=== PATIENT | male | born 1955 | race African-American/Black ===

== ENCOUNTER 2016-11-15 15:06 | Emergency (ER) | payer OTHER ==
[~2016-11-15] VITALS: Ht 162.6 cm; Wt 112.5 kg
[~2016-11-15 15:06] MED LIST: AMBIEN10 MG PO; AMIODARONE HCL100 MG ORAL; AMLODIPINE BESY10 MG ORAL; ASPIR-LOW81 MG PO; ASPIRIN EC81 MG PO; AZITHROMYCIN250 MG ORAL; CALAN80 MG ORAL; CARDIZEM CD180 MG PO; CARVEDILOL6.25 MG ORAL; CATAPRES0.1 MG ORAL; COLACE100 MG ORAL; COUMADIN5 MG ORAL; COUMADIN7.5 MG ORAL; COZAAR25 MG PO; DILTIAZEM 24HR180 MG PO; DOXAZOSIN MESYLA4 MG ORAL; DYAZIDE 37.5-21 EACH PO; FUROSEMIDE40 MG ORAL; LASIX40 MG ORAL; METOPROLOL TAR100 MG ORAL; METOPROLOL TART25 MG ORAL; METOPROLOL TART50 MG ORAL; MILK OF MA400 MG/51 ORAL; NICODERM 21MG/241 EA TDERMAL; NORCO 5-325 TA1 EACH PO; OMEPRAZOLE40 MG PO; PEPCID20 MG PO; POTASSIUM CHLO20 ME1 ORAL; POTASSIUM CHLO20 ME1 PO; PRILOSEC20 MG PO; PRILOSEC40 MG PO; PROPAFENONE HC150 MG PO; PROTONIX40 MG ORAL; TAMIFLU75 MG ORAL; VICODIN 5-5001 EACH PO; VICODIN ES1 EA ORAL; WARFARIN SODIUM4 MG ORAL; ZESTRIL20 MG PO; ZOLOFT100 MG ORAL
[2016-11-15] MEDS ORDERED: Morphine Sulfate 2mg/ml Inj IVP ONE (15:30)
--- NOTE | 2016-11-15 15:35 | Emergency Room Report ---
History of Present Illness General Chief Complaint: Gastrointestinal Illness Source: Patient Present Illness HPI The patient presents with having black tarry bowel movements that began yesterday. He was seen by his physicians who referred him to us here. He also had a slight amount of bleeding from his left nose last night. There has not been significant nose bleeding. The patient has a history of GI bleed with gastric ulcer and ulcerative colitis. He was on Coumadin for a long period of time but has been off since May. He was on Coumadin for DVTs (although records record a fib with RVR). He is not on any anticoagulation at the moment. He does complain about pain in his stomach. The pain is epigastric nonradiating 6/10 pressure and burning constant. Nothing taking any medication for this recently. He also has a psychiatric history. Not depressed at this time. No fevers, cough, chest pain, palpitations, vomiting. No swelling in his legs, dyspnea, hemoptysis. Allergies: Coded Allergies: BENZOIN (Unverified Allergy, Severe, 12/28/14) AMOXICILLIN (Verified Allergy, Intermediate, 11/18/12) ABD PAIN N/V Patient History Past Medical History: see triage record Social History: Denies: alcohol use, drug use Social History Narrative at home Reviewed Nursing Documentation: PMH: Agreed, PSxH: Agreed Nursing Documentation-PMH Past Medical History: No History, Except For Hx Cardiac Problems: Yes - HEART FAILURE; Hep C Hx Hypertension: Yes Hx Asthma: Yes - bronchitis Hx COPD: Yes Hx Cancer: No Hx Gastrointestinal Problems: Yes - CROHN'S DISEASE Hx Dialysis: No - KIDNEY FAILURE, NO HD Hx Neurological Problems: No Hx Cerebrovascular Accident: No - ARTHRITIS Review of Systems All Other Systems: negative except mentioned in HPI Physical Exam Vital Signs Date Time Temp Pulse Resp B/P Pulse Ox O2 Delivery O2 Flow Rate FiO2 11/15/16 15:16 98.1 77 20 150/80 98 Room Air Sp02 EP Interpretation: reviewed, normal General Appearance: well appearing, no apparent distress, GCS 15 Head: normocephalic Eyes: bilateral eye PERRL, bilateral eye normal inspection ENT: moist mucus membranes, other - no blood in nare or posterior pharynx Neck: supple Respiratory: lungs clear, normal breath sounds Cardiovascular #1: regular rate, rhythm Cardiovascular #2: 2+ radial (R) Gastrointestinal: normal inspection, normal bowel sounds, non tender, no mass, non-distended Rectal: heme negative stool Musculoskeletal: back normal, gait/station normal, normal range of motion Neurologic: alert, oriented x3, grossly normal Psychiatric: mood/affect normal Skin: other - multiple scars all over body Medical Decision Making Diagnostic Impression: Primary Impression: Abdominal pain Qualified Codes: R10.9 - Unspecified abdominal pain Additional Impression: Chronic kidney disease Qualified Codes: N18.9 - Chronic kidney disease, unspecified ER Course Patient presents with black stools and bleeding from his nose. Was on anticoagulation, not not currently. DDx: PUD, gastritis, diverticulosis, coagulopathy amongst others. Need emergent evaluation with labs including coags. Guaiac negative stool suggests problem not active at this time. Labs are consistent with most recent values. H/H has been stable and renal function has be at this level. No evidence of active bleeding at this time. Patient improved with treatment. Stable for outpatient observation and treatment. Laboratory Tests Test 11/15/16 15:30 White Blood Count 4.6 K/UL (4.8-10.8) L Red Blood Count 4.06 M/UL (4.70-6.10) L Hemoglobin 11.4 G/DL (14.2-18.0) L Hematocrit 35.3 % (42.0-52.0) L Mean Corpuscular Volume 87 FL (80-99) Mean Corpuscular Hemoglobin 28.1 PG (27.0-31.0) Mean Corpuscular Hemoglobin Concent 32.4 G/DL (32.0-36.0) Red Cell Distribution Width 15.6 % (11.6-14.8) H Platelet Count 175 K/UL (150-450) Mean Platelet Volume 9.5 FL (6.5-10.1) Neutrophils (%) (Auto) 56.1 % (45.0-75.0) Lymphocytes (%) (Auto) 27.5 % (20.0-45.0) Monocytes (%) (Auto) 12.8 % (1.0-10.0) H Eosinophils (%) (Auto) 1.2 % (0.0-3.0) Basophils (%) (Auto) 2.5 % (0.0-2.0) H Prothrombin Time 11.0 SEC (9.30-11.50) Prothrombin Time INR 1.1 (0.9-1.1) PTT 26 SEC (23-33) Urine Color Pale yellow Urine Appearance Clear Urine pH 5 (4.5-8.0) Urine Specific [place] 1.015 (1.005-1.035) Urine Protein Negative (NEGATIVE) Urine Glucose (UA) Negative (NEGATIVE) Urine Ketones Negative (NEGATIVE) Urine Occult Blood Negative (NEGATIVE) Urine Nitrite Negative (NEGATIVE) Urine Bilirubin Negative (NEGATIVE) Urine Urobilinogen Normal MG/DL (0.0-1.0) Urine Leukocyte Esterase 1+ (NEGATIVE) H Urine RBC 0-2 /HPF (0 - 0) H Urine WBC 0-2 /HPF (0 - 0) Urine Squamous Epithelial Cells None /LPF (NONE/OCC) Urine Bacteria Occasional /HPF (NONE) Sodium Level 140 mEQ/L (135-145) Potassium Level 3.4 mEQ/L (3.4-4.9) Chloride Level 97 mEQ/L (98-107) L Carbon Dioxide Level 29 mEQ/L (20-30) Anion Gap 14 (5-15) Blood Urea Nitrogen 27 mg/dL (7-23) H Creatinine 2.1 mg/dL (0.7-1.2) H Estimate Glomerular Filtration Rate 39.3 mL/min (>60) Glucose Level 94 mg/dL (74-106) Calcium Level 8.8 mg/dL (8.6-10.2) Total Bilirubin 0.3 mg/dL (0.0-1.2) Aspartate Amino Transferase (AST) 22 U/L (5-40) Alanine Aminotransferase (ALT) 18 U/L (3-41) Alkaline Phosphatase 134 U/L (40-129) H Troponin I < 0.30 ng/mL (<=0.30) Total Protein 7.3 g/dL (6.6-8.7) Albumin 4.0 g/dL (3.5-5.2) Globulin 3.3 g/dL Albumin/Globulin Ratio 1.2 (1.0-2.7) Lipase 33 U/L (< 60) EKG Diagnostic Results Rate: bradycardiac ST Segments: no acute changes - RBBB Rhythm Strip Diag. Results EP Interpretation: yes Rhythm: no PVC's, no ectopy, other - mimi Chest X-Ray Diagnostic Results EP Interpretation: Yes Findings: no consolidation, no effusion, no pneumothorax, no acute cardiopulmonary disease Number of Views: 1 Other X-Ray Diagnostic Results Other X-Ray Diagnostic Results : X-Ray Ordered: abdomen EP Interpretation: Yes Findings: other - increased stool, no obstruction, NSBGP Number of Views: 2 Last Vital Signs Date Time Temp Pulse Resp B/P Pulse Ox O2 Delivery O2 Flow Rate FiO2 11/15/16 17:45 98.0 56 20 134/76 98 Room Air Status: improved Disposition: HOME, SELF-CARE Condition: Improved Scripts Tramadol Hcl* (ULTRAM*) 50 Mg Tablet 50 MG ORAL Q6H Y for For Pain, #14 TAB 0 Refills Prov: Asad De La O M.D. 11/15/16 Famotidine (PEPCID) 40 Mg Tablet 40 MG PO QHS, #30 TAB 0 Refills Prov: Asad De La O M.D. 11/15/16 Referrals: [facility]ERR[facility] (PCP) Asad De La O M.D. Nov 15, 2016 15:35
[2016-11-15 16:09] LABS: BASOPHILS % (AUTO) 2.5 % (0.0-2.0); EOSINOPHILS % (AUTO) 1.2 % (0.0-3.0); LYMPHOCYTES % (AUTO) 27.5 % (20.0-45.0); MEAN CORPUSCULAR HEMOGLOBIN 28.1 PG (27.0-31.0); MEAN CORPUSCULAR HGB CONC 32.4 G/DL (32.0-36.0); MEAN CORPUSCULAR VOLUME 87 FL (80-99); MEAN PLATELET VOLUME 9.5 FL (6.5-10.1); MONOCYTES % (AUTO) 12.8 % (1.0-10.0); NEUTROPHILS % (AUTO) 56.1 % (45.0-75.0); PLATELET COUNT 175 K/UL (150-450); RED BLOOD COUNT 4.06 M/UL (4.70-6.10); RED CELL DISTRIBUTION WIDTH 15.6 % (11.6-14.8); WHITE BLOOD COUNT 4.6 K/UL (4.8-10.8)
[2016-11-15 16:12] LABS: APPEARANCE,URINE CLEAR; KETONES,URINE NEGATIVE (NEGATIVE); LEUKOCYTE ESTERASE ,URINE 1+ (NEGATIVE); NITRITE,URINE NEGATIVE (NEGATIVE); PH,URINE 5 (4.5-8.0); PROTEIN,URINE NEGATIVE (NEGATIVE); UROBILINOGEN,URINE NORMAL MG/DL (0.0-1.0)
[2016-11-15 16:20] LABS: INR 1.1 (0.9-1.1)
[2016-11-15 16:24] LABS: ALBUMIN/GLOBULIN RATIO 1.2 (1.0-2.7); CALCIUM 8.8 mg/dL (8.6-10.2); CREATININE 2.1 mg/dL (0.7-1.2); GLOMERULAR FILTRATION RATE 39.3 mL/min (>60); POTASSIUM 3.4 mEQ/L (3.4-4.9); TOTAL PROTEIN 7.3 g/dL (6.6-8.7); TROPONIN I < 0.30 ng/mL (<=0.30)
[2016-11-15 16:29] LABS: RBC,URINE 0-2 /HPF (0 - 0)
[2016-11-15 16:30] LABS: BACTERIA,URINE OCCASIONAL /HPF; WBC,URINE 0-2 /HPF (0 - 0)
--- NOTE | 2016-11-15 16:48 | Diagnostic Imaging Report ---
Indication: Chest Pain Comparison: 09/28/15 A single view chest radiograph was obtained. Findings: No definite infiltrate or pulmonary vascular congestion identified. The heart is enlarged. The aorta is mildly enlarged consistent with atherosclerotic vascular disease. The bones are osteopenic. Impression: No acute disease
--- NOTE | 2016-11-15 16:49 | Diagnostic Imaging Report ---
Indication: Abdominal pain Comparison: None Single view of the abdomen obtained Findings: Bowel gas pattern is nonspecific. There is moderate stool present. No mass, ectopic calcifications, or abnormal gas collections are identified. The bones are unremarkable. Impression: Moderate stool retention. Negative exam otherwise
[2016-11-15 17:29] VITALS: BP 134/76
[2016-11-15] MEDS ORDERED: PEPCID40 MG PO (17:41)
[2016-11-15] MEDS ORDERED: TRAMADOL HCL50 MG ORAL (17:41)
[2016-11-15 17:45] VITALS: BP 134/76
--- NOTE | 2016-11-18 11:46 | Cardiology Report ---
APPROVED REPORT EKG Measurement Heart [id number] NM [id number] Sinus bradycardia Left axis deviation Right bundle branch block Left ventricular hypertrophy with repolarization abnormality Abnormal ECG
== END 2016-11-15 18:03 | disposition home or self-care (01) ==
LOC: EMR 15:25
DX: R10.13 Epigastric pain (principal); Z87.11 Personal history of peptic ulcer disease; Z87.19 Personal history of other diseases of the digestive system; Z88.0 Allergy status to penicillin; Z88.8 Allergy status to other drugs, medicaments and biological substances; I10 Essential (primary) hypertension; J45.909 Unspecified asthma, uncomplicated; J44.9 Chronic obstructive pulmonary disease, unspecified
CPT/HCPCS: 36415; 71010; 74000; 80053; 81003; 83690; 84484; 85025; 85610; 85730; 86850; 86900; 86901; 93005; 96361; 96374; 96375; 99284; J2270; J2405

== ENCOUNTER 2017-05-15 20:27 | Emergency (ER) | payer OTHER ==
[~2017-05-15] VITALS: Ht 165.1 cm; Wt 115.7 kg
[~2017-05-15 20:27] MED LIST changes: +PEPCID40 MG PO; +TRAMADOL HCL50 MG ORAL
[2017-05-15 21:01] VITALS: BP 115/62
--- NOTE | 2017-05-15 21:22 | Emergency Room Report ---
History of Present Illness General Chief Complaint: Edema Source: Patient (JOSE BRADYCaitie Guzman.Melvin) Source: Patient (JOSE ALBARRAN M.D.) Present Illness HPI This patient states that he notes swelling on his left lower extremity. He states that he is noted this for the past 3 days. He denies injury. He denies fever, chills or sweating. He denies cough or congestion. He has no other complaints. (PIRNCEAndreCHHAYA Guzman.Melvin) Allergies: Coded Allergies: BENZOIN (Unverified Allergy, Severe, 12/28/14) AMOXICILLIN (Verified Allergy, Intermediate, 11/18/12) ABD PAIN N/V Patient History Past Medical History: see triage record, HTN, [place], CAD, CHF, asthma, renal disease, other - HCV Social History: Denies: alcohol use, drug use, smoking Reviewed Nursing Documentation: PMH: Agreed, PSxH: Agreed (JOSE BRADYCaitie Guzman.Melvin ) Nursing Documentation-PMH Past Medical History: No History, Except For Hx Cardiac Problems: Yes - HEART FAILURE; Hep C Hx Hypertension: Yes Hx Asthma: Yes - Bronchitis Hx COPD: Yes Hx Cancer: No Hx Gastrointestinal Problems: Yes - CROHN'S DISEASE Hx Dialysis: No - KIDNEY FAILURE, NO HD Hx Neurological Problems: No Hx Cerebrovascular Accident: No - ARTHRITIS (CHHAYA BRADY.Melvin) Review of Systems All Other Systems: negative except mentioned in HPI (JOSE ANTONIOCHHAYA Guzman.Melvin) Physical Exam Vital Signs Date Time Temp Pulse Resp B/P Pulse Ox O2 Delivery O2 Flow Rate FiO2 05/15/17 20:30 98.2 68 16 147/76 100 Room Air Sp02 EP Interpretation: reviewed, normal General Appearance: no apparent distress, alert, GCS 15, non-toxic Head: normocephalic, atraumatic Eyes: bilateral eye PERRL, bilateral eye normal inspection ENT: hearing grossly normal, normal pharynx, no angioedema, normal voice Neck: full range of motion, supple/symm/no masses Respiratory: chest non-tender, lungs clear, normal breath sounds, speaking full sentences Cardiovascular #1: regular rate, rhythm, other - BLE Edema L>R Gastrointestinal: normal bowel sounds, non tender, soft, non-distended, no guarding, no rebound Rectal: deferred Musculoskeletal: back normal, gait/station normal, normal range of motion, swelling - BLE Edema L>R. L. calf TTP Neurologic: alert, oriented x3, responsive, motor strength/tone normal, sensory intact, speech normal Psychiatric: judgement/insight normal, memory normal, mood/affect normal, no suicidal/homicidal ideation Skin: normal color, no rash, warm/dry, well hydrated (CHHAYA BRADY D.O.) Medical Decision Making Diagnostic Impression: Primary Impression: Edema Qualified Codes: R60.9 - Edema, unspecified ER Course This patient has bilateral lower extremity edema. The left is greater in the right and has pain on the left lower extremity. Therefore, should obtain an ultrasound of the left lower extremity to assess for DVT. This could also be right-sided heart failure. The patient is pending basic labs, chest x-ray and a venous Doppler ultrasound of the left lower extremity. The patient is turned over to Dr. Albarran. (CHHAYA BRADY D.O.) ER Course Patient signed out to me. He presents with chief complaint of peripheral edema left greater than right. Labs are at baseline with renal insufficiency. Oxygenation is normal. He has no respiratory complaint. Clinically no evidence of CHF. DVT study is negative. We'll discharge home. Ultrasound of left lower extremity: Read by radiologist. Negative for DVT. Impression: Peripheral edema Plan: Discharge home. (JOSE ALBARRAN M.D.) CT/MRI/US Diagnostic Results CT/MRI/US Diagnostic Results : Imaging Test Ordered: Ultrasound left leg Impression negative per radiologist (JOSE ALBARRAN M.D.) Last Vital Signs Date Time Temp Pulse Resp B/P Pulse Ox O2 Delivery O2 Flow Rate FiO2 05/15/17 21:16 63 23 Room Air 05/15/17 21:01 98.2 115/62 98 (CHHAYA BRADY D.O.) Status: improved (JOSE ALBARRAN M.D.) Disposition: HOME, SELF-CARE Condition: Stable Scripts Furosemide* (LASIX*) 20 Mg Tablet 20 MG ORAL DAILY, #7 TAB Prov: JOSE ALBARRAN M.D. 05/15/17 Patient Instructions: Peripheral Edema Additional Instructions: Followup with your DrGhislaine in 7 days. Return if worse. CHHAYA BRADY D.O. May 15, 2017 21:22 JOSE ALBARRAN M.D. May 15, 2017 22:36
[2017-05-15 21:33] LABS: BASOPHILS % (AUTO) 1.9 % (0.0-2.0); EOSINOPHILS % (AUTO) 1.7 % (0.0-3.0); LYMPHOCYTES % (AUTO) 27.2 % (20.0-45.0); MEAN CORPUSCULAR HEMOGLOBIN 31.6 PG (27.0-31.0); MEAN CORPUSCULAR HGB CONC 33.3 G/DL (32.0-36.0); MEAN CORPUSCULAR VOLUME 95 FL (80-99); MEAN PLATELET VOLUME 8.6 FL (6.5-10.1); MONOCYTES % (AUTO) 15.6 % (1.0-10.0); NEUTROPHILS % (AUTO) 53.6 % (45.0-75.0); PLATELET COUNT 159 K/UL (150-450); RED BLOOD COUNT 3.89 M/UL (4.70-6.10); RED CELL DISTRIBUTION WIDTH 14.2 % (11.6-14.8); WHITE BLOOD COUNT 4.7 K/UL (4.8-10.8)
[2017-05-15 21:47] LABS: TROPONIN I < 0.30 ng/mL (<=0.30)
[2017-05-15 21:50] LABS: ALBUMIN/GLOBULIN RATIO 1.1 (1.0-2.7); CALCIUM 9.1 mg/dL (8.6-10.2); GLOMERULAR FILTRATION RATE 41.6 mL/min (>60); POTASSIUM 3.1 mEQ/L (3.4-4.9); TOTAL PROTEIN 6.8 g/dL (6.6-8.7)
[2017-05-15] MEDS ORDERED: FUROSEMIDE20 M1 ORAL (22:36)
[2017-05-15 22:51] VITALS: BP 134/79
== END 2017-05-15 22:52 | disposition home or self-care (01) ==
LOC: EMR 21:20
DX: R60.0 Localized edema (principal); I10 Essential (primary) hypertension; J44.9 Chronic obstructive pulmonary disease, unspecified
CPT/HCPCS: 36415; 80053; 83880; 84484; 85025; 93970; 96374; 99284; J1940

== ENCOUNTER 2020-03-28 10:56 | Inpatient (IN) | payer OTHER ==
[~2020-03-28] VITALS: Ht 162.6 cm; Wt 87.5 kg
[~2020-03-28 10:56] MED LIST changes: +FUROSEMIDE20 M1 ORAL; +ONDANSETRON ODT4 MG BC; +RANITIDINE HCL150 MG ORAL
[2020-03-28] MEDS ORDERED: CALCIUM ACETAT667 M1 PO (11:28)
[2020-03-28] MEDS ORDERED: ELIQUIS5 MG PO (11:28)
[2020-03-28] MEDS ORDERED: PROAIR HFA8.5 GM INH (11:28)
[2020-03-28] MEDS ORDERED: FLUTICASONE PRO16 G1 NASAL (11:28)
[2020-03-28] MEDS ORDERED: ACETAMINOPHEN500 M3 ORAL (11:28)
[2020-03-28] MEDS ORDERED: ANORO ELLIPTA1 EACH (11:28)
[2020-03-28] MEDS ORDERED: AMIODARONE HCL400 M1 ORAL (11:28)
[2020-03-28 11:34] VITALS: BP 153/78
[2020-03-28 11:34] LABS: HEMATOCRIT 28.6 % (42.0-52.0); HEMOGLOBIN 9.6 G/DL (14.2-18.0); MEAN CORPUSCULAR VOLUME 90 FL (80-99); PLATELET COUNT 174 K/UL (150-450); RED BLOOD COUNT 3.16 M/UL (4.70-6.10); RED CELL DISTRIBUTION WIDTH 12.3 % (11.6-14.8); WHITE BLOOD COUNT 6.1 K/UL (4.8-10.8)
[2020-03-28 11:39] LABS: ANION GAP 19 mmol/L (5-15); BLOOD UREA NITROGEN 86 mg/dL (7-18); CALCIUM 8.3 MG/DL (8.5-10.1); CARBON DIOXIDE 19 MMOL/L (21-32); CHLORIDE 104 MMOL/L (98-107); CREATININE 17.4 MG/DL (0.55-1.30); POTASSIUM 5.1 MMOL/L (3.5-5.1); SODIUM 141 MMOL/L (136-145)
--- NOTE | 2020-03-28 11:41 | Emergency Room Report ---
History of Present Illness General Chief Complaint: Chest Pain Source: Patient Present Illness HPI Disclaimer: Please note that this report is being documented using [employer] technology. This can lead to erroneous entry secondary to incorrect interpretation by the dictating instrument. HPI: 69-year-old male with history of ESRD on hemodialysis MWF, CHF, atrial fibrillation currently on Eliquis presents for evaluation of chest pain shortness of breath. Patient states he has missed dialysis for the past week due to transportation issues. Over the past 3 days he notes bilateral chest pressure, intermittent shortness of breath, difficulty laying flat and profound weakness. States he is no longer able to get around. He denies fever, chills. He has a baseline cough but denies any change in quality of this cough. He is also complaining of some pain over the dialysis catheter in the right side of his chest though this is a chronic issue and there is no new injury, denies bleeding, swelling or purulent drainage. PMH: ESRD, CHF, atrial fibrillation, bronchitis, Crohn's disease PSH: Dialysis catheter formation Allergies: Amoxicillin Social Hx: Reviewed Allergies: Coded Allergies: BENZOIN (Unverified Allergy, Severe, 12/28/14) AMOXICILLIN (Verified Allergy, Intermediate, 11/18/12) ABD PAIN N/V COVID-19 Screening Contact w/high risk pt: No Recent Travel to affected area: No Experienced COVID-19 symptoms?: No COVID-19 Testing performed SPECIAL OFFICER: No Nursing Documentation-PMH Past Medical History: No History, Except For Hx Cardiac Problems: Yes - HEART FAILURE; Hep C Hx Hypertension: Yes Hx Asthma: Yes - Bronchitis Hx COPD: Yes Hx Cancer: No Hx Gastrointestinal Problems: Yes - CROHN'S DISEASE Hx Dialysis: No - KIDNEY FAILURE, dialysis mwf Hx Neurological Problems: No Hx Cerebrovascular Accident: No - ARTHRITIS Review of Systems All Other Systems: negative except mentioned in HPI Physical Exam Vital Signs Date Time Temp Pulse Resp B/P (MAP) Pulse Ox O2 Delivery O2 Flow Rate FiO2 03/28/20 11:09 98.8 62 14 153/78 (103) 98 Room Air General: Awake and alert, no acute distress, hypertensive HEENT: NC/AT. EOMI. Neck: Supple, trachea midline Chest Wall: No tenderness, no deformity. Dialysis catheter in the right upper chest without surrounding edema, erythema, no drainage, no bleeding. Cardiovascular: RRR. S1 and S2 normal. No murmur appreciated Resp: Normal work of breathing. Mild cough. Few crackles at the bases Abdomen: Abdomen is soft, nondistended. Nontender Skin: Intact. No abrasions, laceration or rash over the exposed skin MSK: Normal tone and bulk. Moving all extremities. No obvious deformity. Neuro: Awake and alert. Mentating appropriately. Medical Decision Making Diagnostic Impression: Primary Impression: ESRD on dialysis Additional Impressions: Congestive heart failure Missed dialysis ER Course 64-year-old male history of ESRD on hemodialysis MWF presents for evaluation of chest pain shortness of breath and fatigue after missing dialysis for 1 week. Differential includes but is not limited to fluid overload, ACS, arrhythmia, bronchitis, asthma, COPD, electrolyte abnormality to name a few. Labs show an elevated BN peptide and signs of mild vascular congestion on chest x-ray. The patient states he continues to experience the chest pressure and shortness of breath while lying flat. Likely fluid overload from missed dialysis. He makes a small amount of urine and gave IV Lasix but the patient has had no urine output yet. Labs otherwise within normal limits. EKG shows a left bundle pattern and slightly widened QRS though not grossly changed from previous EKG. patient be admitted for fluid overload and ESRD to Dr. Russ who is the panel physician today. Laboratory Tests Test 03/28/20 11:20 03/28/20 11:25 03/28/20 12:25 White Blood Count 6.1 K/UL (4.8-10.8) Red Blood Count 3.16 M/UL (4.70-6.10) L Hemoglobin 9.6 G/DL (14.2-18.0) L Hematocrit 28.6 % (42.0-52.0) L Mean Corpuscular Volume 90 FL (80-99) Mean Corpuscular Hemoglobin 30.3 PG (27.0-31.0) Mean Corpuscular Hemoglobin Concent 33.5 G/DL (32.0-36.0) Red Cell Distribution Width 12.3 % (11.6-14.8) Platelet Count 174 K/UL (150-450) Mean Platelet Volume 5.5 FL (6.5-10.1) L Neutrophils (%) (Auto) % (45.0-75.0) Lymphocytes (%) (Auto) % (20.0-45.0) Monocytes (%) (Auto) % (1.0-10.0) Eosinophils (%) (Auto) % (0.0-3.0) Basophils (%) (Auto) % (0.0-2.0) Differential Total Cells Counted 100 Neutrophils % (Manual) 60 % (45-75) Lymphocytes % (Manual) 33 % (20-45) Monocytes % (Manual) 7 % (1-10) Eosinophils % (Manual) 0 % (0-3) Basophils % (Manual) 0 % (0-2) Band Neutrophils 0 % (0-8) Platelet Estimate Adequate Platelet Morphology Normal Hypochromasia 1+ Sodium Level 141 MMOL/L (136-145) Potassium Level 5.1 MMOL/L (3.5-5.1) Chloride Level 104 MMOL/L (98-107) Carbon Dioxide Level 19 MMOL/L (21-32) L Anion Gap 19 mmol/L (5-15) H Blood Urea Nitrogen 86 mg/dL (7-18) H Creatinine 17.4 MG/DL (0.55-1.30) H Estimated Glomerular Filtration Rate 3.4 mL/min (>60) Glucose Level 90 MG/DL (74-106) Calcium Level 8.3 MG/DL (8.5-10.1) L Total Bilirubin 0.4 MG/DL (0.2-1.0) Aspartate Amino Transferase (AST) 15 U/L (15-37) Alanine Aminotransferase (ALT) 20 U/L (12-78) Alkaline Phosphatase 61 U/L (46-116) Troponin I 0.033 ng/mL (0.000-0.056) Pro-B-Type Natriuretic Peptide 9344 pg/mL (0-125) H Total Protein 7.0 G/DL (6.4-8.2) Albumin 3.6 G/DL (3.4-5.0) Globulin 3.4 g/dL Albumin/Globulin Ratio 1.1 (1.0-2.7) Prothrombin Time 12.0 SEC (9.30-11.50) H Prothrombin Time INR 1.1 (0.9-1.1) Activated Partial Thromboplast Time 30 SEC (23-33) Urine Color Pending Urine Appearance Pending Urine pH Pending Urine Specific [place] Pending Urine Protein Pending Urine Glucose (UA) Pending Urine Ketones Pending Urine Blood Pending Urine Nitrite Pending Urine Bilirubin Pending Urine Urobilinogen Pending Urine Leukocyte Esterase Pending Urine RBC Pending Urine WBC Pending Urine Squamous Epithelial Cells Pending Urine Bacteria Pending EKG Diagnostic Results EKG Time: 11:00 Rate: normal Rhythm: NSR Other Impression Sinus rhythm, wide QRS and right bundle branch block pattern. Possible left bundle as well. No ST segment changes. Nonspecific T wave changes, no hyperacute T waves. Rhythm Strip Diag. Results Rhythm Strip Time: 11:00 EP Interpretation: yes Rate: 60 Rhythm: NSR, no PVC's, no ectopy Chest X-Ray Diagnostic Results Chest X-Ray Diagnostic Results : Chest X-Ray Ordered: Yes Indication: Chest Pain EP Interpretation: Yes Interpretation: other - Dialysis catheter right upper chest. Bilateral pulmonary congestion. No obvious effusion. No pneumothorax Impression: Other - Bilateral pulmonary congestion. Electronically Signed by: Electronically signed by Dr. Williams Fernandes Last Vital Signs Date Time Temp Pulse Resp B/P (MAP) Pulse Ox O2 Delivery O2 Flow Rate FiO2 03/28/20 11:34 98.8 69 14 153/78 98 Room Air Disposition: ADMITTED INPATIENT Condition: Serious Referrals: NON PHYSICIAN (PCP) Williams Fernandes MD Mar 28, 2020 11:41
[2020-03-28 11:50] LABS: ALANINE AMINOTRANSFERASE 20 U/L (12-78); ALBUMIN 3.6 G/DL (3.4-5.0); ALBUMIN/GLOBULIN RATIO 1.1 (1.0-2.7); ALKALINE PHOSPHATASE 61 U/L (46-116); ASPARTATE AMINO TRANSFERASE 15 U/L (15-37); BILIRUBIN,TOTAL 0.4 MG/DL (0.2-1.0)
[2020-03-28 12:20] LABS: INR 1.1 (0.9-1.1)
[2020-03-28 12:59] LABS: APPEARANCE,URINE CLEAR; BILIRUBIN, URINE NEGATIVE (NEGATIVE); COLOR,URINE PALE YELLOW; GLUCOSE, URINE (UA) NEGATIVE (NEGATIVE); KETONES,URINE NEGATIVE (NEGATIVE); LEUKOCYTE ESTERASE ,URINE 1+ (NEGATIVE); NITRITE,URINE NEGATIVE (NEGATIVE); PH,URINE 5 (4.5-8.0); PROTEIN,URINE 3+ (NEGATIVE); UROBILINOGEN,URINE NORMAL MG/DL (0.0-1.0)
[2020-03-28 13:42] VITALS: BP 143/85
--- NOTE | 2020-03-28 14:55 | Diagnostic Imaging Report ---
Indication: Chest pain Technique: One view of the chest Comparison: 11/15/2016 Findings: Right jugular tunneled dialysis catheter is now present. There is generalized mild interstitial congestion which appears slightly more extensive than on the prior study. The heart is enlarged. Impression: Cardiomegaly. Mild interstitial congestion
[2020-03-28] MEDS ORDERED: Albuterol ud Inhalation HHN PRN (15:00)
[2020-03-28] MEDS ORDERED: Acetaminophen 500mg (ES) tab ORAL SCH (15:00)
[2020-03-28] MEDS ORDERED: Albuterol 90mcg Inhaler 8gm INH SCH (15:00)
[2020-03-28] MEDS ORDERED: traMADol 50mg tab ORAL PRN (15:00)
[2020-03-28] MEDS ORDERED: Acetaminophen 500mg (ES) tab ORAL PRN (15:14)
[2020-03-28] MEDS ORDERED: Albuterol/Ipratropium 3ml neb HHN PRN (15:16)
--- NOTE | 2020-03-28 16:00 | Consultation ---
Consult Note Consult Note I am asked to evaluate the patient at the request of Dr. Russ for dialysis management. Patient in room 203, very poor historian, not focused. It appears that the patient has been on dialysis for a year and 1/2 to 2 years. He is being dialyzed Saturday. She gets dialysis through the right chest permacath. But has not been received dialysis for the past 10 days. Patient smoker. States that he was in coma when he was started on dialysis. Again he is very poor historian and scattered in giving past history. Emergency room note:: Chief Complaint: Chest Pain HPI: 69-year-old male with history of ESRD on hemodialysis MWF, CHF, atrial fibrillation currently on Eliquis presents for evaluation of chest pain shortness of breath. Patient states he has missed dialysis for the past week due to transportation issues. Over the past 3 days he notes bilateral chest pressure, intermittent shortness of breath, difficulty laying flat and profound weakness. States he is no longer able to get around. He denies fever, chills. He has a baseline cough but denies any change in quality of this cough. He is also complaining of some pain over the dialysis catheter in the right side of his chest though this is a chronic issue and there is no new injury, denies bleeding, swelling or purulent drainage. PMH: ESRD, CHF, atrial fibrillation, bronchitis, Crohn's disease PSH: Dialysis catheter formation Allergies: Amoxicillin BENZOIN (Unverified Allergy, Severe, 12/28/14) AMOXICILLIN (Verified Allergy, Intermediate, 11/18/12) COVID-19 Screening Contact w/high risk pt: No Recent Travel to affected area: No Experienced COVID-19 symptoms?: No COVID-19 Testing performed ISOTOPE TECHNICIAN: No Past Medical History: No History, Except For Hx Cardiac Problems: Yes - HEART FAILURE; Hep C Hx Hypertension: Yes Hx Asthma: Yes - Bronchitis Hx COPD: Yes Hx Gastrointestinal Problems: Yes - CROHN'S DISEASE Hx Dialysis: No - KIDNEY FAILURE, dialysis mwf Hx Cerebrovascular Accident: No - ARTHRITIS Patient examined Data reviewed Chest x-ray: Impression: Cardiomegaly. Mild interstitial congestion . Assessment/Plan End-stage renal disease. On hemodialysis. Has not received dialysis for a few sessions. Volume overload. Anemia of chronic kidney disease. History of atrial fibrillation and congestive heart failure. Plan: Hemodialysis and ultrafiltration today Adjust the blood pressure medication 2D echocardiogram Monitor renal parameters Per orders I spent an additional 36 minutes on review of medical records including prior hospital records,consult notes, progress notes, procedures ,imaging labs, hemodynamics, and other clinical documentation. Over 35 min Darwin Jung MD Mar 28, 2020 16:00
[2020-03-28 16:12] VITALS: BP 118/61
[2020-03-28] MEDS ORDERED: HydrALAZINE 25mg tab ORAL PRN (16:30)
[2020-03-28] MEDS ORDERED: Warfarin Sodium 7.5mg ORAL SCH (17:00)
[2020-03-28] MEDS: Docusate 100mg cap ORAL SCH (17:45)
[2020-03-28] MEDS: Eliquis 5mg tablet ORAL SCH (17:46)
[2020-03-28] MEDS ORDERED: Furosemide 40mg tab ORAL SCH (18:00)
[2020-03-28 20:00] VITALS: BP 147/85
[2020-03-29] VITALS: BP 132/78
[2020-03-29 04:00] VITALS: BP 145/83
[2020-03-29 04:48] LABS: BASOPHILS % (AUTO) 1.7 % (0.0-2.0); EOSINOPHILS % (AUTO) 2.3 % (0.0-3.0); HEMOGLOBIN 9.5 G/DL (14.2-18.0); LYMPHOCYTES % (AUTO) 41.7 % (20.0-45.0); MEAN CORPUSCULAR VOLUME 91 FL (80-99); NEUTROPHILS % (AUTO) 42.4 % (45.0-75.0); PLATELET COUNT 153 K/UL (150-450); RED BLOOD COUNT 3.08 M/UL (4.70-6.10); RED CELL DISTRIBUTION WIDTH 11.8 % (11.6-14.8); WHITE BLOOD COUNT 5.2 K/UL (4.8-10.8)
[2020-03-29 05:45] LABS: CHOLESTEROL 123 MG/DL (< 200); FERRITIN 792 NG/ML (8-388); GAMMA GLUTAMYL TRANSPEPTIDASE 14 U/L (5-85); HDL CHOLESTEROL 37 MG/DL (40-60); PHOSPHORUS 8.1 MG/DL (2.5-4.9); TRIGLYCERIDES 112 MG/DL (30-150)
[2020-03-29 06:05] LABS: % IRON SATURATION 43 % (15-50); IRON 136 ug/dL (50-175); TOTAL IRON BINDING CAPACITY 315 ug/dL (250-450)
[2020-03-29 08:00] VITALS: BP 148/71
[2020-03-29 08:09] LABS: ANION GAP 19 mmol/L (5-15); BLOOD UREA NITROGEN 86 mg/dL (7-18); CARBON DIOXIDE 16 MMOL/L (21-32); CHLORIDE 103 MMOL/L (98-107); CREATININE 17.5 MG/DL (0.55-1.30); POTASSIUM 5.5 MMOL/L (3.5-5.1); SODIUM 138 MMOL/L (136-145)
[2020-03-29 08:16] LABS: ALANINE AMINOTRANSFERASE 18 U/L (12-78); ALBUMIN 3.2 G/DL (3.4-5.0); ALKALINE PHOSPHATASE 56 U/L (46-116); ASPARTATE AMINO TRANSFERASE 18 U/L (15-37); BILIRUBIN,TOTAL 0.3 MG/DL (0.2-1.0)
--- NOTE | 2020-03-29 08:53 | Cardiology Progress Note ---
Assessment/Plan Assessment/Plan The patient is seen and examined, full consult note is dictated. Objective Last 24 Hour Vital Signs Date Time Temp Pulse Resp B/P (MAP) Pulse Ox O2 Delivery O2 Flow Rate FiO2 03/29/20 08:00 97.5 53 20 148/71 (96) 98 03/29/20 04:00 47 03/29/20 04:00 96.8 103 18 145/83 (103) 96 03/29/20 00:00 54 03/29/20 00:00 98.9 100 19 132/78 (96) 99 03/28/20 22:18 102 147/85 03/28/20 21:00 Nasal Cannula 2.0 03/28/20 20:00 97.9 102 19 147/85 (105) 100 03/28/20 20:00 60 03/28/20 16:12 97.7 52 20 118/61 (80) 100 03/28/20 15:23 Nasal Cannula 2.0 03/28/20 15:11 58 03/28/20 14:52 Nasal Cannula 2.0 03/28/20 14:20 98.8 61 18 143/85 98 Room Air 03/28/20 13:42 98.8 61 18 143/85 98 Room Air 03/28/20 11:34 98.8 69 14 153/78 98 Room Air 03/28/20 11:31 62 14 Room Air 03/28/20 11:09 98.8 62 14 153/78 (103) 98 Room Air Intake and Output 03/28/20 03/29/20 19:00 07:00 Intake Total 120 ml 320 ml Output Total 300 ml Balance 120 ml 20 ml Intake Oral 120 ml 320 ml Output Urine Total 300 ml Laboratory Tests Test 03/28/20 11:20 03/28/20 11:25 03/28/20 12:25 03/29/20 04:00 White Blood Count 6.1 K/UL (4.8-10.8) 5.2 K/UL (4.8-10.8) Red Blood Count 3.16 M/UL (4.70-6.10) L 3.08 M/UL (4.70-6.10) L Hemoglobin 9.6 G/DL (14.2-18.0) L 9.5 G/DL (14.2-18.0) L Hematocrit 28.6 % (42.0-52.0) L 28.0 % (42.0-52.0) L Mean Corpuscular Volume 90 FL (80-99) 91 FL (80-99) Mean Corpuscular Hemoglobin 30.3 PG (27.0-31.0) 30.9 PG (27.0-31.0) Mean Corpuscular Hemoglobin Concent 33.5 G/DL (32.0-36.0) 34.0 G/DL (32.0-36.0) Red Cell Distribution Width 12.3 % (11.6-14.8) 11.8 % (11.6-14.8) Platelet Count 174 K/UL (150-450) 153 K/UL (150-450) Mean Platelet Volume 5.5 FL (6.5-10.1) L 6.2 FL (6.5-10.1) L Neutrophils (%) (Auto) % (45.0-75.0) 42.4 % (45.0-75.0) L Lymphocytes (%) (Auto) % (20.0-45.0) 41.7 % (20.0-45.0) Monocytes (%) (Auto) % (1.0-10.0) 12.0 % (1.0-10.0) H Eosinophils (%) (Auto) % (0.0-3.0) 2.3 % (0.0-3.0) Basophils (%) (Auto) % (0.0-2.0) 1.7 % (0.0-2.0) Differential Total Cells Counted 100 Neutrophils % (Manual) 60 % (45-75) Lymphocytes % (Manual) 33 % (20-45) Monocytes % (Manual) 7 % (1-10) Eosinophils % (Manual) 0 % (0-3) Basophils % (Manual) 0 % (0-2) Band Neutrophils 0 % (0-8) Platelet Estimate Adequate Platelet Morphology Normal Hypochromasia 1+ Sodium Level 141 MMOL/L (136-145) Potassium Level 5.1 MMOL/L (3.5-5.1) Chloride Level 104 MMOL/L (98-107) Carbon Dioxide Level 19 MMOL/L (21-32) L Anion Gap 19 mmol/L (5-15) H Blood Urea Nitrogen 86 mg/dL (7-18) H Creatinine 17.4 MG/DL (0.55-1.30) H Estimat Glomerular Filtration Rate 3.4 mL/min (>60) Glucose Level 90 MG/DL (74-106) Calcium Level 8.3 MG/DL (8.5-10.1) L Total Bilirubin 0.4 MG/DL (0.2-1.0) Aspartate Amino Transf (AST/SGOT) 15 U/L (15-37) Alanine Aminotransferase (ALT/SGPT) 20 U/L (12-78) Alkaline Phosphatase 61 U/L (46-116) Troponin I 0.033 ng/mL (0.000-0.056) 0.027 ng/mL (0.000-0.056) Pro-B-Type Natriuretic Peptide 9344 pg/mL (0-125) H 9254 pg/mL (0-125) H Total Protein 7.0 G/DL (6.4-8.2) Albumin 3.6 G/DL (3.4-5.0) Globulin 3.4 g/dL Albumin/Globulin Ratio 1.1 (1.0-2.7) Hepatitis B Surface Antigen Neg (NEGATIVE) Prothrombin Time 12.0 SEC (9.30-11.50) H Prothromb Time International Ratio 1.1 (0.9-1.1) Activated Partial Thromboplast Time 30 SEC (23-33) Urine Color Pale yellow Urine Appearance Clear Urine pH 5 (4.5-8.0) Urine Specific [place] 1.015 (1.005-1.035) Urine Protein 3+ (NEGATIVE) H Urine Glucose (UA) Negative (NEGATIVE) Urine Ketones Negative (NEGATIVE) Urine Blood 2+ (NEGATIVE) H Urine Nitrite Negative (NEGATIVE) Urine Bilirubin Negative (NEGATIVE) Urine Urobilinogen Normal MG/DL (0.0-1.0) Urine Leukocyte Esterase 1+ (NEGATIVE) H Urine RBC 0-2 /HPF (0 - 0) H Urine WBC 2-4 /HPF (0 - 0) Urine Squamous Epithelial Cells Occasional /LPF Urine Bacteria Occasional /HPF (NONE) Uric Acid 7.4 MG/DL (2.6-7.2) H Calcium (Send out) Pending Phosphorus Level 8.1 MG/DL (2.5-4.9) H Magnesium Level 2.2 MG/DL (1.8-2.4) Iron Level 136 ug/dL (50-175) Total Iron Binding Capacity 315 ug/dL (250-450) Percent Iron Saturation 43 % (15-50) Unsaturated Iron Binding 179 ug/dL (112-346) Ferritin 792 NG/ML (8-388) H Gamma Glutamyl Transpeptidase 14 U/L (5-85) C-Reactive Protein, Quantitative < 0.4 mg/dL (0.00-0.90) Triglycerides Level 112 MG/DL (30-150) Cholesterol Level 123 MG/DL (< 200) LDL Cholesterol 58 mg/dL (<100) HDL Cholesterol 37 MG/DL (40-60) L Cholesterol/HDL Ratio 3.3 (3.3-4.4) Vitamin B12 Level 415 PG/ML (193-986) Folate 13.5 NG/ML (8.6-58.9) Thyroid Stimulating Hormone (TSH) 1.343 uiU/mL (0.358-3.740) Parathyroid Hormone (Intact) Pending Test 03/29/20 07:00 Sodium Level 138 MMOL/L (136-145) Potassium Level 5.5 MMOL/L (3.5-5.1) H Chloride Level 103 MMOL/L (98-107) Carbon Dioxide Level 16 MMOL/L (21-32) L Anion Gap 19 mmol/L (5-15) H Blood Urea Nitrogen 86 mg/dL (7-18) H Creatinine 17.5 MG/DL (0.55-1.30) H Estimat Glomerular Filtration Rate 3.4 mL/min (>60) Glucose Level 76 MG/DL (74-106) Calcium Level 8.0 MG/DL (8.5-10.1) L Total Bilirubin 0.3 MG/DL (0.2-1.0) Aspartate Amino Transf (AST/SGOT) 18 U/L (15-37) Alanine Aminotransferase (ALT/SGPT) 18 U/L (12-78) Alkaline Phosphatase 56 U/L (46-116) Total Protein 6.5 G/DL (6.4-8.2) Albumin 3.2 G/DL (3.4-5.0) L Globulin 3.3 g/dL Albumin/Globulin Ratio 1.0 (1.0-2.7) Yuval Pugh MD Mar 29, 2020 08:53
[2020-03-29] MEDS: Flonase Nasal Inhaler 16gm NASAL SCH (09:00)
[2020-03-29] MEDS: Eliquis 5mg tablet ORAL SCH ×2 (09:00→17:02)
[2020-03-29] MEDS: Amiodarone 200mg tab ORAL SCH (09:00)
[2020-03-29] MEDS: HydrALAZINE 25mg tab ORAL SCH ×2 (09:00→17:03)
[2020-03-29] MEDS ORDERED: Warfarin Sodium 4mg ORAL SCH (09:00)
[2020-03-29] MEDS ORDERED: Doxazosin 4mg tab ORAL SCH (09:00)
[2020-03-29] MEDS ORDERED: Eliquis 5mg tablet ORAL SCH (09:00)
[2020-03-29] MEDS: Sertraline 100mg tab ORAL SCH (09:12)
[2020-03-29] MEDS: Docusate 100mg cap ORAL SCH ×3 (09:12→17:03)
[2020-03-29 11:50] VITALS: BP 137/70
--- NOTE | 2020-03-29 14:12 | Nephrology Progress Note ---
Assessment/Plan Problem List: (1) ESRD on dialysis (2) Missed dialysis Assessment: Volume overload (3) Atrial fibrillation with RVR Assessment End-stage renal disease. On hemodialysis. Has not received dialysis for a few sessions. Volume overload. Anemia of chronic kidney disease. History of atrial fibrillation and congestive heart failure. Plan Plan: Hemodialysis and ultrafiltration to be done today as it was not done yesterday due to vendors logistical reasons Adjust the blood pressure medication 2D echocardiogram, results noted, ejection fraction 60% Monitor renal parameters Per orders Subjective ROS Limited/Unobtainable: No Constitutional: Reports: malaise Objective Objective Last 24 Hour Vital Signs Date Time Temp Pulse Resp B/P (MAP) Pulse Ox O2 Delivery O2 Flow Rate FiO2 03/29/20 11:50 97.7 61 18 137/70 (92) 98 03/29/20 11:47 43 03/29/20 09:00 Nasal Cannula 2.0 03/29/20 09:00 148/71 03/29/20 09:00 53 148/71 03/29/20 08:00 97.5 53 20 148/71 (96) 98 03/29/20 07:50 53 03/29/20 04:00 47 03/29/20 04:00 96.8 103 18 145/83 (103) 96 03/29/20 00:00 54 03/29/20 00:00 98.9 100 19 132/78 (96) 99 03/28/20 22:18 102 147/85 03/28/20 21:00 Nasal Cannula 2.0 03/28/20 20:00 97.9 102 19 147/85 (105) 100 03/28/20 20:00 60 03/28/20 16:12 97.7 52 20 118/61 (80) 100 03/28/20 15:23 Nasal Cannula 2.0 03/28/20 15:11 58 03/28/20 14:52 Nasal Cannula 2.0 03/28/20 14:20 98.8 61 18 143/85 98 Room Air Intake and Output 03/28/20 03/29/20 19:00 07:00 Intake Total 120 ml 320 ml Output Total 300 ml Balance 120 ml 20 ml Intake Oral 120 ml 320 ml Output Urine Total 300 ml Laboratory Tests 03/29/20 04:00: White Blood Count 5.2, Red Blood Count 3.08L, Hemoglobin 9.5L, Hematocrit 28.0L , Mean Corpuscular Volume 91, Mean Corpuscular Hemoglobin 30.9, Mean Corpuscular Hemoglobin Concent 34.0, Red Cell Distribution Width 11.8, Platelet Count 153, Mean Platelet Volume 6.2L, Neutrophils (%) (Auto) 42.4L, Lymphocytes (%) (Auto) 41.7, Monocytes (%) (Auto) 12.0H, Eosinophils (%) (Auto) 2.3, Basophils (%) (Auto) 1.7, Uric Acid 7.4H, Calcium (Send out) [Pending], Phosphorus Level 8.1H, Magnesium Level 2.2, Iron Level 136, Total Iron Binding Capacity 315, Percent Iron Saturation 43, Unsaturated Iron Binding 179, Ferritin 792H, Gamma Glutamyl Transpeptidase 14, Troponin I 0.027, C-Reactive Protein, Quantitative < 0.4, Pro-B-Type Natriuretic Peptide 9254H, Triglycerides Level 112, Cholesterol Level 123, LDL Cholesterol 58, HDL Cholesterol 37L, Cholesterol/HDL Ratio 3.3, Vitamin B12 Level 415, Folate 13.5, Thyroid Stimulating Hormone (TSH) 1.343, Parathyroid Hormone (Intact) [Pending] 03/29/20 07:00: Sodium Level 138, Potassium Level 5.5H, Chloride Level 103, Carbon Dioxide Level 16L, Anion Gap 19H, Blood Urea Nitrogen 86H, Creatinine 17.5H, Estimat Glomerular Filtration Rate 3.4, Glucose Level 76, Calcium Level 8.0L, Total Bilirubin 0.3, Aspartate Amino Transf (AST/SGOT) 18, Alanine Aminotransferase ( ALT/SGPT) 18, Alkaline Phosphatase 56, Total Protein 6.5, Albumin 3.2L, Globulin 3.3, Albumin/Globulin Ratio 1.0 Height (Feet): 5 Height (Inches): 4.00 Weight (Pounds): 194 General Appearance: no apparent distress Cardiovascular: arrhythmia, other - Variable rate Respiratory/Chest: decreased breath sounds Abdomen: soft Darwin Jung MD Mar 29, 2020 14:12
[2020-03-29 15:57] VITALS: BP 139/72
--- NOTE | 2020-03-29 18:15 | Consultation ---
DATE OF CONSULTATION: 03/29/2020 PULMONARY CONSULTATION HISTORY OF PRESENT ILLNESS: This is a 64-year-old male with a history of ESRD on dialysis, CHF, and atrial fibrillation. He is on chronic anticoagulation chest pain, shortness of breath. The patient apparently has missed dialysis for the last week. He reports shortness of breath, chest pressure. He also reports orthopnea. Denies fever, chills, or cough. PAST MEDICAL HISTORY: ESRD, CHF, atrial fibrillation, Crohn disease. PAST SURGICAL HISTORY: Dialysis catheter placement. ALLERGIES: Amoxil and benzoin. HOME MEDICATIONS: Reviewed and reconciled in chart. REVIEW OF SYSTEMS: Denies any headaches, hematemesis, melena, hematochezia, night sweats, or weight loss. PHYSICAL EXAMINATION: GENERAL: Reveals a 64-year-old male. VITAL SIGNS: Blood pressure 140/70, heart rate 58, respirations are 20, afebrile. HEENT: Unremarkable. CHEST: Basilar crackles with normal heart sounds. ABDOMEN: Soft. LABORATORY DATA: Lab testing shows 9.5 hemoglobin, otherwise normal CBC. BMP of course potassium is 5.5 and creatinine Calcium is 8, phosphorus 8.1, ferritin 792. ProBNP is elevated. Coags are normal. Urinalysis shows few wbc's. Hep B surface antigen is negative. Imaging study was reviewed. X-ray chest is reviewed, which shows evidence of cardiomegaly, pulmonary edema. IMPRESSION: 1. Missed dialysis. 2. ESRD on dialysis. 3. Crohn disease. 4. Hypertension. 5. Pulmonary edema. DISCUSSION: Admit to the hospital. The patient needs dialysis. He needs correction of potassium. Cardiology consult noted. We will follow as mortgage closing clerk. Kayden Deutsch M.D. DR: Rudy JOB#: [id number] CC:
--- NOTE | 2020-03-29 19:15 | History and Physical Report ---
DATE OF ADMISSION: 03/28/2020 SUBJECTIVE: This is a 64-year-old male who came to the emergency room from home where he was short of breath, hypoxia, missed hemodialysis. The patient was found to have respiratory distress, A-fib, and hyperkalemia, was admitted on medical floor. He was dialyzed last night. Physically, he is doing better. PAST MEDICAL HISTORY: ESRD, CHF, atrial fibrillation, Crohn disease. REVIEW OF SYSTEMS: Denies any headaches, hematemesis, melena, hematochezia, night sweats, or weight loss. ALLERGIES: Amoxicillin. PHYSICAL EXAMINATION: VITAL SIGNS: Blood pressure 148/71, pulse 53, respirations 20, and his temperature is 97.5. HEENT: NAD. CHEST: Bilateral decreased breath sounds. CARDIOVASCULAR: Regular rhythm. No gallop. No murmur. ABDOMEN: Soft. Positive bowel sounds. EXTREMITIES: Trace edema. GENITOURINARY: Deferred. LABORATORY DATA: White count is 5.2 and hemoglobin 10. Chemistry panel, BUN 86, creatinine 17.5 is still high. His troponin 0.027. BNP is . ASSESSMENT: 1. Hypoxia. 2. Fluid overload. 3. CHF. 4. Hypertension. PLAN: The patient had a Nephrology and Cardiology consult and continue current treatment. Yassine Russ M.D. DR: Dorothy JOB#: [id number] CC: RADHA
[2020-03-29 20:00] VITALS: BP 165/82
--- NOTE | 2020-03-29 20:00 | Consultation ---
DATE OF CONSULTATION: 03/29/2020 CARDIOLOGY CONSULTATION CONSULTING PHYSICIAN: Yuval Pugh MD. REFERRING PHYSICIAN: Boogie Russ MD. REASON FOR CONSULTATION: Management of shortness of breath. HISTORY OF PRESENT ILLNESS: The patient is a very unfortunate 64-year-old gentleman with past medical history significant for end-stage renal disease, congestive heart failure, paroxysmal atrial fibrillation, history of hepatitis C virus infection, history of Crohn disease, bronchitis, who presented to the hospital with complaints of shortness of breath and chest pain that occurred after he missed dialysis due to transportation issues. The above symptoms have been going on for about 3 days. He had difficulty with orthopnea and also profound weakness. He has also complaints of cough and pain over the dialysis catheter in the right side of the chest, which has been going on for some time. At the time of arrival to this facility, blood pressure was 153/78 mmHg and heart rate was 62. A 12-lead electrocardiogram in the emergency department revealed sinus rhythm with bifascicular block including right bundle-branch block and left anterior fascicular block, but no acute ischemic features. Troponin I x2 were negative. The patient was admitted to the telemetry for further evaluation and management of shortness of breath and hypervolemia. Cardiology consultation was made at the request of Dr. Russ to evaluate shortness of breath from cardiac standpoint. PAST MEDICAL HISTORY: As mentioned above including end-stage renal disease, paroxysmal atrial fibrillation, Crohn disease, hepatitis C virus infection, COPD, congestive heart failure, and arthritis. ALLERGIES: Amoxicillin. PAST SURGICAL HISTORY: Dialysis catheter in the right top of the chest. SOCIAL HISTORY: Denies any tobacco, alcohol, or illicit drug use. FAMILY HISTORY: No premature coronary artery disease in the first-degree relatives. REVIEW OF SYSTEMS: A 12-system review done essentially negative except what was mentioned in the history of present illness. MEDICATIONS: List of medication includes fluticasone inhaler, apixaban 5 mg twice a day, calcium acetate, amiodarone 200 mg daily, Anoro Ellipta inhaler, albuterol inhaler, acetaminophen, Zofran, ranitidine, and furosemide 20 mg daily. PHYSICAL EXAMINATION: VITAL SIGNS: Blood pressure was 153/78 mmHg, pulse 62, respirations 14, temperature 98.8 degrees Fahrenheit, O2 saturation 98% on room air. GENERAL: The patient is a very pleasant 64-year-old male, who is in supine position, in no apparent respiratory distress. HEENT: Atraumatic and normocephalic. Anicteric. Pupils are equal, round, and reactive to light and accommodation. Extraocular muscles intact. NECK: JVP 15 cm. No carotid bruit. Carotid upstroke 2+ bilaterally. CARDIOVASCULAR SYSTEM: Normal S1, S2. Regular rhythm. No murmurs, gallops, or rubs. Bradycardic. CHEST: Right dialysis catheter in the right chest. LUNGS: Bibasilar crackles. ABDOMEN: Soft, nontender, nondistended. No hepatosplenomegaly. Positive bowel sounds. EXTREMITIES: No evidence of edema, clubbing, or cyanosis. LABORATORY FINDINGS: WBC was 6.1, hemoglobin 9.6, hematocrit of 28.6%, platelet count 174,000. Sodium 141, potassium 5.1, chloride 104, bicarbonate 19, BUN of 86, creatinine 17.4, glucose 90, calcium is 8.3. Troponin I x2, negative. ProBNP was 9344. INR 1.1. Chest x-ray shows cardiomegaly with mild pulmonary edema. ASSESSMENT AND PLAN: The patient is a very unfortunate 64-year-old gentleman, who is seen in Cardiology consultation. 1. Dyspnea. This is likely due to hypervolemia due to missed hemodialysis. The patient does not appear to be in systolic heart failure due to lack of S3. He may have diastolic congestive heart failure, which will be determined and evaluated by 2D echocardiography ordered by Dr. Jung. In the past, the patient has had 2D echocardiography from 2013, and at that time, the patient had normal LV systolic function with LVEF of approximately 55%. Further therapeutic and diagnostic procedure will be based on the results of the 2D echocardiography. At this time, the patient will be continued on hemodialysis. 2. Sinus bradycardia due to combination of amiodarone and metoprolol. We will place hold on metoprolol and follow his heart rate during this admission. I agree that the patient's heart rate remains to be in 50s to keep him in sinus rhythm. 3. Paroxysmal atrial fibrillation, on amiodarone and Eliquis. 4. History of Crohn disease. 5. History of hepatitis C virus infection. 6. History of arthritis. I would like to thank, Dr. Russ, for the courtesy of this consultation. Yuval Pugh M.D. DR: Joaquín JOB#: [id number] CC:
[2020-03-30] VITALS: BP 132/93
[2020-03-30 04:00] VITALS: BP 136/87
[2020-03-30 04:48] LABS: BASOPHILS % (AUTO) 0.7 % (0.0-2.0); EOSINOPHILS % (AUTO) 0.8 % (0.0-3.0); HEMATOCRIT 29.1 % (42.0-52.0); HEMOGLOBIN 9.9 G/DL (14.2-18.0); LYMPHOCYTES % (AUTO) 33.8 % (20.0-45.0); MEAN CORPUSCULAR VOLUME 90 FL (80-99); MONOCYTES % (AUTO) 13.5 % (1.0-10.0); NEUTROPHILS % (AUTO) 51.3 % (45.0-75.0); PLATELET COUNT 133 K/UL (150-450); RED BLOOD COUNT 3.25 M/UL (4.70-6.10); RED CELL DISTRIBUTION WIDTH 11.6 % (11.6-14.8); WHITE BLOOD COUNT 5.9 K/UL (4.8-10.8)
[2020-03-30 05:36] LABS: ALANINE AMINOTRANSFERASE 18 U/L (12-78); ALBUMIN 3.4 G/DL (3.4-5.0); ALKALINE PHOSPHATASE 55 U/L (46-116); ANION GAP 14 mmol/L (5-15); ASPARTATE AMINO TRANSFERASE 21 U/L (15-37); BILIRUBIN,TOTAL 0.4 MG/DL (0.2-1.0); BLOOD UREA NITROGEN 50 mg/dL (7-18); CALCIUM 8.5 MG/DL (8.5-10.1); CARBON DIOXIDE 23 MMOL/L (21-32); CHLORIDE 101 MMOL/L (98-107); CREATININE 12.4 MG/DL (0.55-1.30); PHOSPHORUS 5.7 MG/DL (2.5-4.9); POTASSIUM 4.2 MMOL/L (3.5-5.1); SODIUM 138 MMOL/L (136-145)
[2020-03-30 08:00] VITALS: BP 140/74
[2020-03-30] MEDS: Amiodarone 200mg tab ORAL SCH (08:40)
[2020-03-30] MEDS: HydrALAZINE 25mg tab ORAL SCH ×2 (08:41→21:00)
[2020-03-30] MEDS: Docusate 100mg cap ORAL SCH ×4 (08:42→17:07)
[2020-03-30] MEDS: Sertraline 100mg tab ORAL SCH (08:42)
[2020-03-30] MEDS: Eliquis 5mg tablet ORAL SCH ×2 (08:43→17:09)
[2020-03-30] MEDS: Flonase Nasal Inhaler 16gm NASAL SCH (08:44)
--- NOTE | 2020-03-30 11:08 | Pulmonology Progress Note ---
Subjective ROS Limited/Unobtainable: No Interval Events: None new Constitutional: Reports: no symptoms HEENT: Repors: no symptoms Respiratory: Reports: no symptoms Cardiovascular: Reports: no symptoms Gastrointestinal/Abdominal: Reports: no symptoms Allergies: Coded Allergies: BENZOIN (Unverified Allergy, Severe, 12/28/14) AMOXICILLIN (Verified Allergy, Intermediate, 11/18/12) ABD PAIN N/V POVIDONE-IODINE (Verified Allergy, Unknown, 03/28/20) Skin peeling Objective Last 24 Hour Vital Signs Date Time Temp Pulse Resp B/P (MAP) Pulse Ox O2 Delivery O2 Flow Rate FiO2 03/30/20 08:42 64 140/74 03/30/20 08:41 140/74 03/30/20 08:00 96.8 64 19 140/74 (96) 100 03/30/20 08:00 Nasal Cannula 2.0 03/30/20 08:00 67 03/30/20 04:00 98.2 95 18 136/87 (103) 96 03/30/20 04:00 63 03/30/20 00:00 124 03/30/20 00:00 98.4 105 20 132/93 (106) 96 03/29/20 22:27 165/82 03/29/20 21:00 Nasal Cannula 2.0 03/29/20 20:00 98.2 56 16 165/82 (109) 96 03/29/20 20:00 63 03/29/20 17:03 139/72 03/29/20 15:57 97.9 55 20 139/72 (94) 96 03/29/20 15:36 56 03/29/20 11:50 97.7 61 18 137/70 (92) 98 03/29/20 11:47 43 Intake and Output 03/29/20 03/30/20 19:00 07:00 Intake Total 360 ml Output Total 2200 ml 1100 ml Balance -1840 ml -1100 ml Intake Oral 360 ml Output Urine Total 200 ml 1100 ml Hemodialysis UF 2000 ml # Voids 3 General Appearance: no acute distress HEENT: normocephalic Respiratory: chest wall non-tender, lungs clear Cardiovascular: normal peripheral pulses Abdomen: normal bowel sounds Extremities: no cyanosis Microbiology Date/Time Source Procedure Growth Status 03/28/20 16:20 Nasopharynx Coronavirus COVID-19 PCR ([facility]) - Final Complete Laboratory Tests 03/30/20 04:15: White Blood Count 5.9, Red Blood Count 3.25L, Hemoglobin 9.9L, Hematocrit 29.1L , Mean Corpuscular Volume 90, Mean Corpuscular Hemoglobin 30.3, Mean Corpuscular Hemoglobin Concent 33.8, Red Cell Distribution Width 11.6, Platelet Count 133L, Mean Platelet Volume 6.4L, Neutrophils (%) (Auto) 51.3, Lymphocytes (%) (Auto) 33.8, Monocytes (%) (Auto) 13.5H, Eosinophils (%) (Auto) 0.8, Basophils (%) (Auto) 0.7, Sodium Level 138, Potassium Level 4.2, Chloride Level 101, Carbon Dioxide Level 23, Anion Gap 14, Blood Urea Nitrogen 50H, Creatinine 12.4H, Estimat Glomerular Filtration Rate 5.0, Glucose Level 87, Calcium Level 8.5, Phosphorus Level 5.7H, Magnesium Level 2.1, Total Bilirubin 0.4, Aspartate Amino Transf (AST/SGOT) 21, Alanine Aminotransferase (ALT/SGPT) 18, Alkaline Phosphatase 55, C-Reactive Protein, Quantitative < 0.4, Pro-B-Type Natriuretic Peptide 90519X, Total Protein 6.7, Albumin 3.4, Globulin 3.3, Albumin/Globulin Ratio 1.0 Current Medications Medications (Trade) Dose Ordered Sig/Daniel Route PRN Reason Start Time Stop Time Status Last Admin Dose Admin Acetaminophen (Tylenol) 500 mg Q6H PRN ORAL mild pain 03/28/20 15:14 04/27/20 15:13 03/30/20 04:08 Albuterol/ Ipratropium (Combivent Respimat) 2 puff Q4H PRN INH Shortness of Breath 03/28/20 17:45 04/27/20 17:44 Amiodarone HCl (Cordarone) 200 mg DAILY ORAL 03/29/20 09:00 06/27/20 08:59 03/30/20 08:40 Amlodipine Besylate (Norvasc) 2.5 mg DAILY ORAL 03/29/20 09:00 04/28/20 08:59 03/30/20 08:42 Apixaban (Eliquis) 5 mg BID ORAL 03/28/20 18:00 06/27/20 08:59 03/30/20 08:43 Calcium Acetate (Phoslo) 667 mg TID ORAL 03/28/20 18:00 06/26/20 17:59 03/30/20 08:41 Docusate Sodium (Colace) 100 mg THREE TIMES A DAY ORAL 03/28/20 18:00 04/27/20 17:59 03/29/20 17:03 Fluticasone Propionate (Flonase) 1 spray DAILY NASAL 03/29/20 09:00 04/28/20 08:59 03/30/20 08:44 Hydralazine HCl (Apresoline) 10 mg Q4H PRN IV SBP>160 03/29/20 08:45 06/27/20 08:44 03/29/20 22:27 Hydralazine HCl (Apresoline) 25 mg BID ORAL 03/29/20 09:00 06/26/20 16:29 03/30/20 08:41 Ondansetron HCl (Zofran ODT) 4 mg Q6H PRN SL Nausea & Vomiting 03/28/20 15:00 04/27/20 14:59 03/30/20 06:51 Pantoprazole (Protonix) 40 mg BID ORAL 03/28/20 18:00 04/28/20 08:59 03/30/20 08:40 Sertraline HCl (Zoloft) 100 mg DAILY ORAL 03/29/20 09:00 04/28/20 08:59 03/30/20 08:42 Sevelamer Carbonate (Renvela) 1,600 mg THREE TIMES A DAY ORAL 03/29/20 09:00 06/27/20 08:59 03/30/20 08:42 Tramadol HCl (Ultram) 50 mg Q6H PRN ORAL For Pain 03/28/20 15:00 04/04/20 14:59 Assessment/Plan Assessment/Plan IMPRESSION: 1. Missed dialysis. 2. ESRD on dialysis. 3. Crohn disease. 4. Hypertension. 5. Pulmonary edema. DISCUSSION: Continue dialysis. Electrolyte management Cardiology consult noted. I will follow as flight radio officer. Order O2 as needed Moon Arroyo Omar Syed MD Mar 30, 2020 11:08
[2020-03-30 12:00] VITALS: BP 139/77
--- NOTE | 2020-03-30 13:29 | Nephrology Progress Note ---
Assessment/Plan Problem List: (1) ESRD on dialysis (2) Missed dialysis Assessment: Volume overload (3) Atrial fibrillation with RVR Assessment End-stage renal disease. On hemodialysis. Has not received dialysis for a few sessions. Volume overload. Anemia of chronic kidney disease. History of atrial fibrillation and congestive heart failure. Plan Plan: Hemodialysis and ultrafiltration was done March 29 Next dialysis tomorrow March 31 Adjust the blood pressure medication 2D echocardiogram, results noted, ejection fraction 60% Monitor renal parameters Per orders Subjective ROS Limited/Unobtainable: No Constitutional: Reports: other Objective Objective Last 24 Hour Vital Signs Date Time Temp Pulse Resp B/P (MAP) Pulse Ox O2 Delivery O2 Flow Rate FiO2 03/30/20 12:00 97.7 56 19 139/77 (97) 97 03/30/20 08:42 64 140/74 03/30/20 08:41 140/74 03/30/20 08:00 96.8 64 19 140/74 (96) 100 03/30/20 08:00 Nasal Cannula 2.0 03/30/20 08:00 67 03/30/20 04:00 98.2 95 18 136/87 (103) 96 03/30/20 04:00 63 03/30/20 00:00 124 03/30/20 00:00 98.4 105 20 132/93 (106) 96 03/29/20 22:27 165/82 03/29/20 21:00 Nasal Cannula 2.0 03/29/20 20:00 98.2 56 16 165/82 (109) 96 03/29/20 20:00 63 03/29/20 17:03 139/72 03/29/20 15:57 97.9 55 20 139/72 (94) 96 03/29/20 15:36 56 Intake and Output 03/29/20 03/30/20 18:59 06:59 Intake Total 360 ml Output Total 2200 ml 1100 ml Balance -1840 ml -1100 ml Intake Oral 360 ml Output Urine Total 200 ml 1100 ml Hemodialysis UF 2000 ml # Voids 3 Laboratory Tests 03/30/20 04:15: White Blood Count 5.9, Red Blood Count 3.25L, Hemoglobin 9.9L, Hematocrit 29.1L , Mean Corpuscular Volume 90, Mean Corpuscular Hemoglobin 30.3, Mean Corpuscular Hemoglobin Concent 33.8, Red Cell Distribution Width 11.6, Platelet Count 133L, Mean Platelet Volume 6.4L, Neutrophils (%) (Auto) 51.3, Lymphocytes (%) (Auto) 33.8, Monocytes (%) (Auto) 13.5H, Eosinophils (%) (Auto) 0.8, Basophils (%) (Auto) 0.7, Sodium Level 138, Potassium Level 4.2, Chloride Level 101, Carbon Dioxide Level 23, Anion Gap 14, Blood Urea Nitrogen 50H, Creatinine 12.4H, Estimat Glomerular Filtration Rate 5.0, Glucose Level 87, Calcium Level 8.5, Phosphorus Level 5.7H, Magnesium Level 2.1, Total Bilirubin 0.4, Aspartate Amino Transf (AST/SGOT) 21, Alanine Aminotransferase (ALT/SGPT) 18, Alkaline Phosphatase 55, C-Reactive Protein, Quantitative < 0.4, Pro-B-Type Natriuretic Peptide 64374O, Total Protein 6.7, Albumin 3.4, Globulin 3.3, Albumin/Globulin Ratio 1.0 Height (Feet): 5 Height (Inches): 4.00 Weight (Pounds): 196 General Appearance: no apparent distress Cardiovascular: other - Variable rate Respiratory/Chest: decreased breath sounds Abdomen: distended Darwin Jung MD Mar 30, 2020 13:29
[2020-03-30 16:00] VITALS: BP 137/81
[2020-03-30 20:00] VITALS: BP 141/82
--- NOTE | 2020-03-30 22:15 | Progress Note ---
DATE: 03/30/2020 SUBJECTIVE: This is a 64-year-old male came to the emergency room with short of breath, hypoxia, fluid overload, and CHF decompensated diastolic failure. The patient has been missed dialysis due to transportation. He is physically doing better, but his BNP number was high about 10,000 today. He is lying in bed comfortable. PHYSICAL EXAMINATION: VITAL SIGNS: Blood pressure is 139/77, pulse 56, respiration 19, and temperature 97.7. HEENT: Eyes are open. NECK: Supple. CHEST: Bilaterally scattered crackles and wheezing. CARDIOVASCULAR: Regular rhythm. No gallop. No murmur. ABDOMEN: Soft, positive bowel sounds. EXTREMITIES: CCE. NEUROLOGICAL: Generalized weakness. LABORATORY DATA: White counts are 5.9, hemoglobin 10. He is ruled out COVID. His BUN 50, creatinine 12.4. Potassium 4.2. BNP was 10,466. Troponins are negative. ASSESSMENT: 1. Fluid overload. 2. CHF decompensated right heart failure. 3. End-stage renal disease, on hemodialysis. 4. Hypertension. 5. AFib with controlled rate. PLAN: We will continue hydralazine. Continue amiodarone. Continue apixaban, Norvasc, Colace, bronchodilator treatment, dialysis tomorrow. Discharge plan, home tomorrow. Yassine Russ M.D. DR: PAUL JOB#: [id number] CC:
--- NOTE | 2020-03-30 23:53 | Cardiology Progress Note ---
Assessment/Plan Assessment/Plan 1. Dyspnea, due to hypervolemia due to missed hemodialysis. 2D echocardiography reveals normal LV systolic function with LVEF at 55%. 2. PAF, a short run, converted to sinus bradycardia, continue amiodarone and Eliquis. Subjective Subjective Sinus rhythm at rate of 63. Objective Last 24 Hour Vital Signs Date Time Temp Pulse Resp B/P (MAP) Pulse Ox O2 Delivery O2 Flow Rate FiO2 03/30/20 21:00 Nasal Cannula 2.0 03/30/20 21:00 141/82 03/30/20 16:00 63 03/30/20 16:00 96.8 65 19 137/81 (99) 98 03/30/20 12:00 58 03/30/20 12:00 97.7 56 19 139/77 (97) 97 03/30/20 08:42 64 140/74 03/30/20 08:41 140/74 03/30/20 08:00 96.8 64 19 140/74 (96) 100 03/30/20 08:00 Nasal Cannula 2.0 03/30/20 08:00 67 03/30/20 04:00 98.2 95 18 136/87 (103) 96 03/30/20 04:00 63 03/30/20 00:00 124 03/30/20 00:00 98.4 105 20 132/93 (106) 96 Intake and Output 03/29/20 03/30/20 19:00 07:00 Intake Total 360 ml Output Total 2200 ml 1100 ml Balance -1840 ml -1100 ml Intake Oral 360 ml Output Urine Total 200 ml 1100 ml Hemodialysis UF 2000 ml # Voids 3 2D Echo: LVEF 55%, ANNAMARIA, Moderate Pul HTN (RVSP 46 mmHg), Grade I LVDD, Mod AR Laboratory Tests Test 03/30/20 04:15 White Blood Count 5.9 K/UL (4.8-10.8) Red Blood Count 3.25 M/UL (4.70-6.10) L Hemoglobin 9.9 G/DL (14.2-18.0) L Hematocrit 29.1 % (42.0-52.0) L Mean Corpuscular Volume 90 FL (80-99) Mean Corpuscular Hemoglobin 30.3 PG (27.0-31.0) Mean Corpuscular Hemoglobin Concent 33.8 G/DL (32.0-36.0) Red Cell Distribution Width 11.6 % (11.6-14.8) Platelet Count 133 K/UL (150-450) L Mean Platelet Volume 6.4 FL (6.5-10.1) L Neutrophils (%) (Auto) 51.3 % (45.0-75.0) Lymphocytes (%) (Auto) 33.8 % (20.0-45.0) Monocytes (%) (Auto) 13.5 % (1.0-10.0) H Eosinophils (%) (Auto) 0.8 % (0.0-3.0) Basophils (%) (Auto) 0.7 % (0.0-2.0) Sodium Level 138 MMOL/L (136-145) Potassium Level 4.2 MMOL/L (3.5-5.1) Chloride Level 101 MMOL/L (98-107) Carbon Dioxide Level 23 MMOL/L (21-32) Anion Gap 14 mmol/L (5-15) Blood Urea Nitrogen 50 mg/dL (7-18) H Creatinine 12.4 MG/DL (0.55-1.30) H Estimat Glomerular Filtration Rate 5.0 mL/min (>60) Glucose Level 87 MG/DL (74-106) Calcium Level 8.5 MG/DL (8.5-10.1) Phosphorus Level 5.7 MG/DL (2.5-4.9) H Magnesium Level 2.1 MG/DL (1.8-2.4) Total Bilirubin 0.4 MG/DL (0.2-1.0) Aspartate Amino Transf (AST/SGOT) 21 U/L (15-37) Alanine Aminotransferase (ALT/SGPT) 18 U/L (12-78) Alkaline Phosphatase 55 U/L (46-116) C-Reactive Protein, Quantitative < 0.4 mg/dL (0.00-0.90) Pro-B-Type Natriuretic Peptide 58925 pg/mL (0-125) H Total Protein 6.7 G/DL (6.4-8.2) Albumin 3.4 G/DL (3.4-5.0) Globulin 3.3 g/dL Albumin/Globulin Ratio 1.0 (1.0-2.7) Microbiology Date/Time Source Procedure Growth Status 03/28/20 16:20 Nasopharynx Coronavirus COVID-19 PCR ([facility]) - Final Complete Objective HEENT: Atraumatic and normocephalic. Anicteric. Pupils are equal, round, and reactive to light and accommodation. Extraocular muscles intact. NECK: JVP 15 cm. No carotid bruit. Carotid upstroke 2+ bilaterally. CARDIOVASCULAR SYSTEM: Normal S1, S2. Regular rhythm. No murmurs, gallops, or rubs. Bradycardic. CHEST: Right dialysis catheter in the right chest. LUNGS: Bibasilar crackles. ABDOMEN: Soft, nontender, nondistended. No hepatosplenomegaly. Positive bowel sounds. EXTREMITIES: No evidence of edema, clubbing, or cyanosis. Yuval Pugh MD Mar 30, 2020 23:52
[2020-03-31] VITALS: BP 122/62
[2020-03-31 04:00] VITALS: BP 146/70
[2020-03-31 08:11] VITALS: BP 144/79
[2020-03-31] MEDS: HydrALAZINE 25mg tab ORAL SCH (09:00)
[2020-03-31] MEDS: Docusate 100mg cap ORAL SCH ×2 (09:06→13:00)
[2020-03-31] MEDS: Eliquis 5mg tablet ORAL SCH (09:07)
[2020-03-31] MEDS: Amiodarone 200mg tab ORAL SCH ×2 (09:09→09:13)
[2020-03-31] MEDS: Sertraline 100mg tab ORAL SCH (09:10)
[2020-03-31] MEDS: Flonase Nasal Inhaler 16gm NASAL SCH (09:12)
--- NOTE | 2020-03-31 10:13 | Pulmonology Progress Note ---
Subjective ROS Limited/Unobtainable: No Interval Events: None new Constitutional: Reports: no symptoms HEENT: Repors: no symptoms Respiratory: Reports: no symptoms Cardiovascular: Reports: no symptoms Gastrointestinal/Abdominal: Reports: no symptoms Allergies: Coded Allergies: BENZOIN (Unverified Allergy, Severe, 12/28/14) AMOXICILLIN (Verified Allergy, Intermediate, 11/18/12) ABD PAIN N/V POVIDONE-IODINE (Verified Allergy, Unknown, 03/28/20) Skin peeling Objective Last 24 Hour Vital Signs Date Time Temp Pulse Resp B/P (MAP) Pulse Ox O2 Delivery O2 Flow Rate FiO2 03/31/20 09:00 144/79 03/31/20 08:11 96.7 56 19 144/79 (100) 98 03/31/20 04:00 57 03/31/20 04:00 97.7 52 19 146/70 (95) 100 03/31/20 00:00 54 03/31/20 00:00 98.8 67 19 122/62 (82) 96 03/30/20 21:00 Nasal Cannula 2.0 03/30/20 21:00 141/82 03/30/20 20:00 98.2 55 19 141/82 (101) 97 03/30/20 20:00 67 03/30/20 16:00 63 03/30/20 16:00 96.8 65 19 137/81 (99) 98 03/30/20 12:00 58 03/30/20 12:00 97.7 56 19 139/77 (97) 97 Intake and Output 03/30/20 03/31/20 19:00 07:00 Output Total 300 ml Balance -300 ml Output Urine Total 300 ml General Appearance: no acute distress HEENT: normocephalic Respiratory: chest wall non-tender, lungs clear Cardiovascular: normal peripheral pulses Abdomen: normal bowel sounds Extremities: no cyanosis Microbiology Date/Time Source Procedure Growth Status 03/28/20 16:20 Nasopharynx Coronavirus COVID-19 PCR ([facility]) - Final Complete 03/28/20 13:20 Rectum VRE Culture - Final NO VANCOMYCIN RESISTANT ENTEROCOCCUS ... Complete 03/28/20 13:20 Rectum - Final NO CARBAPENEM-RESISTANT ENTEROBACTERI... Complete Current Medications Medications (Trade) Dose Ordered Sig/Daniel Route PRN Reason Start Time Stop Time Status Last Admin Dose Admin Acetaminophen (Tylenol) 500 mg Q6H PRN ORAL mild pain 03/28/20 15:14 04/27/20 15:13 03/30/20 04:08 Albuterol/ Ipratropium (Combivent Respimat) 2 puff Q4H PRN INH Shortness of Breath 03/28/20 17:45 04/27/20 17:44 Amiodarone HCl (Cordarone) 200 mg DAILY ORAL 03/29/20 09:00 06/27/20 08:59 03/30/20 08:40 Amlodipine Besylate (Norvasc) 2.5 mg DAILY ORAL 03/29/20 09:00 04/28/20 08:59 03/30/20 08:42 Apixaban (Eliquis) 5 mg BID ORAL 03/28/20 18:00 06/27/20 08:59 03/31/20 09:07 Calcium Acetate (Phoslo) 667 mg TID ORAL 03/28/20 18:00 06/26/20 17:59 03/31/20 09:05 Docusate Sodium (Colace) 100 mg THREE TIMES A DAY ORAL 03/28/20 18:00 04/27/20 17:59 03/31/20 09:06 Fluticasone Propionate (Flonase) 1 spray DAILY NASAL 03/29/20 09:00 04/28/20 08:59 03/31/20 09:12 Hydralazine HCl (Apresoline) 10 mg Q4H PRN IV SBP>160 03/29/20 08:45 06/27/20 08:44 03/29/20 22:27 Hydralazine HCl (Apresoline) 25 mg Q12HR ORAL 03/30/20 21:00 06/27/20 08:59 Ondansetron HCl (Zofran ODT) 4 mg Q6H PRN SL Nausea & Vomiting 03/28/20 15:00 04/27/20 14:59 03/30/20 06:51 Pantoprazole (Protonix) 40 mg BID ORAL 03/28/20 18:00 04/28/20 08:59 03/31/20 09:05 Sertraline HCl (Zoloft) 100 mg DAILY ORAL 03/29/20 09:00 04/28/20 08:59 03/31/20 09:10 Sevelamer Carbonate (Renvela) 1,600 mg THREE TIMES A DAY ORAL 03/29/20 09:00 06/27/20 08:59 03/31/20 09:06 Tramadol HCl (Ultram) 50 mg Q6H PRN ORAL For Pain 03/28/20 15:00 04/04/20 14:59 03/30/20 17:20 Assessment/Plan Assessment/Plan IMPRESSION: 1. Missed dialysis. 2. ESRD on dialysis. 3. Crohn disease. 4. Hypertension. 5. Pulmonary edema. DISCUSSION: Continue dialysis. Electrolyte management Cardiology consult noted. I will follow as coin counter and wrapper. Order O2 as needed Currently saturating well on 2L/min O2 Moon Arroyo Omar Syed MD Mar 31, 2020 10:13
[2020-03-31 12:06] VITALS: BP 135/75
--- NOTE | 2020-03-31 12:17 | Nephrology Progress Note ---
Assessment/Plan Problem List: (1) ESRD on dialysis (2) Missed dialysis Assessment: Volume overload (3) Atrial fibrillation with RVR Assessment End-stage renal disease. On hemodialysis. Has not received dialysis for a few sessions. Volume overload. Anemia of chronic kidney disease. History of atrial fibrillation and congestive heart failure. Plan Plan: Hemodialysis and ultrafiltration was done March 29 Next dialysis tomorrow March 31, today Adjust the blood pressure medication 2D echocardiogram, results noted, ejection fraction 60% Monitor renal parameters Per orders Subjective ROS Limited/Unobtainable: No Constitutional: Reports: malaise Objective Objective Last 24 Hour Vital Signs Date Time Temp Pulse Resp B/P (MAP) Pulse Ox O2 Delivery O2 Flow Rate FiO2 03/31/20 12:06 97.9 61 20 135/75 (95) 96 03/31/20 09:00 Room Air 03/31/20 09:00 144/79 03/31/20 08:11 96.7 56 19 144/79 (100) 98 03/31/20 08:00 60 03/31/20 04:00 57 03/31/20 04:00 97.7 52 19 146/70 (95) 100 03/31/20 00:00 54 03/31/20 00:00 98.8 67 19 122/62 (82) 96 03/30/20 21:00 Nasal Cannula 2.0 03/30/20 21:00 141/82 03/30/20 20:00 98.2 55 19 141/82 (101) 97 03/30/20 20:00 67 03/30/20 16:00 63 03/30/20 16:00 96.8 65 19 137/81 (99) 98 Intake and Output 03/30/20 03/31/20 19:00 07:00 Output Total 300 ml Balance -300 ml Output Urine Total 300 ml No labs drawn today Height (Feet): 5 Height (Inches): 4.00 Weight (Pounds): 193 General Appearance: no apparent distress Respiratory/Chest: decreased breath sounds Abdomen: soft Darwin Jung MD Mar 31, 2020 12:17
--- NOTE | 2020-03-31 23:45 | Discharge Summary ---
DATE OF ADMISSION: 03/28/2020 SUBJECTIVE: This is a 64-year-old male who came to the emergency room for short of breath, hypoxia, CHF, decompensated right arterial heart failure, and fluid overload secondary to end-stage renal disease because the patient missed dialysis for almost a week due to the transportation problem, the patient is currently alert, awake. The patient was hemodialyzed here every alternate day and his shortness of breath is improving. His BNP is high, but he is symptomatically improving. The patient during this hospital course has Cardiology and Nephrology consult. The patient is currently in bed, comfortable, wants to go home. OBJECTIVE: VITAL SIGNS: Blood pressure is 144/79, pulse 56, respirations 19, and temperature 96.7. HEENT: Mild JVD. CHEST: Bilateral diffuse crackles. CARDIOVASCULAR: Regular rhythm. No gallop. No murmur. ABDOMEN: Soft. Positive bowel sounds. EXTREMITIES: Trace edema. GENITOURINARY: Deferred. LABORATORY DATA: The patient has no labs today. His hemoglobin was 10 yesterday. White counts are normal. Chemistry panel, his BNP yesterday was 10,000 and BUN 50, creatinine 12.4 is better than when he was admitted. His chest x-ray was showing mild interstitial congestion and cardiomegaly. ASSESSMENT: 1. The patient came fluid overload. 2. CHF decompensated right heart failure. 3. Chronic atrial fibrillation. 4. Hypertension. 5. GERD. 6. Comorbid obesity. 7. End-stage renal disease. PLAN: The patient currently on telemetry bed, going home. The patient claims he has medication at home. He is going to continue hydralazine, amiodarone. Continue sertraline, Norvasc, Apixaban, calcium, PPI, follow up at outpatient with his primary care doctor. Discussed with Nephrology. Waiting for clearance and the patient is going to go for hemodialysis this afternoon and then probably go home. The patient might need transportation. He claims he has all the home medications. His discharge diagnoses as stated earlier. Yassine Russ M.D. DR: Dorothy JOB#: [id number] CC:
== END 2020-03-31 17:20 | disposition home or self-care (01) | DRG 425 ==
LOC: EMR 11:13 → 2E 12:45 → EDBEDREQ 13:43 → 2E 17:43
PROC: 5A1D70Z Performance of Urinary Filtration, Intermittent, Less than 6 Hours Per Day (ICD-10-PCS; principal; 2020-03-31)
DX: E87.79 Other fluid overload (principal); I13.2 Hypertensive heart and chronic kidney disease with heart failure and with stage 5 chronic kidney disease, or end stage renal disease; N18.6 End stage renal disease; I50.33 Acute on chronic diastolic (congestive) heart failure; D63.1 Anemia in chronic kidney disease; K50.90 Crohn's disease, unspecified, without complications; Z88.1 Allergy status to other antibiotic agents; Z88.8 Allergy status to other drugs, medicaments and biological substances; Z99.2 Dependence on renal dialysis; Z91.15 Patient's noncompliance with renal dialysis; B19.20 Unspecified viral hepatitis C without hepatic coma; R00.1 Bradycardia, unspecified; R09.02 Hypoxemia; I48.0 Paroxysmal atrial fibrillation; K21.9 Gastro-esophageal reflux disease without esophagitis
CPT/HCPCS: 36415; 71045; 80053; 80061; 81001; 82607; 82728; 82746; 82977; 83540; 83550; 83735; 83880; 83970; 84100; 84443; 84484; 84550; 85007; 85025; 85610; 85730; 86140; 86706; 87081; 93005; 93306; 96374; 99285; J7030

== ENCOUNTER 2020-04-08 16:29 | Emergency (ER) | payer OTHER ==
[~2020-04-08] VITALS: Ht 162.6 cm; Wt 86.2 kg
[~2020-04-08 16:29] MED LIST changes: +ACETAMINOPHEN500 M3 ORAL; +AMIODARONE HCL400 M1 ORAL; +ANORO ELLIPTA1 EACH; +CALCIUM ACETAT667 M1 PO; +ELIQUIS5 MG PO; +FLUTICASONE PRO16 G1 NASAL; +PROAIR HFA8.5 GM INH
[2020-04-08 17:01] VITALS: BP 141/75
--- NOTE | 2020-04-08 17:32 | Emergency Room Report ---
History of Present Illness General Chief Complaint: Pain Source: Patient (Radha Salazar) Present Illness HPI 64 YO male presents to the ED w. 08/06 in severity LE pain x 1 day. Pt. with AV Shunt placement surgery in LE yesterday at [facility]. Hosp. Surgeon was Dr. Jesu Molina. Pt. reports dialysis x 2 years Three times a week MWF. Pt. did not have dialysis today. Pt. reports he was only dx with Tylenol. He states normally on Elliquis however he was told to hold until next week due to surgical procedure. He denies fevers or chills. He reports feeling weak and SOB with intermittent cough. Pt. w. hx of COPD and CHF. He reports he was told he currently has some fluid on the lungs. He states he takes Lasix. pt. He denies trauma or fall. He reports pain started proximally on the Left UE. he also reports bleeding at the surgical site. He denies rash or itching. He States pain with attempts to move the arm or with palpation. Pt. denies paresthesias or extremity color or temperature changes. He denies CP. (Radha Salazar) Allergies: Coded Allergies: BENZOIN (Unverified Allergy, Severe, 12/28/14) AMOXICILLIN (Verified Allergy, Intermediate, 11/18/12) ABD PAIN N/V POVIDONE-IODINE (Verified Allergy, Unknown, 03/28/20) Skin peeling COVID-19 Screening Contact w/high risk pt: No Recent Travel to affected area: No Experienced COVID-19 symptoms?: No COVID-19 symptoms experienced: Shortness of Breath, Cough COVID-19 Testing performed CREDIT ADJUSTER: No (Radha Salazar) Patient History Past Medical History: HTN, COPD, renal disease, dialysis - MWF--- last done Past Surgical History: other - SHUNT left UE Pertinent Family History: none Reviewed Nursing Documentation: PMH: Agreed; PSxH: Agreed (Radha Salazar) Nursing Documentation-PM Past Medical History: No History, Except For Hx Cardiac Problems: Yes Hx Hypertension: Yes Hx Asthma: Yes - Bronchitis Hx COPD: Yes Hx Cancer: No Hx Gastrointestinal Problems: Yes Hx Dialysis: Yes Hx Neurological Problems: No Hx Cerebrovascular Accident: No - ARTHRITIS (Radha Salazar) Review of Systems All Other Systems: negative except mentioned in HPI (Radha Salazar) Physical Exam Vital Signs Date Time Temp Pulse Resp B/P (MAP) Pulse Ox O2 Delivery O2 Flow Rate FiO2 04/08/20 16:46 98.2 63 16 141/75 (97) 100 Room Air Sp02 EP Interpretation: reviewed, normal General Appearance: no apparent distress, alert, GCS 15, non-toxic, thin, Chronically Ill Head: normocephalic, atraumatic Eyes: bilateral eye normal inspection, bilateral eye PERRL ENT: hearing grossly normal, normal voice Neck: full range of motion Respiratory: chest non-tender, lungs clear, normal breath sounds, no respiratory distress, no accessory muscle use, no wheezing, speaking full sentences Cardiovascular #1: regular rate, rhythm, no edema, normal capillary refill Gastrointestinal: non tender, soft Musculoskeletal: normal range of motion, gait/station normal, tender - left UE tenderness, swelling and erythema. , other - limited ROM of the LUE due to pain Neurologic: alert, motor strength/tone normal, oriented x3, sensory intact, responsive, speech normal, grossly normal Psychiatric: judgement/insight normal, mood/affect normal Skin: other - Erythema and warmth of the medial aspect of the LE. No obvious bleeding at this time although bandages which were removed had evidence of blood. two Surgical incisions( 2 inches and 3 inches in length ) appear to have been closed using bailey. (Radha Salazar) Medical Decision Making PA Attestation Dr. Dodd is my supervising Physician whom patient management has been discussed with. (Radha Salazar) Diagnostic Impression: Primary Impression: Post-operative pain Additional Impression: Anemia Qualified Codes: N18.6 - End stage renal disease; D63.1 - Anemia in chronic kidney disease; Z99.2 - Dependence on renal dialysis ER Course 64 YO male presents to the ED w. 08/06 in severity LE pain x 1 day. Pt. with AV Shunt placement surgery in LE yesterday at [facility]. Hosp. Surgeon was Dr. Jesu Molina. Pt. reports dialysis x 2 years Three times a week MWF. Pt. did not have dialysis today. Pt. reports he was only dx with Tylenol. He states normally on Elliquis however he was told to hold until next week due to surgical procedure. He denies fevers or chills. He reports feeling weak and SOB with intermittent cough. Pt. w. hx of COPD and CHF. He reports he was told he currently has some fluid on the lungs. He states he takes Lasix. pt. He denies trauma or fall. He reports pain started proximally on the Left UE. he also reports bleeding at the surgical site. He denies rash or itching. He States pain with attempts to move the arm or with palpation. Pt. denies paresthesias or extremity color or temperature changes. He denies CP. Ddx considered but are not limited to cellulitis, Necrotizing fasciitis, allergic reaction, burn, dermatitis, fracture, Shunt complication, hemorrhage just to name a few. Vital signs: are WNL, pt. is afebrile H&PE are most consistent with possible surgical site infection vs. hematoma in a medically complicated pt. who also missed dialysis today. Pt. is non-toxic in appearance. Erythema and warmth of the medial aspect of the LE. No obvious bleeding at this time although bandages which were removed had evidence of blood. two Surgical incisions( 2 inches and 3 inches in length ) appear to have been closed using bailey. ORDERS: -CBC: Anemia hgb 8.8 -- no leukocytosis -CMP: Cr. 13.3 - PT/PTT: WNL -Troponin: WNL -UA: -CXR: appearance of apical pneumothorax-- per radiology -CT Chest No Contrast: pending at time of sign out. ED INTERVENTIONS: None required at this time. Dr. Molina was contacted and spoke with attending physician. Surgeon reports pt. was given rx for T3. If CT Is normal, surgeon Dr. Molina requests outpatient oral abx with follow up on Saturday. DISPOSITION: signed out to attending physician pending CT results Labs Test 04/08/20 17:40 White Blood Count 8.2 K/UL (4.8-10.8) Red Blood Count 2.86 M/UL (4.70-6.10) Hemoglobin 8.8 G/DL (14.2-18.0) Hematocrit 29.2 % (42.0-52.0) Mean Corpuscular Volume 102 FL (80-99) Mean Corpuscular Hemoglobin 30.7 PG (27.0-31.0) Mean Corpuscular Hemoglobin Concent 30.0 G/DL (32.0-36.0) Red Cell Distribution Width 13.6 % (11.6-14.8) Platelet Count 184 K/UL (150-450) Mean Platelet Volume 7.9 FL (6.5-10.1) Neutrophils (%) (Auto) 55.7 % (45.0-75.0) Lymphocytes (%) (Auto) 25.8 % (20.0-45.0) Monocytes (%) (Auto) 15.7 % (1.0-10.0) Eosinophils (%) (Auto) 1.0 % (0.0-3.0) Basophils (%) (Auto) 1.8 % (0.0-2.0) Prothrombin Time 11.6 SEC (9.30-11.50) Prothromb Time International Ratio 1.1 (0.9-1.1) Activated Partial Thromboplast Time 28 SEC (23-33) Sodium Level 135 MMOL/L (136-145) Potassium Level 4.6 MMOL/L (3.5-5.1) Chloride Level 99 MMOL/L (98-107) Carbon Dioxide Level 22 MMOL/L (21-32) Anion Gap 14 mmol/L (5-15) Blood Urea Nitrogen 49 mg/dL (7-18) Creatinine 13.3 MG/DL (0.55-1.30) Estimat Glomerular Filtration Rate 4.6 mL/min (>60) Glucose Level 88 MG/DL (74-106) Lactic Acid Level 0.60 mmol/L (0.4-2.0) Calcium Level 8.5 MG/DL (8.5-10.1) Total Bilirubin 0.3 MG/DL (0.2-1.0) Aspartate Amino Transf (AST/SGOT) 17 U/L (15-37) Alanine Aminotransferase (ALT/SGPT) 13 U/L (12-78) Alkaline Phosphatase 69 U/L (46-116) Troponin I 0.027 ng/mL (0.000-0.056) Total Protein 7.1 G/DL (6.4-8.2) Albumin 3.6 G/DL (3.4-5.0) Globulin 3.5 g/dL Albumin/Globulin Ratio 1.0 (1.0-2.7) (Radha Salazar) ER Course Patient seen and examined by me. Patient's left upper extremity fistula did have some erythema noted. I spoke with patient's vascular surgeon who completed the operation yesterday, he stated patient was given IV antibiotics yesterday and was discharged on Keflex. Patient states he has been taking his Keflex. But his pain was not controlled at home. As he had no fever no leukocytosis surgeon felt patient could follow-up with him in 2 days and complete his oral antibiotic course. We did give an additional dose of Ancef here prior to discharge. Chest x-ray demonstrated small apical pneumothorax of the left lung however CT scan did not demonstrate any pneumothorax so I do believe this was an artifact. Patient did miss dialysis today but his laboratory studies were normal and his vital signs were normal he did not require urgent or emergent dialysis at this time. Patient instructed to follow- up with his surgeon on Saturday in the clinic in addition to complete his dialysis as scheduled on Saturday. (Juan Diego Dodd M.D.) EKG Diagnostic Results EP Interpretation: Dr. Dodd Rate: bradycardiac - 56 Rhythm: NSR ST Segments: no acute changes Other Impression some PAC's & RBBB ASA given to the pt in ED: No PA Scribe Text This Interpretation was scribed by NAWAF Salazar. (Radha Salazar) Chest X-Ray Diagnostic Results Chest X-Ray Diagnostic Results : Chest X-Ray Ordered: Yes # of Views/Limited/Complete: 1 View Indication: Shortness of Breath EP Interpretation: Yes PA Xray: Interpretation reviewed, by supervising MD, and agrees with findings. Interpretation: no consolidation, no effusion, no pneumothorax, no acute cardiopulmonary disease Impression: No acute disease Electronically Signed by: Radha Salazar PA-C (Radha Salazar) CT/MRI/US Diagnostic Results CT/MRI/US Diagnostic Results : Imaging Test Ordered: CT Chest No Contrast Impression "Pending at time of sign out" (Radha Salazar) Last Vital Signs Date Time Temp Pulse Resp B/P (MAP) Pulse Ox O2 Delivery O2 Flow Rate FiO2 04/08/20 17:01 98.2 78 16 141/75 100 Room Air Status: improved (Radha Salazar) Disposition: HOME, SELF-CARE Condition: Stable Scripts Hydrocodone Bit/Acetaminophen 5-325* (NORCO 5-325 TABLET*) 1 Each Tablet 1 TAB ORAL Q6H PRN for FOR PAIN, #10 TAB 0 Refills Prov: Juan Diego Dodd M.D. 04/08/20 Radha Salazar Apr 08, 2020 17:32 Juan Diego Dodd M.D. Apr 08, 2020 22:12
[2020-04-08 18:06] LABS: BASOPHILS % (AUTO) 1.8 % (0.0-2.0); HEMATOCRIT 29.2 % (42.0-52.0); HEMOGLOBIN 8.8 G/DL (14.2-18.0); LYMPHOCYTES % (AUTO) 25.8 % (20.0-45.0); MEAN CORPUSCULAR VOLUME 102 FL (80-99); MONOCYTES % (AUTO) 15.7 % (1.0-10.0); NEUTROPHILS % (AUTO) 55.7 % (45.0-75.0); PLATELET COUNT 184 K/UL (150-450); RED BLOOD COUNT 2.86 M/UL (4.70-6.10); RED CELL DISTRIBUTION WIDTH 13.6 % (11.6-14.8); WHITE BLOOD COUNT 8.2 K/UL (4.8-10.8)
[2020-04-08 18:08] LABS: INR 1.1 (0.9-1.1)
[2020-04-08 18:15] LABS: ALANINE AMINOTRANSFERASE 13 U/L (12-78); ALBUMIN 3.6 G/DL (3.4-5.0); ALKALINE PHOSPHATASE 69 U/L (46-116); ANION GAP 14 mmol/L (5-15); ASPARTATE AMINO TRANSFERASE 17 U/L (15-37); BILIRUBIN,TOTAL 0.3 MG/DL (0.2-1.0); BLOOD UREA NITROGEN 49 mg/dL (7-18); CALCIUM 8.5 MG/DL (8.5-10.1); CARBON DIOXIDE 22 MMOL/L (21-32); CHLORIDE 99 MMOL/L (98-107); CREATININE 13.3 MG/DL (0.55-1.30); POTASSIUM 4.6 MMOL/L (3.5-5.1); SODIUM 135 MMOL/L (136-145)
--- NOTE | 2020-04-08 18:37 | Diagnostic Imaging Report ---
History: PAIN Exam: XR CXR 1 VIEW Comparison: 03/28/2020 FINDINGS: Appearance of a small left apical pneumothorax measuring around 7 mm. The lungs otherwise appear clear. Tunneled right-sided dialysis catheter again noted. Enlarged appearing cardiac silhouette and ectatic thoracic aorta again noted. IMPRESSION: Appearance of a small left apical pneumothorax measuring around 7 mm. <MYCVCSECTION> Communications: 04/08/20 18:41 Verify Receipt Verified receipt with DOROTHY Govea in ER for Dr. Dodd on 04/08 18:41 (-07:00)
[2020-04-08 18:47] VITALS: BP 122/74
[2020-04-08] MEDS ORDERED: RENA-VITE TABL0.8 M1 PO (18:58)
--- NOTE | 2020-04-08 19:32 | Diagnostic Imaging Report ---
History: PAIN Exam: CT CHEST Without Contrast Technique more: CTDI is 17.00 mGy and DLP is 691.70 mGy-cm. Technique more: One or more of the following dose reduction techniques were used: automated exposure control, adjustment of the mA and/or kV according to patient size, use of iterative reconstruction technique. Comparison: FINDINGS: The central airways are patent. Dependent and basilar atelectasis. Small apical blebs and mild centrilobular pulmonary emphysema. No focal consolidation. No pneumothorax. No pericardial or pleural effusion. Proximal LAD coronary calcification. Thoracic aorta appears within limits on noncontrast imaging. Small nonobstructing stone lower pole right kidney. Right-sided tunneled dialysis catheter. Postsurgical changes visualized left upper arm with surgical clips, appearance of graft and soft tissue gas, stranding and edema. IMPRESSION: The central airways are patent. Dependent and basilar atelectasis. Small apical blebs and mild centrilobular pulmonary emphysema. No pneumothorax. Proximal LAD coronary calcification. Small nonobstructing stone lower pole right kidney.
[2020-04-08 19:45] VITALS: BP 129/72
[2020-04-08] MEDS ORDERED: NORCO 5-325 TA1 EAC1 ORAL (19:54)
[2020-04-08] MEDS ORDERED: ceFAZolin sod 1 GM in NS 55 ML IVPB ONE (20:00)
[2020-04-08 20:45] VITALS: BP 133/83
[2020-04-08 20:50] VITALS: BP 133/83
== END 2020-04-08 20:50 | disposition home or self-care (01) ==
LOC: EMR 17:26 → CANBEDREQ 20:18 → EMR 20:50
DX: G89.18 Other acute postprocedural pain (principal); I12.0 Hypertensive chronic kidney disease with stage 5 chronic kidney disease or end stage renal disease; N18.6 End stage renal disease; Z99.2 Dependence on renal dialysis; J44.9 Chronic obstructive pulmonary disease, unspecified; M19.90 Unspecified osteoarthritis, unspecified site; D63.1 Anemia in chronic kidney disease; R00.1 Bradycardia, unspecified; I45.10 Unspecified right bundle-branch block; Z88.0 Allergy status to penicillin; Z88.8 Allergy status to other drugs, medicaments and biological substances
CPT/HCPCS: 36415; 71045; 71250; 80053; 83605; 84484; 85025; 85610; 85730; 87040; 93005; 96365; J0690; Z7502; 99284

== ENCOUNTER 2020-05-09 09:25 | Inpatient (IN) | payer OTHER ==
[~2020-05-09 09:25] MED LIST changes: +NORCO 5-325 TA1 EAC1 ORAL; +RENA-VITE TABL0.8 M1 PO
[2020-05-09] MEDS ORDERED: ANORO ELLIPTA1 EACH ORAL (10:20)
[2020-05-09] MEDS ORDERED: Acetaminophen 500mg (ES) tab ORAL PRN ×2 (13:30→21:00)
[2020-05-09] MEDS ORDERED: Acetaminophen 500mg (ES) tab ORAL SCH (13:30)
[2020-05-09] MEDS ORDERED: Albuterol 90mcg Inhaler 8gm INH PRN ×2 (13:30→21:00)
[2020-05-09] MEDS ORDERED: Eliquis 5mg tablet ORAL SCH ×2 (18:00)
[2020-05-09] MEDS ORDERED: Docusate 100mg cap ORAL SCH (18:00)
[2020-05-09] MEDS ORDERED: dilTIAZem Premix 125mg/125ml 125 ML IVPB SCH ×2 (19:30→21:00)
[2020-05-10] MEDS ORDERED: Nephrovite tab (Rena-Vite) ORAL SCH (09:00)
[2020-05-10] MEDS ORDERED: Amiodarone 200mg tab ORAL SCH (09:00)
[2020-05-10] MEDS: Flonase Nasal Inhaler 16gm NASAL SCH (09:00)
[2020-05-10] MEDS ORDERED: Flonase Nasal Inhaler 16gm NASAL SCH (09:00)
[2020-05-10] MEDS ORDERED: Furosemide 40mg tab ORAL SCH ×2 (09:00)
[2020-05-10] MEDS: Docusate 100mg cap ORAL SCH ×3 (09:06→17:56)
[2020-05-10] MEDS: Nephrovite tab (Rena-Vite) ORAL SCH (09:06)
[2020-05-10] MEDS: Amiodarone 200mg tab ORAL SCH (09:07)
[2020-05-10] MEDS: Eliquis 5mg tablet ORAL SCH ×2 (09:39→17:56)
[2020-05-10] MEDS: Dyna-Hex 2% Top Sol 2oz TOPIC SCH (20:21)
[2020-05-10] MEDS: dilTIAZem HCl 60mg tab ORAL SCH (21:41)
[2020-05-11] MEDS: dilTIAZem HCl 60mg tab ORAL SCH ×3 (06:03→21:52)
[2020-05-11] MEDS: Flonase Nasal Inhaler 16gm NASAL SCH (08:38)
[2020-05-11] MEDS: Nephrovite tab (Rena-Vite) ORAL SCH (09:00)
[2020-05-11] MEDS: Eliquis 5mg tablet ORAL SCH ×2 (09:00→18:00)
[2020-05-11] MEDS: Docusate 100mg cap ORAL SCH ×3 (09:00→18:00)
[2020-05-11] MEDS: Amiodarone 200mg tab ORAL SCH (09:00)
[2020-05-11] MEDS: Dyna-Hex 2% Top Sol 2oz TOPIC SCH (20:31)
[2020-05-11] MEDS: LORazepam 1mg tab ORAL SCH (20:31)
[2020-05-12] MEDS: dilTIAZem HCl 60mg tab ORAL SCH ×3 (06:25→22:00)
[2020-05-12] MEDS: Flonase Nasal Inhaler 16gm NASAL SCH (08:38)
[2020-05-12] MEDS: Amiodarone 200mg tab ORAL SCH (08:38)
[2020-05-12] MEDS: Nephrovite tab (Rena-Vite) ORAL SCH (08:39)
[2020-05-12] MEDS: Eliquis 5mg tablet ORAL SCH ×2 (08:39→17:22)
[2020-05-12] MEDS: Docusate 100mg cap ORAL SCH ×3 (08:39→17:22)
[2020-05-12] MEDS: LORazepam 1mg tab ORAL SCH ×2 (08:39→20:09)
[2020-05-12] MEDS: Dyna-Hex 2% Top Sol 2oz TOPIC SCH (20:02)
[2020-05-13] MEDS: dilTIAZem HCl 60mg tab ORAL SCH ×3 (05:36→13:35)
[2020-05-13] MEDS ORDERED: Acetaminophen 500mg (ES) tab ORAL PRN (06:00)
[2020-05-13] MEDS ORDERED: Albuterol 90mcg Inhaler 8gm INH PRN (06:00)
[2020-05-13] MEDS: Docusate 100mg cap ORAL SCH ×2 (08:48→13:00)
[2020-05-13] MEDS ORDERED: Nephrovite tab (Rena-Vite) ORAL SCH (09:00)
[2020-05-13] MEDS ORDERED: Flonase Nasal Inhaler 16gm NASAL SCH (09:00)
[2020-05-13] MEDS ORDERED: Eliquis 5mg tablet ORAL SCH (09:00)
[2020-05-13] MEDS ORDERED: Amiodarone 200mg tab ORAL SCH (09:00)
[2020-05-13] MEDS ORDERED: LORazepam 1mg tab ORAL SCH (09:00)
[2020-05-13] MEDS ORDERED: Tubing IV Secondary IV ONE (14:30)
[2020-05-13] MEDS ORDERED: Dyna-Hex 2% Top Sol 2oz TOPIC SCH (20:00)
== END 2020-05-13 14:31 | disposition home or self-care (01) | DRG 425 ==
DX: E87.79 Other fluid overload (principal); I13.2 Hypertensive heart and chronic kidney disease with heart failure and with stage 5 chronic kidney disease, or end stage renal disease; N18.6 End stage renal disease; I48.91 Unspecified atrial fibrillation; I45.2 Bifascicular block; Z88.1 Allergy status to other antibiotic agents; Z88.8 Allergy status to other drugs, medicaments and biological substances; Z99.2 Dependence on renal dialysis; I50.33 Acute on chronic diastolic (congestive) heart failure; Z91.15 Patient's noncompliance with renal dialysis; D63.1 Anemia in chronic kidney disease; J44.9 Chronic obstructive pulmonary disease, unspecified

== ENCOUNTER 2020-07-31 08:20 | Inpatient (IN) | payer OTHER ==
[~2020-07-31] VITALS: Ht 162.6 cm; Wt 83.0 kg
[~2020-07-31 08:20] MED LIST changes: +ANORO ELLIPTA1 EACH ORAL
--- NOTE | 2020-07-31 08:40 | NUR ---
ED Nurse Note: Pt came in to ED assisted by kristin d/sumti shortness of breath, generalized pain and body weakness started 3-4 days ago. Pt is A&Ox4, calm and cooperative. Per pt he goes to dialysis every sat, sat and saturday. last dialysis was saturday; skipped 2 sessions this week; shunt on upper LT arm. Pt was placed on bed and gown; hooked to cardiac technologist satting aroung 94-98% on RA. Per pt, he can also try to urinate on his own once in a while. Placed bed on lowest position; side rails up. Will continue to monitor pt.
[2020-07-31 08:50] VITALS: BP 147/85
--- NOTE | 2020-07-31 08:53 | Emergency Room Report ---
History of Present Illness General Chief Complaint: Generalized Weakness Source: Patient Present Illness HPI Patient presents saying that he missed dialysis Saturday and Saturday. The last time he had dialysis was Saturday. He states he felt weak and unable to go to dialysis. He also has shortness of breath and dyspnea. He has a nonproductive cough during this time. He was tested last week for COVID-19 and alleges that this was negative. He lives by himself and has been social isolating. He complains about constipation and having some bright red blood in his stool. The patient does urinate on his own and states that he has had frequent urination without dysuria. Recently dialysis fistula was established in his left arm. Previous to that he had permacath. No fevers, chills, sore throat, chest pain, palpitations, nausea, vomiting, diarrhea, abdominal pain, joint pain, rashes, depression, anxiety, visual c hanges, dizziness, headache. The patient was last admitted in April with these discharge diagnoses: Atrial fibrillation with RVR Acute on chronic diastolic CHF Hypertensive kidney disease Volume overload and pulmonary edema End-stage renal disease on hemodialysis, with missed dialysis Right bundle branch block and left anterior fascicular block Anemia in CKD Allergies: Coded Allergies: BENZOIN (Unverified Allergy, Severe, 12/28/14) AMOXICILLIN (Verified Allergy, Intermediate, 11/18/12) ABD PAIN N/V POVIDONE-IODINE (Verified Allergy, Unknown, 03/28/20) Skin peeling COVID-19 Screening Contact w/high risk pt: No Recent Travel to affected area: No Experienced COVID-19 symptoms?: No COVID-19 symptoms experienced: Shortness of Breath, Cough COVID-19 Testing performed 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 TRIMMER: 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 - 1 week COVID-19 Screening: Negative COVID-19 COVID-19 Testing Source: nasal Patient History Past Medical History: see triage record Past Surgical History: other - fistula L upper arm Social History: Denies: smoking Social History Narrative lives by himself Reviewed Nursing Documentation: PMH: Agreed; PSxH: Agreed Nursing Documentation-PMH Hx Cardiac Problems: Yes - heart failure Hx Hypertension: Yes Hx Pacemaker: No Hx Asthma: Yes Hx COPD: Yes Hx Cancer: No Hx Gastrointestinal Problems: Yes Hx Dialysis: Yes - MWF Hx Neurological Problems: No Hx Cerebrovascular Accident: Yes Hx Syncope: Yes Review of Systems All Other Systems: negative except mentioned in HPI Physical Exam Vital Signs Date Time Temp Pulse Resp B/P (MAP) Pulse Ox O2 Delivery O2 Flow Rate FiO2 07/31/20 08:24 97.9 57 20 147/85 (105) 92 Room Air Sp02 EP Interpretation: reviewed, abnormal - Interpreted as low by me General Appearance: no apparent distress, GCS 15, non-toxic, Chronically Ill Head: normocephalic Eyes: bilateral eye normal inspection, bilateral eye PERRL, bilateral eye EOMI ENT: moist mucus membranes - Poor dentition Respiratory: no respiratory distress, crackles - Bilaterally Cardiovascular #1: regular rate, rhythm Cardiovascular #2: 2+ radial (R), 2+ radial (L) - fistula Gastrointestinal: non tender, soft, decreased bowel sounds Genitourinary: no CVA tenderness Musculoskeletal: back normal, no calf tenderness, moves extm spontaneously Neurologic: alert, motor strength/tone normal, oriented, normal inspection Psychiatric: mood/affect normal Skin: warm/dry, other - hyperpigmented macules (linear) chest and possible extranumrary nipples Medical Decision Making Diagnostic Impression: Primary Impression: Bradycardia Additional Impressions: Pulmonary edema Qualified Codes: J81.0 - Acute pulmonary edema ESRD on dialysis ER Course Patient presents after missing 2 episodes of dialysis. He is complaining of dyspnea. Differential includes COVID-19, CHF, acute myocardial infarction, electrolyte abnormality including hyperkalemia amongst others. Patient evaluated with EKG, chest x-ray and labs. Patient placed on a vehicle monitor technician. EKG bradycardia with occasional PVCs. Chest x-ray with pulmonary edema. Called with positive troponin at 10 AM. Aspirin and nitro bid ordered. Patient with increased dyspnea and anxious. Duoneb, morphine and zofran ordered. 1137 Patient more comfortable after tx. Admitted telemetry, Dr. Russ. Laboratory Tests Test 07/31/20 09:00 07/31/20 09:50 07/31/20 18:45 White Blood Count 6.2 K/UL (4.8-10.8) Red Blood Count 3.48 M/UL (4.70-6.10) L Hemoglobin 10.4 G/DL (14.2-18.0) L Hematocrit 32.7 % (42.0-52.0) L Mean Corpuscular Volume 94 FL (80-99) Mean Corpuscular Hemoglobin 30.0 PG (27.0-31.0) Mean Corpuscular Hemoglobin Concent 31.8 G/DL (32.0-36.0) L Red Cell Distribution Width 13.4 % (11.6-14.8) Platelet Count 173 K/UL (150-450) Mean Platelet Volume 7.5 FL (6.5-10.1) Neutrophils (%) (Auto) 59.4 % (45.0-75.0) Lymphocytes (%) (Auto) 22.5 % (20.0-45.0) Monocytes (%) (Auto) 15.6 % (1.0-10.0) H Eosinophils (%) (Auto) 0.9 % (0.0-3.0) Basophils (%) (Auto) 1.6 % (0.0-2.0) Prothrombin Time 13.1 SEC (9.30-11.50) H Prothrombin Time INR 1.2 (0.9-1.1) H Activated Partial Thromboplast Time 31 SEC (23-33) Sodium Level 141 MMOL/L (136-145) Potassium Level 5.1 MMOL/L (3.5-5.1) Chloride Level 106 MMOL/L (98-107) Carbon Dioxide Level 19 MMOL/L (21-32) L Anion Gap 16 mmol/L (5-15) H Blood Urea Nitrogen 93 mg/dL (7-18) H Creatinine 15.0 MG/DL (0.55-1.30) H Estimated Glomerular Filtration Rate 4.0 mL/min (>60) Glucose Level 101 MG/DL (74-106) Lactic Acid Level 1.20 mmol/L (0.4-2.0) Calcium Level 8.0 MG/DL (8.5-10.1) L Magnesium Level 2.3 MG/DL (1.8-2.4) Ferritin 367 NG/ML (8-388) Total Bilirubin 0.4 MG/DL (0.2-1.0) Aspartate Amino Transferase (AST) 26 U/L (15-37) Alanine Aminotransferase (ALT) 14 U/L (12-78) Alkaline Phosphatase 57 U/L (46-116) Lactate Dehydrogenase 247 U/L (81-234) H Total Creatine Kinase 140 U/L (26-308) Troponin I 0.069 ng/mL (0.000-0.056) 0.059 ng/mL (0.000-0.056) C-Reactive Protein, Quantitative 0.9 mg/dL (0.00-0.90) Pro-B-Type Natriuretic Peptide > 05977 pg/mL (0-125) H Total Protein 6.6 G/DL (6.4-8.2) Albumin 3.4 G/DL (3.4-5.0) Globulin 3.2 g/dL Albumin/Globulin Ratio 1.1 (1.0-2.7) Lipase 207 U/L (73-393) Urine Color Pale yellow Urine Appearance Clear Urine pH 6.5 (4.5-8.0) Urine Specific [place] 1.010 (1.005-1.035) Urine Protein 3+ (NEGATIVE) H Urine Glucose (UA) Negative (NEGATIVE) Urine Ketones Negative (NEGATIVE) Urine Blood 3+ (NEGATIVE) H Urine Nitrite Negative (NEGATIVE) Urine Bilirubin Negative (NEGATIVE) Urine Urobilinogen Normal MG/DL (0.0-1.0) Urine Leukocyte Esterase 1+ (NEGATIVE) H Urine RBC 2-4 /HPF (0 - 0) H Urine WBC 0-2 /HPF (0 - 0) Urine Squamous Epithelial Cells None /LPF (NONE/OCC) Urine Bacteria None /HPF (NONE) Urine Opiates Screen Negative (NEGATIVE) Urine Barbiturates Screen Negative (NEGATIVE) Phencyclidine (PCP) Screen Negative (NEGATIVE) Urine Amphetamines Screen Negative (NEGATIVE) Urine Benzodiazepines Screen Negative (NEGATIVE) Urine Cocaine Screen Negative (NEGATIVE) Urine Marijuana (THC) Screen Negative (NEGATIVE) Microbiology Date/Time Source Procedure Growth Status 07/31/20 09:00 Nasopharynx SARS-CoV-2 RdRp Gene Assay - Final Complete EKG Diagnostic Results Rate: bradycardiac Rhythm: NSR ST Segments: no acute changes - Heart rate 54 with occasional PVC and right bundle branch block Rhythm Strip Diag. Results EP Interpretation: yes Rhythm: other - Bradycardia rate 54, PVCs Chest X-Ray Diagnostic Results Chest X-Ray Diagnostic Results : Chest X-Ray Ordered: Yes # of Views/Limited/Complete: 1 View Indication: Shortness of Breath EP Interpretation: Yes Interpretation: no pneumothorax, other - pulmonary edema Impression: Other Electronically Signed by: Electronically signed by Asad De La O MD Last Vital Signs Date Time Temp Pulse Resp B/P (MAP) Pulse Ox O2 Delivery O2 Flow Rate FiO2 07/31/20 16:00 50 07/31/20 16:00 96.6 18 150/81 (104) 96 07/31/20 12:54 Nasal Cannula 2.0 07/31/20 12:38 28 Status: improved Disposition: ADMITTED INPATIENT Condition: Serious Asad De La O MD Jul 31, 2020 08:53
--- NOTE | 2020-07-31 09:09 | Diagnostic Imaging Report ---
EXAM: XR Chest, 1 View CLINICAL HISTORY: DYSPNEA TECHNIQUE: Frontal view of the chest. COMPARISON: FINDINGS: Lungs: There are mild to moderate bilateral perihilar lower lobe pulmonary infiltrates indeterminate between pulmonary edema and bilateral pneumonia. Pleural space: Unremarkable. No pneumothorax. Heart: There is mild cardiomegaly. Mediastinum: Unremarkable. Bones/joints: Unremarkable. IMPRESSION: There are mild to moderate bilateral perihilar lower lobe pulmonary infiltrates indeterminate between pulmonary edema and bilateral pneumonia.
--- NOTE | 2020-07-31 09:23 | NUR ---
ED Nurse Note: pt unable to provide urine as of now.
[2020-07-31 09:43] LABS: ANION GAP 16 mmol/L (5-15); BLOOD UREA NITROGEN 93 mg/dL (7-18); CARBON DIOXIDE 19 MMOL/L (21-32); CHLORIDE 106 MMOL/L (98-107); POTASSIUM 5.1 MMOL/L (3.5-5.1); SODIUM 141 MMOL/L (136-145)
[2020-07-31 09:55] LABS: BASOPHILS % (AUTO) 1.6 % (0.0-2.0); EOSINOPHILS % (AUTO) 0.9 % (0.0-3.0); HEMATOCRIT 32.7 % (42.0-52.0); HEMOGLOBIN 10.4 G/DL (14.2-18.0); LYMPHOCYTES % (AUTO) 22.5 % (20.0-45.0); MEAN CORPUSCULAR VOLUME 94 FL (80-99); MONOCYTES % (AUTO) 15.6 % (1.0-10.0); NEUTROPHILS % (AUTO) 59.4 % (45.0-75.0); PLATELET COUNT 173 K/UL (150-450); RED BLOOD COUNT 3.48 M/UL (4.70-6.10); RED CELL DISTRIBUTION WIDTH 13.4 % (11.6-14.8); WHITE BLOOD COUNT 6.2 K/UL (4.8-10.8)
[2020-07-31 09:57] LABS: ALANINE AMINOTRANSFERASE 14 U/L (12-78); ALBUMIN 3.4 G/DL (3.4-5.0); ALBUMIN/GLOBULIN RATIO 1.1 (1.0-2.7); ALKALINE PHOSPHATASE 57 U/L (46-116); ASPARTATE AMINO TRANSFERASE 26 U/L (15-37); BILIRUBIN,TOTAL 0.4 MG/DL (0.2-1.0); CREATINE KINASE 140 U/L (26-308); FERRITIN 367 NG/ML (8-388); LACTATE DEHYDROGENASE 247 U/L (81-234)
[2020-07-31] MEDS ORDERED: Nitroglycerin 2% oint pkt TOPIC ONE (10:00)
--- NOTE | 2020-07-31 10:15 | NUR ---
ED Nurse Note: urine collected and sent to lab
[2020-07-31 10:20] LABS: APPEARANCE,URINE CLEAR; BILIRUBIN, URINE NEGATIVE (NEGATIVE); COLOR,URINE PALE YELLOW; GLUCOSE, URINE (UA) NEGATIVE (NEGATIVE); KETONES,URINE NEGATIVE (NEGATIVE); LEUKOCYTE ESTERASE ,URINE 1+ (NEGATIVE); NITRITE,URINE NEGATIVE (NEGATIVE); PH,URINE 6.5 (4.5-8.0); PROTEIN,URINE 3+ (NEGATIVE); UROBILINOGEN,URINE NORMAL MG/DL (0.0-1.0)
[2020-07-31 10:20] LABS: INR 1.2 (0.9-1.1)
--- NOTE | 2020-07-31 10:50 | NUR ---
ED Nurse Note: pt complains of shortness of breath; appears to be aggitated; oxygen satting around 88-97%, per Dr. De La O, may give 2LPM O2 via NC. Placed bed on high fowlers, pt verbalized feeling relieved.
[2020-07-31 11:00] VITALS: BP 140/77
--- NOTE | 2020-07-31 11:40 | NUR ---
ED Nurse Note: RT at bedside.
[2020-07-31] MEDS ORDERED: Albuterol/Ipratropium 3ml neb HHN ONE (11:45)
[2020-07-31] MEDS ORDERED: LORazepam Inj 2mg/ml 1ml IV ONE (11:45)
[2020-07-31] MEDS ORDERED: Morphine Sulfate 4mg/ml Inj (IV USE ONLY) IVP ONE (11:45)
--- NOTE | 2020-07-31 11:45 | NUR ---
ED Nurse Note: Pt complains of 6-7 pain scale on the anterior chest, notified ERMD. Morphine 4mg given IV; nitro 1 in and ASA 325mg given earlier. Will continue to monitor pt.
--- NOTE | 2020-07-31 12:38 | NUR ---
ED Nurse Note: Pt was transferred to Telemetry Unit under the care of Dr. Russ. Report was given to Aamir FRITZ in Telemetry Unit. Pt was transferred on stable condition; all belongings was sent with pt. Family aware of pt transfer.
[2020-07-31 13:00] VITALS: BP 145/83
[2020-07-31] MEDS ORDERED: Nitroglycerin Subl 0.4mg tab SL PRN (13:00)
[2020-07-31] MEDS ORDERED: Albuterol/Ipratropium 3ml neb HHN PRN (13:00)
[2020-07-31] MEDS ORDERED: Morphine Sulfate 2mg/ml Inj(IV/IM USE ONLY) IVP PRN (13:00)
[2020-07-31] MEDS ORDERED: LORazepam Inj 2mg/ml 1ml IV PRN (13:00)
--- NOTE | 2020-07-31 13:00 | NUR ---
NURSE NOTES: Received patient from ED via gurney. On 2 L via NC. Patietn denies pain. Awake, A/O x4. IV in the Right AC, site intact. Av shunt in the Left upper arm noted. Bed low and locked, side rails up x2, call light within reach with return demonstration. belongings list verified, heart monitor in place.
--- NOTE | 2020-07-31 13:16 | Consultation ---
Consult Note Consult Note 07/31/2020: asked by Dr Russ to manage dialysis. Missed dialysis Urgent dialysis ordered full note to follow I am asked to evaluate the patient at the request of Dr. Russ for dialysis management Patient presents saying that he missed dialysis Saturday and Saturday. The last time he had dialysis was Saturday. He states he felt weak and unable to go to dialysis. He also has shortness of breath and dyspnea. He has a nonproductive cough during this time. He was tested last week for COVID-19 and alleges that this was negative. He lives by himself and has been social isolating. He complains about constipation and having some bright red blood in his stool. The patient does urinate on his own and states that he has had frequent urination without dysuria. Recently dialysis fistula was established in his left arm. Previous to that he had permacath. No fevers, chills, sore throat, chest pain, palpitations, nausea, vomiting, d iarrhea, abdominal pain, joint pain, rashes, depression, anxiety, visual changes, dizziness, headache. The patient was last admitted in April with these discharge diagnoses: Atrial fibrillation with RVR Acute on chronic diastolic CHF Hypertensive kidney disease Volume overload and pulmonary edema End-stage renal disease on hemodialysis, with missed dialysis Right bundle branch block and left anterior fascicular block Anemia in CKD Allergies: Coded Allergies: BENZOIN (Unverified Allergy, Severe, 12/28/14) AMOXICILLIN (Verified Allergy, Intermediate, 11/18/12) ABD PAIN N/V POVIDONE-IODINE (Verified Allergy, Unknown, 03/28/20) Skin peeling COVID-19 Screening Contact w/high risk pt: No Recent Travel to affected area: No Experienced COVID-19 symptoms?: No COVID-19 symptoms experienced: Shortness of Breath, Cough COVID-19 Testing performed TIGHTENER: Yes - 1 week COVID-19 Screening: Negative COVID-19 COVID-19 Testing Source: nasal Past Medical History: see triage record Past Surgical History: other - fistula L upper arm Hx Cardiac Problems: Yes - heart failure Hx Hypertension: Yes Hx Asthma: Yes Hx COPD: Yes Hx Gastrointestinal Problems: Yes Hx Dialysis: Yes - MWF Hx Cerebrovascular Accident: Yes Hx Syncope: Yes PHYSICAL EXAMINATION: VITAL SIGNS: Show blood pressure 144/83, pulse is 90, respirations 18, and he is afebrile. HEAD AND NECK: No JVD. LUNGS: basal creps / rales CARDIOVASCULAR: Regular S1 and S2 with no gallop. tachy ABDOMEN: Soft. distended EXTREMITIES: Dialysis in the left arm. LABORATORY AND DIAGNOSTIC DATA: His EKG shows sinus bradycardia at rate of 54 with right bundle-branch block and left anterior fascicular block. Labs show white count 6.2, hematocrit 10.4, hematocrit 32.7, platelet count 173. Sodium 141, potassium 5.1, BUN of 93, creatinine of 15, glucose of 101. Troponin 0.069. . . Assessment/Plan End-stage renal disease, missed dialysis Volume overload and pulmonary edema Anemia of chronic kidney disease Hypertension History of atrial fibrillation History of congestive heart failure Plan: Hemodialysis and ultrafiltration as soon as possible. Day urgent dialysis order for July for was not carried out as of the morning of August 01 Optimize cardiac and pulmonary status with medication adjustment Per orders Darwin Jung MD Jul 31, 2020 13:16
[2020-07-31] MEDS ORDERED: Albuterol 90mcg Inhaler 8gm INH SCH (13:30)
--- NOTE | 2020-07-31 13:32 | History and Physical ---
History of Present Illness General Date patient seen: Jul 31, 2020 Time patient seen: 01:00 Reason for Hospitalization: Generalized Weakness Present Illness HPI 65 years old aam came from home for sob for 3 days . pt missed the hd on saturday for transport issue. he was agitated in er given ativan and morphine now pt is awake more appropriate, sounds tachynepic, no chesp pain, no palpitation, no fever no chills cough with dry cough. Allergies: Coded Allergies: BENZOIN (Unverified Allergy, Severe, 12/28/14) AMOXICILLIN (Verified Allergy, Intermediate, 11/18/12) ABD PAIN N/V POVIDONE-IODINE (Verified Allergy, Unknown, 03/28/20) Skin peeling COVID-19 Screening Contact w/high risk pt: No Recent Travel to affected area: No Experienced COVID-19 symptoms?: No Medication History Scheduled Acetaminophen* (Acetaminophen Extra Strength*), 500 MG ORAL Q6H, (Reported) Albuterol Sulfate* (Proair Hfa*), 1 PUFF INH Q6H, (Reported) Amiodarone Hcl* (Amiodarone Hcl*), 200 MG ORAL DAILY, (Reported) Amlodipine Besylate* (Amlodipine Besylate*), 10 MG ORAL DAILY, (Reported) Apixaban (Eliquis*), 5 MG PO BID, (Reported) Calcium Acetate (Calcium Acetate), 667 MG PO TID, (Reported) Fluticasone Propionate* (Fluticasone Propionate*), 1 SPRAY NASAL DAILY, (Reported) Folic Acid/Vitamin B Comp W-C (Elisa-Didier Tablet), 0.8 MG PO DAILY, (Reported) Furosemide* (Lasix*), 40 MG ORAL DAILY, (Reported) Umeclidinium Brm/Vilanterol Tr (Anoro Ellipta 62.5-25 Mcg INH), 1 INCH ORAL BID, (Reported) Patient History Healthcare decision maker Resuscitation status Advanced Directive on File Review of Systems Constitutional: Reports: see HPI Physical Exam General Appearance: alert Lines, tubes and drains: peripheral HEENT: atraumatic, PERRL, EOMI Neck: non-tender, supple Respiratory/Chest: inspiratory wheezing Cardiovascular/Chest: regular rhythm Abdomen: non tender, soft, no organomegaly Genitourinary/Rectal: normal genital exam Extremities: non-tender Skin Exam: warm/dry Neurologic: oriented x 3 Musculoskeletal: normal muscle bulk Last 24 Hour Vital Signs Date Time Temp Pulse Resp B/P (MAP) Pulse Ox O2 Delivery O2 Flow Rate FiO2 07/31/20 12:54 Nasal Cannula 2.0 07/31/20 11:57 68 18 95 Nasal Cannula 2.0 28 62 18 92 07/31/20 11:00 97.9 64 18 140/77 100 Nasal Cannula 2.0 07/31/20 10:11 143/88 07/31/20 08:50 57 20 Room Air 07/31/20 08:50 97.9 20 147/85 92 Room Air 07/31/20 08:24 97.9 57 20 147/85 (105) 92 Room Air Laboratory Tests Test 07/31/20 09:00 07/31/20 09:50 White Blood Count 6.2 K/UL (4.8-10.8) Red Blood Count 3.48 M/UL (4.70-6.10) L Hemoglobin 10.4 G/DL (14.2-18.0) L Hematocrit 32.7 % (42.0-52.0) L Mean Corpuscular Volume 94 FL (80-99) Mean Corpuscular Hemoglobin 30.0 PG (27.0-31.0) Mean Corpuscular Hemoglobin Concent 31.8 G/DL (32.0-36.0) L Red Cell Distribution Width 13.4 % (11.6-14.8) Platelet Count 173 K/UL (150-450) Mean Platelet Volume 7.5 FL (6.5-10.1) Neutrophils (%) (Auto) 59.4 % (45.0-75.0) Lymphocytes (%) (Auto) 22.5 % (20.0-45.0) Monocytes (%) (Auto) 15.6 % (1.0-10.0) H Eosinophils (%) (Auto) 0.9 % (0.0-3.0) Basophils (%) (Auto) 1.6 % (0.0-2.0) Prothrombin Time 13.1 SEC (9.30-11.50) H Prothromb Time International Ratio 1.2 (0.9-1.1) H Activated Partial Thromboplast Time 31 SEC (23-33) Sodium Level 141 MMOL/L (136-145) Potassium Level 5.1 MMOL/L (3.5-5.1) Chloride Level 106 MMOL/L (98-107) Carbon Dioxide Level 19 MMOL/L (21-32) L Anion Gap 16 mmol/L (5-15) H Blood Urea Nitrogen 93 mg/dL (7-18) H Creatinine 15.0 MG/DL (0.55-1.30) H Estimat Glomerular Filtration Rate 4.0 mL/min (>60) Glucose Level 101 MG/DL (74-106) Lactic Acid Level 1.20 mmol/L (0.4-2.0) Calcium Level 8.0 MG/DL (8.5-10.1) L Magnesium Level 2.3 MG/DL (1.8-2.4) Ferritin 367 NG/ML (8-388) Total Bilirubin 0.4 MG/DL (0.2-1.0) Aspartate Amino Transf (AST/SGOT) 26 U/L (15-37) Alanine Aminotransferase (ALT/SGPT) 14 U/L (12-78) Alkaline Phosphatase 57 U/L (46-116) Lactate Dehydrogenase 247 U/L (81-234) H Total Creatine Kinase 140 U/L (26-308) Troponin I 0.069 ng/mL (0.000-0.056) C-Reactive Protein, Quantitative 0.9 mg/dL (0.00-0.90) Pro-B-Type Natriuretic Peptide > 24296 pg/mL (0-125) H Total Protein 6.6 G/DL (6.4-8.2) Albumin 3.4 G/DL (3.4-5.0) Globulin 3.2 g/dL Albumin/Globulin Ratio 1.1 (1.0-2.7) Lipase 207 U/L (73-393) Urine Color Pale yellow Urine Appearance Clear Urine pH 6.5 (4.5-8.0) Urine Specific [place] 1.010 (1.005-1.035) Urine Protein 3+ (NEGATIVE) H Urine Glucose (UA) Negative (NEGATIVE) Urine Ketones Negative (NEGATIVE) Urine Blood 3+ (NEGATIVE) H Urine Nitrite Negative (NEGATIVE) Urine Bilirubin Negative (NEGATIVE) Urine Urobilinogen Normal MG/DL (0.0-1.0) Urine Leukocyte Esterase 1+ (NEGATIVE) H Urine RBC 2-4 /HPF (0 - 0) H Urine WBC 0-2 /HPF (0 - 0) Urine Squamous Epithelial Cells None /LPF (NONE/OCC) Urine Bacteria None /HPF (NONE) Urine Opiates Screen Negative (NEGATIVE) Urine Barbiturates Screen Negative (NEGATIVE) Phencyclidine (PCP) Screen Negative (NEGATIVE) Urine Amphetamines Screen Negative (NEGATIVE) Urine Benzodiazepines Screen Negative (NEGATIVE) Urine Cocaine Screen Negative (NEGATIVE) Urine Marijuana (THC) Screen Negative (NEGATIVE) Microbiology Date/Time Source Procedure Growth Status 07/31/20 09:00 Nasopharynx SARS-CoV-2 RdRp Gene Assay - Final Complete Height (Feet): 5 Height (Inches): 4.00 Weight (Pounds): 182 Medications Current Medications Medications (Trade) Dose Ordered Sig/Daniel Route PRN Reason Start Time Stop Time Status Last Admin Dose Admin Acetaminophen (Tylenol) 650 mg Q4H PRN ORAL Temp >100.5 07/31/20 13:00 08/30/20 12:59 UNV Albuterol/ Ipratropium (Albuterol/ Ipratropium) 3 ml EVERY 6 HOURS PRN HHN Shortness of Breath 07/31/20 13:00 08/05/20 12:59 UNV Ceftriaxone Sodium 1 gm/ Dextrose 55 ml @ 110 mls/hr Q24H IVPB 07/31/20 13:00 08/07/20 12:59 UNV Furosemide (Lasix) 20 mg EVERY 12 HOURS IV 07/31/20 21:00 08/30/20 20:59 UNV Heparin Sodium (Porcine) (Heparin 5000 units/ml) 5,000 units EVERY 12 HOURS SUBQ 07/31/20 21:00 09/14/20 20:59 UNV Lorazepam (Ativan 2mg/ml 1ml) 1 mg EVERY 6 HOURS PRN IV For Anxiety 07/31/20 13:00 08/07/20 12:59 UNV Morphine Sulfate (Morphine Sulfate) 1 mg Q6HR PRN IVP Severe Pain (Pain Scale 7-10) 07/31/20 13:00 08/07/20 12:59 UNV Nitroglycerin (Ntg) 0.4 mg Q5M PRN SL Prn Chest Pain 07/31/20 13:00 08/30/20 12:59 UNV Vitamin B Complex/ Vit C/Folic Acid (Nephrovite) 1 tab BID ORAL 08/01/20 09:00 08/31/20 08:59 UNV Assessment/Plan Status Narrative more awake in bed , feels hungery wants have lunch mild sob and tachycardia Assessment/Plan: 1 sob 2 ac chf diasolic failure 3 fluid overload 4 esrd on hd depended 5 htn 6 over jolie 7 poor complience 8 anemia admit to tele 2gm na renal diet fluid restriction lasix 20 mg iv bid nephro and cardio consult resume home meds r/o mi rpt labs and troponion Boogie Russ MD Jul 31, 2020 13:32
[2020-07-31] MEDS: cefTRIAXone 1 GM in D5W 55 ML IVPB SCH (13:59)
--- NOTE | 2020-07-31 15:42 | NUR ---
CASE MANAGEMENT: Faxed clinical info (face sheet / H&P/ ER MD report/ lab and imaging reports inc admit order / cx report) to [facility] @[phone].
[2020-07-31 16:00] VITALS: BP 150/81
[2020-07-31] MEDS ORDERED: Tubing IV Secondary IV ONE (16:06)
[2020-07-31] MEDS ORDERED: NS 275ml ONE (16:06)
--- NOTE | 2020-07-31 17:03 | Cardiac Electrophysiology PN ---
Subjective Subjective [id number] Objective Last 24 Hour Vital Signs Date Time Temp Pulse Resp B/P (MAP) Pulse Ox O2 Delivery O2 Flow Rate FiO2 07/31/20 13:00 97.5 99 16 145/83 (103) 96 07/31/20 12:54 Nasal Cannula 2.0 07/31/20 12:38 97.9 68 18 138/78 96 Nasal Cannula 2.0 28 07/31/20 11:57 68 18 95 Nasal Cannula 2.0 28 62 18 92 07/31/20 11:00 97.9 64 18 140/77 100 Nasal Cannula 2.0 07/31/20 10:11 143/88 07/31/20 08:50 57 20 Room Air 07/31/20 08:50 97.9 20 147/85 92 Room Air 07/31/20 08:24 97.9 57 20 147/85 (105) 92 Room Air Laboratory Tests Test 07/31/20 09:00 07/31/20 09:50 White Blood Count 6.2 K/UL (4.8-10.8) Red Blood Count 3.48 M/UL (4.70-6.10) L Hemoglobin 10.4 G/DL (14.2-18.0) L Hematocrit 32.7 % (42.0-52.0) L Mean Corpuscular Volume 94 FL (80-99) Mean Corpuscular Hemoglobin 30.0 PG (27.0-31.0) Mean Corpuscular Hemoglobin Concent 31.8 G/DL (32.0-36.0) L Red Cell Distribution Width 13.4 % (11.6-14.8) Platelet Count 173 K/UL (150-450) Mean Platelet Volume 7.5 FL (6.5-10.1) Neutrophils (%) (Auto) 59.4 % (45.0-75.0) Lymphocytes (%) (Auto) 22.5 % (20.0-45.0) Monocytes (%) (Auto) 15.6 % (1.0-10.0) H Eosinophils (%) (Auto) 0.9 % (0.0-3.0) Basophils (%) (Auto) 1.6 % (0.0-2.0) Prothrombin Time 13.1 SEC (9.30-11.50) H Prothromb Time International Ratio 1.2 (0.9-1.1) H Activated Partial Thromboplast Time 31 SEC (23-33) Sodium Level 141 MMOL/L (136-145) Potassium Level 5.1 MMOL/L (3.5-5.1) Chloride Level 106 MMOL/L (98-107) Carbon Dioxide Level 19 MMOL/L (21-32) L Anion Gap 16 mmol/L (5-15) H Blood Urea Nitrogen 93 mg/dL (7-18) H Creatinine 15.0 MG/DL (0.55-1.30) H Estimat Glomerular Filtration Rate 4.0 mL/min (>60) Glucose Level 101 MG/DL (74-106) Lactic Acid Level 1.20 mmol/L (0.4-2.0) Calcium Level 8.0 MG/DL (8.5-10.1) L Magnesium Level 2.3 MG/DL (1.8-2.4) Ferritin 367 NG/ML (8-388) Total Bilirubin 0.4 MG/DL (0.2-1.0) Aspartate Amino Transf (AST/SGOT) 26 U/L (15-37) Alanine Aminotransferase (ALT/SGPT) 14 U/L (12-78) Alkaline Phosphatase 57 U/L (46-116) Lactate Dehydrogenase 247 U/L (81-234) H Total Creatine Kinase 140 U/L (26-308) Troponin I 0.069 ng/mL (0.000-0.056) C-Reactive Protein, Quantitative 0.9 mg/dL (0.00-0.90) Pro-B-Type Natriuretic Peptide > 23448 pg/mL (0-125) H Total Protein 6.6 G/DL (6.4-8.2) Albumin 3.4 G/DL (3.4-5.0) Globulin 3.2 g/dL Albumin/Globulin Ratio 1.1 (1.0-2.7) Lipase 207 U/L (73-393) Urine Color Pale yellow Urine Appearance Clear Urine pH 6.5 (4.5-8.0) Urine Specific [place] 1.010 (1.005-1.035) Urine Protein 3+ (NEGATIVE) H Urine Glucose (UA) Negative (NEGATIVE) Urine Ketones Negative (NEGATIVE) Urine Blood 3+ (NEGATIVE) H Urine Nitrite Negative (NEGATIVE) Urine Bilirubin Negative (NEGATIVE) Urine Urobilinogen Normal MG/DL (0.0-1.0) Urine Leukocyte Esterase 1+ (NEGATIVE) H Urine RBC 2-4 /HPF (0 - 0) H Urine WBC 0-2 /HPF (0 - 0) Urine Squamous Epithelial Cells None /LPF (NONE/OCC) Urine Bacteria None /HPF (NONE) Urine Opiates Screen Negative (NEGATIVE) Urine Barbiturates Screen Negative (NEGATIVE) Phencyclidine (PCP) Screen Negative (NEGATIVE) Urine Amphetamines Screen Negative (NEGATIVE) Urine Benzodiazepines Screen Negative (NEGATIVE) Urine Cocaine Screen Negative (NEGATIVE) Urine Marijuana (THC) Screen Negative (NEGATIVE) Microbiology Date/Time Source Procedure Growth Status 07/31/20 09:00 Nasopharynx SARS-CoV-2 RdRp Gene Assay - Final Complete Yuval Guerra MD Jul 31, 2020 17:03
[2020-07-31] MEDS: Eliquis 2.5mg tablet ORAL SCH (17:28)
--- NOTE | 2020-07-31 19:00 | NUR ---
NURSE NOTES: RECEIVED REPORT FROM CATRINA FORBES. PATIENT AAOX4, VERBALLY RESPONSIVE, AND ABLE TO MAKE NEEDS KNOWN. NO COMPLAINTS OF PAIN OR DISCOMFORT AT THIS TIME. BREATHING IS EVEN AND UNLABORED ON 2LPM VIA NC, NO S/SX OF DISTRESS NOTED. IV SITE RAC PATENT, INTACT, ASYMPTOMATIC, AND SALINE-LOCKED. LEFT ARM PRECAUTIONS IN PLACE. NOTED TO HAVE LUCINDA AV SHUNT- BRUIT/THRILL PRESENT. FALL PRECAUTIONS IN PLACE. INFORMED PATIENT TO CALL FOR ASSISTANCE PRIOR TO GETTING OOB. BED LOCKED AND IN LOWEST POSITION, SIDERAILS UP X 2. CALL LIGHT WITHIN REACH. WILL CONTINUE TO MONITOR.
--- NOTE | 2020-07-31 19:04 | NUR ---
NURSE HAND-OFF REPORT: Important Events on Shift:[admission, bradycardia reported to Dr. Guerra] Patient Status: [FULL CODE] Diet: [renal] Pending Orders: [] Pending Results/Labs:[] Pending MD notification:[] Latest Vital Signs: Temperature 96.6 , Pulse 50 , B/P 150 /81 , Respiratory Rate 18 , O2 SAT 96 , Nasal Cannula, O2 Flow Rate 2.0 . Vital Sign Comment: [] EKG Rhythm: Sinus Bradycardia Rhythm change?: Y MD Notified?: Y -Dr. Mari GLEASON Response: No New Orders Received Latest [place] Fall Score: 35 Fall Risk: Medium Risk Safety Measures: Call light Within Reach, Bed Alarm Zone 1, Side Rails Side Rails x2, Bed position Low and Locked. Fall Precautions: Patient Fall Education Report given to Mary FRITZ].
--- NOTE | 2020-07-31 19:45 | NUR ---
NURSE NOTES: [facility] CALLED FOR HD ORDERED FOR TODAY, S/W FABIOLA AND STATES WILL INFORM ON-CALL NURSE.
[2020-07-31 20:00] VITALS: BP 149/79
--- NOTE | 2020-07-31 20:15 | NUR ---
NURSE NOTES: S/W MYRANDA, HD NURSE. PER MYRANDA, SHE CANNOT DO THE HD TODAY, BUT WILL COME TOMORROW MORNING AND WILL SEE PATIENT FIRST.
--- NOTE | 2020-07-31 20:19 | NUR ---
NURSE NOTES: CONTACTED DR. COLORADO AND LEFT MESSAGE TO INFORM HIM HD WILL NOT BE DONE TODAY, BUT INSTEAD WILL BE DONE TOMORROW MORNING, 08/01.
--- NOTE | 2020-07-31 20:45 | NUR ---
NURSE NOTES: OBTAINED INFORMED CONSENT FOR HD TOMORROW FROM PATIENT.
[2020-07-31] MEDS ORDERED: Heparin 5000 units/ml inj SUBQ SCH (21:00)
--- NOTE | 2020-07-31 21:45 | NUR ---
NURSE NOTES: PATIENT NOTED TO BE SINUS BETH WITH HR OF 41, AND NOTED TO HAVE BBB ON MONITOR. PATIENT ASLEEP AND ASYMPTOMATIC, DENIES ANY DIZZINESS OR LIGHTHEADEDNESS. NO COMPLAINTS OF CHEST PAIN. 12-LEAD EKG DONE. INFORMED DR. KARIMI AND RESULTS SENT. AWAITING CALL BACK.
--- NOTE | 2020-07-31 21:50 | NUR ---
NURSE NOTES: MADE DR. COLORADO AWARE THAT HD WILL NOT BE DONE TONIGHT, BUT WILL INSTEAD BE DONE TOMORROW MORNING, 08/01.
--- NOTE | 2020-07-31 22:15 | Consultation ---
DATE OF CONSULTATION: 07/31/2020 CARDIOLOGY CONSULTATION CONSULTING PHYSICIAN: Yuval Guerra M.D. REFERRING PHYSICIAN: Boogie Russ M.D. REASON FOR CONSULTATION: Management of hypertension, chest pain, and bradycardia with heart rate as low as 50. HISTORY OF PRESENT ILLNESS: The patient is a 65-year-old gentleman with a history of hypertension, end-stage renal disease on hemodialysis via left AV shunt, presented to the emergency room as he was short of breath. The patient states he missed his dialysis on Saturday and Saturday and last dialysis was Saturday. The patient felt very weak and was not able to go to dialysis and presented with shortness of breath and dyspnea as well as chest pain. The patient was tested for COVID last week and today it was negative. The patient lives by himself and has been social isolating. The patient had recent dialysis fistula placement in the left arm. The patient also was admitted on previous admissions, has history of congestive heart failure and atrial fibrillation. REVIEW OF SYSTEMS: Review of systems was negative other than what was mentioned in the history of present illness. PAST MEDICAL HISTORY: As mentioned above. FAMILY HISTORY: Noncontributory. SOCIAL HISTORY: Does not smoke or drink alcohol. ALLERGIES: Benzoin and amoxicillin. MEDICATIONS: Per reconciliation. PHYSICAL EXAMINATION: VITAL SIGNS: Show blood pressure 144/83, pulse is 90, respirations 18, and he is afebrile. HEAD AND NECK: No JVD. LUNGS: Clear. CARDIOVASCULAR: Regular S1 and S2 with no gallop. ABDOMEN: Soft. EXTREMITIES: Dialysis in the left arm. LABORATORY AND DIAGNOSTIC DATA: His EKG shows sinus bradycardia at rate of 54 with right bundle-branch block and left anterior fascicular block. Labs show white count 6.2, hematocrit 10.4, hematocrit 32.7, platelet count 173. Sodium 141, potassium 5.1, BUN of 93, creatinine of , glucose of 101. Troponin 0.069. ASSESSMENT AND PLAN: 1. Chest pain and troponin elevation. Chest pain is likely due to volume overload. The patient did not receive dialysis for two days in a row for a whole week. The troponin elevation is likely due to renal failure. Currently, he does not have any chest pain. We will repeat EKG and get an echocardiogram and repeat cardiac enzymes. 2. Paroxysmal atrial fibrillation, currently in sinus rhythm on amiodarone 200 mg daily. Currently off anticoagulation. He is on heparin 5000 subcutaneous b.i.d., may need long-term anticoagulation with Eliquis. 3. Hypertension, on amlodipine 10 mg daily and Lasix and hemodialysis per Dr. Jung. 4. Congestive heart failure due to diastolic dysfunction. It is of note on previous admission in April, his ejection fraction was 55%. In the previous admission, also had atrial fibrillation with rapid ventricular response with heart rate up to 200 and was discharged on amiodarone, Cardizem 60 t.i.d. and Eliquis 2.5 mg b.i.d. 5. Right bundle-branch block and left anterior fascicular block. Thank you very much for allowing me to participate in the care of this patient. Please do not hesitate to contact me for any questions regarding my evaluation. Sincerely, Yuval Guerra M.D. DR: Gregory JOB#: [id number] CC:
--- NOTE | 2020-07-31 22:15 | NUR ---
NURSE NOTES: NO NEW ORDERS PER DR. KARIMI.
[2020-08-01] VITALS (10 sets, daily range): BP systolic 104–172; BP diastolic 53–119
--- NOTE | 2020-08-01 02:45 | NUR ---
NURSE NOTES: 12-LEAD EKG DONE. PATIENT TOLERATED WELL.
--- NOTE | 2020-08-01 05:50 | NUR ---
NURSE NOTES: ASSISTED PATIENT WITH SPONGE BATH. ATTEMPTED TO CHANGE PATIENT INTO YELLOW GOWN, HOWEVER PATIENT REFUSED STATING HE PREFERRED THE ONE HE'S CURRENTLY WEARING.
--- NOTE | 2020-08-01 07:06 | NUR ---
NURSE HAND-OFF REPORT: Important Events on Shift: FOR HD TODAY 08/01, EKG DONE X 4 (SB WITH BBB, DR. KARIMI MADE AWARE WITH NNO) Patient Status: STABLE Diet: RENAL, SOFT EASY CHEW Pending Orders: N/A Pending Results/Labs:10 AM LABS Pending MD notification: N/A Latest Vital Signs: Temperature 98.0 , Pulse 62 , B/P 149 /96 , Respiratory Rate 20 , O2 SAT 100 , Nasal Cannula, O2 Flow Rate 2.0 . Vital Sign Comment: STABLE EKG Rhythm: SB W/BBB Rhythm change?: N MD Notified?: Y -Dr. Mari GLEASON Response: No New Orders Received Latest [place] Fall Score: 35 Fall Risk: Medium Risk Safety Measures: Call light Within Reach, Bed Alarm Zone 1, Side Rails Side Rails x2, Bed position Low and Locked. Fall Precautions: Yellow Socks Yellow Gown Door Sign Patient Fall Education Report given to CATRINA ERICKSON.
[2020-08-01 07:16] LABS: BASOPHILS % (AUTO) 1.7 % (0.0-2.0); EOSINOPHILS % (AUTO) 0.8 % (0.0-3.0); HEMATOCRIT 33.7 % (42.0-52.0); HEMOGLOBIN 10.7 G/DL (14.2-18.0); MEAN CORPUSCULAR VOLUME 95 FL (80-99); MONOCYTES % (AUTO) 15.8 % (1.0-10.0); NEUTROPHILS % (AUTO) 56.6 % (45.0-75.0); PLATELET COUNT 171 K/UL (150-450); RED BLOOD COUNT 3.55 M/UL (4.70-6.10); RED CELL DISTRIBUTION WIDTH 13.4 % (11.6-14.8); WHITE BLOOD COUNT 6.5 K/UL (4.8-10.8)
[2020-08-01 07:36] LABS: ANION GAP 16 mmol/L (5-15); BLOOD UREA NITROGEN 103 mg/dL (7-18); CALCIUM 8.2 MG/DL (8.5-10.1); CARBON DIOXIDE 19 MMOL/L (21-32); CHLORIDE 104 MMOL/L (98-107); CREATININE 15.8 MG/DL (0.55-1.30); POTASSIUM 5.6 MMOL/L (3.5-5.1); SODIUM 139 MMOL/L (136-145)
[2020-08-01] MEDS: Nephrovite tab (Rena-Vite) ORAL SCH (08:49)
[2020-08-01] MEDS: Flonase Nasal Inhaler 16gm NASAL SCH (08:50)
[2020-08-01] MEDS: Eliquis 2.5mg tablet ORAL SCH ×2 (08:50→17:46)
[2020-08-01] MEDS ORDERED: Nephrovite tab (Rena-Vite) ORAL SCH (09:00)
[2020-08-01] MEDS ORDERED: Amiodarone 200mg tab ORAL SCH (09:00)
--- NOTE | 2020-08-01 09:46 | General Progress Note ---
Subjective Date patient seen: Aug 01, 2020 Time patient seen: 09:00 Allergies: Coded Allergies: BENZOIN (Unverified Allergy, Severe, 12/28/14) AMOXICILLIN (Verified Allergy, Intermediate, 11/18/12) ABD PAIN N/V POVIDONE-IODINE (Verified Allergy, Unknown, 03/28/20) Skin peeling Objective Last 24 Hour Vital Signs Date Time Temp Pulse Resp B/P (MAP) Pulse Ox O2 Delivery O2 Flow Rate FiO2 08/01/20 04:00 98.0 62 20 149/96 (113) 100 08/01/20 04:00 59 08/01/20 00:00 98.1 53 20 153/80 (104) 98 08/01/20 00:00 58 07/31/20 21:00 Nasal Cannula 2.0 07/31/20 20:00 50 07/31/20 20:00 98.1 47 18 149/79 (102) 100 07/31/20 16:00 50 07/31/20 16:00 96.6 50 18 150/81 (104) 96 07/31/20 13:00 97.5 99 16 145/83 (103) 96 07/31/20 12:54 Nasal Cannula 2.0 07/31/20 12:38 97.9 68 18 138/78 96 Nasal Cannula 2.0 28 07/31/20 11:57 68 18 95 Nasal Cannula 2.0 28 62 18 92 07/31/20 11:00 97.9 64 18 140/77 100 Nasal Cannula 2.0 07/31/20 10:11 143/88 Intake and Output 07/31/20 08/01/20 18:59 06:59 Intake Total 120 ml 120 ml Output Total 100 ml Balance 20 ml 120 ml Intake Oral 120 ml 120 ml Output Urine Total 100 ml # Voids 102 # Bowel Movements 2 Laboratory Tests 07/31/20 09:50: Urine Color Pale yellow, Urine Appearance Clear, Urine pH 6.5, Urine Specific [place] 1.010, Urine Protein 3+H, Urine Glucose (UA) Negative, Urine Ketones Negative, Urine Blood 3+H, Urine Nitrite Negative, Urine Bilirubin Negative, Urine Urobilinogen Normal, Urine Leukocyte Esterase 1+H, Urine RBC 2-4H, Urine WBC 0-2, Urine Squamous Epithelial Cells None, Urine Bacteria None, Urine Opiates Screen Negative, Urine Barbiturates Screen Negative, Phencyclidine (PCP) Screen Negative, Urine Amphetamines Screen Negative, Urine Benzodiazepines Screen Negative, Urine Cocaine Screen Negative, Urine Marijuana (THC) Screen Negative 07/31/20 18:45: Troponin I 0.059H 08/01/20 05:54: Troponin I 0.071H, White Blood Count 6.5, Red Blood Count 3.55L, Hemoglobin 10.7L, Hematocrit 33.7L, Mean Corpuscular Volume 95, Mean Corpuscular Hemoglobin 30.2, Mean Corpuscular Hemoglobin Concent 31.8L, Red Cell Distribution Width 13.4, Platelet Count 171, Mean Platelet Volume 7.6, Neutrophils (%) (Auto) 56.6, Lymphocytes (%) (Auto) 25.0, Monocytes (%) (Auto) 15.8H, Eosinophils (%) (Auto) 0.8, Basophils (%) (Auto) 1.7, Sodium Level 139, Potassium Level 5.6H, Chloride Level 104, Carbon Dioxide Level 19L, Anion Gap 16H, Blood Urea Nitrogen 103H, Creatinine 15.8H, Estimat Glomerular Filtration Rate 3.8, Glucose Level 74, Calcium Level 8.2L, Pro-B-Type Natriuretic Peptide > 76242P Height (Feet): 5 Height (Inches): 4.00 Weight (Pounds): 182 General Appearance: mild distress EENT: PERRL/EOMI Neck: supple Cardiovascular: regular rhythm Respiratory/Chest: inspiratory wheezing Abdomen: non tender, soft Extremities: non-tender Edema: moderate edema Assessment/Plan Assessment/Plan: 1 sob 2 ac chf diasolic failure 3 fluid overload 4 esrd on hd depended 5 htn 6 over jolie 7 poor complience 8 anemia admit to tele 2gm na renal diet fluid restriction lasix 20 mg iv bid nephro and cardio consult resume home meds r/o mi rpt labs and troponion on 3 litre o2 hd this noon dw with charge nurse Boogie Russ MD Aug 01, 2020 09:46
[2020-08-01] MEDS ORDERED: Docusate 100mg cap ORAL PRN (10:15)
[2020-08-01] MEDS ORDERED: Sodium Polystyrene Sulfonate 15gm Powder ORAL SCH (10:15)
--- NOTE | 2020-08-01 10:44 | Consultation ---
Consult Note Consult Note DATE OF CONSULTATION: 08/01/2020 PULMONARY CONSULTATION CONSULTING PHYSICIAN: Kayden Deutsch M.D. REFERRING PHYSICIAN: Boogie Russ M.D. REASON FOR CONSULTATION: Hypoxia. HISTORY OF PRESENT ILLNESS: The patient is a 65-year-old gentleman with a history of hypertension, end-stage renal disease on hemodialysis via left AV shunt, presented to the emergency room as he was short of breath. The patient states he missed his dialysis on Saturday and Saturday and last dialysis was Saturday. The patient felt very weak and was not able to go to dialysis and presented with shortness of breath and dyspnea as well as chest pain. The patient was tested for COVID last week and today it was negative. The patient lives by himself and has been social isolating. The patient had recent dialysis fistula placement in the left arm. The patient also was admitted on previous admissions, has history of congestive heart failure and atrial fibrillation. REVIEW OF SYSTEMS: Review of systems was negative other than what was mentioned in the history of present illness. PAST MEDICAL HISTORY: As mentioned above. FAMILY HISTORY: Noncontributory. SOCIAL HISTORY: Does not smoke or drink alcohol. ALLERGIES: Benzoin and amoxicillin. MEDICATIONS: Per reconciliation. PHYSICAL EXAMINATION: VITAL SIGNS: Show blood pressure 144/83, pulse is 90, respirations 18, and he is afebrile. HEAD AND NECK: No JVD. LUNGS: Clear. CARDIOVASCULAR: Regular S1 and S2 with no gallop. ABDOMEN: Soft. EXTREMITIES: Dialysis in the left arm. LABORATORY AND DIAGNOSTIC DATA: His EKG shows sinus bradycardia at rate of 54 with right bundle-branch block and left anterior fascicular block. Labs show white count 6.2, hematocrit 10.4, hematocrit 32.7, platelet count 173. Sodium 141, potassium 5.1, BUN of 93, glucose of 101. Troponin 0.069. ASSESSMENT AND PLAN: 1. Chest pain and troponin elevation. Cardiology following. 2. Paroxysmal atrial fibrillation, currently in sinus rhythm on amiodarone 200 mg daily. Consider long-term anticoagulation with Eliquis. 3. Hypertension, 4. Congestive heart failure due to diastolic dysfunction. 5. Hypoxemia; improved after HD Kayden Deutsch MD Aug 01, 2020 10:44
[2020-08-01 10:47] LABS: ALANINE AMINOTRANSFERASE 15 U/L (12-78); ALBUMIN 3.3 G/DL (3.4-5.0); ALKALINE PHOSPHATASE 58 U/L (46-116); ASPARTATE AMINO TRANSFERASE 20 U/L (15-37); BILIRUBIN,DIRECT 0.1 MG/DL (0.0-0.3); BILIRUBIN,TOTAL 0.4 MG/DL (0.2-1.0); PHOSPHORUS 8.9 MG/DL (2.5-4.9)
--- NOTE | 2020-08-01 12:48 | Nephrology Progress Note ---
Assessment/Plan Problem List: (1) ESRD on dialysis (2) Hypertensive kidney disease (3) Anemia in chronic kidney disease (CKD) (4) Congestive heart failure (5) Atrial fibrillation with RVR Assessment End-stage renal disease, missed dialysis Volume overload and pulmonary edema Anemia of chronic kidney disease Hypertension History of atrial fibrillation History of congestive heart failure Plan August 01: Still waiting for dialysis treatment. Urgent dialysis ordered July 31 at 1 PM, however the dialysis procedure is still pending. Discussed with RN. Add phosphorus binders, stool softener, Protonix, keep the blood pressure in check. Subjective ROS Limited/Unobtainable: No Constitutional: Reports: malaise, weakness Objective Objective Last 24 Hour Vital Signs Date Time Temp Pulse Resp B/P (MAP) Pulse Ox O2 Delivery O2 Flow Rate FiO2 08/01/20 12:00 97.8 104 24 172/119 (136) 98 08/01/20 09:00 54 143/76 08/01/20 09:00 Nasal Cannula 3.0 08/01/20 08:00 54 08/01/20 08:00 97.8 61 24 143/76 (98) 98 08/01/20 06:45 50 18 97 Nasal Cannula 32 08/01/20 04:00 98.0 62 20 149/96 (113) 100 08/01/20 04:00 59 08/01/20 00:00 98.1 53 20 153/80 (104) 98 08/01/20 00:00 58 07/31/20 21:00 Nasal Cannula 2.0 07/31/20 20:00 50 07/31/20 20:00 98.1 47 18 149/79 (102) 100 07/31/20 16:00 50 07/31/20 16:00 96.6 50 18 150/81 (104) 96 07/31/20 13:00 97.5 99 16 145/83 (103) 96 07/31/20 12:54 Nasal Cannula 2.0 Intake and Output 07/31/20 08/01/20 19:00 07:00 Intake Total 120 ml 120 ml Output Total 100 ml Balance 20 ml 120 ml Intake Oral 120 ml 120 ml Output Urine Total 100 ml # Voids 102 # Bowel Movements 2 Laboratory Tests 07/31/20 18:45: Troponin I 0.059H 08/01/20 05:54: Troponin I 0.071H, White Blood Count 6.5, Red Blood Count 3.55L, Hemoglobin 10.7L, Hematocrit 33.7L, Mean Corpuscular Volume 95, Mean Corpuscular Hemoglobin 30.2, Mean Corpuscular Hemoglobin Concent 31.8L, Red Cell Distribution Width 13.4, Platelet Count 171, Mean Platelet Volume 7.6, Neutrophils (%) (Auto) 56.6, Lymphocytes (%) (Auto) 25.0, Monocytes (%) (Auto) 15.8H, Eosinophils (%) (Auto) 0.8, Basophils (%) (Auto) 1.7, Sodium Level 139, Potassium Level 5.6H, Chloride Level 104, Carbon Dioxide Level 19L, Anion Gap 16H, Blood Urea Nitrogen 103H, Creatinine 15.8H, Estimat Glomerular Filtration Rate 3.8, Glucose Level 74, Hemoglobin A1c 4.6, Uric Acid 7.4H, Calcium Level 8.2L, Phosphorus Level 8.9H, Magnesium Level 2.4, Total Bilirubin 0.4, Direct Bilirubin 0.1, Aspartate Amino Transf (AST/SGOT) 20, Alanine Aminotransferase (ALT/SGPT) 15, Alkaline Phosphatase 58, Pro-B-Type Natriuretic Peptide > 58647T, Total Protein 6.6, Albumin 3.3L Height (Feet): 5 Height (Inches): 4.00 Weight (Pounds): 182 General Appearance: mild distress Respiratory/Chest: decreased breath sounds Abdomen: distended Darwin Jung MD Aug 01, 2020 12:48
[2020-08-01] MEDS: cefTRIAXone 1 GM in D5W 55 ML IVPB SCH (13:10)
[2020-08-01] MEDS: dilTIAZem HCl 60mg tab ORAL SCH ×2 (13:30→17:46)
[2020-08-01] MEDS ORDERED: Digoxin 0.5mg/2ml Inj IVP SCH (14:15)
--- NOTE | 2020-08-01 14:35 | NUR ---
CASE MANAGEMENT: REVIEW SI: ESRD on HD . CHF T 97.8 HR 142 RR 24 BP 172/119 SAT 98% NC/3L H/H 10.7/33.7 BUN 103 CR 15.8 K+ 5.6 TROP I 0.071 BNP >49425 IS: DIGOXIN 0.25MG IV X1 CARDIZEM 60MG PO Q6HR SEVELAMER 1600MG PO TID KAYEXALATE 30MG PO X1 LASIX IV Q12HR CEFTRIAXONE IV Q24HR URGENT DIALYSIS TRANSFER TO ICU TELEMETRY UNIT STATUS DCP: PATIENT IS FROM HOME
--- NOTE | 2020-08-01 14:49 | Cardiac Electrophysiology PN ---
Assessment/Plan Assessment/Plan 1. Chest pain and troponin elevation. Chest pain is likely due to volume overload and atrial fib with RVR. . The troponin elevation is likely due to renal failure. Currently, he does not have any chest pain. Echocardiogram EF 60% 2. Paroxysmal atrial fibrillation with RVR despite amiodarone 200 mg daily. Increase Amiodarone to 400 bid and give 0.25 iv Dig. Start Cardizem 60 po q 6 hr Also on Eliquis. 3. Hypertension, Change amlodipine to Cardizem 60q 6 hr and hemodialysis 4. Congestive heart failure due to diastolic dysfunction. In the previous admission, also had atrial fibrillation with rapid ventricular response with heart rate up to 200 and was discharged on amiodarone, Cardizem 60 t.i.d. and Eliquis 2.5 mg b.i.d. 5. Right bundle-branch block and left anterior fascicular block. SHABBIR RN Subjective Subjective In atrial fib with RVR 150s. No CP Objective Last 24 Hour Vital Signs Date Time Temp Pulse Resp B/P (MAP) Pulse Ox O2 Delivery O2 Flow Rate FiO2 08/01/20 14:13 149 08/01/20 13:30 142 167/44 08/01/20 12:00 97.8 104 24 172/119 (136) 98 08/01/20 09:00 54 143/76 08/01/20 09:00 Nasal Cannula 3.0 08/01/20 08:00 54 08/01/20 08:00 97.8 61 24 143/76 (98) 98 08/01/20 06:45 50 18 97 Nasal Cannula 32 08/01/20 04:00 98.0 62 20 149/96 (113) 100 08/01/20 04:00 59 08/01/20 00:00 98.1 53 20 153/80 (104) 98 08/01/20 00:00 58 07/31/20 21:00 Nasal Cannula 2.0 07/31/20 20:00 50 07/31/20 20:00 98.1 47 18 149/79 (102) 100 07/31/20 16:00 50 07/31/20 16:00 96.6 50 18 150/81 (104) 96 Intake and Output 07/31/20 08/01/20 19:00 07:00 Intake Total 120 ml 120 ml Output Total 100 ml Balance 20 ml 120 ml Intake Oral 120 ml 120 ml Output Urine Total 100 ml # Voids 102 # Bowel Movements 2 Laboratory Tests Test 07/31/20 18:45 08/01/20 05:54 Troponin I 0.059 ng/mL (0.000-0.056) 0.071 ng/mL (0.000-0.056) White Blood Count 6.5 K/UL (4.8-10.8) Red Blood Count 3.55 M/UL (4.70-6.10) L Hemoglobin 10.7 G/DL (14.2-18.0) L Hematocrit 33.7 % (42.0-52.0) L Mean Corpuscular Volume 95 FL (80-99) Mean Corpuscular Hemoglobin 30.2 PG (27.0-31.0) Mean Corpuscular Hemoglobin Concent 31.8 G/DL (32.0-36.0) L Red Cell Distribution Width 13.4 % (11.6-14.8) Platelet Count 171 K/UL (150-450) Mean Platelet Volume 7.6 FL (6.5-10.1) Neutrophils (%) (Auto) 56.6 % (45.0-75.0) Lymphocytes (%) (Auto) 25.0 % (20.0-45.0) Monocytes (%) (Auto) 15.8 % (1.0-10.0) H Eosinophils (%) (Auto) 0.8 % (0.0-3.0) Basophils (%) (Auto) 1.7 % (0.0-2.0) Sodium Level 139 MMOL/L (136-145) Potassium Level 5.6 MMOL/L (3.5-5.1) H Chloride Level 104 MMOL/L (98-107) Carbon Dioxide Level 19 MMOL/L (21-32) L Anion Gap 16 mmol/L (5-15) H Blood Urea Nitrogen 103 mg/dL (7-18) H Creatinine 15.8 MG/DL (0.55-1.30) H Estimat Glomerular Filtration Rate 3.8 mL/min (>60) Glucose Level 74 MG/DL (74-106) Hemoglobin A1c 4.6 % (4.3-6.0) Uric Acid 7.4 MG/DL (2.6-7.2) H Calcium Level 8.2 MG/DL (8.5-10.1) L Phosphorus Level 8.9 MG/DL (2.5-4.9) H Magnesium Level 2.4 MG/DL (1.8-2.4) Total Bilirubin 0.4 MG/DL (0.2-1.0) Direct Bilirubin 0.1 MG/DL (0.0-0.3) Aspartate Amino Transf (AST/SGOT) 20 U/L (15-37) Alanine Aminotransferase (ALT/SGPT) 15 U/L (12-78) Alkaline Phosphatase 58 U/L (46-116) Pro-B-Type Natriuretic Peptide > 85233 pg/mL (0-125) H Total Protein 6.6 G/DL (6.4-8.2) Albumin 3.3 G/DL (3.4-5.0) L Microbiology Date/Time Source Procedure Growth Status 07/31/20 09:00 Nasopharynx SARS-CoV-2 RdRp Gene Assay - Final Complete Objective HEAD AND NECK: No JVD. LUNGS: Clear. CARDIOVASCULAR: Regular S1 and S2 with no gallop. ABDOMEN: Soft. EXTREMITIES: Dialysis in the left arm. Yuval Guerra MD Aug 01, 2020 14:49
--- NOTE | 2020-08-01 17:07 | NUR ---
INSURANCE CLINICALS/REVIEW FAXED TO [facility] PH [phone] FX [phone]
[2020-08-01] MEDS ORDERED: dilTIAZem HCl 60mg tab ORAL SCH (18:00)
--- NOTE | 2020-08-01 18:00 | NUR ---
NURSES NOTES: Dr. Guerra notified that pt had converted back to SR.
--- NOTE | 2020-08-01 18:50 | NUR ---
NURSES NOTES: Kerri Guerra notified that pt would be transferred to ICU.
[2020-08-01] MEDS ORDERED: dilTIAZem Premix 125mg/125ml 125 ML IVPB SCH (19:30)
--- NOTE | 2020-08-01 19:30 | NUR ---
NURSES NOTES: Report given to TRESTLE MECHANIC Darwin.
--- NOTE | 2020-08-01 19:31 | NUR ---
NURSE NOTES: Patients recently transferred from Telemetry for Afib w/RVR with highest HR is the 150s. Right now patients HR is 52 SB. Patient is no symptomatic at this time. Patient is alert and oriented X 4. Peripheral IV access in noted at his R AC (20g). There is a L UA AV shunt-bruit and thrill noted. Last HD noted to be today with a removal of 2000ml of fluid. Patient is oliguric per endorsement, patient states he can make urine. Patient is on 3L NC with SpO2 of 99%. Patient is not having difficulty in breathing. Patient is Covid negative. Allergies noted. Patient educated about how to use the call light and to call if patient attempts to try to get out of bed. Bed alarm is engaged and locked. Bed in lowest position. Currently blood pressure is 125/75. Will continue to monitor.
--- NOTE | 2020-08-01 19:51 | NUR ---
NURSE NOTES: Patient current HR is 53 Sinus Fransico, Asymptomatic. Patient has a scheduled Cardizem gtt to be hung. We will hold the Cardizem gtt at this time, given patient is already Bradycardic. Blood pressure is 125/69. Will continue to monitor.
[2020-08-01] MEDS: Amiodarone 200mg tab ORAL SCH (20:32)
--- NOTE | 2020-08-01 20:32 | NUR ---
NURSE NOTES: Patients HR is 51 Sinus Fransico Asymptomatic. Amiodarone 400mg PO held for now.
--- NOTE | 2020-08-01 22:00 | NUR ---
NURSE NOTES: Remains awake and oriented. HR now is 56 NSR. HR sometimes goes into Afib 50-65 then coverts back to NSR. NO acute distress, blood pressures within normal limits. Patient denies any SOB or chest pain.
[2020-08-02] VITALS (18 sets, daily range): BP systolic 88–150; BP diastolic 46–128
--- NOTE | 2020-08-02 | NUR ---
NURSE NOTES: HR remains fluctuating between rhythms SB-NSR-Afib. Currently HR is 65 NSR. Pulses noted. Remains AAOX4, blood pressures remains stable. NAD, denies chest pain or SOB.
--- NOTE | 2020-08-02 02:00 | NUR ---
NURSE NOTES: HR is 45 SB, patient is asymptomatic. Patient talkative and remains Alert and oriented. Blood pressures are stable. NAD at this time. Will continue to monitor.
--- NOTE | 2020-08-02 04:00 | NUR ---
NURSE NOTES: Sponge bath was given. HR right now is 53 SB, blood pressures within normal parameters. No acute distress, afebrile. Bed remains locked and engaged and reeducated about all risk.
--- NOTE | 2020-08-02 05:30 | NUR ---
NURSE NOTES: Patients HR converted to Afib with RVR in the 120s and 130s. Blood pressures stable. NAD.
[2020-08-02] MEDS: dilTIAZem HCl 60mg tab ORAL SCH ×4 (05:57→17:38)
--- NOTE | 2020-08-02 06:00 | NUR ---
NURSE NOTES: HR has converted back to NSR. Patients HR converts back and forth from NSR to Afib-sometimes Afib RVR for a short duration. Right now HR is 66 NSR. AM Cardizem 60mg PO was given as scheduled.
--- NOTE | 2020-08-02 07:30 | NUR ---
NURSE NOTES: Patient stable AOx4 with no complaints at this time and no s/sx of pain or distress. Cardiac sounds benign. RR even and unlabored diminished with rales. Bowel sounds normoactive. BL radial pulses weak, pedal pulses present with no edema. Side rails upx2, call light within reach, bed low and locked. Will continue to monitor.
[2020-08-02] MEDS: Nephrovite tab (Rena-Vite) ORAL SCH (08:38)
[2020-08-02] MEDS: Amiodarone 200mg tab ORAL SCH ×2 (08:38→21:00)
[2020-08-02] MEDS: Flonase Nasal Inhaler 16gm NASAL SCH (09:00)
[2020-08-02] MEDS: Eliquis 2.5mg tablet ORAL SCH ×2 (09:00→17:43)
--- NOTE | 2020-08-02 10:05 | General Progress Note ---
Subjective Date patient seen: Aug 02, 2020 Constitutional: Reports: no symptoms Allergies: Coded Allergies: BENZOIN (Unverified Allergy, Severe, 12/28/14) AMOXICILLIN (Verified Allergy, Intermediate, 11/18/12) ABD PAIN N/V POVIDONE-IODINE (Verified Allergy, Unknown, 03/28/20) Skin peeling Objective Last 24 Hour Vital Signs Date Time Temp Pulse Resp B/P (MAP) Pulse Ox O2 Delivery O2 Flow Rate FiO2 08/02/20 08:00 136 08/02/20 07:00 113 16 126/80 (95) 99 08/02/20 06:00 125 16 132/105 (114) 99 08/02/20 05:57 126 142/107 08/02/20 05:00 86 20 133/72 (92) 96 08/02/20 04:00 Nasal Cannula 3.0 08/02/20 04:00 54 08/02/20 04:00 99.3 54 20 137/72 (93) 96 08/02/20 03:00 55 20 142/77 (98) 96 08/02/20 02:00 45 20 88/46 (60) 96 08/02/20 01:00 55 16 126/65 (85) 98 08/02/20 00:00 99.6 75 16 126/65 (85) 100 08/02/20 00:00 Nasal Cannula 3.0 08/02/20 00:00 72 126/74 08/02/20 00:00 68 08/01/20 23:00 65 16 126/65 (85) 98 08/01/20 22:00 55 18 108/53 (71) 97 08/01/20 21:00 53 19 104/70 (81) 96 08/01/20 20:00 53 08/01/20 20:00 55 16 127/73 (91) 99 08/01/20 20:00 Nasal Cannula 3.0 08/01/20 19:57 100.9 53 16 125/69 (87) 99 08/01/20 19:24 56 20 97 Room Air 21 08/01/20 17:46 149 167/44 08/01/20 16:00 97.6 68 20 116/60 (78) 95 08/01/20 16:00 148 08/01/20 14:13 149 08/01/20 13:30 142 167/44 08/01/20 12:00 97.8 104 24 172/119 (136) 98 08/01/20 12:00 152 Intake and Output 08/01/20 08/02/20 19:00 07:00 Intake Total 360 ml 600 ml Output Total 2300 ml 450 ml Balance -1940 ml 150 ml Intake Oral 360 ml 600 ml Output Urine Total 300 ml 450 ml Hemodialysis UF 2000 ml # Voids 2 Height (Feet): 5 Height (Inches): 4.00 Weight (Pounds): 182 General Appearance: alert EENT: PERRL/EOMI Cardiovascular: regular rhythm Respiratory/Chest: inspiratory wheezing Abdomen: non tender, soft Extremities: non-tender Assessment/Plan Assessment/Plan: 1 sob 2 ac chf diasolic failure 3 fluid overload 4 esrd on hd depended 5 htn 6 over jolie 7 poor complience 8 anemia admit to tele 2gm na renal diet fluid restriction lasix 20 mg iv bid nephro and cardio consult resume home meds r/o mi rpt labs and troponion on 3 litre o2 hd this noon dw with charge nurse Boogie Russ MD Aug 02, 2020 10:05
--- NOTE | 2020-08-02 10:33 | NUR ---
NURSE NOTES: Patient stable. No complaints. Addendum: 08/02/20 at 1354 by CARIN AWAD RN HR labile but pt is asymptomatic. Lowest HR 53 and highest 157
--- NOTE | 2020-08-02 11:48 | Pulmonology Progress Note ---
Subjective ROS Limited/Unobtainable: No Interval Events: None new Constitutional: Reports: no symptoms HEENT: Repors: no symptoms Respiratory: Reports: no symptoms Cardiovascular: Reports: no symptoms Allergies: Coded Allergies: BENZOIN (Unverified Allergy, Severe, 12/28/14) AMOXICILLIN (Verified Allergy, Intermediate, 11/18/12) ABD PAIN N/V POVIDONE-IODINE (Verified Allergy, Unknown, 03/28/20) Skin peeling Objective Last 24 Hour Vital Signs Date Time Temp Pulse Resp B/P (MAP) Pulse Ox O2 Delivery O2 Flow Rate FiO2 08/02/20 11:00 126 21 130/90 (103) 97 08/02/20 10:00 124 17 143/92 (109) 97 08/02/20 09:00 128 21 136/97 (110) 98 08/02/20 08:00 Nasal Cannula 2.0 08/02/20 08:00 99.0 120 21 150/128 (135) 98 08/02/20 08:00 136 08/02/20 07:00 113 16 126/80 (95) 99 08/02/20 06:00 125 16 132/105 (114) 99 08/02/20 05:57 126 142/107 08/02/20 05:00 86 20 133/72 (92) 96 08/02/20 04:00 Nasal Cannula 3.0 08/02/20 04:00 54 08/02/20 04:00 99.3 54 20 137/72 (93) 96 08/02/20 03:00 55 20 142/77 (98) 96 08/02/20 02:00 45 20 88/46 (60) 96 08/02/20 01:00 55 16 126/65 (85) 98 08/02/20 00:00 99.6 75 16 126/65 (85) 100 08/02/20 00:00 Nasal Cannula 3.0 08/02/20 00:00 72 126/74 08/02/20 00:00 68 08/01/20 23:00 65 16 126/65 (85) 98 08/01/20 22:00 55 18 108/53 (71) 97 08/01/20 21:00 53 19 104/70 (81) 96 08/01/20 20:00 53 08/01/20 20:00 55 16 127/73 (91) 99 08/01/20 20:00 Nasal Cannula 3.0 08/01/20 19:57 100.9 53 16 125/69 (87) 99 08/01/20 19:24 56 20 97 Room Air 21 08/01/20 17:46 149 167/44 08/01/20 16:00 97.6 68 20 116/60 (78) 95 08/01/20 16:00 148 08/01/20 14:13 149 08/01/20 13:30 142 167/44 08/01/20 12:00 97.8 104 24 172/119 (136) 98 08/01/20 12:00 152 Intake and Output 08/01/20 08/02/20 19:00 07:00 Intake Total 360 ml 600 ml Output Total 2300 ml 450 ml Balance -1940 ml 150 ml Intake Oral 360 ml 600 ml Output Urine Total 300 ml 450 ml Hemodialysis UF 2000 ml # Voids 2 General Appearance: no acute distress HEENT: normocephalic Respiratory: chest wall non-tender, lungs clear Cardiovascular: normal peripheral pulses, normal rate Abdomen: normal bowel sounds Microbiology Date/Time Source Procedure Growth Status 07/31/20 11:59 Nasal Nares MRSA Culture - Final NO METHICILLIN RESISTANT STAPH AUREUS... Complete 07/31/20 09:00 Nasopharynx SARS-CoV-2 RdRp Gene Assay - Final Complete Current Medications Medications (Trade) Dose Ordered Sig/Daniel Route PRN Reason Start Time Stop Time Status Last Admin Dose Admin Acetaminophen (Tylenol) 650 mg Q4H PRN ORAL Temp >100.5 07/31/20 13:00 08/30/20 12:59 Albuterol/ Ipratropium (Albuterol/ Ipratropium) 3 ml Q6H PRN HHN Shortness of Breath 07/31/20 13:00 08/05/20 12:59 Amiodarone HCl (Cordarone) 400 mg EVERY 12 HOURS ORAL 08/01/20 21:00 10/30/20 20:59 08/02/20 08:38 Apixaban (Eliquis) 2.5 mg BID ORAL 07/31/20 18:00 10/29/20 17:59 08/01/20 17:46 Calcium Acetate (Phoslo) 667 mg TID ORAL 07/31/20 18:00 10/29/20 17:59 08/02/20 08:37 Ceftriaxone Sodium 1 gm/ Dextrose 55 ml @ 110 mls/hr Q24H IVPB 07/31/20 14:00 08/07/20 13:59 08/01/20 13:10 Clonidine HCl (Catapres Tab) 0.1 mg Q4H PRN ORAL bp over 160 syst 08/01/20 12:45 10/30/20 12:44 Diltiazem HCl 125 ml @ 10 mls/hr Q24H IVPB 08/01/20 19:30 08/02/20 19:29 Diltiazem HCl (Cardizem Tab) 60 mg EVERY 6 HOURS ORAL 08/01/20 13:30 08/31/20 13:29 08/02/20 05:57 Docusate Sodium (Colace) 100 mg TIDPRN PRN ORAL Constipation 08/01/20 10:15 08/31/20 10:14 Fluticasone Propionate (Flonase) 1 spray DAILY NASAL 08/01/20 09:00 08/31/20 08:59 08/01/20 08:50 Lorazepam (Ativan 2mg/ml 1ml) 1 mg Q6H PRN IV For Anxiety 07/31/20 13:00 08/07/20 12:59 Morphine Sulfate (Morphine Sulfate) 1 mg Q6H PRN IVP Severe Pain (Pain Scale 7-10) 07/31/20 13:00 08/07/20 12:59 Nitroglycerin (Ntg) 0.4 mg Q5M PRN SL Prn Chest Pain 07/31/20 13:00 08/30/20 12:59 Pantoprazole (Protonix) 40 mg EVERY 12 HOURS ORAL 08/01/20 10:15 08/31/20 10:14 08/02/20 08:38 Sevelamer Carbonate (Renvela) 1,600 mg THREE TIMES A DAY ORAL 08/01/20 13:00 10/30/20 12:59 08/02/20 08:37 Vitamin B Complex/ Vit C/Folic Acid (Nephrovite) 1 tab DAILY ORAL 08/01/20 09:00 08/31/20 08:59 08/02/20 08:38 Assessment/Plan Assessment/Plan ASSESSMENT AND PLAN: 1. Chest pain and troponin elevation. Cardiology following. 2. Paroxysmal atrial fibrillation, currently in sinus rhythm on amiodarone 200 mg daily. Consider long-term anticoagulation with Eliquis. 3. Hypertension, 4. Congestive heart failure due to diastolic dysfunction. 5. Hypoxemia; improved after HD Kayden Deutsch MD Aug 02, 2020 11:47
[2020-08-02 12:43] LABS: CALCIUM 8.4 MG/DL (8.5-10.1); CREATININE 11.3 MG/DL (0.55-1.30); POTASSIUM 4.1 MMOL/L (3.5-5.1)
[2020-08-02 12:47] LABS: ALBUMIN 3.2 G/DL (3.4-5.0); ALBUMIN/GLOBULIN RATIO 0.9 (1.0-2.7); BILIRUBIN,TOTAL 0.5 MG/DL (0.2-1.0); PHOSPHORUS 5.3 MG/DL (2.5-4.9)
[2020-08-02 12:59] LABS: BASOPHILS % (AUTO) 2.5 % (0.0-2.0); EOSINOPHILS % (AUTO) 0.8 % (0.0-3.0); HEMATOCRIT 34.8 % (42.0-52.0); HEMOGLOBIN 11.4 G/DL (14.2-18.0); LYMPHOCYTES % (AUTO) 28.4 % (20.0-45.0); MEAN CORPUSCULAR VOLUME 92 FL (80-99); MONOCYTES % (AUTO) 19.5 % (1.0-10.0); NEUTROPHILS % (AUTO) 48.9 % (45.0-75.0); PLATELET COUNT 149 K/UL (150-450); RED BLOOD COUNT 3.78 M/UL (4.70-6.10); RED CELL DISTRIBUTION WIDTH 13.1 % (11.6-14.8); WHITE BLOOD COUNT 5.9 K/UL (4.8-10.8)
--- NOTE | 2020-08-02 13:08 | NUR ---
NURSE NOTES: Notified VIP RN of order for dialysis for tomorrow. RN aware. Patient stable at this time HR still very labile going from 130s to 50's.
--- NOTE | 2020-08-02 13:08 | Nephrology Progress Note ---
Assessment/Plan Problem List: (1) ESRD on dialysis (2) Hypertensive kidney disease (3) Anemia in chronic kidney disease (CKD) (4) Congestive heart failure (5) Atrial fibrillation with RVR Assessment End-stage renal disease, missed dialysis Volume overload and pulmonary edema Anemia of chronic kidney disease Hypertension History of atrial fibrillation History of congestive heart failure Plan August 02: Patient was dialyzed yesterday. Currently in ICU for tachyarrhythmia. Under the care of cardiology. On amiodarone and Cardizem. Labs reviewed. Will arrange for dialysis again tomorrow. Continue per consultants. August 01: Still waiting for dialysis treatment. Urgent dialysis ordered July 31 at 1 PM, however the dialysis procedure is still pending. Discussed with RN. Add phosphorus binders, stool softener, Protonix, keep the blood pressure in check. Subjective ROS Limited/Unobtainable: No Constitutional: Reports: malaise Objective Objective Last 24 Hour Vital Signs Date Time Temp Pulse Resp B/P (MAP) Pulse Ox O2 Delivery O2 Flow Rate FiO2 08/02/20 11:00 126 21 130/90 (103) 97 08/02/20 10:00 124 17 143/92 (109) 97 08/02/20 09:00 128 21 136/97 (110) 98 08/02/20 08:00 Nasal Cannula 2.0 08/02/20 08:00 99.0 120 21 150/128 (135) 98 08/02/20 08:00 136 08/02/20 07:00 113 16 126/80 (95) 99 08/02/20 06:00 125 16 132/105 (114) 99 08/02/20 05:57 126 142/107 08/02/20 05:00 86 20 133/72 (92) 96 08/02/20 04:00 Nasal Cannula 3.0 08/02/20 04:00 54 08/02/20 04:00 99.3 54 20 137/72 (93) 96 08/02/20 03:00 55 20 142/77 (98) 96 08/02/20 02:00 45 20 88/46 (60) 96 08/02/20 01:00 55 16 126/65 (85) 98 08/02/20 00:00 99.6 75 16 126/65 (85) 100 08/02/20 00:00 Nasal Cannula 3.0 08/02/20 00:00 72 126/74 08/02/20 00:00 68 08/01/20 23:00 65 16 126/65 (85) 98 08/01/20 22:00 55 18 108/53 (71) 97 08/01/20 21:00 53 19 104/70 (81) 96 08/01/20 20:00 53 08/01/20 20:00 55 16 127/73 (91) 99 08/01/20 20:00 Nasal Cannula 3.0 08/01/20 19:57 100.9 53 16 125/69 (87) 99 08/01/20 19:24 56 20 97 Room Air 21 08/01/20 17:46 149 167/44 08/01/20 16:00 97.6 68 20 116/60 (78) 95 08/01/20 16:00 148 08/01/20 14:13 149 08/01/20 13:30 142 167/44 Intake and Output 08/01/20 08/02/20 19:00 07:00 Intake Total 360 ml 600 ml Output Total 2300 ml 450 ml Balance -1940 ml 150 ml Intake Oral 360 ml 600 ml Output Urine Total 300 ml 450 ml Hemodialysis UF 2000 ml # Voids 2 Laboratory Tests 08/02/20 12:20: White Blood Count 5.9, Red Blood Count 3.78L, Hemoglobin 11.4L, Hematocrit 34.8L , Mean Corpuscular Volume 92, Mean Corpuscular Hemoglobin 30.0, Mean Corpuscular Hemoglobin Concent 32.6, Red Cell Distribution Width 13.1, Platelet Count 149L, Mean Platelet Volume 8.2, Neutrophils (%) (Auto) 48.9, Lymphocytes (%) (Auto) 28.4, Monocytes (%) (Auto) 19.5H, Eosinophils (%) (Auto) 0.8, Basophils (%) (Auto) 2.5H, Sodium Level 139, Potassium Level 4.1, Chloride Level 98, Carbon Dioxide Level 26, Anion Gap 15, Blood Urea Nitrogen 62H, Creatinine 11.3H, E stimat Glomerular Filtration Rate 5.6, Glucose Level 93, Calcium Level 8.4L, Phosphorus Level 5.3H, Total Bilirubin 0.5, Aspartate Amino Transf (AST/SGOT) 15, Alanine Aminotransferase (ALT/SGPT) 10L, Alkaline Phosphatase 58, C-Reactive Protein, Quantitative 6.1H, Total Protein 6.8, Albumin 3.2L, Globulin 3.6, Albumin/Globulin Ratio 0.9L Height (Feet): 5 Height (Inches): 4.00 Weight (Pounds): 182 General Appearance: no apparent distress Cardiovascular: tachycardia Respiratory/Chest: decreased breath sounds Abdomen: distended Darwin Jung MD Aug 02, 2020 13:08
--- NOTE | 2020-08-02 14:10 | NUR ---
[employer] SI: AFIB W/RVR ESRD T. 99.0 HR 136 RR 21 B/P150/129 2L NC O2 SAT 98% IS: CARDIZEM GTT CEFTRIAXONE IV ELIQUISE AMIODARONE ICU STATUS
[2020-08-02] MEDS: Docusate 100mg cap ORAL SCH ×2 (14:24→17:38)
[2020-08-02] MEDS: cefTRIAXone 1 GM in D5W 55 ML IVPB SCH (14:24)
--- NOTE | 2020-08-02 16:12 | NUR ---
CASHIER TICKET SELLING NOTE SW met w/ pt and completed the psychosocial assessment. Pt presents as A&O4x and depressed. Pt resides at [facility] [address], [place] [address]. Per pt, the facility blood bank worker is his nephew. Pt plans to return there upon DC. PT wears glasses and uses a cane. PT does not have children. Pt has one younger sister (61 y/o) who is in contact. Pt has hx of Depression and Bipolar D/O. Pt currently receives mental health services at [facility]. PT reports he has been communicating w/ [facility] through telephone calls d/t pandemic. PT denies substance abuse. UDS all negative. SW and pt discussed any concerns/issues in regards to missed dialysis sessions. PT reports he had an issue w/ catheter that he had to miss the sessions. SW discussed the importance of dialysis and also discussed potential risks of missing dialysis. Pt verbalized understanding. Emergency contact provided as his friend, Radha Hampton [phone]. Pt declined to provide family emergency contact, stating that he does not want to notify his family members. SW provided brief support and counseling. SW encouraged pt to verbalize his needs/ concerns while IP. Pt verbalized understanding. SW to F/U as needed. Addendum: 08/02/20 at 1623 by TAM WINTERS PT does not have AD/POA. Pt expresses full code.
--- NOTE | 2020-08-02 17:00 | NUR ---
NURSE NOTES: Patient stable doing well and stating he feels good. No s/sx of pain or distress. No complaints at this time.
--- NOTE | 2020-08-02 17:11 | NUR ---
INSURANCE CLINICALS/REVIEW FAXED TO EVELYNE CARDENAS PH [phone] FX [phone]
--- NOTE | 2020-08-02 17:25 | Cardiac Electrophysiology PN ---
Assessment/Plan Assessment/Plan 1. Chest pain and troponin elevation. Chest pain is likely due to volume overload and atrial fib with RVR. . The troponin elevation is likely due to renal failure. Currently, he does not have any chest pain. Echocardiogram EF 60% 2. Paroxysmal atrial fibrillation with RVR despite amiodarone 200 mg daily. Increased Amiodarone to 400 bid and Cardizem 60 po q 6 hr. DC iv Cardizem drip. 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 and Eliquis 2.5 mg b.i.d. 3. Hypertension, On Cardizem 60q 6 hr and hemodialysis 4. Congestive heart failure due to diastolic dysfunction. 5. Right bundle-branch block and left anterior fascicular block. DW RN Subjective Subjective Transferred to ICU for atrial fib with RVR 150s and started on Cardizem drip that DCed for mimi in 50s. No CP Objective Last 24 Hour Vital Signs Date Time Temp Pulse Resp B/P (MAP) Pulse Ox O2 Delivery O2 Flow Rate FiO2 08/02/20 16:00 Nasal Cannula 2.0 08/02/20 16:00 92 08/02/20 15:00 68 23 149/77 (101) 99 08/02/20 14:00 61 17 138/97 (111) 97 08/02/20 13:00 60 14 126/96 (106) 97 08/02/20 12:00 56 14 117/89 (98) 97 08/02/20 12:00 Nasal Cannula 2.0 08/02/20 12:00 57 08/02/20 11:00 126 21 130/90 (103) 97 08/02/20 10:00 124 17 143/92 (109) 97 08/02/20 09:00 128 21 136/97 (110) 98 08/02/20 08:00 Nasal Cannula 2.0 08/02/20 08:00 99.0 120 21 150/128 (135) 98 08/02/20 08:00 136 08/02/20 07:00 113 16 126/80 (95) 99 08/02/20 06:00 125 16 132/105 (114) 99 08/02/20 05:57 126 142/107 08/02/20 05:00 86 20 133/72 (92) 96 08/02/20 04:00 Nasal Cannula 3.0 08/02/20 04:00 54 08/02/20 04:00 99.3 54 20 137/72 (93) 96 08/02/20 03:00 55 20 142/77 (98) 96 08/02/20 02:00 45 20 88/46 (60) 96 08/02/20 01:00 55 16 126/65 (85) 98 08/02/20 00:00 99.6 75 16 126/65 (85) 100 08/02/20 00:00 Nasal Cannula 3.0 08/02/20 00:00 72 126/74 08/02/20 00:00 68 08/01/20 23:00 65 16 126/65 (85) 98 08/01/20 22:00 55 18 108/53 (71) 97 08/01/20 21:00 53 19 104/70 (81) 96 08/01/20 20:00 53 08/01/20 20:00 55 16 127/73 (91) 99 08/01/20 20:00 Nasal Cannula 3.0 08/01/20 19:57 100.9 53 16 125/69 (87) 99 08/01/20 19:24 56 20 97 Room Air 21 08/01/20 17:46 149 167/44 Intake and Output 08/01/20 08/02/20 19:00 07:00 Intake Total 360 ml 600 ml Output Total 2300 ml 450 ml Balance -1940 ml 150 ml Intake Oral 360 ml 600 ml Output Urine Total 300 ml 450 ml Hemodialysis UF 2000 ml # Voids 2 Laboratory Tests Test 08/02/20 12:20 White Blood Count 5.9 K/UL (4.8-10.8) Red Blood Count 3.78 M/UL (4.70-6.10) L Hemoglobin 11.4 G/DL (14.2-18.0) L Hematocrit 34.8 % (42.0-52.0) L Mean Corpuscular Volume 92 FL (80-99) Mean Corpuscular Hemoglobin 30.0 PG (27.0-31.0) Mean Corpuscular Hemoglobin Concent 32.6 G/DL (32.0-36.0) Red Cell Distribution Width 13.1 % (11.6-14.8) Platelet Count 149 K/UL (150-450) L Mean Platelet Volume 8.2 FL (6.5-10.1) Neutrophils (%) (Auto) 48.9 % (45.0-75.0) Lymphocytes (%) (Auto) 28.4 % (20.0-45.0) Monocytes (%) (Auto) 19.5 % (1.0-10.0) H Eosinophils (%) (Auto) 0.8 % (0.0-3.0) Basophils (%) (Auto) 2.5 % (0.0-2.0) H Sodium Level 139 MMOL/L (136-145) Potassium Level 4.1 MMOL/L (3.5-5.1) Chloride Level 98 MMOL/L (98-107) Carbon Dioxide Level 26 MMOL/L (21-32) Anion Gap 15 mmol/L (5-15) Blood Urea Nitrogen 62 mg/dL (7-18) H Creatinine 11.3 MG/DL (0.55-1.30) H Estimat Glomerular Filtration Rate 5.6 mL/min (>60) Glucose Level 93 MG/DL (74-106) Calcium Level 8.4 MG/DL (8.5-10.1) L Phosphorus Level 5.3 MG/DL (2.5-4.9) H Total Bilirubin 0.5 MG/DL (0.2-1.0) Aspartate Amino Transf (AST/SGOT) 15 U/L (15-37) Alanine Aminotransferase (ALT/SGPT) 10 U/L (12-78) L Alkaline Phosphatase 58 U/L (46-116) C-Reactive Protein, Quantitative 6.1 mg/dL (0.00-0.90) H Total Protein 6.8 G/DL (6.4-8.2) Albumin 3.2 G/DL (3.4-5.0) L Globulin 3.6 g/dL Albumin/Globulin Ratio 0.9 (1.0-2.7) L Microbiology Date/Time Source Procedure Growth Status 07/31/20 11:59 Rectum - Final NO CARBAPENEM-RESISTANT ENTEROBACTERI... Complete 07/31/20 11:59 Nasal Nares MRSA Culture - Final NO METHICILLIN RESISTANT STAPH AUREUS... Complete 07/31/20 09:00 Nasopharynx SARS-CoV-2 RdRp Gene Assay - Final Complete Objective HEAD AND NECK: No JVD. LUNGS: Clear. CARDIOVASCULAR: Regular S1 and S2 with no gallop. ABDOMEN: Soft. EXTREMITIES: Dialysis in the left arm. Yuval Guerra MD Aug 02, 2020 17:25
--- NOTE | 2020-08-02 19:15 | NUR ---
TRANSFER NURSE HAND-OFF REPORT: Latest Vital Signs: Temperature 99.0 , Pulse 62 , B/P 146 /104 , Respiratory Rate 26 , O2 SAT 99 , Nasal Cannula, O2 Flow Rate 2.0 . Vital Sign Comment: STABLE EKG Rhythm: Sinus Rhythm/ Sinus Fransico Rhythm change?: Y Notified?: N -Dr. Mari GLEASON Response: No New Orders Received Latest Montgomery Fall Score: 35 Fall Risk: Medium Risk Safety Measures: Call light Within Reach, Bed Alarm Zone 1, Side Rails Side Rails x2, Bed position Low and Locked. Fall Precautions: Yellow Socks Yellow Gown Door Sign Patient Fall Education Report given to Jose Herzog. Plan of care endorsed. Addendum: 08/02/20 at 1944 by CARIN AWAD RN All belongings with patient including grant, cell phone, flask maker, cane, glasses and clothes
--- NOTE | 2020-08-02 19:16 | NUR ---
NURSE NOTES: Patients transferred from ICU for ESRD. Got report from Ashley FRITZ. Initial assessment done. Pt has hx of Afib w/RVR with highest HR in the 150s and per endorsement HR can be very labile and can run from 50-150. Pt HR is currently at 60 SR. Pt has no s/s of distress or discomfort at this time. Patient is alert and oriented X 4. Peripheral IV access in noted at his R AC (20g) patent and intact. Pt is ambulatory uses cane but weak. Pt has L UA AV shunt-bruit and thrill noted upon assessment. Last HD noted to be on 08/01 with a removal of 2L of fluid. Pt is oliguric pt states he can make urine. Pt is on room air sating 95%. 2L nasal cannula prn order if needed for SOB. Patient is not having difficulty in breathing at this time. Patient is Covid negative x1 on 07/31. Pts allergies noted. Pt educated about how to use the call light and to call if wants to get out of bed. Bed in low and locked position, call light within reach, bedside table within reach. VSS. Will continue to monitor.
[2020-08-03] VITALS: BP 123/70
[2020-08-03 04:00] VITALS: BP 148/88
[2020-08-03] MEDS: dilTIAZem HCl 60mg tab ORAL SCH ×4 (06:02→15:22)
--- NOTE | 2020-08-03 07:18 | NUR ---
NURSE NOTES: Receive report CATRINA Garcia,patient in restroom,verbalize he is OK
--- NOTE | 2020-08-03 07:22 | NUR ---
RD ASSESSMENT & RECOMMENDATIONS SEE CARE ACTIVITY FOR COMPLETE ASSESSMENT DAILY ESTIMATED NEEDS: Needs based on ESRD on HD 65kg abw 25-30 kcals/kg 4094-3829 total kcals 1.2-1.8 g protein/kg 78-117 g total protein Fluid per MD, on HD NUTRITION DIAGNOSIS: Increased pro needs r/t renal dysfunction as evidenced by pt w/ ESRD on HD. CURRENT DIET: Renal, soft easy chew PO DIET RECOMMENDATIONS: Renal diet. Texture as tolerated. ADDITIONAL RECOMMENDATIONS: 1) Obtain standing scale wt 2) Add Nepro 1 tetra qdaily w/ variable po intake -> High pro snacks in b/w meals 3) Rec regular POC, bed side BG testing. Monitor for hypoglycemia. 4) Monitor for reg bowel movement (last 08/01)
--- NOTE | 2020-08-03 07:30 | NUR ---
NURSE HAND-OFF REPORT: Important Events on Shift:[] Patient Status: [] Diet: [] Pending Orders: [] Pending Results/Labs:[] Pending MD notification:[] Latest Vital Signs: Temperature 97.7 , Pulse 65 , B/P 148 /88 , Respiratory Rate 20 , O2 SAT 95 , Nasal Cannula, O2 Flow Rate 2.0 . Vital Sign Comment: [] EKG Rhythm: SB w/BBB Rhythm change?: N MD Notified?: N -Dr. Mari GLEASON Response: No New Orders Received Latest Montgomery Fall Score: 35 Fall Risk: Medium Risk Safety Measures: Call light Within Reach, Bed Alarm Zone 1, Side Rails Side Rails x2, Bed position Low and Locked. Fall Precautions: Yellow Socks Yellow Gown Door Sign Patient Fall Education Report given to [Jasmine FRITZ].
[2020-08-03 08:00] VITALS: BP 145/73
[2020-08-03] MEDS: Nephrovite tab (Rena-Vite) ORAL SCH (08:48)
[2020-08-03] MEDS: Docusate 100mg cap ORAL SCH ×3 (08:48→18:38)
[2020-08-03] MEDS: Eliquis 2.5mg tablet ORAL SCH ×2 (08:51→18:37)
[2020-08-03] MEDS: Amiodarone 200mg tab ORAL SCH (09:00)
[2020-08-03] MEDS: Flonase Nasal Inhaler 16gm NASAL SCH (09:30)
--- NOTE | 2020-08-03 09:37 | Nephrology Progress Note ---
Assessment/Plan Problem List: (1) ESRD on dialysis (2) Hypertensive kidney disease (3) Anemia in chronic kidney disease (CKD) (4) Congestive heart failure (5) Atrial fibrillation with RVR Assessment End-stage renal disease, missed dialysis Volume overload and pulmonary edema Anemia of chronic kidney disease Hypertension History of atrial fibrillation History of congestive heart failure Plan August 03: Due for dialysis today. No chemistry panel done today. Medication list reviewed. August 02: Patient was dialyzed yesterday. Currently in ICU for tachyarr hythmia. Under the care of cardiology. On amiodarone and Cardizem. Labs reviewed. Will arrange for dialysis again tomorrow. Continue per consultants. August 01: Still waiting for dialysis treatment. Urgent dialysis ordered July 31 at 1 PM, however the dialysis procedure is still pending. Discussed with RN. Add phosphorus binders, stool softener, Protonix, keep the blood p ressure in check. Subjective ROS Limited/Unobtainable: No Constitutional: Reports: malaise, weakness Objective Objective Last 24 Hour Vital Signs Date Time Temp Pulse Resp B/P (MAP) Pulse Ox O2 Delivery O2 Flow Rate FiO2 08/03/20 08:45 Room Air 08/03/20 08:00 97.8 59 20 145/73 (97) 99 08/03/20 07:32 97 Nasal Cannula 3.0 32 08/03/20 07:30 50 20 97 Nasal Cannula 3.0 32 08/03/20 06:02 65 148/88 08/03/20 04:00 Nasal Cannula 2.0 08/03/20 04:00 97.7 60 20 148/88 (108) 95 08/03/20 04:00 57 08/03/20 00:00 Nasal Cannula 2.0 08/03/20 00:00 64 08/03/20 00:00 55 123/70 08/03/20 00:00 97.7 59 20 123/70 (87) 95 08/02/20 20:09 98 Room Air 21 08/02/20 20:00 Nasal Cannula 2.0 08/02/20 20:00 97.3 60 20 141/98 (112) 95 08/02/20 19:50 72 20 98 Room Air 21 08/02/20 19:47 61 08/02/20 18:00 62 26 146/104 (118) 99 08/02/20 16:00 Nasal Cannula 2.0 08/02/20 16:00 98.7 08/02/20 16:00 92 08/02/20 15:00 68 23 149/77 (101) 99 08/02/20 14:00 61 17 138/97 (111) 97 08/02/20 13:00 60 14 126/96 (106) 97 08/02/20 12:00 56 14 117/89 (98) 97 08/02/20 12:00 Nasal Cannula 2.0 08/02/20 12:00 57 08/02/20 11:00 126 21 130/90 (103) 97 08/02/20 10:00 124 17 143/92 (109) 97 Intake and Output 08/02/20 08/03/20 19:00 07:00 Intake Total 1235 ml Output Total 625 ml 1300 ml Balance 610 ml -1300 ml Intake Oral 1180 ml IV Total 55 ml Output Urine Total 625 ml 1300 ml # Voids 4 Current Medications Medications (Trade) Dose Ordered Sig/Daniel Route PRN Reason Start Time Stop Time Status Last Admin Dose Admin Acetaminophen (Tylenol) 650 mg Q4H PRN ORAL Temp >100.5 07/31/20 13:00 08/30/20 12:59 Albuterol/ Ipratropium (Albuterol/ Ipratropium) 3 ml Q6H PRN HHN Shortness of Breath 07/31/20 13:00 08/05/20 12:59 Amiodarone HCl (Cordarone) 400 mg EVERY 12 HOURS ORAL 08/01/20 21:00 10/30/20 20:59 08/02/20 21:00 Apixaban (Eliquis) 2.5 mg BID ORAL 07/31/20 18:00 10/29/20 17:59 08/03/20 08:51 Calcium Acetate (Phoslo) 667 mg TID ORAL 07/31/20 18:00 10/29/20 17:59 08/03/20 09:30 Ceftriaxone Sodium 1 gm/ Dextrose 55 ml @ 110 mls/hr Q24H IVPB 07/31/20 14:00 08/07/20 13:59 08/02/20 14:24 Clonidine HCl (Catapres Tab) 0.1 mg Q4H PRN ORAL bp over 160 syst 08/01/20 12:45 10/30/20 12:44 Diltiazem HCl (Cardizem Tab) 60 mg EVERY 6 HOURS ORAL 08/01/20 13:30 08/31/20 13:29 08/03/20 06:02 Docusate Sodium (Colace) 100 mg TID ORAL 08/02/20 13:15 08/31/20 10:14 08/03/20 08:48 Fluticasone Propionate (Flonase) 1 spray DAILY NASAL 08/01/20 09:00 08/31/20 08:59 08/03/20 09:30 Lorazepam (Ativan 2mg/ml 1ml) 1 mg Q6H PRN IV For Anxiety 07/31/20 13:00 08/07/20 12:59 Morphine Sulfate (Morphine Sulfate) 1 mg Q6H PRN IVP Severe Pain (Pain Scale 7-10) 07/31/20 13:00 08/07/20 12:59 Nitroglycerin (Ntg) 0.4 mg Q5M PRN SL Prn Chest Pain 07/31/20 13:00 08/30/20 12:59 Pantoprazole (Protonix) 40 mg EVERY 12 HOURS ORAL 08/01/20 10:15 08/31/20 10:14 08/03/20 08:51 Sevelamer Carbonate (Renvela) 1,600 mg THREE TIMES A DAY ORAL 08/01/20 13:00 10/30/20 12:59 08/03/20 08:51 Vitamin B Complex/ Vit C/Folic Acid (Nephrovite) 1 tab DAILY ORAL 08/01/20 09:00 08/31/20 08:59 08/03/20 08:48 Laboratory Tests 08/02/20 12:20: White Blood Count 5.9, Red Blood Count 3.78L, Hemoglobin 11.4L, Hematocrit 34.8L , Mean Corpuscular Volume 92, Mean Corpuscular Hemoglobin 30.0, Mean Corpuscular Hemoglobin Concent 32.6, Red Cell Distribution Width 13.1, Platelet Count 149L, Mean Platelet Volume 8.2, Neutrophils (%) (Auto) 48.9, Lymphocytes (%) (Auto) 28.4, Monocytes (%) (Auto) 19.5H, Eosinophils (%) (Auto) 0.8, Basophils (%) (Auto) 2.5H, Sodium Level 139, Potassium Level 4.1, Chloride Level 98, Carbon Dioxide Level 26, Anion Gap 15, Blood Urea Nitrogen 62H, Creatinine 11.3H, Estimat Glomerular Filtration Rate 5.6, Glucose Level 93, Calcium Level 8.4L, Phosphorus Level 5.3H, Total Bilirubin 0.5, Aspartate Amino Transf (AST/SGOT) 15, Alanine Aminotransferase (ALT/SGPT) 10L, Alkaline Phosphatase 58, C-Reactive Protein, Quantitative 6.1H, Total Protein 6.8, Albumin 3.2L, Globulin 3.6, Albumin/Globulin Ratio 0.9L Height (Feet): 5 Height (Inches): 4.00 Weight (Pounds): 182 General Appearance: no apparent distress Cardiovascular: normal rate Respiratory/Chest: decreased breath sounds Abdomen: distended Objective No change Darwin Jung MD Aug 03, 2020 09:37
[2020-08-03] MEDS ORDERED: WIXELA 100-501 EACH IH (10:29)
[2020-08-03] MEDS ORDERED: ASPIRIN EC81 MG ORAL (10:29)
[2020-08-03] MEDS ORDERED: METOPROLOL TART25 MG ORAL (10:29)
--- NOTE | 2020-08-03 10:37 | Pulmonology Progress Note ---
Subjective ROS Limited/Unobtainable: No Interval Events: None new Constitutional: Reports: no symptoms HEENT: Repors: no symptoms Respiratory: Reports: no symptoms Cardiovascular: Reports: no symptoms Allergies: Coded Allergies: BENZOIN (Unverified Allergy, Severe, 12/28/14) AMOXICILLIN (Verified Allergy, Intermediate, 11/18/12) ABD PAIN N/V POVIDONE-IODINE (Verified Allergy, Unknown, 03/28/20) Skin peeling Objective Last 24 Hour Vital Signs Date Time Temp Pulse Resp B/P (MAP) Pulse Ox O2 Delivery O2 Flow Rate FiO2 08/03/20 08:45 Room Air 08/03/20 08:00 97.8 59 20 145/73 (97) 99 08/03/20 07:32 97 Nasal Cannula 3.0 32 08/03/20 07:30 50 20 97 Nasal Cannula 3.0 32 08/03/20 06:02 65 148/88 08/03/20 04:00 Nasal Cannula 2.0 08/03/20 04:00 97.7 60 20 148/88 (108) 95 08/03/20 04:00 57 08/03/20 00:00 Nasal Cannula 2.0 08/03/20 00:00 64 08/03/20 00:00 55 123/70 08/03/20 00:00 97.7 59 20 123/70 (87) 95 08/02/20 20:09 98 Room Air 21 08/02/20 20:00 Nasal Cannula 2.0 08/02/20 20:00 97.3 60 20 141/98 (112) 95 08/02/20 19:50 72 20 98 Room Air 21 08/02/20 19:47 61 08/02/20 18:00 62 26 146/104 (118) 99 08/02/20 16:00 Nasal Cannula 2.0 08/02/20 16:00 98.7 08/02/20 16:00 92 08/02/20 15:00 68 23 149/77 (101) 99 08/02/20 14:00 61 17 138/97 (111) 97 08/02/20 13:00 60 14 126/96 (106) 97 08/02/20 12:00 56 14 117/89 (98) 97 08/02/20 12:00 Nasal Cannula 2.0 08/02/20 12:00 57 08/02/20 11:00 126 21 130/90 (103) 97 Intake and Output 08/02/20 08/03/20 19:00 07:00 Intake Total 1235 ml Output Total 625 ml 1300 ml Balance 610 ml -1300 ml Intake Oral 1180 ml IV Total 55 ml Output Urine Total 625 ml 1300 ml # Voids 4 General Appearance: no acute distress HEENT: normocephalic Respiratory: chest wall non-tender, lungs clear Cardiovascular: normal peripheral pulses, normal rate Abdomen: normal bowel sounds Microbiology Date/Time Source Procedure Growth Status 07/31/20 11:59 Rectum - Final NO CARBAPENEM-RESISTANT ENTEROBACTERI... Complete 07/31/20 11:59 Nasal Nares MRSA Culture - Final NO METHICILLIN RESISTANT STAPH AUREUS... Complete Laboratory Tests 08/02/20 12:20: White Blood Count 5.9, Red Blood Count 3.78L, Hemoglobin 11.4L, Hematocrit 34.8L , Mean Corpuscular Volume 92, Mean Corpuscular Hemoglobin 30.0, Mean Corpuscular Hemoglobin Concent 32.6, Red Cell Distribution Width 13.1, Platelet Count 149L, Mean Platelet Volume 8.2, Neutrophils (%) (Auto) 48.9, Lymphocytes (%) (Auto) 28.4, Monocytes (%) (Auto) 19.5H, Eosinophils (%) (Auto) 0.8, Basophils (%) (Auto) 2.5H, Sodium Level 139, Potassium Level 4.1, Chloride Level 98, Carbon Dioxide Level 26, Anion Gap 15, Blood Urea Nitrogen 62H, Creatinine 11.3H, Estimat Glomerular Filtration Rate 5.6, Glucose Level 93, Calcium Level 8.4L, Phosphorus Level 5.3H, Total Bilirubin 0.5, Aspartate Amino Transf (AST/SGOT) 15, Alanine Aminotransferase (ALT/SGPT) 10L, Alkaline Phosphatase 58, C-Reactive Protein, Quantitative 6.1H, Total Protein 6.8, Albumin 3.2L, Globulin 3.6, Albu min/Globulin Ratio 0.9L Current Medications Medications (Trade) Dose Ordered Sig/Daniel Route PRN Reason Start Time Stop Time Status Last Admin Dose Admin Acetaminophen (Tylenol) 650 mg Q4H PRN ORAL Temp >100.5 07/31/20 13:00 08/30/20 12:59 Albuterol/ Ipratropium (Albuterol/ Ipratropium) 3 ml Q6H PRN HHN Shortness of Breath 07/31/20 13:00 08/05/20 12:59 Amiodarone HCl (Cordarone) 400 mg EVERY 12 HOURS ORAL 08/01/20 21:00 10/30/20 20:59 08/02/20 21:00 Apixaban (Eliquis) 2.5 mg BID ORAL 07/31/20 18:00 10/29/20 17:59 08/03/20 08:51 Calcium Acetate (Phoslo) 667 mg TID ORAL 07/31/20 18:00 10/29/20 17:59 08/03/20 09:30 Ceftriaxone Sodium 1 gm/ Dextrose 55 ml @ 110 mls/hr Q24H IVPB 07/31/20 14:00 08/07/20 13:59 08/02/20 14:24 Clonidine HCl (Catapres Tab) 0.1 mg Q4H PRN ORAL bp over 160 syst 08/01/20 12:45 10/30/20 12:44 Diltiazem HCl (Cardizem Tab) 60 mg EVERY 6 HOURS ORAL 08/01/20 13:30 08/31/20 13:29 08/03/20 06:02 Docusate Sodium (Colace) 100 mg TID ORAL 08/02/20 13:15 08/31/20 10:14 08/03/20 08:48 Fluticasone Propionate (Flonase) 1 spray DAILY NASAL 08/01/20 09:00 08/31/20 08:59 08/03/20 09:30 Lorazepam (Ativan 2mg/ml 1ml) 1 mg Q6H PRN IV For Anxiety 07/31/20 13:00 08/07/20 12:59 Morphine Sulfate (Morphine Sulfate) 1 mg Q6H PRN IVP Severe Pain (Pain Scale 7-10) 07/31/20 13:00 08/07/20 12:59 Nitroglycerin (Ntg) 0.4 mg Q5M PRN SL Prn Chest Pain 07/31/20 13:00 08/30/20 12:59 Pantoprazole (Protonix) 40 mg EVERY 12 HOURS ORAL 08/01/20 10:15 08/31/20 10:14 08/03/20 08:51 Sevelamer Carbonate (Renvela) 1,600 mg THREE TIMES A DAY ORAL 08/01/20 13:00 10/30/20 12:59 08/03/20 08:51 Vitamin B Complex/ Vit C/Folic Acid (Nephrovite) 1 tab DAILY ORAL 08/01/20 09:00 08/31/20 08:59 08/03/20 08:48 Assessment/Plan Assessment/Plan ASSESSMENT AND PLAN: 1. Chest pain and troponin elevation. Cardiology following. 2. Paroxysmal atrial fibrillation, currently in sinus rhythm on amiodarone 200 mg daily. Consider long-term anticoagulation with Eliquis. 3. Hypertension, 4. Congestive heart failure due to diastolic dysfunction. 5. Hypoxemia; improved after HD 6. Saturating well on low flow o2 Kayden Deutsch MD Aug 03, 2020 10:37
[2020-08-03 12:00] VITALS: BP 145/73
--- NOTE | 2020-08-03 12:39 | General Progress Note ---
Subjective Allergies: Coded Allergies: BENZOIN (Unverified Allergy, Severe, 12/28/14) AMOXICILLIN (Verified Allergy, Intermediate, 11/18/12) ABD PAIN N/V POVIDONE-IODINE (Verified Allergy, Unknown, 03/28/20) Skin peeling Subjective doing ok sob better Objective Last 24 Hour Vital Signs Date Time Temp Pulse Resp B/P (MAP) Pulse Ox O2 Delivery O2 Flow Rate FiO2 08/03/20 08:45 Room Air 08/03/20 08:00 97.8 59 20 145/73 (97) 99 08/03/20 08:00 60 08/03/20 07:32 97 Nasal Cannula 3.0 32 08/03/20 07:30 50 20 97 Nasal Cannula 3.0 32 08/03/20 06:02 65 148/88 08/03/20 04:00 Nasal Cannula 2.0 08/03/20 04:00 97.7 60 20 148/88 (108) 95 08/03/20 04:00 57 08/03/20 00:00 Nasal Cannula 2.0 08/03/20 00:00 64 08/03/20 00:00 55 123/70 08/03/20 00:00 97.7 59 20 123/70 (87) 95 08/02/20 20:09 98 Room Air 21 08/02/20 20:00 Nasal Cannula 2.0 08/02/20 20:00 97.3 60 20 141/98 (112) 95 08/02/20 19:50 72 20 98 Room Air 21 08/02/20 19:47 61 08/02/20 18:00 62 26 146/104 (118) 99 08/02/20 16:00 Nasal Cannula 2.0 08/02/20 16:00 98.7 08/02/20 16:00 92 08/02/20 15:00 68 23 149/77 (101) 99 08/02/20 14:00 61 17 138/97 (111) 97 08/02/20 13:00 60 14 126/96 (106) 97 Intake and Output 08/02/20 08/03/20 19:00 07:00 Intake Total 1235 ml Output Total 625 ml 1300 ml Balance 610 ml -1300 ml Intake Oral 1180 ml IV Total 55 ml Output Urine Total 625 ml 1300 ml # Voids 4 Height (Feet): 5 Height (Inches): 4.00 Weight (Pounds): 182 General Appearance: alert EENT: PERRL/EOMI Neck: supple Cardiovascular: regular rhythm Respiratory/Chest: expiratory wheezing Abdomen: non tender, soft Extremities: non-tender Edema: trace edema Assessment/Plan Assessment/Plan: 1 sob 2 ac chf diasolic failure 3 fluid overload 4 esrd on hd depended 5 htn 6 over jolie 7 poor complience 8 anemia admit to tele 2gm na renal diet fluid restriction lasix 20 mg iv bid nephro and cardio consult resume home meds r/o mi rpt labs and troponion on 3 litre o2 hd this noon dw with charge nurse dc plan at home Boogie Russ MD Aug 03, 2020 12:38
--- NOTE | 2020-08-03 13:10 | NUR ---
CASE MANAGEMENT: REVIEW SI: ESRD on HD . CHF . HYPOXEMIA T 97.8 HR 50 RR 20 BP 145/73 SAT 97% NC/3L IS: CARDIZEM 60MG PO Q6HR SEVELAMER 1600MG PO TID LASIX IV Q12HR CEFTRIAXONE IV Q24HR HD PER RENAL STEP DOWN UNIT STATUS DCP: PATIENT IS FROM HOME
--- NOTE | 2020-08-03 13:58 | Cardiac Electrophysiology PN ---
Assessment/Plan Assessment/Plan 1. Chest pain and troponin elevation. Chest pain is likely due to volume overload and atrial fib with RVR. The troponin elevation is likely due to renal failure. Currently, he does not have any chest pain. EF 60% 2. Paroxysmal atrial fibrillation with RVR. On Amiodarone 400 bid and Cardizem 60 po q 6 hr On Eliquis 2.5 bid. 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 Hypertension, On Cardizem 60q 6 hr and hemodialysis 4. Congestive heart failure due to diastolic dysfunction. 5. Right bundle-branch block and left anterior fascicular block. DW RN Subjective Subjective Transferred out of ICU for atrial fib with RVR 150s and started on Cardizem drip that DCed for mimi in 50s. No CP Objective Last 24 Hour Vital Signs Date Time Temp Pulse Resp B/P (MAP) Pulse Ox O2 Delivery O2 Flow Rate FiO2 08/03/20 12:00 57 08/03/20 12:00 97.6 53 20 145/73 (97) 95 08/03/20 12:00 Nasal Cannula 2.0 08/03/20 08:45 Room Air 08/03/20 08:00 97.8 59 20 145/73 (97) 99 08/03/20 08:00 60 08/03/20 07:32 97 Nasal Cannula 3.0 32 08/03/20 07:30 50 20 97 Nasal Cannula 3.0 32 08/03/20 06:02 65 148/88 08/03/20 04:00 Nasal Cannula 2.0 08/03/20 04:00 97.7 60 20 148/88 (108) 95 08/03/20 04:00 57 08/03/20 00:00 Nasal Cannula 2.0 08/03/20 00:00 64 08/03/20 00:00 55 123/70 08/03/20 00:00 97.7 59 20 123/70 (87) 95 08/02/20 20:09 98 Room Air 21 08/02/20 20:00 Nasal Cannula 2.0 08/02/20 20:00 97.3 60 20 141/98 (112) 95 08/02/20 19:50 72 20 98 Room Air 21 08/02/20 19:47 61 08/02/20 18:00 62 26 146/104 (118) 99 08/02/20 16:00 Nasal Cannula 2.0 08/02/20 16:00 98.7 08/02/20 16:00 92 08/02/20 15:00 68 23 149/77 (101) 99 08/02/20 14:00 61 17 138/97 (111) 97 Intake and Output 08/02/20 08/03/20 19:00 07:00 Intake Total 1235 ml Output Total 625 ml 1300 ml Balance 610 ml -1300 ml Intake Oral 1180 ml IV Total 55 ml Output Urine Total 625 ml 1300 ml # Voids 4 Objective HEAD AND NECK: No JVD. LUNGS: Clear. CARDIOVASCULAR: Regular S1 and S2 with no gallop. ABDOMEN: Soft. EXTREMITIES: Dialysis in the left arm. Yuval Guerra MD Aug 03, 2020 13:58
--- NOTE | 2020-08-03 14:29 | NUR ---
NURSE NOTES: BP 207/90 dialysis nurse Dre notified me,ask to give BP med-clonidine 0.1 mg given as ordered,continue to monitor
[2020-08-03 16:30] VITALS: BP 138/73
--- NOTE | 2020-08-03 19:20 | NUR ---
NURSE HAND-OFF REPORT: Important Events on Shift: This morning HR- high 40 to 64 anxious to go home,explained need for dialysis,he said he is non compliant,agree to do dialysis,post dialysis today,had episode low and high heart rate Afib during dialysis,meds given Patient Status: BP stabilize,tired after dialysis,slept Diet: ate good dinner Pending Orders: none Pending Results/Labs:none Pending MD notification:none Latest Vital Signs: Temperature 98.3 , Pulse 68 , B/P 138 /73 , Respiratory Rate 20 , O2 SAT 95 , Room Air, O2 Flow Rate 2.0 . Vital Sign Comment: stabilize EKG Rhythm: Atrial Fibrillation Rhythm change?: N Notified?: N -Dr. Mari GLEASON Response: No New Orders Received Latest [place] Fall Score: 35 Fall Risk: Medium Risk Safety Measures: Call light Within Reach, Bed Alarm Zone 1, Side Rails Side Rails x2, Bed position Low and Locked. Fall Precautions: Yellow Socks Yellow Gown Door Sign Patient Fall Education: discussed with patient,ambulate steady outside room,short distance Report given to .CATRINA Arzate
--- NOTE | 2020-08-03 19:25 | NUR ---
NURSE NOTES: RECEIVED REPORT FROM CATRINA YEPEZ. PAAOX4, VERBALLY RESPONSIVE, ABLE TO MAKE NEEDS KNOWN. NO COMPLAINTS OF PAIN OR DISCOMFORT AT THIS TIME. NO S/SX OF APPARENT CARDIOPULMONARY DISTRESS. HOWEVER, PATIENT REQUESTING TO GO HOME. INFORMED PATIENT THAT THERE IS NO DISCHARGE ORDER AT THIS TIME, AND HE HAS NOT BEEN CLEARED BY HIS DOCTORS TO BE SAFELY DISCHARGED HOME. PATIENT ACKNOWLEDGED THIS AND STILL INSISTS ON GOING HOME. INFORMED CATRINA YEPEZ, AND MICKEY HEAD (PM).
--- NOTE | 2020-08-03 19:50 | NUR ---
NURSE NOTES: PATIENT SIGNED AMA FORM, BELONGINGS LIST VERIFIED AND SIGNED BY PATIENT, RX PROVIDED TO PATIENT, FIELD CLINICAL ENGINEER REMOVED. PER PATIENT, HE WILL BE PICKED UP BY CAB HE CALLED. PATIENT ASSISTED TO LOBBY- AMBULATED WITH CANE, NO S/SX OF DISTRESS NOTED. Addendum: 08/03/20 at 2021 by Vicki Arzate RN *IV SITE DISCONTINUED/REMOVED
[2020-08-03 20:00] VITALS: BP 137/73
--- NOTE | 2020-08-03 20:10 | NUR ---
NURSE NOTES: INFORMED DR. HAGEN PATIENT LEFT AMA. Addendum: 08/03/20 at 2158 by Vicki Arzate RN MD GARCIA
--- NOTE | 2020-08-04 21:47 | Discharge Summary ---
Discharge Summary Discharge Summary _ DATE OF ADMISSION: 07/31/2020 DATE OF DISCHARGE: 08/03/2020 CONSULTANTS: Dr. Yuval Jung BRIEF HOSPITAL COURSE: Patient is a 65-year-old male, from home, presented to ED due to shortness of breath for 3 days. Patient missed hemodialysis due to transportation issues. He had shortness of breath and dyspnea. He had a recent AV fistula placement in the left arm. Upon evaluation at ED, vital signs were stable. He was saturating 92% on room air. Blood work did not show any leukocytosis. Hemoglobin 10, hematocrit 33. Platelet count 173. Electrolytes were normal. BUN was 93 and creatinine 15. Glucose 101. Troponin was 0.069. Urinalysis was negative. Urine toxicology screen negative. Rapid COVID-19 testing negative. He was given aspirin and nitro.. Patient had increased dyspnea and anxiety. He was given DuoNeb, morphine and Zofran. He was admitted to telemetry. He was placed on 2 g renal diet. He was placed on fluid restrictions. He underwent cardiac evaluation. Chest pain likely due to volume overload. Elevated troponin is likely due to renal failure. Patient has history of paroxysmal atrial fibrillation, was sinus rhythm on monitor. Patient was given amiodarone 200 mg daily. He was not on anticoagulation as outpatient. He was given amlodipine for blood pressure control. He was placed on heparin for DVT prophylaxis. He was given IV Lasix. Prior echocardiogram done in April showed ejection fraction of 55%. He was given inpatient hemodialysis. Patient had an episode of rapid A. fib in the 150s. Amiodarone was increased to 400 mg twice daily. He was given 0.25 IV digoxin and was started on Cardizem 60 mg p.o. every 6 hours. He was started on Eliquis. He was eventually transferred to ICU and was started on Cardizem drip. Cardizem drip was eventually discontinued when patient went bradycardic in the 50s. 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 Full treatment was not carried out as patient signed out AGAINST MEDICAL ADVICE. FINAL DIAGNOSES: Shortness of breath due to fluid overload secondary to missed dialysis End-stage renal disease on hemodialysis Chest pain likely due to volume overload and atrial fibrillation with RVR Paroxysmal atrial fibrillation with RVR Hypertensive heart disease Anemia chronic kidney disease Acute on chronic congestive heart failure due to diastolic dysfunction Right bundle branch block and anterior fascicular block DISPOSITION: Patient left AMA. I have been assigned to complete a discharge summary on this account, I was not involved with the patient's management.--STEPHANIE Livingston Jacqueline Robles NP Aug 04, 2020 21:47
--- NOTE | 2020-08-05 16:03 | Cardiology Report ---
APPROVED REPORT EXAM: Two-dimensional and M-mode echocardiogram with Doppler and color Doppler. INDICATION Congestive Heart Failure M-Mode DIMENSIONS IVSd1.0 (0.7-1.1cm)Left Atrium (MM)6.9 (1.6-4.0cm) LVDd6.4 (3.5-5.6cm)Aortic Root2.9 (2.0-3.7cm) PWd1.2 (0.7-1.1cm)Aortic Cusp Exc.1.5 (1.5-2.0cm) IVSs2.1 cmEPSS1.9 (>1.0cm) LVDs4.3 (2.5-4.0cm) PWs1.8 cm <Conclusion> Mild LV enlargement. Normal left ventricular systolic function and wall motion. Left ventricular ejection fraction estimated to be 60 %. No evidence of left ventricular hypertrophy. No evidence of pericardial effusion. Moderate to severe LA enlargement. Moderate RA enlargement. Mild right ventricular enlargement. Moderate to severe focal aortic valve sclerosis with borderline cusp excursion. Moderately thickened mitral valve leaflets with normal excursion. Moderate mitral annulus and aortic root calcification. Normal pulmonic valve structure. Normal tricuspid valve structure. IVC dilated at 3.6 cm without physiologic collapse suggestive of increased RA pressure. A color flow and spectral Doppler study was performed and revealed: Moderate aortic regurgitation. Peak aortic valve gradient of 17 mmHg and a mean of 8 mmHg. Moderate to severe posteriorly eccentric mitral regurgitation. Mitral inflow indicates pseudo-nromal left ventricular physiology or grade II LV diastolic dysfunction. Moderate tricuspid regurgitation. Tricuspid systolic velocities suggests peak right ventricular systolic pressure of 86 mmHg, consistent with severe pulmonary hypertension. Moderate pulmonic regurgitation present.
--- NOTE | 2020-08-05 16:25 | Cardiology Report ---
APPROVED REPORT EKG Measurement Heart [id number] <Conclusion> Sinus bradycardia Left axis deviation Right bundle branch block Abnormal ECG
--- NOTE | 2020-08-05 16:31 | Cardiology Report ---
APPROVED REPORT EKG Measurement Heart [id number] <Conclusion> Sinus bradycardia with occasional premature ventricular complexes and premature atrial complexes Left axis deviation Right bundle branch block Abnormal ECG
== END 2020-08-03 19:52 | disposition left against medical advice (07) | DRG 425 ==
LOC: EMR 08:53 → 2E 10:13 → EDBEDREQ 12:10 → ICU 08-01 19:11 → 2W 08-02 19:15
PROC: 5A1D70Z Performance of Urinary Filtration, Intermittent, Less than 6 Hours Per Day (ICD-10-PCS; principal; 2020-08-01)
DX: E87.79 Other fluid overload (principal); I13.2 Hypertensive heart and chronic kidney disease with heart failure and with stage 5 chronic kidney disease, or end stage renal disease; N18.6 End stage renal disease; Z91.15 Patient's noncompliance with renal dialysis; I50.33 Acute on chronic diastolic (congestive) heart failure; I48.0 Paroxysmal atrial fibrillation; I45.2 Bifascicular block; Z88.1 Allergy status to other antibiotic agents; Z88.8 Allergy status to other drugs, medicaments and biological substances; Z99.2 Dependence on renal dialysis
CPT/HCPCS: 36415; 71045; 80048; 80053; 80076; 80162; 80307; 81003; 82550; 82728; 83036; 83605; 83615; 83690; 83735; 83880; 84100; 84484; 84550; 85025; 85610; 85730; 86140; 86706; 87040; 87081; 93005; 93306; 94640; 94664; 96374; 96375; 99285; J2405; J7620; U0002

== ENCOUNTER 2020-08-12 10:13 | Emergency (ER) | payer OTHER ==
[~2020-08-12] VITALS: Ht 162.6 cm; Wt 83.0 kg
[~2020-08-12 10:13] MED LIST changes: +ASPIRIN EC81 MG ORAL; +WIXELA 100-501 EACH IH
--- NOTE | 2020-08-12 10:20 | NUR ---
ED Nurse Note: Pt ambulated to ED d/t shortness of breath going on for 2 wks and blood in the stool x 3 days. Pt is AOx4, calm and cooperative to care. Pt was placed on bed, hooked to supervisor wet end satting at 97% on RA, VSS, breathing even and unlabored, afebrile on triage. Pt has hx of CHF, COPD; had prev session of dialysis here last week. Will continue to monitor.
--- NOTE | 2020-08-12 10:31 | Emergency Room Report ---
History of Present Illness General Chief Complaint: Dyspnea/Respdistress Source: Patient Present Illness HPI 65-year-old male history of end-stage renal disease presents with shortness of breath that acutely worsened over the past week patient states he missed dialysis he had dialysis last week, usually gets dialysis Saturday but was unable to get dialysis he presents with chest discomfort and shortness of breath which is severe in nature, alleviated with dialysis aggravated by not having dialysis patient presents for evaluation and treatment Allergies: Coded Allergies: BENZOIN (Unverified Allergy, Severe, 12/28/14) AMOXICILLIN (Verified Allergy, Intermediate, 11/18/12) ABD PAIN N/V POVIDONE-IODINE (Verified Allergy, Unknown, 03/28/20) Skin peeling COVID-19 Screening Contact w/high risk pt: No Recent Travel to affected area: No Experienced COVID-19 symptoms?: Yes COVID-19 symptoms experienced: Shortness of Breath, Cough COVID-19 Testing 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 Patient History Past Medical History: see triage record Social History: Reports: smoking Reviewed Nursing Documentation: PMH: Agreed; PSxH: Agreed Nursing Documentation-PMH Past Medical History: No History, Except For Hx Cardiac Problems: Yes - heart failure Hx Hypertension: Yes Hx Pacemaker: No Hx Asthma: Yes Hx COPD: Yes Hx Cancer: No Hx Gastrointestinal Problems: Yes Hx Dialysis: Yes - MWF Hx Neurological Problems: No Hx Cerebrovascular Accident: Yes Hx Syncope: Yes Review of Systems All Other Systems: negative except mentioned in HPI Physical Exam Vital Signs Date Time Temp Pulse Resp B/P (MAP) Pulse Ox O2 Delivery O2 Flow Rate FiO2 08/12/20 10:17 97.0 61 18 183/98 (126) 94 Room Air Sp02 EP Interpretation: reviewed, normal General Appearance: well appearing, no apparent distress, alert Head: normocephalic, atraumatic Eyes: bilateral eye PERRL, bilateral eye EOMI ENT: uvula midline, moist mucus membranes Neck: supple, thyroid normal, supple/symm/no masses Respiratory: decreased breath sounds, accessory muscle use, wheezing Cardiovascular #1: normal peripheral pulses, regular rate, rhythm, no edema, no gallop, no murmur Gastrointestinal: non tender, soft, no guarding, no rebound Musculoskeletal: normal inspection Neurologic: alert, oriented x3 Psychiatric: mood/affect normal Skin: no rash, warm/dry Procedures Critical Care Time Critical Care Time Given the critical condition in which the patient arrived, the patient was immediately assessed by myself and the nurse, and cardiac monitoring initiated due to the potential for rapid decompensation of the patient's clinical condition. During the course of the patient's stay, I spent a considerable amount of time at the bedside performing serial re-evaluations of the patient's hemodynamic and clinical status because of the recognized potential threat to life or limb in this condition. I then had a chance to review not only all of the available current laboratory and radiographic studies obtained today, but I also reviewed old records available to me at the time. Additionally, any ancillary information available including fine grader records were reviewed. Sequential vital signs were obtained. Critical Care time of 31 minutes was performed exclusive of billable procedures. Medical Decision Making Diagnostic Impression: Primary Impression: Dyspnea Qualified Codes: R06.00 - Dyspnea, unspecified Additional Impressions: Pulmonary edema Qualified Codes: J81.0 - Acute pulmonary edema Elevated troponin Volume overload Qualified Codes: E87.70 - Fluid overload, unspecified ESRD on dialysis ER Course 65-year-old male presents with shortness of breath, concern for pulmonary edema given missed dialysis x2, patient normally gets dialysis Saturday Differential also includes pneumonia, ACS Patient given aspirin for slightly elevated troponin most likely troponin leak in the setting of fluid overload Patient accepted by Dr. Montero at [facility] Patient to be transferred for emergent dialysis Laboratory Tests Test 08/12/20 10:30 White Blood Count 7.1 K/UL (4.8-10.8) Red Blood Count 3.25 M/UL (4.70-6.10) L Hemoglobin 9.9 G/DL (14.2-18.0) L Hematocrit 29.4 % (42.0-52.0) L Mean Corpuscular Volume 91 FL (80-99) Mean Corpuscular Hemoglobin 30.5 PG (27.0-31.0) Mean Corpuscular Hemoglobin Concent 33.7 G/DL (32.0-36.0) Red Cell Distribution Width 13.6 % (11.6-14.8) Platelet Count 220 K/UL (150-450) Mean Platelet Volume 6.8 FL (6.5-10.1) Neutrophils (%) (Auto) 47.7 % (45.0-75.0) Lymphocytes (%) (Auto) 31.2 % (20.0-45.0) Monocytes (%) (Auto) 17.6 % (1.0-10.0) H Eosinophils (%) (Auto) 1.2 % (0.0-3.0) Basophils (%) (Auto) 2.3 % (0.0-2.0) H Prothrombin Time 14.0 SEC (9.30-11.50) H Prothrombin Time INR 1.3 (0.9-1.1) H Activated Partial Thromboplast Time 32 SEC (23-33) Sodium Level 142 MMOL/L (136-145) Potassium Level 5.1 MMOL/L (3.5-5.1) Chloride Level 103 MMOL/L (98-107) Carbon Dioxide Level 23 MMOL/L (21-32) Anion Gap 16 mmol/L (5-15) H Blood Urea Nitrogen 92 mg/dL (7-18) H Creatinine 15.0 MG/DL (0.55-1.30) H Estimated Glomerular Filtration Rate 4.0 mL/min (>60) Glucose Level 97 MG/DL (74-106) Calcium Level 8.2 MG/DL (8.5-10.1) L Total Bilirubin 0.5 MG/DL (0.2-1.0) Aspartate Amino Transferase (AST) 21 U/L (15-37) Alanine Aminotransferase (ALT) 14 U/L (12-78) Alkaline Phosphatase 64 U/L (46-116) Troponin I 0.070 ng/mL (0.000-0.056) Pro-B-Type Natriuretic Peptide > 68903 pg/mL (0-125) H Total Protein 6.6 G/DL (6.4-8.2) Albumin 3.5 G/DL (3.4-5.0) Globulin 3.1 g/dL Albumin/Globulin Ratio 1.1 (1.0-2.7) Lipase 154 U/L (73-393) Microbiology Date/Time Source Procedure Growth Status 08/12/20 10:31 Nasopharynx SARS-CoV-2 RdRp Gene Assay - Final Complete EKG Diagnostic Results Troponin ordered: Yes When was troponin ordered?: Aug 12, 2020 - 1024 EKG Time: 10:37 EP Interpretation: Sinus bradycardia, rate 54, QTc 510, no acute ST elevations, left axis janis Rhythm Strip Diag. Results Rhythm Strip Time: 10:40 EP Interpretation: yes Rate: 57 Rhythm: other - Sinus bradycardia Chest X-Ray Diagnostic Results Chest X-Ray Diagnostic Results : Chest X-Ray Ordered: Yes # of Views/Limited/Complete: 1 View Indication: Shortness of Breath EP Interpretation: Yes Interpretation: other - Pulmonary edema noted bilaterally Impression: Other - Pulmonary edema Electronically Signed by: Tello Ruiz MD Last Vital Signs Date Time Temp Pulse Resp B/P (MAP) Pulse Ox O2 Delivery O2 Flow Rate FiO2 08/12/20 10:17 97.0 61 18 183/98 (126) 94 Room Air Disposition: SHORT-TERM HOSP Condition: Critical Tello Ruiz MD Aug 12, 2020 10:31
[2020-08-12 10:53] LABS: INR 1.3 (0.9-1.1)
--- NOTE | 2020-08-12 10:54 | NUR ---
ED Nurse Note: dialysis shunt on L upper arm.
[2020-08-12 10:55] VITALS: BP 183/98
[2020-08-12 10:56] LABS: ANION GAP 16 mmol/L (5-15); BLOOD UREA NITROGEN 92 mg/dL (7-18); CALCIUM 8.2 MG/DL (8.5-10.1); CARBON DIOXIDE 23 MMOL/L (21-32); CHLORIDE 103 MMOL/L (98-107); POTASSIUM 5.1 MMOL/L (3.5-5.1); SODIUM 142 MMOL/L (136-145)
[2020-08-12 11:02] LABS: BASOPHILS % (AUTO) 2.3 % (0.0-2.0); EOSINOPHILS % (AUTO) 1.2 % (0.0-3.0); HEMATOCRIT 29.4 % (42.0-52.0); HEMOGLOBIN 9.9 G/DL (14.2-18.0); LYMPHOCYTES % (AUTO) 31.2 % (20.0-45.0); MEAN CORPUSCULAR VOLUME 91 FL (80-99); MONOCYTES % (AUTO) 17.6 % (1.0-10.0); NEUTROPHILS % (AUTO) 47.7 % (45.0-75.0); PLATELET COUNT 220 K/UL (150-450); RED BLOOD COUNT 3.25 M/UL (4.70-6.10); RED CELL DISTRIBUTION WIDTH 13.6 % (11.6-14.8); WHITE BLOOD COUNT 7.1 K/UL (4.8-10.8)
[2020-08-12 11:08] LABS: ALANINE AMINOTRANSFERASE 14 U/L (12-78); ALBUMIN 3.5 G/DL (3.4-5.0); ALBUMIN/GLOBULIN RATIO 1.1 (1.0-2.7); ALKALINE PHOSPHATASE 64 U/L (46-116); ASPARTATE AMINO TRANSFERASE 21 U/L (15-37); BILIRUBIN,TOTAL 0.5 MG/DL (0.2-1.0)
--- NOTE | 2020-08-12 11:20 | NUR ---
HAND-OFF: Report given to CATRINA Deutsch.
--- NOTE | 2020-08-12 11:29 | NUR ---
ED Nurse Note: pt satting at 91% on RA, placed on 2L NC O2 by RN, now satting at 98%, HR in high 50's/low 60's but is asymptomatic, this seems to be baseline for pt. BP is 152/85, R AC IV line is patent and intact. pt is in no acute distress at this time, AOx4, able to make needs known to RN
[2020-08-12 11:32] VITALS: BP 152/85
--- NOTE | 2020-08-12 12:04 | NUR ---
ED Nurse Note: pt reports that he goes to dialysis on Sat, , Sat but missed saturday this week because he was not feeling well and did not go today since he checked himself into [facility]
--- NOTE | 2020-08-12 12:08 | NUR ---
ED Nurse Note: JORDYN called and left message for Dr. Montero at [facility] for peer to peer at telephone number: [phone]
--- NOTE | 2020-08-12 13:15 | NUR ---
ED Nurse Note: report given to CATRINA Tran at [facility]. [phone] here to transport pt to [facility]
[2020-08-12 13:20] VITALS: BP 152/85
--- NOTE | 2020-08-12 15:47 | Diagnostic Imaging Report ---
Indication: Shortness of breath Technique: One view of the chest Comparison: 07/31/2020 Findings: The heart is enlarged. There is bilateral interstitial and airspace disease, likely pulmonary edema but could represent infiltrates. This is similar in extent to the previous study. There is slight blunting of the left costophrenic sulcus. Impression: Cardiomegaly Bilateral interstitial and airspace edema versus infiltrates. Correlate with clinical findings
--- NOTE | 2020-08-14 19:33 | Cardiology Report ---
APPROVED REPORT EKG Measurement Heart [id number] <Conclusion> Sinus bradycardia with premature atrial complexes Right bundle branch block Abnormal ECG
== END 2020-08-12 13:20 | disposition short-term general hospital (02) ==
LOC: EMR 10:35
DX: R06.00 Dyspnea, unspecified (principal); J81.0 Acute pulmonary edema; R79.89 Other specified abnormal findings of blood chemistry; E87.70 Fluid overload, unspecified; I13.2 Hypertensive heart and chronic kidney disease with heart failure and with stage 5 chronic kidney disease, or end stage renal disease; N18.6 End stage renal disease; I50.9 Heart failure, unspecified; Z99.2 Dependence on renal dialysis; J44.9 Chronic obstructive pulmonary disease, unspecified; Z86.73 Personal history of transient ischemic attack (TIA), and cerebral infarction without residual deficits; F17.200 Nicotine dependence, unspecified, uncomplicated; R00.1 Bradycardia, unspecified; I51.7 Cardiomegaly
CPT/HCPCS: 36415; 71045; 80053; 83690; 83880; 84484; 85025; 85610; 85730; 93005; U0002; Z7502; 99291

== ENCOUNTER 2020-08-20 10:05 | Inpatient (IN) | payer OTHER ==
[~2020-08-20] VITALS: Ht 162.6 cm; Wt 82.0 kg
[~2020-08-20 10:05] MED LIST changes: +ELIQUIS5 MG ORAL; -ELIQUIS5 MG PO
--- NOTE | 2020-08-20 10:31 | Emergency Room Report ---
History of Present Illness General Chief Complaint: Dyspnea/Respdistress Source: Patient Present Illness HPI Disclaimer: Please note that this report is being documented using DRAGON technology. This can lead to erroneous entry secondary to incorrect interpretation by the dictating instrument. HPI: 65-year-old male with a history of atrial fibrillation on Eliquis, ESRD on hemodialysis MWF, COPD and current smoker presents for evaluation of shortness of breath. He reports tightness in the chest for the past few days that is no longer being relieved by his albuterol inhalers at home. He denies fever, chills or changes in his chronic cough. He is an active smoker. Denies recent steroid use. Reports a negative Covid test last week. Denies fever, chills. He reports some pain over the entire chest wall that has been constant for the past 3 days. He has missed the last 3 sessions of dialysis stating he was too weak to go. He has had a diarrheal and vomiting illness that appears to have now resolved. Last emesis was yesterday morning. Denies significant abdominal pain at this time. 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 COVID-19 Screening: Negative COVID-19 COVID-19 Testing Source: [facility] [place] Nursing Documentation-PMH Hx Cardiac Problems: Yes - heart failure Hx Hypertension: Yes Hx Pacemaker: No Hx Asthma: Yes Hx COPD: Yes Hx Cancer: No Hx Gastrointestinal Problems: Yes Hx Dialysis: Yes - MWF Hx Neurological Problems: No Hx Cerebrovascular Accident: Yes Hx Syncope: Yes Review of Systems All Other Systems: negative except mentioned in HPI Physical Exam Vital Signs Date Time Temp Pulse Resp B/P (MAP) Pulse Ox O2 Delivery O2 Flow Rate FiO2 08/20/20 10:13 97.5 66 19 158/90 (112) 99 Room Air General: Awake and alert, no acute distress HEENT: NC/AT. EOMI. jugular venous distention bilaterally. Cardiovascular: Irregularly irregular rhythm. S1 and S2 normal. No murmur appreciated Resp: Normal work of breathing. Bilateral crackles and wheezes. Abdomen: Abdomen is soft, nondistended. Nontender Skin: Intact. No abrasions, laceration or rash over the exposed skin MSK: Normal tone and bulk. Moving all extremities. No obvious deformity. 1+ lower extremity nonpitting edema. Neuro: Awake and alert. Mentating appropriately. Medical Decision Making Diagnostic Impression: Primary Impression: Pulmonary edema Additional Impressions: CHF exacerbation ESRD (end stage renal disease) on dialysis Pancreatitis ER Course 65-year-old male with history of ESRD, COPD presents for evaluation of shortness of breath. Patient missed the last 3 dialysis appointments due to general weakness and vomiting though the symptoms appear to have resolved. EKG shows sinus bradycardia without acute ischemic changes similar to his prior. Chest x- ray shows bilateral pulmonary venous congestion and cardiomegaly similar to prior as well. Patient was given nitroglycerin ointment and sublingual tablets as well as Lasix. White count returned within normal limits. Patient is anemic with a hemoglobin 9.4. Troponin elevated at 0.12 for which he typically is. Peptide greater than 35,000. BUN/creatinine elevated consistent with end-stage renal disease however potassium is within normal limits. His lipase is elevated at 834. Concern for acute pancreatitis as the cause of his recent and vomiting. Will obtain ultrasound of the abdomen. Patient will be admitted for treatment of CHF exacerbation and pancreatitis. Dr. Bush previously admitted the patient and will readmit. Laboratory Tests Test 08/20/20 10:30 White Blood Count 6.7 K/UL (4.8-10.8) Red Blood Count 3.08 M/UL (4.70-6.10) L Hemoglobin 9.4 G/DL (14.2-18.0) L Hematocrit 30.4 % (42.0-52.0) L Mean Corpuscular Volume 99 FL (80-99) Mean Corpuscular Hemoglobin 30.4 PG (27.0-31.0) Mean Corpuscular Hemoglobin Concent 30.8 G/DL (32.0-36.0) L Red Cell Distribution Width 16.4 % (11.6-14.8) H Platelet Count 213 K/UL (150-450) Mean Platelet Volume 7.8 FL (6.5-10.1) Neutrophils (%) (Auto) 67.3 % (45.0-75.0) Lymphocytes (%) (Auto) 18.3 % (20.0-45.0) L Monocytes (%) (Auto) 12.3 % (1.0-10.0) H Eosinophils (%) (Auto) 1.0 % (0.0-3.0) Basophils (%) (Auto) 1.1 % (0.0-2.0) Prothrombin Time 13.0 SEC (9.30-11.50) H Prothrombin Time INR 1.2 (0.9-1.1) H Activated Partial Thromboplast Time 30 SEC (23-33) Sodium Level 139 MMOL/L (136-145) Potassium Level 4.7 MMOL/L (3.5-5.1) Chloride Level 104 MMOL/L (98-107) Carbon Dioxide Level 21 MMOL/L (21-32) Anion Gap 14 mmol/L (5-15) Blood Urea Nitrogen 91 mg/dL (7-18) H Creatinine 15.3 MG/DL (0.55-1.30) H Estimated Glomerular Filtration Rate 3.9 mL/min (>60) Glucose Level 97 MG/DL (74-106) Calcium Level 7.9 MG/DL (8.5-10.1) L Total Bilirubin 0.6 MG/DL (0.2-1.0) Aspartate Amino Transferase (AST) 22 U/L (15-37) Alanine Aminotransferase (ALT) 23 U/L (12-78) Alkaline Phosphatase 68 U/L (46-116) Troponin I 0.124 ng/mL (0.000-0.056) Pro-B-Type Natriuretic Peptide > 41077 pg/mL (0-125) H Total Protein 7.1 G/DL (6.4-8.2) Albumin 3.5 G/DL (3.4-5.0) Globulin 3.6 g/dL Albumin/Globulin Ratio 1.0 (1.0-2.7) Lipase 834 U/L (73-393) H Microbiology Date/Time Source Procedure Growth Status 08/20/20 10:30 Nasopharynx SARS-CoV-2 RdRp Gene Assay - Final Complete EKG Diagnostic Results Troponin ordered: Yes When was troponin ordered?: Aug 20, 2020 EKG Time: 10:39 Rate: bradycardiac Rhythm: NSR ST Segments: no acute changes Other Impression Sinus bradycardia, left axis, incomplete right bundle branch block pattern. Rhythm Strip Diag. Results Rhythm Strip Time: 10:39 EP Interpretation: yes Rate: 59 Rhythm: NSR, no PVC's, no ectopy Chest X-Ray Diagnostic Results Chest X-Ray Diagnostic Results : Chest X-Ray Ordered: Yes # of Views/Limited/Complete: 1 View Indication: Shortness of Breath EP Interpretation: Yes Interpretation: no pneumothorax, other - Bilateral pulmonary edema and cardiomegaly similar to prior exams. Questionable left lower effusion Impression: Other - Bilateral pulmonary edema Electronically Signed by: Electronically signed by Dr. Williams Fernandes Last Vital Signs Date Time Temp Pulse Resp B/P (MAP) Pulse Ox O2 Delivery O2 Flow Rate FiO2 08/20/20 10:13 97.5 66 19 158/90 (112) 99 Room Air Disposition: ADMITTED INPATIENT Condition: Serious Referrals: NON PHYSICIAN (PCP) Williams Fernandes MD Aug 20, 2020 10:31
[2020-08-20] MEDS ORDERED: Midazolam 2mg/2ml Inj ONE (10:34)
[2020-08-20] MEDS ORDERED: Nitroglycerin Subl 0.4mg tab SL PRN (10:45)
[2020-08-20] MEDS ORDERED: Nitroglycerin 2% oint pkt TOPIC ONE (10:45)
--- NOTE | 2020-08-20 10:56 | Diagnostic Imaging Report ---
EXAM: XR Chest, 1 View CLINICAL HISTORY: Shortness of breath TECHNIQUE: Frontal view of the chest. COMPARISON: Chest x-rays dated 08/12/20 FINDINGS: Lungs: No significant change in bilateral pulmonary edema versus infiltrates. Pleural space: Possible small bilateral pleural effusions. Heart: Cardiomegaly. Mediastinum: Unremarkable. Bones/joints: Unremarkable. Vasculature: Atherosclerotic calcifications are noted within the aortic arch. Tubes, lines and devices: Telemetry leads overlie the thorax. IMPRESSION: 1. No significant change in bilateral pulmonary edema versus infiltrates. 2. Cardiomegaly. 3. Possible small bilateral pleural effusions.
[2020-08-20 11:00] VITALS: BP 158/90
[2020-08-20 11:18] LABS: BASOPHILS % (AUTO) 1.1 % (0.0-2.0); HEMATOCRIT 30.4 % (42.0-52.0); HEMOGLOBIN 9.4 G/DL (14.2-18.0); LYMPHOCYTES % (AUTO) 18.3 % (20.0-45.0); MEAN CORPUSCULAR VOLUME 99 FL (80-99); MONOCYTES % (AUTO) 12.3 % (1.0-10.0); NEUTROPHILS % (AUTO) 67.3 % (45.0-75.0); PLATELET COUNT 213 K/UL (150-450); RED BLOOD COUNT 3.08 M/UL (4.70-6.10); RED CELL DISTRIBUTION WIDTH 16.4 % (11.6-14.8); WHITE BLOOD COUNT 6.7 K/UL (4.8-10.8)
[2020-08-20 11:29] LABS: ANION GAP 14 mmol/L (5-15); BLOOD UREA NITROGEN 91 mg/dL (7-18); CALCIUM 7.9 MG/DL (8.5-10.1); CARBON DIOXIDE 21 MMOL/L (21-32); CHLORIDE 104 MMOL/L (98-107); CREATININE 15.3 MG/DL (0.55-1.30); POTASSIUM 4.7 MMOL/L (3.5-5.1); SODIUM 139 MMOL/L (136-145)
[2020-08-20 11:33] LABS: INR 1.2 (0.9-1.1)
[2020-08-20 11:43] LABS: ALANINE AMINOTRANSFERASE 23 U/L (12-78); ALBUMIN 3.5 G/DL (3.4-5.0); ALKALINE PHOSPHATASE 68 U/L (46-116); ASPARTATE AMINO TRANSFERASE 22 U/L (15-37); BILIRUBIN,TOTAL 0.6 MG/DL (0.2-1.0)
[2020-08-20 12:16] VITALS: BP 158/90
[2020-08-20] MEDS ORDERED: Aspirin Baby 81mg NG SCH (13:15)
[2020-08-20 14:10] VITALS: BP 149/80
--- NOTE | 2020-08-20 14:30 | Diagnostic Imaging Report ---
EXAM: US Abdomen Complete CLINICAL HISTORY: ABD PAIN TECHNIQUE: Real-time ultrasound of the abdomen with image documentation. COMPARISON: No relevant prior studies available. FINDINGS: Liver: Diffusely echogenic liver, suggesting fatty infiltration. Liver diameter of 16.8 cm. No visible parenchymal lesions. No intrahepatic biliary ductal dilatation. Gallbladder: Cholelithiasis with shadowing stones in the gallbladder neck. Normal gallbladder wall thickness. No pericholecystic fluid. Common bile duct: Common bile duct diameter of 4.6 mm, within normal limits. Pancreas: Unremarkable as visualized. Pancreatic body and tail are obscured by bowel gas. Kidneys: Simple-appearing left renal cortical cysts, measuring 1.4 cm and 0.9 cm. Right kidney length of 8.9 cm. Left kidney length of 9.6 cm. Normal cortical thickness. No visible stones. No hydronephrosis. Spleen: Spleen length of 8.2 cm, within normal limits. Aorta: Proximal abdominal aorta diameter 2.19. Mid and distal abdominal aorta obscured by bowel gas. Inferior vena cava: Unremarkable. IMPRESSION: 1. Cholelithiasis with shadowing stones in the gallbladder neck. Normal gallbladder wall thickness. No pericholecystic fluid. 2. Diffusely echogenic liver, suggesting fatty infiltration. 3. Simple-appearing left renal cortical cysts, largest measuring 1.4 cm.
[2020-08-20] MEDS ORDERED: Albuterol/Ipratropium 3ml neb HHN PRN (15:45)
[2020-08-20 16:00] VITALS: BP 145/81
--- NOTE | 2020-08-20 16:59 | Cardiac Electrophysiology PN ---
Subjective Subjective [id number] Objective Last 24 Hour Vital Signs Date Time Temp Pulse Resp B/P (MAP) Pulse Ox O2 Delivery O2 Flow Rate FiO2 08/20/20 14:32 Room Air 08/20/20 14:10 97.9 65 22 149/80 (103) 95 08/20/20 14:00 97.5 72 21 152/84 99 Room Air 08/20/20 12:16 97.5 69 22 158/90 96 Room Air 08/20/20 11:00 97.5 19 158/90 99 Room Air 08/20/20 11:00 66 19 Room Air 08/20/20 10:49 158/90 08/20/20 10:13 97.5 66 19 158/90 (112) 99 Room Air Laboratory Tests Test 08/20/20 10:30 White Blood Count 6.7 K/UL (4.8-10.8) Red Blood Count 3.08 M/UL (4.70-6.10) L Hemoglobin 9.4 G/DL (14.2-18.0) L Hematocrit 30.4 % (42.0-52.0) L Mean Corpuscular Volume 99 FL (80-99) Mean Corpuscular Hemoglobin 30.4 PG (27.0-31.0) Mean Corpuscular Hemoglobin Concent 30.8 G/DL (32.0-36.0) L Red Cell Distribution Width 16.4 % (11.6-14.8) H Platelet Count 213 K/UL (150-450) Mean Platelet Volume 7.8 FL (6.5-10.1) Neutrophils (%) (Auto) 67.3 % (45.0-75.0) Lymphocytes (%) (Auto) 18.3 % (20.0-45.0) L Monocytes (%) (Auto) 12.3 % (1.0-10.0) H Eosinophils (%) (Auto) 1.0 % (0.0-3.0) Basophils (%) (Auto) 1.1 % (0.0-2.0) Prothrombin Time 13.0 SEC (9.30-11.50) H Prothromb Time International Ratio 1.2 (0.9-1.1) H Activated Partial Thromboplast Time 30 SEC (23-33) Sodium Level 139 MMOL/L (136-145) Potassium Level 4.7 MMOL/L (3.5-5.1) Chloride Level 104 MMOL/L (98-107) Carbon Dioxide Level 21 MMOL/L (21-32) Anion Gap 14 mmol/L (5-15) Blood Urea Nitrogen 91 mg/dL (7-18) H Creatinine 15.3 MG/DL (0.55-1.30) H Estimat Glomerular Filtration Rate 3.9 mL/min (>60) Glucose Level 97 MG/DL (74-106) Calcium Level 7.9 MG/DL (8.5-10.1) L Total Bilirubin 0.6 MG/DL (0.2-1.0) Aspartate Amino Transf (AST/SGOT) 22 U/L (15-37) Alanine Aminotransferase (ALT/SGPT) 23 U/L (12-78) Alkaline Phosphatase 68 U/L (46-116) Troponin I 0.124 ng/mL (0.000-0.056) Pro-B-Type Natriuretic Peptide > 94154 pg/mL (0-125) H Total Protein 7.1 G/DL (6.4-8.2) Albumin 3.5 G/DL (3.4-5.0) Globulin 3.6 g/dL Albumin/Globulin Ratio 1.0 (1.0-2.7) Lipase 834 U/L (73-393) H Microbiology Date/Time Source Procedure Growth Status 08/20/20 13:53 Rectum Received 08/20/20 10:30 Nasopharynx SARS-CoV-2 RdRp Gene Assay - Final Complete Yuval Guerra MD Aug 20, 2020 16:59
[2020-08-20] MEDS ORDERED: Albuterol 90mcg Inhaler 8gm INH SCH (17:00)
[2020-08-20] MEDS: Eliquis 2.5mg tablet ORAL SCH (17:44)
[2020-08-20] MEDS ORDERED: Eliquis 5mg tablet ORAL SCH (18:00)
--- NOTE | 2020-08-20 19:45 | Consultation ---
DATE OF CONSULTATION: 08/20/2020 CARDIOLOGY CONSULTATION REFERRING PHYSICIAN: Boogie Russ M.D. REASON FOR CONSULTATION: Congestive heart failure, hypertension, and atrial fibrillation. HISTORY OF PRESENT ILLNESS: The patient is a 65-year-old gentleman with a history of hypertension, paroxysmal atrial fibrillation, on Eliquis, end-stage renal disease, on hemodialysis Saturday, Saturday, and Saturday, COPD, who is currently a smoker, presents to the emergency room for increasing shortness of breath and lower extremity edema. The patient was just recently discharged from hospital less than 2 weeks ago. He is an active smoker. The patient states that he had negative COVID test last week. He denies any fever or chills. He missed 3 sessions of dialysis as he was too weak to go, and he has had diarrhea and vomiting, but currently this resolved. The patient was admitted and a cardiology consultation was obtained for further evaluation. REVIEW OF SYSTEMS: Negative other than what was mentioned in history of present illness. PAST MEDICAL HISTORY: As mentioned above. FAMILY HISTORY: Noncontributory. SOCIAL HISTORY: He is homeless. He continues to smoke. Denies using cocaine or any other street drugs. PHYSICAL EXAMINATION: VITAL SIGNS: Blood pressure of 149/80, pulse is 65, respirations 18, temperature 97.9. NECK: No JVD. LUNGS: Coarse rhonchi. CARDIOVASCULAR: Irregular S1 and S2 with no gallop or murmur. ABDOMEN: Soft. EXTREMITIES: No pitting edema. LABORATORY AND DIAGNOSTIC DATA: Labs show white count of 6.7, hemoglobin and hematocrit of 30, and platelet count is 213. Sodium is 139, potassium 4.7, BUN of 91, creatinine 15.3, and glucose of 97. Troponin 0.07 and 0.124, and BNP is more than 35,000. Urine tox is negative. ASSESSMENT AND PLAN: 1. Paroxysmal atrial fibrillation. Initial EKG showed atrial fibrillation, however, on telemetry, currently in sinus rhythm. Continue metoprolol 25 mg b.i.d. and Eliquis decreased to 2.5 mg b.i.d. as the patient is on hemodialysis. I will discontinue aspirin at this point. 2. Elevated troponin, likely due to renal failure as the patient is on dialysis. EKG does not show any acute ischemic changes. His right bundle-branch block and left anterior fascicular block is unchanged from before. 3. Hypertension. Continue metoprolol 25 mg b.i.d. and hemodialysis. The patient is also on Lasix 40 mg p.o. daily. 4. End-stage renal disease, on hemodialysis. Thank you very much for allowing me to participate in the care of this patient. Please do not hesitate to contact for any questions regarding my evaluation. Yuval Guerra M.D. DR: BRANDY JOB#: [id number] CC:
[2020-08-20 20:00] VITALS: BP 168/99
[2020-08-21] VITALS (15 sets, daily range): BP systolic 104–178; BP diastolic 72–105
--- NOTE | 2020-08-21 03:15 | History and Physical Report ---
DATE OF ADMISSION: 08/20/2020 HISTORY OF PRESENT ILLNESS: This is a 65-year-old male who has been admitted multiple times for having short of breath and hypoxia and he missed hemodialysis. PAST MEDICAL HISTORY: Significant for CHF, end-stage renal disease, hypertension, syncope, history of atrial fibrillation. MEDICATIONS: He is taking apixaban, albuterol, calcium, Lasix, metoprolol, vitamin B12. ALLERGIES: NKA. FAMILY HISTORY: Noncontributory. SOCIAL HISTORY: The patient lives at home. He denies any smoking and drinking. Denies any illegal drugs. REVIEW OF SYSTEMS: Generalized weakness, tired, fatigue. Now he is sleeping. PHYSICAL EXAMINATION: CURRENT VITAL SIGNS: Blood pressure 168/99, pulse 66, no fever. HEENT: NAD. CHEST: Bilaterally decreased breath sounds. CARDIOVASCULAR: Regular rhythm. Tachycardia. ABDOMEN: Soft. Positive bowel sounds. Nontender. EXTREMITIES: No edema. GENITOURINARY: Deferred. LABORATORY DATA: White count 6.7, hemoglobin 9.4, hematocrit 13. Chemistry panel, sodium 139, potassium 4.7, BUN 91, creatinine 15.3. Troponins are negative. BNP was 35,000. Lipase 834. IMAGING: Abdominal ultrasound showing cholelithiasis, gallbladder neck, diffuse echogenic liver, simple left renal cortical cyst. Chest x-ray showing massive cardiomegaly, bilateral pleural effusion, no significant pulmonary edema versus infiltrate. ASSESSMENT AND PLAN: 1. Short of breath. 2. Hypertension. 3. Fluid overload. 4. CHF. 5. End-stage renal disease. 6. Obesity. 7. Poor compliance. PLAN: We will admit on telemetry bed. Consider nephrology consult. Start Lasix, aspirin, metoprolol, calcium, apixaban. Consider cardiology consult. Yassine Russ M.D. DR: AJAY JOB#: [id number] CC:
[2020-08-21] MEDS: Furosemide 40mg tab ORAL SCH (09:46)
[2020-08-21] MEDS: Nephrovite tab (Rena-Vite) ORAL SCH (09:48)
[2020-08-21] MEDS: Eliquis 2.5mg tablet ORAL SCH ×2 (09:48→18:40)
[2020-08-21] MEDS: Aspirin EC 81mg tab ORAL SCH (09:48)
--- NOTE | 2020-08-21 11:29 | General Progress Note ---
Subjective Date patient seen: Aug 21, 2020 Constitutional: Reports: weakness, other HEENT: Reports: no symptoms Cardiovascular: Reports: chest pain Respiratory: Reports: cough, orthopnea, shortness of breath, SOB with excertion Gastrointestinal/Abdominal: Reports: no symptoms Genitourinary: Reports: no symptoms Neurologic/Psychiatric: Reports: no symptoms Hematologic/Lymphatic: Reports: no symptoms, anemia, easy bleeding, easy bruising, other Allergies: Coded Allergies: BENZOIN (Unverified Allergy, Severe, 12/28/14) AMOXICILLIN (Verified Allergy, Intermediate, 11/18/12) ABD PAIN N/V POVIDONE-IODINE (Verified Allergy, Unknown, 03/28/20) Skin peeling Objective Last 24 Hour Vital Signs Date Time Temp Pulse Resp B/P (MAP) Pulse Ox O2 Delivery O2 Flow Rate FiO2 08/21/20 09:48 63 160/89 08/21/20 08:00 97.7 63 22 160/89 (112) 92 08/21/20 06:30 150/77 (101) 08/21/20 04:53 58 20 100 Room Air 21 56 20 96 08/21/20 04:52 56 20 96 Room Air 21 08/21/20 04:00 58 08/21/20 04:00 97.3 60 18 160/92 (114) 93 08/21/20 00:00 63 08/21/20 00:00 97.5 80 20 146/80 (102) 95 08/20/20 21:00 Room Air 08/20/20 20:37 66 168/99 08/20/20 20:00 70 08/20/20 20:00 97.1 66 18 168/99 (122) 98 08/20/20 16:00 74 08/20/20 16:00 97.9 74 20 145/81 (102) 95 08/20/20 14:32 Room Air 08/20/20 14:10 97.9 65 22 149/80 (103) 95 08/20/20 14:00 97.5 72 21 152/84 99 Room Air 08/20/20 12:16 97.5 69 22 158/90 96 Room Air Intake and Output 08/20/20 08/21/20 19:00 07:00 Intake Total 360 ml 280 ml Output Total 4 ml 390 ml Balance 356 ml -110 ml Intake Oral 360 ml 280 ml Output Urine Total 4 ml 290 ml Emesis 100 ml # Bowel Movements 2 Laboratory Tests 08/21/20 06:00: Troponin I 0.124H Height (Feet): 5 Height (Inches): 4.00 Weight (Pounds): 185 General Appearance: mild distress EENT: PERRL/EOMI Neck: supple Cardiovascular: normal rate Respiratory/Chest: crackles/rales Abdomen: non tender, soft Extremities: non-tender Edema: moderate edema 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
--- NOTE | 2020-08-21 12:06 | Consultation ---
Consult Note Consult Note I am asked to evaluate the patient at the request of Dr. Russ for dialysis management Patient seen in room 207, interviewed, examined, is getting 2D echocardiogram. Patient states that he has not received dialysis for more than a week due to transportation problem. 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 Emergency room note: Chief Complaint: Dyspnea/Respdistress HPI: 65-year-old male with a history of atrial fibrillation on Eliquis, ESRD on hemodialysis MWF, COPD and current smoker presents for evaluation of shortness of breath. He reports tightness in the chest for the past few days that is no longer being relieved by his albuterol inhalers at home. He denies fever, chills or changes in his chronic cough. He is an active smoker. Denies recent steroid use. Reports a negative Covid test last week. Denies fever, chills. He reports some pain over the entire chest wall that has been constant for the past 3 days. He has missed the last 3 sessions of dialysis stating he was too weak to go. He has had a diarrheal and vomiting illness that appears to have now resolved. Last emesis was yesterday morning. Denies significant abdominal pain at this time. 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 NECK: No JVD. LUNGS: Coarse rhonchi. CARDIOVASCULAR: Irregular S1 and S2 with no gallop or murmur. ABDOMEN: Soft. EXTREMITIES: No pitting edema. LABORATORY AND DIAGNOSTIC DATA: Labs show white count of 6.7, hemoglobin 9.8 and hematocrit 30.4, and platelet count is 213. Sodium is 139, potassium 4.7, BUN of 91, creatinine 15.3, and glucose of 97. Troponin 0.07 and 0.124, and BNP is more than 35,000. Urine tox is negative. . Assessment/Plan End-stage renal disease, missed dialysis Volume overload and pulmonary edema Anemia of chronic kidney disease Hypertension History of atrial fibrillation History of congestive heart failure Elevated Lipase Plan: Hemodialysis and ultrafiltration as soon as possible ordered. Optimize cardiac and pulmonary status with medication adjustment Per orders Darwin Jung MD Aug 21, 2020 12:06
[2020-08-21] MEDS: Wixela 100/50 Inhaler - 60 dose INH SCH (13:20)
--- NOTE | 2020-08-21 18:09 | Cardiac Electrophysiology PN ---
Assessment/Plan Assessment/Plan 1. Chest pain and chronic low level troponin elevation. Chest pain is due to volume overload and atrial fib with RVR. The troponin elevation is due to renal failure. Currently, he does not have any chest pain. EF 50% 2. Paroxysmal atrial fibrillation with RVR. Resume Amiodarone 400 bid and Start Cardizem drip( Was on Cardizem 60 po q 6 hr on discharge) On Eliquis 2.5 bid. 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 In the previous admission, also had atrial fibrillation with rapid ventricular response with heart rate up to 200 3. Hypertension, On Cardizem drip and hemodialysis 4. Congestive heart failure due to diastolic dysfunction. EF 50% 5. Right bundle-branch block and left anterior fascicular block. SHABBIR RN Subjective Subjective Had 3 liter HD today and then developed atrial fib with RVR 140s.No CP or SOB! Objective Last 24 Hour Vital Signs Date Time Temp Pulse Resp B/P (MAP) Pulse Ox O2 Delivery O2 Flow Rate FiO2 08/21/20 16:00 97.1 75 20 178/98 (124) 90 08/21/20 16:00 71 08/21/20 13:20 Room Air 21 08/21/20 13:20 Room Air 21 08/21/20 12:00 58 08/21/20 12:00 96.9 62 20 164/94 (117) 90 08/21/20 09:48 63 160/89 08/21/20 09:00 Room Air 08/21/20 08:00 97.7 63 22 160/89 (112) 92 08/21/20 08:00 65 08/21/20 06:30 150/77 (101) 08/21/20 04:53 58 20 100 Room Air 21 56 20 96 08/21/20 04:52 56 20 96 Room Air 21 08/21/20 04:00 58 08/21/20 04:00 97.3 60 18 160/92 (114) 93 08/21/20 00:00 63 08/21/20 00:00 97.5 80 20 146/80 (102) 95 08/20/20 21:00 Room Air 08/20/20 20:37 66 168/99 08/20/20 20:00 70 08/20/20 20:00 97.1 66 18 168/99 (122) 98 Intake and Output 08/20/20 08/21/20 19:00 07:00 Intake Total 360 ml 280 ml Output Total 4 ml 390 ml Balance 356 ml -110 ml Intake Oral 360 ml 280 ml Output Urine Total 4 ml 290 ml Emesis 100 ml # Bowel Movements 2 Laboratory Tests Test 08/21/20 06:00 Troponin I 0.124 ng/mL (0.000-0.056) Microbiology Date/Time Source Procedure Growth Status 08/20/20 13:53 Rectum Received 08/20/20 10:30 Nasopharynx SARS-CoV-2 RdRp Gene Assay - Final Complete Objective NECK: No JVD. LUNGS: Coarse rhonchi. CARDIOVASCULAR: Irregular tachy S1 and S2 with no gallop or murmur. ABDOMEN: Soft. EXTREMITIES: No pitting edema. Yuval Guerra MD Aug 21, 2020 18:08
[2020-08-21] MEDS ORDERED: dilTIAZem Premix 125mg/125ml 125 ML IVPB SCH (18:30)
[2020-08-21] MEDS ORDERED: Levalbuterol Inh UD 1.25mg/0.5ml HHN PRN (19:45)
[2020-08-21] MEDS: Amiodarone 200mg tab ORAL SCH (20:43)
[2020-08-22] VITALS (26 sets, daily range): BP systolic 118–177; BP diastolic 74–140
[2020-08-22 05:04] LABS: BASOPHILS % (AUTO) 2.2 % (0.0-2.0); EOSINOPHILS % (AUTO) 0.7 % (0.0-3.0); HEMATOCRIT 33.4 % (42.0-52.0); HEMOGLOBIN 10.1 G/DL (14.2-18.0); LYMPHOCYTES % (AUTO) 25.4 % (20.0-45.0); MEAN CORPUSCULAR VOLUME 99 FL (80-99); MONOCYTES % (AUTO) 10.9 % (1.0-10.0); NEUTROPHILS % (AUTO) 60.9 % (45.0-75.0); PLATELET COUNT 225 K/UL (150-450); RED BLOOD COUNT 3.38 M/UL (4.70-6.10); RED CELL DISTRIBUTION WIDTH 16.2 % (11.6-14.8)
[2020-08-22 05:51] LABS: ALANINE AMINOTRANSFERASE 35 U/L (12-78); ALBUMIN 3.8 G/DL (3.4-5.0); ALBUMIN/GLOBULIN RATIO 1.4 (1.0-2.7); ALKALINE PHOSPHATASE 69 U/L (46-116); ANION GAP 19 mmol/L (5-15); ASPARTATE AMINO TRANSFERASE 25 U/L (15-37); BILIRUBIN,TOTAL 0.5 MG/DL (0.2-1.0); BLOOD UREA NITROGEN 92 mg/dL (7-18); CALCIUM 8.2 MG/DL (8.5-10.1); CARBON DIOXIDE 20 MMOL/L (21-32); CHLORIDE 101 MMOL/L (98-107); CHOLESTEROL 113 MG/DL (< 200); CREATININE 15.5 MG/DL (0.55-1.30); FERRITIN 842 NG/ML (8-388); GAMMA GLUTAMYL TRANSPEPTIDASE 41 U/L (5-85); HDL CHOLESTEROL 53 MG/DL (40-60); PHOSPHORUS 8.3 MG/DL (2.5-4.9); SODIUM 140 MMOL/L (136-145); TRIGLYCERIDES 59 MG/DL (30-150)
[2020-08-22 05:55] LABS: POTASSIUM 6.2 MMOL/L (3.5-5.1)
[2020-08-22 06:17] LABS: % IRON SATURATION 22 % (15-50); IRON 52 ug/dL (50-175); TOTAL IRON BINDING CAPACITY 232 ug/dL (250-450)
[2020-08-22] MEDS: Amiodarone 200mg tab ORAL SCH ×2 (08:21→22:11)
[2020-08-22] MEDS: Wixela 100/50 Inhaler - 60 dose INH SCH ×2 (08:22→09:30)
[2020-08-22] MEDS: Aspirin EC 81mg tab ORAL SCH (08:23)
[2020-08-22] MEDS: Nephrovite tab (Rena-Vite) ORAL SCH (08:23)
[2020-08-22] MEDS: Eliquis 2.5mg tablet ORAL SCH ×2 (08:24→18:23)
[2020-08-22] MEDS: Furosemide 40mg tab ORAL SCH (08:24)
[2020-08-22] MEDS ORDERED: CARDIZEM60 MG ORAL (10:25)
[2020-08-22] MEDS ORDERED: RENVELA800 MG ORAL (10:25)
[2020-08-22] MEDS ORDERED: METOPROLOL TART50 M1 ORAL (10:25)
[2020-08-22] MEDS ORDERED: AMIODARONE HCL400 M1 ORAL (10:25)
[2020-08-22] MEDS ORDERED: PANTOPRAZOLE SO40 MG ORAL (10:25)
--- NOTE | 2020-08-22 11:26 | Nephrology Progress Note ---
Assessment/Plan Problem List: (1) ESRD (end stage renal disease) on dialysis (2) CHF exacerbation (3) Anemia in chronic kidney disease (CKD) (4) Hypertensive kidney disease (5) Elevated lipase Assessment End-stage renal disease, missed dialysis Volume overload and pulmonary edema Anemia of chronic kidney disease Hypertension History of atrial fibrillation History of congestive heart failure Elevated Lipase Plan Today's labs noted suspect error will repeat. Discussed with CATRINA Salinas. Hemodialysis and ultrafiltration . It was done yesterday and 3 L ultrafiltrated. Optimize cardiac and pulmonary status with medication adjustment Per orders Subjective ROS Limited/Unobtainable: No Constitutional: Reports: malaise, other - Patient's breathing easier Objective Objective Last 24 Hour Vital Signs Date Time Temp Pulse Resp B/P (MAP) Pulse Ox O2 Delivery O2 Flow Rate FiO2 08/22/20 11:00 82 20 145/74 (97) 99 08/22/20 10:00 70 22 144/91 (108) 98 08/22/20 09:30 68 17 Nasal Cannula 3.0 32 08/22/20 09:00 64 18 155/91 (112) 98 08/22/20 08:00 Nasal Cannula 2.0 08/22/20 08:00 56 08/22/20 08:00 98.4 63 19 150/74 (99) 93 08/22/20 07:00 70 18 144/86 (105) 94 08/22/20 06:00 71 18 134/84 (101) 97 08/22/20 05:00 63 18 147/117 (127) 99 08/22/20 04:00 98.4 60 18 118/104 (109) 99 08/22/20 04:00 61 08/22/20 04:00 Nasal Cannula 2.0 08/22/20 03:00 58 16 144/78 (100) 99 08/22/20 02:00 61 16 155/84 (107) 99 08/22/20 01:00 66 17 142/85 (104) 99 08/22/20 00:00 Nasal Cannula 2.0 08/22/20 00:00 75 08/22/20 00:00 98.3 64 18 155/84 (107) 96 08/21/20 23:00 62 20 143/77 (99) 98 08/21/20 22:00 69 23 147/78 (101) 95 08/21/20 21:45 Room Air 21 08/21/20 21:45 Room Air 21 08/21/20 21:00 62 23 104/72 (83) 99 08/21/20 20:00 Nasal Cannula 2.0 08/21/20 20:00 98.6 60 16 142/74 (96) 98 08/21/20 20:00 65 08/21/20 19:00 136 23 141/97 (112) 99 08/21/20 18:45 137 23 127/91 (103) 100 08/21/20 18:30 Nasal Cannula 2.0 08/21/20 18:30 138 20 150/97 (114) 100 08/21/20 18:15 98.2 137 22 145/105 (118) 100 08/21/20 16:00 97.1 75 20 178/98 (124) 90 08/21/20 16:00 71 08/21/20 13:20 Room Air 21 08/21/20 13:20 Room Air 21 08/21/20 12:00 58 08/21/20 12:00 96.9 62 20 164/94 (117) 90 Intake and Output 08/21/20 08/22/20 19:00 07:00 Intake Total 20 ml 303.3333 ml Output Total 3000 ml 240 ml Balance -2980 ml 63.3333 ml Intake Oral 20 ml 220 ml IV Total 83.3333 ml Output Urine Total 0 ml 240 ml Hemodialysis UF 3000 ml # Voids 2 Current Medications Medications (Trade) Dose Ordered Sig/Daniel Route PRN Reason Start Time Stop Time Status Last Admin Dose Admin Amiodarone HCl (Cordarone) 400 mg EVERY 12 HOURS ORAL 08/21/20 21:00 11/19/20 20:59 08/21/20 20:43 Apixaban (Eliquis) 2.5 mg BID ORAL 08/20/20 17:00 11/18/20 17:59 08/22/20 08:24 Aspirin (Ecotrin) 81 mg DAILY ORAL 08/21/20 09:00 10/05/20 08:59 08/22/20 08:23 Calcium Acetate (Phoslo) 667 mg TID ORAL 08/20/20 18:00 11/18/20 17:59 08/22/20 08:23 Diltiazem HCl 125 ml @ 10 mls/hr Q24H IVPB 08/21/20 18:30 08/22/20 18:29 08/21/20 18:40 Furosemide (Lasix) 40 mg DAILY ORAL 08/21/20 09:00 09/20/20 08:59 08/22/20 08:24 Levalbuterol HCl (Xopenex) 1.25 mg Q6H PRN HHN Shortness of Breath 08/21/20 19:45 08/26/20 19:44 Salmeterol Xinafoate/ Fluticasone (Advair 100/50 Diskus) 1 puffs DAILY INH 08/21/20 09:00 11/19/20 08:59 Vitamin B Complex/ Vit C/Folic Acid (Nephrovite) 1 tab DAILY ORAL 08/21/20 09:00 09/20/20 08:59 08/22/20 08:23 Laboratory Tests 08/22/20 04:00: White Blood Count 6.0, Red Blood Count 3.38L, Hemoglobin 10.1L, Hematocrit 33.4L , Mean Corpuscular Volume 99, Mean Corpuscular Hemoglobin 29.8, Mean Corpuscular Hemoglobin Concent 30.0L, Red Cell Distribution Width 16.2H, Platelet Count 225, Mean Platelet Volume 7.1, Neutrophils (%) (Auto) 60.9, Lymphocytes (%) (Auto) 25.4, Monocytes (%) (Auto) 10.9H, Eosinophils (%) (Auto) 0.7, Basophils (%) (Auto) 2.2H, Sodium Level 140, Potassium Level 6.2*H, Chloride Level 101, Carbon Dioxide Level 20L, Anion Gap 19H, Blood Urea Nitrogen 92H, Creatinine 15.5H, Estimat Glomerular Filtration Rate 3.9, Glucose Level 70L, Hemoglobin A1c 4.7, Uric Acid 9.6H, Calcium Level 8.2L, Phosphorus Level 8.3H, Magnesium Level 2.2, Iron Level 52, Total Iron Binding Capacity 232L, Percent Iron Saturation 22, Unsaturated Iron Binding 180, Ferritin 842H, Total Bilirubin 0.5, Gamma Glutamyl Transpeptidase 41, Aspartate Amino Transf (AST/SGOT) 25, Alanine Aminotransferase (ALT/SGPT) 35, Alkaline Phosphatase 69, C-Reactive Protein, Quantitative < 0.4, Pro-B-Type Natriuretic Peptide > 60922A, Total Protein 6.5, Albumin 3.8, Globulin 2.7, Albumin/Globulin Ratio 1.4, Triglycerides Level 59, Cholesterol Level 113, LDL Cholesterol 41, HDL Cholesterol 53, Cholesterol/HDL Ratio 2.1L, Lipase 381, Vitamin B12 Level 734, Folate 9.8, Thyroid Stimulating Hormone (TSH) 1.133 Height (Feet): 5 Height (Inches): 4.00 Weight (Pounds): 185 General Appearance: no apparent distress Cardiovascular: arrhythmia Respiratory/Chest: decreased breath sounds Abdomen: soft Darwin Jung MD Aug 22, 2020 11:26
--- NOTE | 2020-08-22 11:40 | Cardiac Electrophysiology PN ---
Assessment/Plan Assessment/Plan 1. Chest pain and chronic low level troponin elevation. Due to volume overload and atrial fib with RVR. The troponin elevation is due to renal failure. Currently, he does not have any chest pain. EF 50% 2. Paroxysmal atrial fibrillation with RVR. On Amiodarone 400 bid and DC Cardizem drip ( Was on Cardizem 60 po q 6 hr on discharge) On Eliquis 2.5 bid. 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 In the previous admission, also had atrial fibrillation with rapid ventricular response with heart rate up to 200 3. Hypertension, On hemodialysis 4. Congestive heart failure due to diastolic dysfunction. EF 50% 5. Right bundle-branch block and left anterior fascicular block. DW RN Subjective Subjective Had 3 liter HD yesterday and then developed atrial fib with RVR 140s and transferred to ICU. Cardizem drip was DCed this AM. Didn't get Amio for sinus mimi in 50s Objective Last 24 Hour Vital Signs Date Time Temp Pulse Resp B/P (MAP) Pulse Ox O2 Delivery O2 Flow Rate FiO2 08/22/20 11:00 82 20 145/74 (97) 99 08/22/20 10:00 70 22 144/91 (108) 98 08/22/20 09:30 68 17 Nasal Cannula 3.0 32 08/22/20 09:00 64 18 155/91 (112) 98 08/22/20 08:00 Nasal Cannula 2.0 08/22/20 08:00 56 08/22/20 08:00 98.4 63 19 150/74 (99) 93 08/22/20 07:00 70 18 144/86 (105) 94 08/22/20 06:00 71 18 134/84 (101) 97 08/22/20 05:00 63 18 147/117 (127) 99 08/22/20 04:00 98.4 60 18 118/104 (109) 99 08/22/20 04:00 61 08/22/20 04:00 Nasal Cannula 2.0 08/22/20 03:00 58 16 144/78 (100) 99 08/22/20 02:00 61 16 155/84 (107) 99 08/22/20 01:00 66 17 142/85 (104) 99 08/22/20 00:00 Nasal Cannula 2.0 08/22/20 00:00 75 08/22/20 00:00 98.3 64 18 155/84 (107) 96 08/21/20 23:00 62 20 143/77 (99) 98 08/21/20 22:00 69 23 147/78 (101) 95 08/21/20 21:45 Room Air 21 08/21/20 21:45 Room Air 21 08/21/20 21:00 62 23 104/72 (83) 99 08/21/20 20:00 Nasal Cannula 2.0 08/21/20 20:00 98.6 60 16 142/74 (96) 98 08/21/20 20:00 65 08/21/20 19:00 136 23 141/97 (112) 99 08/21/20 18:45 137 23 127/91 (103) 100 08/21/20 18:30 Nasal Cannula 2.0 08/21/20 18:30 138 20 150/97 (114) 100 08/21/20 18:15 98.2 137 22 145/105 (118) 100 08/21/20 16:00 97.1 75 20 178/98 (124) 90 08/21/20 16:00 71 08/21/20 13:20 Room Air 21 08/21/20 13:20 Room Air 21 08/21/20 12:00 58 08/21/20 12:00 96.9 62 20 164/94 (117) 90 Intake and Output 08/21/20 08/22/20 19:00 07:00 Intake Total 20 ml 303.3333 ml Output Total 3000 ml 240 ml Balance -2980 ml 63.3333 ml Intake Oral 20 ml 220 ml IV Total 83.3333 ml Output Urine Total 0 ml 240 ml Hemodialysis UF 3000 ml # Voids 2 Laboratory Tests Test 08/22/20 04:00 White Blood Count 6.0 K/UL (4.8-10.8) Red Blood Count 3.38 M/UL (4.70-6.10) L Hemoglobin 10.1 G/DL (14.2-18.0) L Hematocrit 33.4 % (42.0-52.0) L Mean Corpuscular Volume 99 FL (80-99) Mean Corpuscular Hemoglobin 29.8 PG (27.0-31.0) Mean Corpuscular Hemoglobin Concent 30.0 G/DL (32.0-36.0) L Red Cell Distribution Width 16.2 % (11.6-14.8) H Platelet Count 225 K/UL (150-450) Mean Platelet Volume 7.1 FL (6.5-10.1) Neutrophils (%) (Auto) 60.9 % (45.0-75.0) Lymphocytes (%) (Auto) 25.4 % (20.0-45.0) Monocytes (%) (Auto) 10.9 % (1.0-10.0) H Eosinophils (%) (Auto) 0.7 % (0.0-3.0) Basophils (%) (Auto) 2.2 % (0.0-2.0) H Sodium Level 140 MMOL/L (136-145) Potassium Level 6.2 MMOL/L (3.5-5.1) *H Chloride Level 101 MMOL/L (98-107) Carbon Dioxide Level 20 MMOL/L (21-32) L Anion Gap 19 mmol/L (5-15) H Blood Urea Nitrogen 92 mg/dL (7-18) H Creatinine 15.5 MG/DL (0.55-1.30) H Estimat Glomerular Filtration Rate 3.9 mL/min (>60) Glucose Level 70 MG/DL (74-106) L Hemoglobin A1c 4.7 % (4.3-6.0) Uric Acid 9.6 MG/DL (2.6-7.2) H Calcium Level 8.2 MG/DL (8.5-10.1) L Phosphorus Level 8.3 MG/DL (2.5-4.9) H Magnesium Level 2.2 MG/DL (1.8-2.4) Iron Level 52 ug/dL (50-175) Total Iron Binding Capacity 232 ug/dL (250-450) L Percent Iron Saturation 22 % (15-50) Unsaturated Iron Binding 180 ug/dL (112-346) Ferritin 842 NG/ML (8-388) H Total Bilirubin 0.5 MG/DL (0.2-1.0) Gamma Glutamyl Transpeptidase 41 U/L (5-85) Aspartate Amino Transf (AST/SGOT) 25 U/L (15-37) Alanine Aminotransferase (ALT/SGPT) 35 U/L (12-78) Alkaline Phosphatase 69 U/L (46-116) C-Reactive Protein, Quantitative < 0.4 mg/dL (0.00-0.90) Pro-B-Type Natriuretic Peptide > 64437 pg/mL (0-125) H Total Protein 6.5 G/DL (6.4-8.2) Albumin 3.8 G/DL (3.4-5.0) Globulin 2.7 g/dL Albumin/Globulin Ratio 1.4 (1.0-2.7) Triglycerides Level 59 MG/DL (30-150) Cholesterol Level 113 MG/DL (< 200) LDL Cholesterol 41 mg/dL (<100) HDL Cholesterol 53 MG/DL (40-60) Cholesterol/HDL Ratio 2.1 (3.3-4.4) L Lipase 381 U/L (73-393) Vitamin B12 Level 734 PG/ML (193-986) Folate 9.8 NG/ML (8.6-58.9) Thyroid Stimulating Hormone (TSH) 1.133 uiU/mL (0.358-3.740) Microbiology Date/Time Source Procedure Growth Status 08/20/20 13:53 Rectum Received 08/20/20 10:30 Nasopharynx SARS-CoV-2 RdRp Gene Assay - Final Complete Objective NECK: No JVD. LUNGS: Coarse rhonchi. CARDIOVASCULAR: Irregular tachy S1 and S2 with no gallop or murmur. ABDOMEN: Soft. EXTREMITIES: No pitting edema. Yuval Guerra MD Aug 22, 2020 11:40
[2020-08-22 15:29] LABS: CALCIUM 8.2 MG/DL (8.5-10.1); CREATININE 11.2 MG/DL (0.55-1.30); POTASSIUM 4.1 MMOL/L (3.5-5.1)
[2020-08-22 15:33] LABS: ALBUMIN 3.3 G/DL (3.4-5.0); BILIRUBIN,TOTAL 0.6 MG/DL (0.2-1.0)
--- NOTE | 2020-08-22 16:58 | Consultation ---
Consult Note Consult Note REFERRING PHYSICIAN: Boogie Russ M.D. REASON FOR CONSULTATION: pulmonary edema; COPD HISTORY OF PRESENT ILLNESS: The patient is a 65-year-old male with a history of hypertension, paroxysmal atrial fibrillation, on Eliquis, end-stage renal disease, on hemodialysis Saturday, Saturday, and Saturday, COPD, who is currently a smoker, presents to the emergency room for increasing shortness of breath and lower extremity edema. The patient was just recently discharged from hospital less than 2 weeks ago. He is an active smoker. The patient states that he had negative COVID test last week. He denies any fever or chills. He missed 3 sessions of dialysis as he was too weak to go, and he has had diarrhea and vomiting, but currently this resolved. REVIEW OF SYSTEMS: Negative other than what was mentioned in history of present illness. PAST MEDICAL HISTORY: As mentioned above. FAMILY HISTORY: Noncontributory. SOCIAL HISTORY: He is homeless. He continues to smoke. Denies using cocaine or any other street drugs. PHYSICAL EXAMINATION: VITAL SIGNS: Blood pressure of 149/80, pulse is 65, respirations 18, temperature 97.9. NECK: No JVD. LUNGS: Coarse rhonchi. CARDIOVASCULAR: Irregular S1 and S2 with no gallop or murmur. ABDOMEN: Soft. EXTREMITIES: No pitting edema. LABORATORY AND DIAGNOSTIC DATA: Labs show white count of 6.7, hemoglobin and platelet count is 213. Sodium is 139, potassium 4.7, BUN of 91, creatinine 15.3, and glucose of 97. Troponin 0.07 and 0.124, and BNP is more than 35,000. Urine tox is negative. ASSESSMENT AND PLAN: 1. Paroxysmal atrial fibrillation. 2. Elevated troponin, 3. Hypertension. 4. End-stage renal disease, on hemodialysis. 5. Atrial fibrillation rate uncontrolled agree with ICU care. Advised tobacco cessation supplemental oxygen Cardizem drip discontinued Continue oral agents Kayden Chow M.D., MD Aug 22, 2020 16:58
--- NOTE | 2020-08-22 17:46 | General Progress Note ---
Subjective Date patient seen: Aug 22, 2020 Allergies: Coded Allergies: BENZOIN (Unverified Allergy, Severe, 12/28/14) AMOXICILLIN (Verified Allergy, Intermediate, 11/18/12) ABD PAIN N/V POVIDONE-IODINE (Verified Allergy, Unknown, 03/28/20) Skin peeling Subjective pt was transferred in icu for afib with rvr sob pt now feels better cardio on the case Objective Last 24 Hour Vital Signs Date Time Temp Pulse Resp B/P (MAP) Pulse Ox O2 Delivery O2 Flow Rate FiO2 08/22/20 17:00 98.3 84 19 150/104 (119) 97 08/22/20 17:00 66 18 150/104 (119) 97 08/22/20 16:30 75 17 174/113 (133) 97 08/22/20 16:00 65 08/22/20 16:00 Nasal Cannula 2.0 08/22/20 16:00 63 30 159/89 (112) 97 08/22/20 15:00 63 19 148/100 (116) 99 08/22/20 14:00 98.3 62 31 150/89 (109) 99 08/22/20 14:00 60 15 150/92 (111) 97 08/22/20 13:00 62 22 165/93 (117) 100 08/22/20 12:00 68 19 177/140 (152) 99 08/22/20 12:00 Nasal Cannula 2.0 08/22/20 12:00 70 08/22/20 11:00 82 20 145/74 (97) 99 08/22/20 10:00 70 22 144/91 (108) 98 08/22/20 09:30 68 17 Nasal Cannula 3.0 32 08/22/20 09:00 64 18 155/91 (112) 98 08/22/20 08:00 Nasal Cannula 2.0 08/22/20 08:00 56 08/22/20 08:00 98.4 63 19 150/74 (99) 93 08/22/20 07:00 70 18 144/86 (105) 94 08/22/20 06:00 71 18 134/84 (101) 97 08/22/20 05:00 63 18 147/117 (127) 99 08/22/20 04:00 98.4 60 18 118/104 (109) 99 08/22/20 04:00 61 10/26/20 04:00 Nasal Cannula 2.0 08/22/20 03:00 58 16 144/78 (100) 99 08/22/20 02:00 61 16 155/84 (107) 99 08/22/20 01:00 66 17 142/85 (104) 99 08/22/20 00:00 Nasal Cannula 2.0 08/22/20 00:00 75 08/22/20 00:00 98.3 64 18 155/84 (107) 96 08/21/20 23:00 62 20 143/77 (99) 98 08/21/20 22:00 69 23 147/78 (101) 95 08/21/20 21:45 Room Air 21 08/21/20 21:45 Room Air 21 08/21/20 21:00 62 23 104/72 (83) 99 08/21/20 20:00 Nasal Cannula 2.0 08/21/20 20:00 98.6 60 16 142/74 (96) 98 08/21/20 20:00 65 08/21/20 19:00 136 23 141/97 (112) 99 08/21/20 18:45 137 23 127/91 (103) 100 08/21/20 18:30 Nasal Cannula 2.0 08/21/20 18:30 138 20 150/97 (114) 100 08/21/20 18:15 98.2 137 22 145/105 (118) 100 Intake and Output 08/21/20 08/22/20 19:00 07:00 Intake Total 20 ml 303.3333 ml Output Total 3000 ml 240 ml Balance -2980 ml 63.3333 ml Intake Oral 20 ml 220 ml IV Total 83.3333 ml Output Urine Total 0 ml 240 ml Hemodialysis UF 3000 ml # Voids 2 Laboratory Tests 08/22/20 04:00: White Blood Count 6.0, Red Blood Count 3.38L, Hemoglobin 10.1L, Hematocrit 33.4L , Mean Corpuscular Volume 99, Mean Corpuscular Hemoglobin 29.8, Mean Corpuscular Hemoglobin Concent 30.0L, Red Cell Distribution Width 16.2H, Platelet Count 225, Mean Platelet Volume 7.1, Neutrophils (%) (Auto) 60.9, Lymphocytes (%) (Auto) 25.4, Monocytes (%) (Auto) 10.9H, Eosinophils (%) (Auto) 0.7, Basophils (%) (Auto) 2.2H, Sodium Level 140, Potassium Level 6.2*H, Chloride Level 101, Carbon Dioxide Level 20L, Anion Gap 19H, Blood Urea Nitrogen 92H, Creatinine 15.5H, Estimat Glomerular Filtration Rate 3.9, Glucose Level 70L, Hemoglobin A1c 4.7, Uric Acid 9.6H, Calcium Level 8.2L, Phosphorus Level 8.3H, Magnesium Level 2.2, Iron Level 52, Total Iron Binding Capacity 232L, Percent Iron Saturation 22, Unsaturated Iron Binding 180, Ferritin 842H, Total Bilirubin 0.5, Gamma Glutamyl Transpeptidase 41, Aspartate Amino Transf (AST/SGOT) 25, Alanine Aminotransferase (ALT/SGPT) 35, Alkaline Phosphatase 69, C-Reactive Protein, Quantitative < 0.4, Pro-B-Type Natriuretic Peptide > 38714U, Total Protein 6.5, Albumin 3.8, Globulin 2.7, Albumin/Globulin Ratio 1.4, Triglycerides Level 59, Cholesterol Level 113, LDL Cholesterol 41, HDL Cholesterol 53, Cholesterol/HDL Ratio 2.1L, Lipase 381, Vitamin B12 Level 734, Folate 9.8, Thyroid Stimulating Hormone (TSH) 1.133 08/22/20 14:50: Sodium Level 141, Potassium Level 4.1, Chloride Level 101, Carbon Dioxide Level 26, Anion Gap 14, Blood Urea Nitrogen 61H, Creatinine 11.2H, Estimat Glomerular Filtration Rate 5.6, Glucose Level 97, Calcium Level 8.2L, Total Bilirubin 0.6, Aspartate Amino Transf (AST/SGOT) 24, Alanine Aminotransferase (ALT/SGPT) 26, Alkaline Phosphatase 70, Total Protein 6.6, Albumin 3.3L, Globulin 3.3, Albumin/Globulin Ratio 1.0, Lipase 261 Height (Feet): 5 Height (Inches): 4.00 Weight (Pounds): 185 General Appearance: alert EENT: PERRL/EOMI Neck: supple Cardiovascular: regular rhythm Respiratory/Chest: expiratory wheezing Abdomen: non tender, soft Extremities: non-tender Edema: mild edema Assessment/Plan Status: doing well Assessment/Plan: 1 chf 2 fluid overload 3 htn accelerated 4 esrd hd depended 5 over weight 6 poor complience salt and fluid restriction renal diet hd by nephro cardio eval rpt labs dw charge nurse Boogie Russ MD Aug 22, 2020 17:46
[2020-08-22] MEDS: Docusate 100mg cap ORAL SCH (18:23)
[2020-08-23] VITALS (36 sets, daily range): BP systolic 115–197; BP diastolic 85–147
[2020-08-23] MEDS: dilTIAZem Premix 125mg/125ml 125 ML IVPB SCH ×3 (03:00→18:05)
[2020-08-23] MEDS: Aspirin EC 81mg tab ORAL SCH (08:00)
[2020-08-23] MEDS: Amiodarone 200mg tab ORAL SCH ×2 (08:00→21:00)
[2020-08-23] MEDS: Eliquis 2.5mg tablet ORAL SCH ×2 (08:00→17:02)
[2020-08-23] MEDS: Nephrovite tab (Rena-Vite) ORAL SCH (08:01)
[2020-08-23] MEDS: Docusate 100mg cap ORAL SCH ×3 (08:01→17:02)
[2020-08-23] MEDS: Wixela 100/50 Inhaler - 60 dose INH SCH (08:01)
[2020-08-23 08:56] LABS: BASOPHILS % (AUTO) 1.2 % (0.0-2.0); EOSINOPHILS % (AUTO) 0.8 % (0.0-3.0); HEMATOCRIT 32.3 % (42.0-52.0); HEMOGLOBIN 10.1 G/DL (14.2-18.0); LYMPHOCYTES % (AUTO) 19.2 % (20.0-45.0); MEAN CORPUSCULAR VOLUME 97 FL (80-99); MONOCYTES % (AUTO) 12.9 % (1.0-10.0); NEUTROPHILS % (AUTO) 65.8 % (45.0-75.0); PLATELET COUNT 207 K/UL (150-450); RED BLOOD COUNT 3.34 M/UL (4.70-6.10); RED CELL DISTRIBUTION WIDTH 15.5 % (11.6-14.8); WHITE BLOOD COUNT 8.5 K/UL (4.8-10.8)
[2020-08-23 09:10] LABS: % IRON SATURATION 17 % (15-50); IRON 39 ug/dL (50-175); TOTAL IRON BINDING CAPACITY 227 ug/dL (250-450)
[2020-08-23 09:20] LABS: ALANINE AMINOTRANSFERASE 24 U/L (12-78); ALBUMIN 3.3 G/DL (3.4-5.0); ALBUMIN/GLOBULIN RATIO 1.1 (1.0-2.7); ALKALINE PHOSPHATASE 70 U/L (46-116); ANION GAP 12 mmol/L (5-15); ASPARTATE AMINO TRANSFERASE 20 U/L (15-37); BILIRUBIN,TOTAL 0.6 MG/DL (0.2-1.0); BLOOD UREA NITROGEN 72 mg/dL (7-18); CALCIUM 8.3 MG/DL (8.5-10.1); CARBON DIOXIDE 26 MMOL/L (21-32); CHLORIDE 100 MMOL/L (98-107); CREATININE 11.6 MG/DL (0.55-1.30); FERRITIN 497 NG/ML (8-388); PHOSPHORUS 5.4 MG/DL (2.5-4.9); POTASSIUM 3.8 MMOL/L (3.5-5.1); SODIUM 138 MMOL/L (136-145)
--- NOTE | 2020-08-23 09:21 | Nephrology Progress Note ---
Assessment/Plan Problem List: (1) ESRD (end stage renal disease) on dialysis (2) CHF exacerbation (3) Anemia in chronic kidney disease (CKD) (4) Hypertensive kidney disease (5) Elevated lipase Assessment End-stage renal disease, missed dialysis Volume overload and pulmonary edema Anemia of chronic kidney disease Hypertension History of atrial fibrillation History of congestive heart failure Elevated Lipase Plan August 23: Patient remains in ICU as he is on a Cardizem drip for atrial fibrillation with fast ventricular rate. Due for dialysis today. Today's labs is pending. Continue per consultants. Discussed with CATRINA Salinas August 22: Today's labs noted suspect error will repeat. Discussed with CATRINA Salinas. Hemodialysis and ultrafiltration . It was done yesterday and 3 L ultrafiltrated. Optimize cardiac and pulmonary status with medication adjustment Per orders Subjective ROS Limited/Unobtainable: No Constitutional: Reports: malaise Objective Objective Last 24 Hour Vital Signs Date Time Temp Pulse Resp B/P (MAP) Pulse Ox O2 Delivery O2 Flow Rate FiO2 08/23/20 08:30 116 20 131/85 (100) 89 08/23/20 08:15 93 Nasal Cannula 2.0 28 08/23/20 08:01 Nasal Cannula 2.0 28 08/23/20 08:01 Nasal Cannula 2.0 28 08/23/20 08:00 Nasal Cannula 2.0 Nasal Cannula 2.0 08/23/20 08:00 98.4 137 19 153/107 (122) 99 08/23/20 07:30 131 21 162/147 (152) 94 08/23/20 07:00 133 19 146/108 (121) 95 08/23/20 04:00 Nasal Cannula 2.0 Nasal Cannula 2.0 08/23/20 04:00 134 20 130/88 (102) 95 08/23/20 03:45 135 20 141/86 (104) 94 08/23/20 03:30 134 19 140/88 (105) 96 08/23/20 03:15 137 20 151/95 (113) 97 08/23/20 03:00 136 20 152/100 (117) 95 08/23/20 02:30 137 20 137/95 (109) 95 08/23/20 02:05 98.0 136 20 151/98 (115) 95 08/23/20 00:06 139 08/23/20 00:00 99.0 100 20 128/97 (107) 95 08/23/20 00:00 Nasal Cannula 2.0 Nasal Cannula 2.0 08/22/20 23:00 99.0 120 152/112 (125) 08/22/20 22:55 146 08/22/20 21:53 99.5 62 21 146/90 (108) 95 08/22/20 20:50 65 08/22/20 20:45 78 16 164/102 (122) 98 08/22/20 20:30 71 16 161/89 (113) 95 08/22/20 20:00 Nasal Cannula 2.0 08/22/20 20:00 97.8 67 19 147/89 (108) 96 08/22/20 20:00 65 08/22/20 19:00 68 19 160/96 (117) 96 08/22/20 18:00 64 16 158/78 (104) 97 08/22/20 17:00 98.3 84 19 150/104 (119) 97 08/22/20 17:00 66 18 150/104 (119) 97 08/22/20 16:30 75 17 174/113 (133) 97 08/22/20 16:00 65 08/22/20 16:00 Nasal Cannula 2.0 08/22/20 16:00 63 30 159/89 (112) 97 08/22/20 15:00 63 19 148/100 (116) 99 08/22/20 14:00 98.3 62 31 150/89 (109) 99 08/22/20 14:00 60 15 150/92 (111) 97 08/22/20 13:00 62 22 165/93 (117) 100 08/22/20 12:00 68 19 177/140 (152) 99 08/22/20 12:00 Nasal Cannula 2.0 08/22/20 12:00 70 08/22/20 11:00 82 20 145/74 (97) 99 08/22/20 10:00 70 22 144/91 (108) 98 08/22/20 09:30 68 17 Nasal Cannula 3.0 32 Intake and Output 08/22/20 08/23/20 19:00 07:00 Intake Total 825 ml 375.00 ml Output Total 400 ml 545 ml Balance 425 ml -170.00 ml Intake Oral 820 ml 290 ml IV Total 5 ml 85.00 ml Output Urine Total 400 ml 545 ml # Voids 1 # Bowel Movements 2 Laboratory Tests 08/22/20 14:50: Sodium Level 141, Potassium Level 4.1, Chloride Level 101, Carbon Dioxide Level 26, Anion Gap 14, Blood Urea Nitrogen 61H, Creatinine 11.2H, Estimat Glomerular Filtration Rate 5.6, Glucose Level 97, Calcium Level 8.2L, Total Bilirubin 0.6, Aspartate Amino Transf (AST/SGOT) 24, Alanine Aminotransferase (ALT/SGPT) 26, Alkaline Phosphatase 70, Total Protein 6.6, Albumin 3.3L, Globulin 3.3, Albumin/Globulin Ratio 1.0, Lipase 261 08/23/20 08:05: Sodium Level [Pending], Potassium Level [Pending], Chloride Level [Pending], Carbon Dioxide Level [Pending], Blood Urea Nitrogen [Pending], Creatinine [Pending], Estimat Glomerular Filtration Rate [Pending], Glucose Level [Pending], Calcium Level [Pending], Total Bilirubin [Pending], Aspartate Amino Transf (AST/SGOT) [Pending], Alanine Aminotransferase (ALT/SGPT) [Pending], Alkaline Phosphatase [Pending], Total Protein [Pending], Albumin [Pending], Globulin [Pending], White Blood Count 8.5, Red Blood Count 3.34L, Hemoglobin 10.1L, Hematocrit 32.3L, Mean Corpuscular Volume 97, Mean Corpuscular Hemoglobin 30.3, Mean Corpuscular Hemoglobin Concent 31.3L, Red Cell Distribution Width 15.5H, Platelet Count 207, Mean Platelet Volume 7.5, Neutrophils (%) (Auto) 65.8, Lymphocytes (%) (Auto) 19.2L, Monocytes (%) (Auto) 12.9H, Eosinophils (%) (Auto) 0.8, Basophils (%) (Auto) 1.2, Phosphorus Level [Pending], Iron Level 39L , Total Iron Binding Capacity 227L, Percent Iron Saturation 17, Unsaturated Iron Binding 188, Ferritin [Pending], C-Reactive Protein, Quantitative [Pending], Pro-B-Type Natriuretic Peptide [Pending], Vitamin B12 Level [Pending], Folate [Pending] Height (Feet): 5 Height (Inches): 4.00 Weight (Pounds): 185 General Appearance: no apparent distress Cardiovascular: tachycardia, arrhythmia Respiratory/Chest: decreased breath sounds Abdomen: soft Darwin Jung MD Aug 23, 2020 09:21
--- NOTE | 2020-08-23 10:08 | Pulmonology Progress Note ---
Subjective ROS Limited/Unobtainable: No Interval Events: Trasnferred back to ICU due to a fib Constitutional: Reports: no symptoms HEENT: Repors: no symptoms Respiratory: Reports: no symptoms Cardiovascular: Reports: no symptoms Gastrointestinal/Abdominal: Reports: no symptoms Allergies: Coded Allergies: BENZOIN (Unverified Allergy, Severe, 12/28/14) AMOXICILLIN (Verified Allergy, Intermediate, 11/18/12) ABD PAIN N/V POVIDONE-IODINE (Verified Allergy, Unknown, 03/28/20) Skin peeling Objective Last 24 Hour Vital Signs Date Time Temp Pulse Resp B/P (MAP) Pulse Ox O2 Delivery O2 Flow Rate FiO2 08/23/20 09:30 144 15 130/90 (103) 97 08/23/20 09:00 124 17 141/99 (113) 97 08/23/20 08:30 116 20 131/85 (100) 89 08/23/20 08:15 93 Nasal Cannula 2.0 28 08/23/20 08:01 Nasal Cannula 2.0 28 08/23/20 08:01 Nasal Cannula 2.0 28 08/23/20 08:00 Nasal Cannula 2.0 Nasal Cannula 2.0 08/23/20 08:00 132 08/23/20 08:00 98.4 137 19 153/107 (122) 99 08/23/20 07:30 131 21 162/147 (152) 94 08/23/20 07:00 133 19 146/108 (121) 95 08/23/20 04:00 Nasal Cannula 2.0 Nasal Cannula 2.0 08/23/20 04:00 134 20 130/88 (102) 95 08/23/20 03:45 135 20 141/86 (104) 94 08/23/20 03:30 134 19 140/88 (105) 96 08/23/20 03:15 137 20 151/95 (113) 97 08/23/20 03:00 136 20 152/100 (117) 95 08/23/20 02:30 137 20 137/95 (109) 95 08/23/20 02:05 98.0 136 20 151/98 (115) 95 08/23/20 00:06 139 08/23/20 00:00 99.0 100 20 128/97 (107) 95 08/23/20 00:00 Nasal Cannula 2.0 Nasal Cannula 2.0 08/22/20 23:00 99.0 120 152/112 (125) 08/22/20 22:55 146 08/22/20 21:53 99.5 62 21 146/90 (108) 95 08/22/20 20:50 65 08/22/20 20:45 78 16 164/102 (122) 98 08/22/20 20:30 71 16 161/89 (113) 95 08/22/20 20:00 Nasal Cannula 2.0 08/22/20 20:00 97.8 67 19 147/89 (108) 96 08/22/20 20:00 65 08/22/20 19:00 68 19 160/96 (117) 96 08/22/20 18:00 64 16 158/78 (104) 97 08/22/20 17:00 98.3 84 19 150/104 (119) 97 08/22/20 17:00 66 18 150/104 (119) 97 08/22/20 16:30 75 17 174/113 (133) 97 08/22/20 16:00 65 08/22/20 16:00 Nasal Cannula 2.0 08/22/20 16:00 63 30 159/89 (112) 97 08/22/20 15:00 63 19 148/100 (116) 99 08/22/20 14:00 98.3 62 31 150/89 (109) 99 08/22/20 14:00 60 15 150/92 (111) 97 08/22/20 13:00 62 22 165/93 (117) 100 08/22/20 12:00 68 19 177/140 (152) 99 08/22/20 12:00 Nasal Cannula 2.0 08/22/20 12:00 70 08/22/20 11:00 82 20 145/74 (97) 99 Intake and Output 08/22/20 08/23/20 19:00 07:00 Intake Total 825 ml 375.00 ml Output Total 400 ml 545 ml Balance 425 ml -170.00 ml Intake Oral 820 ml 290 ml IV Total 5 ml 85.00 ml Output Urine Total 400 ml 545 ml # Voids 1 # Bowel Movements 2 General Appearance: no acute distress HEENT: normocephalic Respiratory: chest wall non-tender, lungs clear Cardiovascular: normal peripheral pulses, normal rate Abdomen: normal bowel sounds Microbiology Date/Time Source Procedure Growth Status 08/20/20 13:53 Rectum - Final NO CARBAPENEM-RESISTANT ENTEROBACTERI... Complete 08/20/20 13:53 Rectum VRE Culture - Final NO VANCOMYCIN RESISTANT ENTEROCOCCUS ... Complete 08/20/20 10:30 Nasopharynx SARS-CoV-2 RdRp Gene Assay - Final Complete Laboratory Tests 08/22/20 14:50: Sodium Level 141, Potassium Level 4.1, Chloride Level 101, Carbon Dioxide Level 26, Anion Gap 14, Blood Urea Nitrogen 61H, Creatinine 11.2H, Estimat Glomerular Filtration Rate 5.6, Glucose Level 97, Calcium Level 8.2L, Total Bilirubin 0.6, Aspartate Amino Transf (AST/SGOT) 24, Alanine Aminotransferase (ALT/SGPT) 26, Alkaline Phosphatase 70, Total Protein 6.6, Albumin 3.3L, Globulin 3.3, Albumin/Globulin Ratio 1.0, Lipase 261 08/23/20 08:05: Sodium Level 138, Potassium Level 3.8, Chloride Level 100, Carbon Dioxide Level 26, Anion Gap 12, Blood Urea Nitrogen 72H, Creatinine 11.6H, Estimat Glomerular Filtration Rate 5.3, Glucose Level 132H, Calcium Level 8.3L, Total Bilirubin 0.6, Aspartate Amino Transf (AST/SGOT) 20, Alanine Aminotransferase (ALT/SGPT) 24, Alkaline Phosphatase 70, Total Protein 6.4, Albumin 3.3L, Globulin 3.1, Albumin/Globulin Ratio 1.1, White Blood Count 8.5, Red Blood Count 3.34L, Hemoglobin 10.1L, Hematocrit 32.3L, Mean Corpuscular Volume 97, Mean Corpuscular Hemoglobin 30.3, Mean Corpuscular Hemoglobin Concent 31.3L, Red Cell Distribution Width 15.5H, Platelet Count 207, Mean Platelet Volume 7.5, Neutrophils (%) (Auto) 65.8, Lymphocytes (%) (Auto) 19.2L, Monocytes (%) (Auto) 12.9H, Eosinophils (%) (Auto) 0.8, Basophils (%) (Auto) 1.2, Phosphorus Level 5.4H, Iron Level 39L, Total Iron Binding Capacity 227L, Percent Iron Saturation 17, Unsaturated Iron Binding 188, Ferritin 497H, C-Reactive Protein, Quantitative 1.6H, Pro-B-Type Natriuretic Peptide > 31154B, Vitamin B12 Level 77 5, Folate 16.3 Current Medications Medications (Trade) Dose Ordered Sig/Daniel Route PRN Reason Start Time Stop Time Status Last Admin Dose Admin Amiodarone HCl (Cordarone) 400 mg EVERY 12 HOURS ORAL 08/21/20 21:00 11/19/20 20:59 08/23/20 08:00 Apixaban (Eliquis) 2.5 mg BID ORAL 08/20/20 17:00 11/18/20 17:59 08/23/20 08:00 Aspirin (Ecotrin) 81 mg DAILY ORAL 08/21/20 09:00 10/05/20 08:59 08/23/20 08:00 Calcium Acetate (Phoslo) 667 mg TID ORAL 08/20/20 18:00 11/18/20 17:59 08/23/20 08:01 Diltiazem HCl 125 ml @ 5 mls/hr Q24H IVPB 08/23/20 02:00 08/24/20 01:59 08/23/20 03:00 Docusate Sodium (Colace) 100 mg THREE TIMES A DAY ORAL 08/22/20 18:00 09/21/20 17:59 08/23/20 08:01 Levalbuterol HCl (Xopenex) 1.25 mg Q6H PRN HHN Shortness of Breath 08/21/20 19:45 08/26/20 19:44 Salmeterol Xinafoate/ Fluticasone (Advair 100/50 Diskus) 1 puffs DAILY INH 08/21/20 09:00 11/19/20 08:59 08/23/20 08:01 Sevelamer Carbonate (Renvela) 800 mg THREE TIMES A DAY ORAL 08/22/20 18:00 11/20/20 17:59 08/23/20 08:00 Vitamin B Complex/ Vit C/Folic Acid (Nephrovite) 1 tab DAILY ORAL 08/21/20 09:00 09/20/20 08:59 08/23/20 08:01 Assessment/Plan Assessment/Plan ASSESSMENT AND PLAN: 1. Paroxysmal atrial fibrillation. 2. Elevated troponin, 3. Hypertension. 4. End-stage renal disease, on hemodialysis. 5. Atrial fibrillation rate uncontrolled agree with ICU care. Advised tobacco cessation supplemental oxygen Cardizem drip discontinued Continue oral agents HD today Kayden Chow M.D., MD Aug 23, 2020 10:08
--- NOTE | 2020-08-23 12:24 | Cardiac Electrophysiology PN ---
Assessment/Plan Assessment/Plan 1. Chest pain and chronic low level troponin elevation. Due to volume overload and atrial fib with RVR. The troponin elevation is due to renal failure. Currently, he does not have any chest pain. EF 50% 2. Recurrent Paroxysmal atrial fibrillation with RVR despite Amiodarone 400 bid. Increase Amiodarone to 400 tid and iv Cardizem at 15 mg/hr On Eliquis 2.5 bid. 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 In the previous admission, also had atrial fibrillation with rapid ventricular response with heart rate up to 200 3. Hypertension, On hemodialysis 4. Congestive heart failure due to diastolic dysfunction. EF 50% 5. Right bundle-branch block and left anterior fascicular block. DW RN Will need auth from [employer] Subjective Subjective Cardizem drip was DCed yesterday and transferred out of ICU. However had HR 160s and transferred back to ICU and now on Cardizem drip at 15 mg/hr Objective Last 24 Hour Vital Signs Date Time Temp Pulse Resp B/P (MAP) Pulse Ox O2 Delivery O2 Flow Rate FiO2 08/23/20 12:00 137 08/23/20 11:00 129 23 120/98 (105) 100 08/23/20 10:00 127 19 115/89 (98) 98 08/23/20 10:00 133 23 115/89 (98) 97 08/23/20 09:30 144 15 130/90 (103) 97 08/23/20 09:00 124 17 141/99 (113) 97 08/23/20 08:30 116 20 131/85 (100) 89 08/23/20 08:15 93 Nasal Cannula 2.0 28 08/23/20 08:01 Nasal Cannula 2.0 28 08/23/20 08:01 Nasal Cannula 2.0 28 08/23/20 08:00 Nasal Cannula 2.0 Nasal Cannula 2.0 08/23/20 08:00 132 08/23/20 08:00 98.4 137 19 153/107 (122) 99 08/23/20 07:30 131 21 162/147 (152) 94 08/23/20 07:00 133 19 146/108 (121) 95 08/23/20 04:00 Nasal Cannula 2.0 Nasal Cannula 2.0 08/23/20 04:00 134 20 130/88 (102) 95 08/23/20 03:45 135 20 141/86 (104) 94 08/23/20 03:30 134 19 140/88 (105) 96 08/23/20 03:15 137 20 151/95 (113) 97 08/23/20 03:00 136 20 152/100 (117) 95 08/23/20 02:30 137 20 137/95 (109) 95 08/23/20 02:05 98.0 136 20 151/98 (115) 95 08/23/20 00:06 139 08/23/20 00:00 99.0 100 20 128/97 (107) 95 08/23/20 00:00 Nasal Cannula 2.0 Nasal Cannula 2.0 08/22/20 23:00 99.0 120 152/112 (125) 08/22/20 22:55 146 08/22/20 21:53 99.5 62 21 146/90 (108) 95 08/22/20 20:50 65 08/22/20 20:45 78 16 164/102 (122) 98 08/22/20 20:30 71 16 161/89 (113) 95 08/22/20 20:00 Nasal Cannula 2.0 08/22/20 20:00 97.8 67 19 147/89 (108) 96 08/22/20 20:00 65 08/22/20 19:00 68 19 160/96 (117) 96 08/22/20 18:00 64 16 158/78 (104) 97 08/22/20 17:00 98.3 84 19 150/104 (119) 97 08/22/20 17:00 66 18 150/104 (119) 97 08/22/20 16:30 75 17 174/113 (133) 97 08/22/20 16:00 65 08/22/20 16:00 Nasal Cannula 2.0 08/22/20 16:00 63 30 159/89 (112) 97 08/22/20 15:00 63 19 148/100 (116) 99 08/22/20 14:00 98.3 62 31 150/89 (109) 99 08/22/20 14:00 60 15 150/92 (111) 97 08/22/20 13:00 62 22 165/93 (117) 100 Intake and Output 08/22/20 08/23/20 19:00 07:00 Intake Total 825 ml 375.00 ml Output Total 400 ml 545 ml Balance 425 ml -170.00 ml Intake Oral 820 ml 290 ml IV Total 5 ml 85.00 ml Output Urine Total 400 ml 545 ml # Voids 1 # Bowel Movements 2 Laboratory Tests Test 08/22/20 14:50 08/23/20 08:05 Sodium Level 141 MMOL/L (136-145) 138 MMOL/L (136-145) Potassium Level 4.1 MMOL/L (3.5-5.1) 3.8 MMOL/L (3.5-5.1) Chloride Level 101 MMOL/L (98-107) 100 MMOL/L (98-107) Carbon Dioxide Level 26 MMOL/L (21-32) 26 MMOL/L (21-32) Anion Gap 14 mmol/L (5-15) 12 mmol/L (5-15) Blood Urea Nitrogen 61 mg/dL (7-18) H 72 mg/dL (7-18) H Creatinine 11.2 MG/DL (0.55-1.30) H 11.6 MG/DL (0.55-1.30) H Estimat Glomerular Filtration Rate 5.6 mL/min (>60) 5.3 mL/min (>60) Glucose Level 97 MG/DL (74-106) 132 MG/DL (74-106) H Calcium Level 8.2 MG/DL (8.5-10.1) L 8.3 MG/DL (8.5-10.1) L Total Bilirubin 0.6 MG/DL (0.2-1.0) 0.6 MG/DL (0.2-1.0) Aspartate Amino Transf (AST/SGOT) 24 U/L (15-37) 20 U/L (15-37) Alanine Aminotransferase (ALT/SGPT) 26 U/L (12-78) 24 U/L (12-78) Alkaline Phosphatase 70 U/L (46-116) 70 U/L (46-116) Total Protein 6.6 G/DL (6.4-8.2) 6.4 G/DL (6.4-8.2) Albumin 3.3 G/DL (3.4-5.0) L 3.3 G/DL (3.4-5.0) L Globulin 3.3 g/dL 3.1 g/dL Albumin/Globulin Ratio 1.0 (1.0-2.7) 1.1 (1.0-2.7) Lipase 261 U/L (73-393) White Blood Count 8.5 K/UL (4.8-10.8) Red Blood Count 3.34 M/UL (4.70-6.10) L Hemoglobin 10.1 G/DL (14.2-18.0) L Hematocrit 32.3 % (42.0-52.0) L Mean Corpuscular Volume 97 FL (80-99) Mean Corpuscular Hemoglobin 30.3 PG (27.0-31.0) Mean Corpuscular Hemoglobin Concent 31.3 G/DL (32.0-36.0) L Red Cell Distribution Width 15.5 % (11.6-14.8) H Platelet Count 207 K/UL (150-450) Mean Platelet Volume 7.5 FL (6.5-10.1) Neutrophils (%) (Auto) 65.8 % (45.0-75.0) Lymphocytes (%) (Auto) 19.2 % (20.0-45.0) L Monocytes (%) (Auto) 12.9 % (1.0-10.0) H Eosinophils (%) (Auto) 0.8 % (0.0-3.0) Basophils (%) (Auto) 1.2 % (0.0-2.0) Phosphorus Level 5.4 MG/DL (2.5-4.9) H Iron Level 39 ug/dL (50-175) L Total Iron Binding Capacity 227 ug/dL (250-450) L Percent Iron Saturation 17 % (15-50) Unsaturated Iron Binding 188 ug/dL (112-346) Ferritin 497 NG/ML (8-388) H C-Reactive Protein, Quantitative 1.6 mg/dL (0.00-0.90) H Pro-B-Type Natriuretic Peptide > 88395 pg/mL (0-125) H Vitamin B12 Level 775 PG/ML (193-986) Folate 16.3 NG/ML (8.6-58.9) Microbiology Date/Time Source Procedure Growth Status 08/20/20 13:53 Rectum - Final NO CARBAPENEM-RESISTANT ENTEROBACTERI... Complete 08/20/20 13:53 Rectum VRE Culture - Final NO VANCOMYCIN RESISTANT ENTEROCOCCUS ... Complete Objective NECK: No JVD. LUNGS: Coarse rhonchi. CARDIOVASCULAR: Irregular tachy S1 and S2 with no gallop or murmur. ABDOMEN: Soft. EXTREMITIES: No pitting edema. Yuval Guerra MD Aug 23, 2020 12:24
--- NOTE | 2020-08-23 16:03 | General Progress Note ---
Subjective Allergies: Coded Allergies: BENZOIN (Unverified Allergy, Severe, 12/28/14) AMOXICILLIN (Verified Allergy, Intermediate, 11/18/12) ABD PAIN N/V POVIDONE-IODINE (Verified Allergy, Unknown, 03/28/20) Skin peeling Subjective pt was transferred in icu for afib with rvr sob pt now feels better cardio on the case Objective Last 24 Hour Vital Signs Date Time Temp Pulse Resp B/P (MAP) Pulse Ox O2 Delivery O2 Flow Rate FiO2 08/23/20 15:30 135 26 161/102 (121) 97 08/23/20 15:00 141 18 182/125 (144) 94 08/23/20 14:30 139 18 157/118 (131) 96 08/23/20 14:00 142 18 176/96 (122) 90 08/23/20 13:30 128 22 156/89 (111) 90 08/23/20 13:00 148 20 175/113 (133) 90 08/23/20 12:30 136 20 166/95 (118) 94 08/23/20 12:00 Nasal Cannula 2.0 Nasal Cannula 2.0 08/23/20 12:00 98.3 137 21 197/144 (161) 99 08/23/20 12:00 137 08/23/20 11:30 137 23 157/115 (129) 99 08/23/20 11:00 129 23 120/98 (105) 100 08/23/20 10:00 127 19 115/89 (98) 98 08/23/20 10:00 133 23 115/89 (98) 97 08/23/20 09:30 144 15 130/90 (103) 97 08/23/20 09:00 124 17 141/99 (113) 97 08/23/20 08:30 116 20 131/85 (100) 89 08/23/20 08:15 93 Nasal Cannula 2.0 28 08/23/20 08:01 Nasal Cannula 2.0 28 08/23/20 08:01 Nasal Cannula 2.0 28 08/23/20 08:00 Nasal Cannula 2.0 Nasal Cannula 2.0 08/23/20 08:00 132 08/23/20 08:00 98.4 137 19 153/107 (122) 99 08/23/20 07:30 131 21 162/147 (152) 94 08/23/20 07:00 133 19 146/108 (121) 95 08/23/20 04:00 Nasal Cannula 2.0 Nasal Cannula 2.0 08/23/20 04:00 134 20 130/88 (102) 95 08/23/20 03:45 135 20 141/86 (104) 94 08/23/20 03:30 134 19 140/88 (105) 96 08/23/20 03:15 137 20 151/95 (113) 97 08/23/20 03:00 136 20 152/100 (117) 95 08/23/20 02:30 137 20 137/95 (109) 95 08/23/20 02:05 98.0 136 20 151/98 (115) 95 08/23/20 00:06 139 08/23/20 00:00 99.0 100 20 128/97 (107) 95 08/23/20 00:00 Nasal Cannula 2.0 Nasal Cannula 2.0 08/22/20 23:00 99.0 120 152/112 (125) 08/22/20 22:55 146 08/22/20 21:53 99.5 62 21 146/90 (108) 95 08/22/20 20:50 65 08/22/20 20:45 78 16 164/102 (122) 98 08/22/20 20:30 71 16 161/89 (113) 95 08/22/20 20:00 Nasal Cannula 2.0 08/22/20 20:00 97.8 67 19 147/89 (108) 96 08/22/20 20:00 65 08/22/20 19:00 68 19 160/96 (117) 96 08/22/20 18:00 64 16 158/78 (104) 97 08/22/20 17:00 98.3 84 19 150/104 (119) 97 08/22/20 17:00 66 18 150/104 (119) 97 08/22/20 16:30 75 17 174/113 (133) 97 Intake and Output 08/22/20 08/23/20 19:00 07:00 Intake Total 825 ml 375.00 ml Output Total 400 ml 545 ml Balance 425 ml -170.00 ml Intake Oral 820 ml 290 ml IV Total 5 ml 85.00 ml Output Urine Total 400 ml 545 ml # Voids 1 # Bowel Movements 2 Laboratory Tests 08/23/20 08:05: White Blood Count 8.5, Red Blood Count 3.34L, Hemoglobin 10.1L, Hematocrit 32.3L , Mean Corpuscular Volume 97, Mean Corpuscular Hemoglobin 30.3, Mean Corpuscular Hemoglobin Concent 31.3L, Red Cell Distribution Width 15.5H, Platelet Count 207, Mean Platelet Volume 7.5, Neutrophils (%) (Auto) 65.8, Lymphocytes (%) (Auto) 19.2L, Monocytes (%) (Auto) 12.9H, Eosinophils (%) (Auto) 0.8, Basophils (%) (Auto) 1.2, Sodium Level 138, Potassium Level 3.8, Chloride Level 100, Carbon Dioxide Level 26, Anion Gap 12, Blood Urea Nitrogen 72H, Creatinine 11.6H, Estimat Glomerular Filtration Rate 5.3, Glucose Level 132H, Calcium Level 8.3L, Phosphorus Level 5.4H, Iron Level 39L, Total Iron Binding Capacity 227L, Percent Iron Saturation 17, Unsaturated Iron Binding 188, Ferritin 497H, Total Bilirubin 0.6, Aspartate Amino Transf (AST/SGOT) 20, Alanine Aminotransferase (ALT/SGPT) 24, Alkaline Phosphatase 70, C-Reactive Protein, Quantitative 1.6H, Pro-B-Type Natriuretic Peptide > 29728W, Total Protein 6.4, Albumin 3.3L, Globulin 3.1, Albumin/Globulin Ratio 1.1, Vitamin B12 Level 775, Folate 16.3 Height (Feet): 5 Height (Inches): 4.00 Weight (Pounds): 185 General Appearance: alert EENT: PERRL/EOMI Neck: supple Cardiovascular: regular rhythm Respiratory/Chest: crackles/rales Abdomen: non tender, soft 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
[2020-08-24] VITALS (11 sets, daily range): BP systolic 107–166; BP diastolic 65–152
[2020-08-24] MEDS ORDERED: dilTIAZem Premix 125mg/125ml 125 ML IVPB SCH (02:00)
[2020-08-24] MEDS: Wixela 100/50 Inhaler - 60 dose INH SCH (08:19)
[2020-08-24 08:46] LABS: BASOPHILS % (AUTO) 1.4 % (0.0-2.0); EOSINOPHILS % (AUTO) 1.5 % (0.0-3.0); HEMATOCRIT 32.2 % (42.0-52.0); HEMOGLOBIN 10.2 G/DL (14.2-18.0); LYMPHOCYTES % (AUTO) 23.4 % (20.0-45.0); MEAN CORPUSCULAR VOLUME 96 FL (80-99); MONOCYTES % (AUTO) 16.7 % (1.0-10.0); NEUTROPHILS % (AUTO) 56.9 % (45.0-75.0); PLATELET COUNT 189 K/UL (150-450); RED BLOOD COUNT 3.37 M/UL (4.70-6.10); WHITE BLOOD COUNT 9.6 K/UL (4.8-10.8)
[2020-08-24] MEDS ORDERED: Docusate 100mg cap ORAL SCH (09:00)
[2020-08-24 09:27] LABS: ALBUMIN 3.3 G/DL (3.4-5.0); ALBUMIN/GLOBULIN RATIO 1.1 (1.0-2.7); BILIRUBIN,TOTAL 0.8 MG/DL (0.2-1.0); CALCIUM 9.1 MG/DL (8.5-10.1); PHOSPHORUS 4.6 MG/DL (2.5-4.9); POTASSIUM 4.2 MMOL/L (3.5-5.1)
--- NOTE | 2020-08-24 09:36 | General Progress Note ---
Subjective Date patient seen: Aug 24, 2020 Allergies: Coded Allergies: BENZOIN (Unverified Allergy, Severe, 12/28/14) AMOXICILLIN (Verified Allergy, Intermediate, 11/18/12) ABD PAIN N/V POVIDONE-IODINE (Verified Allergy, Unknown, 03/28/20) Skin peeling Subjective pt was transferred in icu for afib with rvr sob pt now feels better cardio on the case Objective Last 24 Hour Vital Signs Date Time Temp Pulse Resp B/P (MAP) Pulse Ox O2 Delivery O2 Flow Rate FiO2 08/24/20 08:19 Room Air 21 08/24/20 08:19 Room Air 21 08/24/20 08:05 97 Room Air 21 08/24/20 08:00 Room Air Room Air 08/24/20 08:00 98.0 104 16 151/94 (113) 93 08/24/20 07:33 105 08/24/20 07:00 104 17 129/92 (104) 92 08/24/20 06:00 106 21 126/87 (100) 96 08/24/20 05:00 104 20 141/95 (110) 98 08/24/20 04:00 106 08/24/20 04:00 Nasal Cannula 2.0 Nasal Cannula 2.0 08/24/20 04:00 98.1 105 21 142/88 (106) 99 08/24/20 03:00 133 21 140/85 (103) 100 08/24/20 02:00 132 16 124/82 (96) 98 08/24/20 01:00 136 21 157/116 (130) 98 08/24/20 00:00 138 08/24/20 00:00 98.0 132 22 162/121 (135) 91 08/24/20 00:00 Nasal Cannula 2.0 Nasal Cannula 2.0 08/23/20 23:00 140 22 147/91 (109) 96 08/23/20 22:00 135 23 144/90 (108) 95 08/23/20 21:00 130 20 140/111 (121) 96 08/23/20 20:00 98.6 132 25 143/106 (118) 94 08/23/20 20:00 135 08/23/20 20:00 Nasal Cannula 2.0 Nasal Cannula 2.0 08/23/20 19:37 98 Room Air 21 08/23/20 19:00 135 18 171/98 (122) 95 08/23/20 18:30 134 18 149/107 (121) 95 08/23/20 18:00 134 20 150/120 (130) 97 08/23/20 17:30 133 20 166/109 (128) 96 08/23/20 17:00 134 20 146/127 (133) 99 08/23/20 16:30 98.3 139 21 141/99 (113) 96 08/23/20 16:06 129 08/23/20 16:00 Nasal Cannula 2.0 Nasal Cannula 2.0 08/23/20 16:00 138 23 166/103 (124) 100 08/23/20 15:30 135 26 161/102 (121) 97 08/23/20 15:00 141 18 182/125 (144) 94 08/23/20 14:30 139 18 157/118 (131) 96 08/23/20 14:00 142 18 176/96 (122) 90 08/23/20 13:30 128 22 156/89 (111) 90 08/23/20 13:00 148 20 175/113 (133) 90 08/23/20 12:30 136 20 166/95 (118) 94 08/23/20 12:00 Nasal Cannula 2.0 Nasal Cannula 2.0 08/23/20 12:00 98.3 137 21 197/144 (161) 99 08/23/20 12:00 137 08/23/20 11:30 137 23 157/115 (129) 99 08/23/20 11:00 129 23 120/98 (105) 100 08/23/20 10:00 127 19 115/89 (98) 98 08/23/20 10:00 133 23 115/89 (98) 97 Intake and Output 08/23/20 08/24/20 19:00 07:00 Intake Total 1173.50 ml 280 ml Output Total 2435 ml 150 ml Balance -1261.50 ml 130 ml Intake Oral 1000 ml 100 ml IV Total 173.50 ml 180 ml Output Urine Total 435 ml 150 ml Hemodialysis UF 2000 ml Laboratory Tests 08/24/20 08:30: White Blood Count 9.6, Red Blood Count 3.37L, Hemoglobin 10.2L, Hematocrit 32.2L , Mean Corpuscular Volume 96, Mean Corpuscular Hemoglobin 30.2, Mean Corpuscular Hemoglobin Concent 31.6L, Red Cell Distribution Width 15.0H, Platelet Count 189, Mean Platelet Volume 6.9, Neutrophils (%) (Auto) 56.9, Lymphocytes (%) (Auto) 23.4, Monocytes (%) (Auto) 16.7H, Eosinophils (%) (Auto) 1.5, Basophils (%) (Auto) 1.4, Sodium Level [Pending], Potassium Level [Pending], Chloride Level [Pending], Carbon Dioxide Level [Pending], Blood Urea Nitrogen [Pending], Creatinine [Pending], Estimat Glomerular Filtration Rate [Pending], Glucose Level [Pending], Calcium Level [Pending], Phosphorus Level [Pending], Magnesium Level [Pending], Total Bilirubin [Pending], Aspartate Amino Transf (AST/SGOT) [Pending], Alanine Aminotransferase (ALT/SGPT) [Pending], Alkaline Phosphatase [Pending], Total Protein [Pending], Albumin [Pending], Globulin [Pending] Height (Feet): 5 Height (Inches): 4.00 Weight (Pounds): 185 General Appearance: alert EENT: PERRL/EOMI Neck: supple Cardiovascular: regular rhythm Respiratory/Chest: lungs clear Abdomen: non tender, soft Extremities: non-tender Assessment/Plan Status: doing well Assessment/Plan: 1 chf 2 fluid overload 3 htn accelerated 4 esrd hd depended 5 over weight 6 poor complience 7 afib with rvr on cardiac tx salt and fluid restriction renal diet hd by nephro cardio eval rpt labs dw charge nurse Boogie Russ MD Aug 24, 2020 09:36
--- NOTE | 2020-08-24 09:41 | Cardiac Electrophysiology PN ---
Assessment/Plan Assessment/Plan 1. Chest pain and chronic low level troponin elevation. Due to volume overload and atrial fib with RVR. The troponin elevation is due to renal failure. Currently, he does not have any chest pain. EF 50% 2. Recurrent Paroxysmal atrial fibrillation with RVR despite Amiodarone 400 bid. Increased Amiodarone to 400 tid and iv Cardizem at 15 mg/hr On Eliquis 2.5 bid. 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 In the previous admission, also had atrial fibrillation with rapid ventricular response with heart rate up to 200 Start Cardizem 90 po q 6 hr and taper off CArdizem drip. N[employer] insurance Auth for PPM implant 3. Hypertension, On hemodialysis 4. Congestive heart failure due to diastolic dysfunction. EF 50% 5. Right bundle-branch block and left anterior fascicular block. SHABBIR RN Will need auth from insurance FiTeq Subjective Subjective Cardizem drip was DCed and transferred out of ICU. However had HR 160s and transferred back to ICU and now on Cardizem drip at 15 mg/hr HR better now. Objective Last 24 Hour Vital Signs Date Time Temp Pulse Resp B/P (MAP) Pulse Ox O2 Delivery O2 Flow Rate FiO2 08/24/20 08:19 Room Air 21 08/24/20 08:19 Room Air 21 08/24/20 08:05 97 Room Air 21 08/24/20 08:00 Room Air Room Air 08/24/20 08:00 98.0 104 16 151/94 (113) 93 08/24/20 07:33 105 08/24/20 07:00 104 17 129/92 (104) 92 08/24/20 06:00 106 21 126/87 (100) 96 08/24/20 05:00 104 20 141/95 (110) 98 08/24/20 04:00 106 08/24/20 04:00 Nasal Cannula 2.0 Nasal Cannula 2.0 08/24/20 04:00 98.1 105 21 142/88 (106) 99 08/24/20 03:00 133 21 140/85 (103) 100 08/24/20 02:00 132 16 124/82 (96) 98 08/24/20 01:00 136 21 157/116 (130) 98 08/24/20 00:00 138 08/24/20 00:00 98.0 132 22 162/121 (135) 91 08/24/20 00:00 Nasal Cannula 2.0 Nasal Cannula 2.0 08/23/20 23:00 140 22 147/91 (109) 96 08/23/20 22:00 135 23 144/90 (108) 95 08/23/20 21:00 130 20 140/111 (121) 96 08/23/20 20:00 98.6 132 25 143/106 (118) 94 08/23/20 20:00 135 08/23/20 20:00 Nasal Cannula 2.0 Nasal Cannula 2.0 08/23/20 19:37 98 Room Air 21 08/23/20 19:00 135 18 171/98 (122) 95 08/23/20 18:30 134 18 149/107 (121) 95 08/23/20 18:00 134 20 150/120 (130) 97 08/23/20 17:30 133 20 166/109 (128) 96 08/23/20 17:00 134 20 146/127 (133) 99 08/23/20 16:30 98.3 139 21 141/99 (113) 96 08/23/20 16:06 129 08/23/20 16:00 Nasal Cannula 2.0 Nasal Cannula 2.0 08/23/20 16:00 138 23 166/103 (124) 100 08/23/20 15:30 135 26 161/102 (121) 97 08/23/20 15:00 141 18 182/125 (144) 94 08/23/20 14:30 139 18 157/118 (131) 96 08/23/20 14:00 142 18 176/96 (122) 90 08/23/20 13:30 128 22 156/89 (111) 90 08/23/20 13:00 148 20 175/113 (133) 90 08/23/20 12:30 136 20 166/95 (118) 94 08/23/20 12:00 Nasal Cannula 2.0 Nasal Cannula 2.0 08/23/20 12:00 98.3 137 21 197/144 (161) 99 08/23/20 12:00 137 08/23/20 11:30 137 23 157/115 (129) 99 08/23/20 11:00 129 23 120/98 (105) 100 08/23/20 10:00 127 19 115/89 (98) 98 08/23/20 10:00 133 23 115/89 (98) 97 Intake and Output 08/23/20 08/24/20 19:00 07:00 Intake Total 1173.50 ml 280 ml Output Total 2435 ml 150 ml Balance -1261.50 ml 130 ml Intake Oral 1000 ml 100 ml IV Total 173.50 ml 180 ml Output Urine Total 435 ml 150 ml Hemodialysis UF 2000 ml Laboratory Tests Test 08/24/20 08:30 White Blood Count 9.6 K/UL (4.8-10.8) Red Blood Count 3.37 M/UL (4.70-6.10) L Hemoglobin 10.2 G/DL (14.2-18.0) L Hematocrit 32.2 % (42.0-52.0) L Mean Corpuscular Volume 96 FL (80-99) Mean Corpuscular Hemoglobin 30.2 PG (27.0-31.0) Mean Corpuscular Hemoglobin Concent 31.6 G/DL (32.0-36.0) L Red Cell Distribution Width 15.0 % (11.6-14.8) H Platelet Count 189 K/UL (150-450) Mean Platelet Volume 6.9 FL (6.5-10.1) Neutrophils (%) (Auto) 56.9 % (45.0-75.0) Lymphocytes (%) (Auto) 23.4 % (20.0-45.0) Monocytes (%) (Auto) 16.7 % (1.0-10.0) H Eosinophils (%) (Auto) 1.5 % (0.0-3.0) Basophils (%) (Auto) 1.4 % (0.0-2.0) Sodium Level 138 MMOL/L (136-145) Potassium Level 4.2 MMOL/L (3.5-5.1) Chloride Level 101 MMOL/L (98-107) Carbon Dioxide Level 27 MMOL/L (21-32) Anion Gap 10 mmol/L (5-15) Blood Urea Nitrogen 50 mg/dL (7-18) H Creatinine 9.0 MG/DL (0.55-1.30) H Estimat Glomerular Filtration Rate 7.3 mL/min (>60) Glucose Level 98 MG/DL (74-106) Calcium Level 9.1 MG/DL (8.5-10.1) Phosphorus Level 4.6 MG/DL (2.5-4.9) Magnesium Level 2.1 MG/DL (1.8-2.4) Total Bilirubin 0.8 MG/DL (0.2-1.0) Aspartate Amino Transf (AST/SGOT) 27 U/L (15-37) Alanine Aminotransferase (ALT/SGPT) 20 U/L (12-78) Alkaline Phosphatase 68 U/L (46-116) Total Protein 6.4 G/DL (6.4-8.2) Albumin 3.3 G/DL (3.4-5.0) L Globulin 3.1 g/dL Albumin/Globulin Ratio 1.1 (1.0-2.7) Objective NECK: No JVD. LUNGS: Coarse rhonchi. CARDIOVASCULAR: Irregular tachy S1 and S2 with no gallop or murmur. ABDOMEN: Soft. EXTREMITIES: No pitting edema. Yuval Guerra MD Aug 24, 2020 09:41
--- NOTE | 2020-08-24 10:02 | Pulmonology Progress Note ---
Subjective ROS Limited/Unobtainable: No Interval Events: Doing better Constitutional: Reports: no symptoms HEENT: Repors: no symptoms Respiratory: Reports: no symptoms Cardiovascular: Reports: no symptoms Gastrointestinal/Abdominal: Reports: no symptoms Allergies: Coded Allergies: BENZOIN (Unverified Allergy, Severe, 12/28/14) AMOXICILLIN (Verified Allergy, Intermediate, 11/18/12) ABD PAIN N/V POVIDONE-IODINE (Verified Allergy, Unknown, 03/28/20) Skin peeling Objective Last 24 Hour Vital Signs Date Time Temp Pulse Resp B/P (MAP) Pulse Ox O2 Delivery O2 Flow Rate FiO2 08/24/20 09:00 70 19 107/65 (79) 97 08/24/20 08:19 Room Air 21 08/24/20 08:19 Room Air 21 08/24/20 08:05 97 Room Air 21 08/24/20 08:00 Room Air Room Air 08/24/20 08:00 98.0 104 16 151/94 (113) 93 08/24/20 07:33 105 08/24/20 07:00 104 17 129/92 (104) 92 08/24/20 06:00 106 21 126/87 (100) 96 08/24/20 05:00 104 20 141/95 (110) 98 08/24/20 04:00 106 08/24/20 04:00 Nasal Cannula 2.0 Nasal Cannula 2.0 08/24/20 04:00 98.1 105 21 142/88 (106) 99 08/24/20 03:00 133 21 140/85 (103) 100 08/24/20 02:00 132 16 124/82 (96) 98 08/24/20 01:00 136 21 157/116 (130) 98 08/24/20 00:00 138 08/24/20 00:00 98.0 132 22 162/121 (135) 91 08/24/20 00:00 Nasal Cannula 2.0 Nasal Cannula 2.0 08/23/20 23:00 140 22 147/91 (109) 96 08/23/20 22:00 135 23 144/90 (108) 95 08/23/20 21:00 130 20 140/111 (121) 96 08/23/20 20:00 98.6 132 25 143/106 (118) 94 08/23/20 20:00 135 08/23/20 20:00 Nasal Cannula 2.0 Nasal Cannula 2.0 08/23/20 19:37 98 Room Air 21 08/23/20 19:00 135 18 171/98 (122) 95 08/23/20 18:30 134 18 149/107 (121) 95 08/23/20 18:00 134 20 150/120 (130) 97 08/23/20 17:30 133 20 166/109 (128) 96 08/23/20 17:00 134 20 146/127 (133) 99 08/23/20 16:30 98.3 139 21 141/99 (113) 96 08/23/20 16:06 129 08/23/20 16:00 Nasal Cannula 2.0 Nasal Cannula 2.0 08/23/20 16:00 138 23 166/103 (124) 100 08/23/20 15:30 135 26 161/102 (121) 97 08/23/20 15:00 141 18 182/125 (144) 94 08/23/20 14:30 139 18 157/118 (131) 96 08/23/20 14:00 142 18 176/96 (122) 90 08/23/20 13:30 128 22 156/89 (111) 90 08/23/20 13:00 148 20 175/113 (133) 90 08/23/20 12:30 136 20 166/95 (118) 94 08/23/20 12:00 Nasal Cannula 2.0 Nasal Cannula 2.0 08/23/20 12:00 98.3 137 21 197/144 (161) 99 08/23/20 12:00 137 08/23/20 11:30 137 23 157/115 (129) 99 08/23/20 11:00 129 23 120/98 (105) 100 Intake and Output 08/23/20 08/24/20 19:00 07:00 Intake Total 1173.50 ml 280 ml Output Total 2435 ml 150 ml Balance -1261.50 ml 130 ml Intake Oral 1000 ml 100 ml IV Total 173.50 ml 180 ml Output Urine Total 435 ml 150 ml Hemodialysis UF 2000 ml General Appearance: no acute distress HEENT: normocephalic Respiratory: chest wall non-tender, lungs clear Cardiovascular: normal peripheral pulses, normal rate Abdomen: normal bowel sounds Laboratory Tests 08/24/20 08:30: White Blood Count 9.6, Red Blood Count 3.37L, Hemoglobin 10.2L, Hematocrit 32.2L , Mean Corpuscular Volume 96, Mean Corpuscular Hemoglobin 30.2, Mean Corpuscular Hemoglobin Concent 31.6L, Red Cell Distribution Width 15.0H, Platelet Count 189, Mean Platelet Volume 6.9, Neutrophils (%) (Auto) 56.9, Lymphocytes (%) (Auto) 23.4, Monocytes (%) (Auto) 16.7H, Eosinophils (%) (Auto) 1.5, Basophils (%) (Auto) 1.4, Sodium Level 138, Potassium Level 4.2, Chloride Level 101, Carbon Dioxide Level 27, Anion Gap 10, Blood Urea Nitrogen 50H, Creatinine 9.0H, Estimat Glomerular Filtration Rate 7.3, Glucose Level 98, Calcium Level 9.1, Phosphorus Level 4.6, Magnesium Level 2.1, Total Bilirubin 0.8, Aspartate Amino Transf (AST/SGOT) 27, Alanine Aminotransferase (ALT/SGPT) 20, Alkaline Phosphatase 68, Total Protein 6.4, Albumin 3.3L, Globulin 3.1, Albumin/Globulin Ratio 1.1 Current Medications Medications (Trade) Dose Ordered Sig/Daniel Route PRN Reason Start Time Stop Time Status Last Admin Dose Admin Amiodarone HCl (Cordarone) 400 mg EVERY 12 HOURS ORAL 08/21/20 21:00 11/19/20 20:59 08/23/20 21:00 Apixaban (Eliquis) 2.5 mg BID ORAL 08/20/20 17:00 11/18/20 17:59 08/23/20 17:02 Aspirin (Ecotrin) 81 mg DAILY ORAL 08/21/20 09:00 10/05/20 08:59 08/23/20 08:00 Calcium Acetate (Phoslo) 667 mg TID ORAL 08/20/20 18:00 11/18/20 17:59 08/23/20 14:41 Diltiazem HCl 125 ml @ 5 mls/hr Q24H IVPB 08/24/20 02:00 08/25/20 01:59 08/24/20 02:01 Diltiazem HCl (Cardizem Tab) 90 mg EVERY 6 HOURS ORAL 08/24/20 12:00 09/23/20 11:59 Docusate Sodium (Colace) 100 mg EVERY 8 HOURS ORAL 08/24/20 09:00 09/21/20 08:59 Levalbuterol HCl (Xopenex) 1.25 mg Q6H PRN HHN Shortness of Breath 08/21/20 19:45 08/26/20 19:44 Salmeterol Xinafoate/ Fluticasone (Advair 100/50 Diskus) 1 puffs DAILY INH 08/21/20 09:00 11/19/20 08:59 08/24/20 08:19 Sevelamer Carbonate (Renvela) 800 mg THREE TIMES A DAY ORAL 08/22/20 18:00 11/20/20 17:59 08/23/20 17:02 Vitamin B Complex/ Vit C/Folic Acid (Nephrovite) 1 tab DAILY ORAL 08/21/20 09:00 09/20/20 08:59 08/23/20 08:01 Assessment/Plan Assessment/Plan ASSESSMENT AND PLAN: 1. Paroxysmal atrial fibrillation. 2. Elevated troponin, 3. Hypertension. 4. End-stage renal disease, on hemodialysis. 5. Atrial fibrillation rate uncontrolled agree with ICU care. Advised tobacco cessation supplemental oxygen Cardizem drip per cardiology Continue oral agents HD yesterday Kayden Chow M.D., MD Aug 24, 2020 10:02
[2020-08-24] MEDS: Amiodarone 200mg tab ORAL SCH (10:06)
[2020-08-24] MEDS: Aspirin EC 81mg tab ORAL SCH (10:06)
[2020-08-24] MEDS: Eliquis 2.5mg tablet ORAL SCH (10:06)
[2020-08-24] MEDS: Nephrovite tab (Rena-Vite) ORAL SCH (10:06)
--- NOTE | 2020-08-24 10:15 | Nephrology Progress Note ---
Assessment/Plan Problem List: (1) ESRD (end stage renal disease) on dialysis (2) CHF exacerbation (3) Anemia in chronic kidney disease (CKD) (4) Hypertensive kidney disease (5) Elevated lipase Assessment End-stage renal disease, missed dialysis Volume overload and pulmonary edema Anemia of chronic kidney disease Hypertension History of atrial fibrillation History of congestive heart failure Elevated Lipase Plan August 24: Patient in ICU. Dialyzed yesterday. Due for dialysis tomorrow. Continue per record press supervisor. August 23: Patient remains in ICU as he is on a Cardizem drip for atrial fibrillation with fast ventricular rate. Due for dialysis today. Today's labs is pending. Continue per consultants. Discussed with CATRINA Salinas August 22: Today's labs noted suspect error will repeat. Discussed with CATRINA Salinas. Hemodialysis and ultrafiltration . It was done yesterday and 3 L ultrafiltra nelda. Optimize cardiac and pulmonary status with medication adjustment Per orders Subjective ROS Limited/Unobtainable: No Constitutional: Reports: other - Patient anxious to go home Objective Objective Last 24 Hour Vital Signs Date Time Temp Pulse Resp B/P (MAP) Pulse Ox O2 Delivery O2 Flow Rate FiO2 08/24/20 09:00 70 19 107/65 (79) 97 08/24/20 08:19 Room Air 21 08/24/20 08:19 Room Air 21 08/24/20 08:05 97 Room Air 21 08/24/20 08:00 Room Air Room Air 08/24/20 08:00 98.0 104 16 151/94 (113) 93 08/24/20 07:33 105 08/24/20 07:00 104 17 129/92 (104) 92 08/24/20 06:00 106 21 126/87 (100) 96 08/24/20 05:00 104 20 141/95 (110) 98 08/24/20 04:00 106 08/24/20 04:00 Nasal Cannula 2.0 Nasal Cannula 2.0 08/24/20 04:00 98.1 105 21 142/88 (106) 99 08/24/20 03:00 133 21 140/85 (103) 100 08/24/20 02:00 132 16 124/82 (96) 98 08/24/20 01:00 136 21 157/116 (130) 98 08/24/20 00:00 138 08/24/20 00:00 98.0 132 22 162/121 (135) 91 08/24/20 00:00 Nasal Cannula 2.0 Nasal Cannula 2.0 08/23/20 23:00 140 22 147/91 (109) 96 08/23/20 22:00 135 23 144/90 (108) 95 08/23/20 21:00 130 20 140/111 (121) 96 08/23/20 20:00 98.6 132 25 143/106 (118) 94 08/23/20 20:00 135 08/23/20 20:00 Nasal Cannula 2.0 Nasal Cannula 2.0 08/23/20 19:37 98 Room Air 21 08/23/20 19:00 135 18 171/98 (122) 95 08/23/20 18:30 134 18 149/107 (121) 95 08/23/20 18:00 134 20 150/120 (130) 97 08/23/20 17:30 133 20 166/109 (128) 96 08/23/20 17:00 134 20 146/127 (133) 99 08/23/20 16:30 98.3 139 21 141/99 (113) 96 08/23/20 16:06 129 08/23/20 16:00 Nasal Cannula 2.0 Nasal Cannula 2.0 08/23/20 16:00 138 23 166/103 (124) 100 08/23/20 15:30 135 26 161/102 (121) 97 08/23/20 15:00 141 18 182/125 (144) 94 08/23/20 14:30 139 18 157/118 (131) 96 08/23/20 14:00 142 18 176/96 (122) 90 08/23/20 13:30 128 22 156/89 (111) 90 08/23/20 13:00 148 20 175/113 (133) 90 08/23/20 12:30 136 20 166/95 (118) 94 08/23/20 12:00 Nasal Cannula 2.0 Nasal Cannula 2.0 08/23/20 12:00 98.3 137 21 197/144 (161) 99 08/23/20 12:00 137 08/23/20 11:30 137 23 157/115 (129) 99 08/23/20 11:00 129 23 120/98 (105) 100 Intake and Output 08/23/20 08/24/20 19:00 07:00 Intake Total 1173.50 ml 280 ml Output Total 2435 ml 150 ml Balance -1261.50 ml 130 ml Intake Oral 1000 ml 100 ml IV Total 173.50 ml 180 ml Output Urine Total 435 ml 150 ml Hemodialysis UF 2000 ml Current Medications Medications (Trade) Dose Ordered Sig/Daniel Route PRN Reason Start Time Stop Time Status Last Admin Dose Admin Amiodarone HCl (Cordarone) 400 mg EVERY 12 HOURS ORAL 08/21/20 21:00 11/19/20 20:59 08/23/20 21:00 Apixaban (Eliquis) 2.5 mg BID ORAL 08/20/20 17:00 11/18/20 17:59 08/23/20 17:02 Aspirin (Ecotrin) 81 mg DAILY ORAL 08/21/20 09:00 10/05/20 08:59 08/23/20 08:00 Calcium Acetate (Phoslo) 667 mg TID ORAL 08/20/20 18:00 11/18/20 17:59 08/23/20 14:41 Diltiazem HCl 125 ml @ 5 mls/hr Q24H IVPB 08/24/20 02:00 08/25/20 01:59 08/24/20 02:01 Diltiazem HCl (Cardizem Tab) 90 mg EVERY 6 HOURS ORAL 08/24/20 12:00 09/23/20 11:59 Docusate Sodium (Colace) 100 mg EVERY 8 HOURS ORAL 08/24/20 09:00 09/21/20 08:59 Levalbuterol HCl (Xopenex) 1.25 mg Q6H PRN HHN Shortness of Breath 08/21/20 19:45 08/26/20 19:44 Salmeterol Xinafoate/ Fluticasone (Advair 100/50 Diskus) 1 puffs DAILY INH 08/21/20 09:00 11/19/20 08:59 08/24/20 08:19 Sevelamer Carbonate (Renvela) 800 mg THREE TIMES A DAY ORAL 08/22/20 18:00 11/20/20 17:59 08/23/20 17:02 Vitamin B Complex/ Vit C/Folic Acid (Nephrovite) 1 tab DAILY ORAL 08/21/20 09:00 09/20/20 08:59 08/23/20 08:01 Laboratory Tests 08/24/20 08:30: White Blood Count 9.6, Red Blood Count 3.37L, Hemoglobin 10.2L, Hematocrit 32.2L , Mean Corpuscular Volume 96, Mean Corpuscular Hemoglobin 30.2, Mean Corpuscular Hemoglobin Concent 31.6L, Red Cell Distribution Width 15.0H, Platelet Count 189, Mean Platelet Volume 6.9, Neutrophils (%) (Auto) 56.9, Lymphocytes (%) (Auto) 23.4, Monocytes (%) (Auto) 16.7H, Eosinophils (%) (Auto) 1.5, Basophils (%) (Auto) 1.4, Sodium Level 138, Potassium Level 4.2, Chloride Level 101, Carbon Dioxide Level 27, Anion Gap 10, Blood Urea Nitrogen 50H, Creatinine 9.0H, Estimat Glomerular Filtration Rate 7.3, Glucose Level 98, Calcium Level 9.1, Phosphorus Level 4.6, Magnesium Level 2.1, Total Bilirubin 0.8, Aspartate Amino Transf (AST/SGOT) 27, Alanine Aminotransferase (ALT/SGPT) 20, Alkaline Phosphatase 68, Total Protein 6.4, Albumin 3.3L, Globulin 3.1, Albumin/Globulin Ratio 1.1 Height (Feet): 5 Height (Inches): 4.00 Weight (Pounds): 185 General Appearance: no apparent distress Cardiovascular: other - Variable heart rate Respiratory/Chest: decreased breath sounds Darwin Jung MD Aug 24, 2020 10:15
[2020-08-24] MEDS ORDERED: dilTIAZem HCl 90mg tab ORAL SCH (12:00)
--- NOTE | 2020-08-25 13:49 | Discharge Summary ---
Discharge Summary Discharge Summary _ DATE OF ADMISSION: 08/20/2020 DATE OF DISCHARGE:08/24/2020 Patient left AGAINST MEDICAL ADVICE REASON FOR ADMISSION: 65 years old male, with past medical history of atrial fibrillation, on Eliquis, end-stage renal disease, on hemodialysis, COPD, current smoker, presented for evaluation due to shortness of breath. Patient reported chest tightness for the past few days , which he was no longer able to relieve with albuterol inhaler at home. No fever or chills. No change in the chronic cough. Patient reported active smoking. He denied recent steroid use. He reported negative Covid test last week. He reported some pain over the entire chest wall, that was constant within the past 3 days. He missed 3 last session of hemodialysis , stating that he was too weak to go. Upon evaluation blood pressure was elevated 158/90 , otherwise vital signs were stable. Laboratory work-up revealed no leukocytosis, hemoglobin 9.4, hematocrit 30.4 ,platelet count 213. BUN 95, creatinine 15.3. Glucose 97. Electrolytes stable. Stable LFT ; lipase 834. Rapid COVID-19 was negative. Troponin 0.124, which was her baseline , pro BNP above 35,000 . EKG revealed sinus bradycardia with incomplete right bundle branch block . Chest x-ray revealed evidence of pulmonary edema , cardiomegaly, possible small bilateral pleural effusion. In emergency department patient received Lasix, nitroglycerin sublingual and topical , aspirin and admitted for further management to ICU CONSULTANTS: tuberculosis specialist Dr. Vickers pulmonary Dr. Deutsch electronics engineer Dr. Jung HOSPITAL COURSE: Patient admitted initially to ICU. Dialysis provided as per electronics engineer recommendations with close monitoring of volumes, renal parameters and electrolytes ; electrolytes corrected as needed. Echocardiogram demonstrated mildly depressed left ventricular systolic function wall motion with left ventricular ejection fraction estimated to be 50%. No evidence of pericardial effusion. Mild left ventricular hypertrophy. Right ventricular systolic pressure of 71 consistent with severe pulmonary hypertension, mild to moderate aortic regurgitation, severe mitral and tricuspid regurgitation. Delivery Driver/Supervisor closely followed. Chest pain was due to volume overload and atrial fibrillation with rapid ventricular response. Chronic low-level troponin elevation were due to renal failure. Chest pain resolved. Patient also demonstrated recurrent paroxysmal atrial fibrillation with rapid ventricular response , despite amiodarone. Amiodarone was increased . Patient was on Cardizem drip . Eliquis continued. Cardijeimy chengip tapered off, and patient started on oral Cardizem 90 mg q 6 hrs. Patient required a permanent pacemaker implantation for tachybradycardia s yndrome as he had some issues for this on the few admissions. Patient reported that he is scheduled to see tuberculosis specialist for pacemaker implantation. Patient will need a new authorization for permanent pacemaker implantation. Supplemental oxygen provided and titrated to keep oximetry above 92%. Patient was counseled on tobacco cessation. Abdominal ultrasound revealed cholelithiasis with shadowing stones in the gallbladder neck. Normal gallbladder wall thickness. No pericholecystic fluid. Diffusely echogenic liver, suggesting fatty infiltration. Simple-appearing left renal cortical cysts, largest measuring 1.4 cm. Lipase trended down : from initial 834 down to 261. Hemoglobin and hematocrit were closely monitored with goal to keep hemoglobin above 7 ; prior to signing AMA hemoglobin 10.2, hematocrit 32.2 /remained at baseline. On 08/24 patient decided to leave against medical advise. The risks and consequences of signing AGAINST MEDICAL ADVICE were discussed with patient in detail. Patient verbalized understanding, declined to sign AMA form and left. FINAL DIAGNOSES: Chest pain and chronic low-level troponin elevation (due to volume overload and A. fib with RVR) Recurrent paroxysmal atrial fibrillation with RVR Volume overload with pulmonary edema End-stage renal disease (missed 3 dialysis sessions ) Hypertensive kidney disease Congestive heart failure due to diastolic dysfunction , EF 50% Right bundle branch block and left anterior fascicular block Anemia of chronic kidney disease Elevated lipase-resolved I have been assigned to dictate discharge summary for this account. I was not involved in the patient's management. Mary Rodriguez NP Aug 25, 2020 13:49
== END 2020-08-24 11:00 | disposition left against medical advice (07) | DRG 194 ==
LOC: EMR 10:16 → 2E 12:18 → EDBEDREQ 12:53 → 2E 14:55 → ICU 08-21 18:06 → 2E 08-22 20:55 → ICU 08-23 01:36
PROC: 5A1D70Z Performance of Urinary Filtration, Intermittent, Less than 6 Hours Per Day (ICD-10-PCS; principal; 2020-08-24)
DX: I13.2 Hypertensive heart and chronic kidney disease with heart failure and with stage 5 chronic kidney disease, or end stage renal disease (principal); N18.6 End stage renal disease; Z99.2 Dependence on renal dialysis; K85.90 Acute pancreatitis without necrosis or infection, unspecified; I48.0 Paroxysmal atrial fibrillation; Z88.1 Allergy status to other antibiotic agents; I50.30 Unspecified diastolic (congestive) heart failure; Z88.8 Allergy status to other drugs, medicaments and biological substances; E66.9 Obesity, unspecified; Z91.15 Patient's noncompliance with renal dialysis; F17.200 Nicotine dependence, unspecified, uncomplicated; I27.20 Pulmonary hypertension, unspecified; I34.0 Nonrheumatic mitral (valve) insufficiency; I35.1 Nonrheumatic aortic (valve) insufficiency; I36.1 Nonrheumatic tricuspid (valve) insufficiency; I45.2 Bifascicular block; D63.1 Anemia in chronic kidney disease; R74.8 Abnormal levels of other serum enzymes; Z86.73 Personal history of transient ischemic attack (TIA), and cerebral infarction without residual deficits; J44.9 Chronic obstructive pulmonary disease, unspecified; Z59.0 Homelessness; Z79.01 Long term (current) use of anticoagulants; Z68.31 Body mass index [BMI] 31.0-31.9, adult
CPT/HCPCS: 36415; 71045; 76700; 80053; 80061; 82607; 82728; 82746; 82977; 83036; 83540; 83550; 83690; 83735; 83880; 84100; 84443; 84484; 84550; 85025; 85610; 85730; 86140; 87040; 87081; 93005; 93306; 94640; 94664; 96374; 99285; J2250; J7620; U0002

== ENCOUNTER 2020-10-07 08:08 | Inpatient (IN) | payer OTHER ==
[2020-10-07] VITALS (30 sets, daily range): BP systolic 97–155; BP diastolic 59–116
[~2020-10-07] VITALS: Ht 162.6 cm; Wt 86.2 kg
[~2020-10-07 08:08] MED LIST changes: +CARDIZEM60 MG ORAL; +METOPROLOL TART50 M1 ORAL; +PANTOPRAZOLE SO40 MG ORAL; +RENVELA800 MG ORAL
--- NOTE | 2020-10-07 08:19 | NUR ---
ED Nurse Note: Pt walked in to ED c/o SOB on exertion and generalized body weakness x couple of days. Pt missed his dialysis today, last dialysis was 2 days ago. dialysis access on left upper arm. Pt is compliant with his dialysis and medications. Pt also c/o abdominal pain. Denies n/v/d. Afebrile. Pt placed on monitoring manager. ERMD at bedside. Addendum: 10/07/20 at 1139 by MARIA ELENA ED Nurse Note: Pt was tachycardic at 140s.
--- NOTE | 2020-10-07 08:20 | NUR ---
ED Nurse Note: IV line established. Blood and Covid swab sent to lab.
[2020-10-07] MEDS ORDERED: D5W IVPB ONE (08:43)
[2020-10-07] MEDS ORDERED: DILTIAZEM HCL IVPB ONE (08:43)
[2020-10-07] MEDS ORDERED: dilTIAZem HCl 25mg/5ml Inj IVP ONE ×2 (08:45→10:30)
[2020-10-07] MEDS ORDERED: dilTIAZem Premix 125mg/125ml 125 ML IVPB ONE (08:45)
[2020-10-07] MEDS ORDERED: dilTIAZem HCl 125mg/25ml Inj IVPB ONE (09:00)
[2020-10-07 09:04] LABS: BASOPHILS % (AUTO) 1.7 % (0.0-2.0); EOSINOPHILS % (AUTO) 0.2 % (0.0-3.0); HEMATOCRIT 32.1 % (42.0-52.0); HEMOGLOBIN 10.4 G/DL (14.2-18.0); LYMPHOCYTES % (AUTO) 18.5 % (20.0-45.0); MEAN CORPUSCULAR VOLUME 97 FL (80-99); MONOCYTES % (AUTO) 14.9 % (1.0-10.0); NEUTROPHILS % (AUTO) 64.8 % (45.0-75.0); PLATELET COUNT 208 K/UL (150-450); RED BLOOD COUNT 3.32 M/UL (4.70-6.10); RED CELL DISTRIBUTION WIDTH 17.3 % (11.6-14.8); WHITE BLOOD COUNT 8.8 K/UL (4.8-10.8)
--- NOTE | 2020-10-07 09:05 | Emergency Room Report ---
History of Present Illness General Chief Complaint: Generalized Weakness Source: Patient Present Illness HPI 65-year-old male with history of atrial fibrillation on Eliquis, history of end- stage renal disease on dialysis Saturday here with several days of generalized weakness and exertional shortness of breath. Patient says that over the past several days he has been experiencing worsening exertional shortness of breath and he is now to the point where he can hardly walk more than a few feet without having to stop and catch his breath. Patient last had dialysis 2 days ago. He is due for dialysis today and did not undergoes dialysis because he came to the emergency department instead. Was recently admitted to this hospital approximately 1.5 months ago with pulmonary edema and left AGAINST MEDICAL ADVICE. He does say however that he has been compliant with his dialysis regimen and his Eliquis. At this time denies headache, vision changes, syncope, presyncope, fevers, chills, cough, chest pain, palpitations, back pain, abdominal pain, nausea, vomiting, diarrhea, dysuria. He does make a small amount of urine. Patient does continue to smoke. Allergies: Coded Allergies: BENZOIN (Unverified Allergy, Severe, 12/28/14) AMOXICILLIN (Verified Allergy, Intermediate, 11/18/12) ABD PAIN N/V POVIDONE-IODINE (Verified Allergy, Unknown, 03/28/20) Skin peeling COVID-19 Screening Contact w/high risk pt: No Recent Travel to affected area: No Experienced COVID-19 symptoms?: Yes COVID-19 symptoms experienced: Shortness of Breath, Cough COVID-19 Testing performed SHOE SINGER: Yes COVID-19 Screening: Negative COVID-19 COVID-19 Testing Source: nasal Nursing Documentation-PM Past Medical History: No History, Except For Hx Cardiac Problems: Yes - heart failure Hx Hypertension: Yes Hx Pacemaker: No Hx Asthma: Yes Hx COPD: Yes Hx Cancer: No Hx Gastrointestinal Problems: Yes Hx Dialysis: Yes - MWF Hx Neurological Problems: No Hx Cerebrovascular Accident: Yes Hx Syncope: Yes Review of Systems All Other Systems: negative except mentioned in HPI Physical Exam Vital Signs Date Time Temp Pulse Resp B/P (MAP) Pulse Ox O2 Delivery O2 Flow Rate FiO2 10/07/20 08:10 97.0 125 22 131/61 (84) 96 Room Air Sp02 EP Interpretation: reviewed, normal General Appearance: no apparent distress, alert, non-toxic Head: normocephalic, atraumatic Eyes: bilateral eye normal inspection, bilateral eye PERRL ENT: hearing grossly normal, normal pharynx, no angioedema, normal voice Neck: full range of motion, supple/symm/no masses Respiratory: chest non-tender, lungs clear, normal breath sounds, speaking full sentences Cardiovascular #1: no edema, other - Tachycardic 150 bpm irregularly irregular rhythm Cardiovascular #2: 2+ carotid (R), 2+ carotid (L), 2+ radial (R), 2+ radial (L), 2+ dorsalis pedis (R), 2+ dorsalis pedis (L) Gastrointestinal: normal bowel sounds, non tender, soft, non-distended, no guarding, no rebound Rectal: deferred Genitourinary: normal inspection, no CVA tenderness Musculoskeletal: back normal, normal range of motion, gait/station normal, non- tender Neurologic: alert, motor strength/tone normal, oriented x3, sensory intact, responsive, speech normal Psychiatric: judgement/insight normal, memory normal, mood/affect normal, no suicidal/homicidal ideation Lymphatic: no adenopathy Medical Decision Making Diagnostic Impression: Primary Impression: A-fib Additional Impressions: ESRD on dialysis Elevated troponin Pulmonary edema Volume overload Cholecystitis Transaminitis ER Course EKG: Rate 150 bpm. Irregularly irregular. Right bundle branch block. Left axis deviation., no ischemia, intervals WNL. No ectopy Rhythm strip: patient monitored for arrhythmias - no malignant dysrhythmias, runs of PVCs, nor pauses noted Chest x-ray: Chronic appearing right middle lobe infiltrate with lower lung field pulmonary edema.. Mediastinum within normal limits. . No free air under the diaphragm. No bony abnormalities Laboratory Tests Test 10/07/20 08:20 White Blood Count 8.8 K/UL (4.8-10.8) Red Blood Count 3.32 M/UL (4.70-6.10) L Hemoglobin 10.4 G/DL (14.2-18.0) L Hematocrit 32.1 % (42.0-52.0) L Mean Corpuscular Volume 97 FL (80-99) Mean Corpuscular Hemoglobin 31.3 PG (27.0-31.0) H Mean Corpuscular Hemoglobin Concent 32.4 G/DL (32.0-36.0) Red Cell Distribution Width 17.3 % (11.6-14.8) H Platelet Count 208 K/UL (150-450) Mean Platelet Volume 8.7 FL (6.5-10.1) Neutrophils (%) (Auto) 64.8 % (45.0-75.0) Lymphocytes (%) (Auto) 18.5 % (20.0-45.0) L Monocytes (%) (Auto) 14.9 % (1.0-10.0) H Eosinophils (%) (Auto) 0.2 % (0.0-3.0) Basophils (%) (Auto) 1.7 % (0.0-2.0) Sodium Level 136 MMOL/L (136-145) Potassium Level 4.7 MMOL/L (3.5-5.1) Chloride Level 99 MMOL/L (98-107) Carbon Dioxide Level 22 MMOL/L (21-32) Anion Gap 15 mmol/L (5-15) Blood Urea Nitrogen 57 mg/dL (7-18) H Creatinine 8.6 MG/DL (0.55-1.30) H Estimated Glomerular Filtration Rate 7.6 mL/min (>60) Glucose Level 116 MG/DL (74-106) H Calcium Level 8.9 MG/DL (8.5-10.1) Total Bilirubin 1.2 MG/DL (0.2-1.0) H Direct Bilirubin 0.6 MG/DL (0.0-0.3) H Aspartate Amino Transferase (AST) 316 U/L (15-37) H Alanine Aminotransferase (ALT) 310 U/L (12-78) H Alkaline Phosphatase 129 U/L (46-116) H Troponin I 0.080 ng/mL (0.000-0.056) Pro-B-Type Natriuretic Peptide 73229 pg/mL (0-125) H Total Protein 7.4 G/DL (6.4-8.2) Albumin 3.6 G/DL (3.4-5.0) Globulin 3.8 g/dL Albumin/Globulin Ratio 0.9 (1.0-2.7) L Microbiology Date/Time Source Procedure Growth Status 10/07/20 09:18 Nasopharynx SARS-CoV-2 RdRp Gene Assay - Final Complete 65-year-old male with history of end-stage renal disease on dialysis Saturday, atrial fibrillation on Eliquis here with generalized weakness. Patient was found to be in atrial fibrillation with RVR on arrival to the emergency department. His initial heart rate was in the 160s. He had a normal blood pressure throughout his stay in the emergency department. He was started on a Cardizem bolus and drip. He required a repeat bolus of Cardizem approximately 1 hour after the initial bolus as his heart rate was still in the 140s. After the second bolus the patient's heart rate improved to the 100s to 120s. Chest x-ray showed some evidence of lower pulmonary edema but this appeared improved, however the patient was not complaining of any chest pain and review of the patient's records show that he has a chronically elevated troponin, likely secondary to his end-stage renal disease. He was complaining of epigastric abdominal pain and labs revealed a new transaminitis. He does have a history of gallstones. Ultrasound of the right upper quadrant showed gallbladder wall thickening with gallstones at the gallbladder neck. This appears consistent with cholecystitis versus choledocholithiasis. Patient was given ceftriaxone and Flagyl in the emergency department. This information was relayed to the admitting physician Dr. Russ. Patient did not receive IV fluids given his apparent fluid overload on chest x-ray. Patient did not undergo his dialysis appointment yet today, however his potassium was within normal limits and EKG did not reveal any evidence of hyperkalemia. Patient to be admitted to ICU. Last Vital Signs Date Time Temp Pulse Resp B/P (MAP) Pulse Ox O2 Delivery O2 Flow Rate FiO2 10/07/20 09:02 145 110/84 10/07/20 08:10 97.0 22 96 Room Air Payam Mccauley M.D. Oct 07, 2020 09:05
[2020-10-07 09:12] LABS: CALCIUM 8.9 MG/DL (8.5-10.1); CREATININE 8.6 MG/DL (0.55-1.30); POTASSIUM 4.7 MMOL/L (3.5-5.1)
[2020-10-07 09:23] LABS: ALBUMIN 3.6 G/DL (3.4-5.0); ALBUMIN/GLOBULIN RATIO 0.9 (1.0-2.7); BILIRUBIN,TOTAL 1.2 MG/DL (0.2-1.0)
[2020-10-07 09:25] LABS: BILIRUBIN,DIRECT 0.6 MG/DL (0.0-0.3)
[2020-10-07] MEDS ORDERED: Morphine Sulfate 4mg/ml Inj (IV USE ONLY) IVP ONE (09:30)
--- NOTE | 2020-10-07 09:46 | NUR ---
ED Nurse Note: US at bedside.
--- NOTE | 2020-10-07 10:04 | NUR ---
ED Nurse Note: Pt unable to provide urine at this time. ERMD aware.
[2020-10-07] MEDS ORDERED: cefTRIAXone 1 GM in NS 55 ML IVPB ONE (10:30)
--- NOTE | 2020-10-07 12:01 | NUR ---
ED Nurse Note: Pt seen sleeping in bed. Breathing even and unlabored. Safety and comfort provided. Will cont to monitor.
--- NOTE | 2020-10-07 13:15 | Diagnostic Imaging Report ---
ABDOMINAL ULTRASOUND - COMPLETE INDICATION: . TECHNIQUE: Multiplanar ultrasound examination of the abdomen with greyscale and doppler imaging. COMPARISON: CT abdomen pelvis dated 12/28/2014 and abdominal ultrasound dated 08/20/2020 FINDINGS: Liver: The liver is enlarged. Echotexture is normal. Gallbladder: There is cholelithiasis. The gallbladder wall thickening, measuring up to 9 mm. There is trace pericholecystic fluid. Sonographic Adams sign is equivocal. Common bile duct: Normal in size. Pancreas: Pancreatic parenchyma is unremarkable. The main pancreatic duct is prominent, measuring up to 3 mm. Kidneys: Kidneys are atrophic. Left renal cysts are noted. Spleen: The spleen is normal in size and echogenicity. Aorta: The aorta is normal in caliber. Additional findings: There is small volume abdominal pelvic free fluid. There is a right pleural effusion. IMPRESSION: 1. Cholelithiasis with inflammatory changes of the gallbladder wall, which may be secondary to underlying liver dysfunction or coexisting ascites. Given the equivocal sonographic Adams sign, acute cholecystitis cannot be entirely excluded. Further evaluation with nuclear medicine HIDA scan should be considered as clinically indicated. 2. Hepatomegaly with steatosis. 3. Small volume ascites. 4. Right pleural effusion. 5. Atrophic kidneys. 6. Dilated pancreatic duct, new since prior examination, which is nonspecific but distal pancreatic obstructive process cannot be entirely excluded.
--- NOTE | 2020-10-07 13:48 | Diagnostic Imaging Report ---
Indication: Reason For Exam: SOB Technique: Single AP view of the chest. Comparison: Chest radiograph dated 08/20/2020 Findings: The cardiomediastinal silhouette is unchanged, with persistent cardiac megaly. Redemonstration of pulmonary vascular congestion. Small right pleural effusion with associated infrahilar airspace opacities. No pneumothorax. No acute osseous abnormality. IMPRESSION: 1. Moderate pulmonary edema with right infrahilar airspace opacities which could represent alveolar edema but superimposed infection should be excluded clinically. 2. Moderate cardiomegaly. 3. Small right pleural effusion.
--- NOTE | 2020-10-07 14:03 | NUR ---
TRANSFER TO FLOOR: Patient transferred to ICU via gurney, accompanied by 2 RNs. Pt AAOx4, verbally responsive. No SOB. Pt is on Cardizem drip at 12.5mg/hr. IV line on right upper arm 20g and right AC 22g patent and intact. No skin issues. All belongings sent with the patient.
--- NOTE | 2020-10-07 14:12 | NUR ---
NURSE NOTES: Report received from CATRINA Alex.
--- NOTE | 2020-10-07 14:15 | NUR ---
NURSE NOTES: Patient arrived in the unit. Patient is alert, awake, and oriented x4. Belonging list checked. Afebrile. A-fib on delivery clerk. HR 100's. On RA. Left UA AV shunt for HD. Bruits and thrills noted. IV to right UA G20 and left AC G22 patent and asymptomatic. Patient is on Cardizem drip at 12.5mg/hr. Skin is intact. Bed in lowest position. Side rails up x2. Will resume plan of care.
--- NOTE | 2020-10-07 14:53 | NUR ---
NURSE NOTES: Contacted Dr Russ for admission order and called and left a message to Dr Jung for HD order. Awaiting call back for new orders.
--- NOTE | 2020-10-07 15:20 | NUR ---
NURSE NOTES: 2Decho is being done at bedside. Patient is sleeping in bed. No signs of respiratory distress noted.
--- NOTE | 2020-10-07 16:20 | Consultation ---
Consult Note Consult Note I am asked to evaluate the patient I have request of Dr. Russ for dialysis management Patient known to me from his previous admission Patient seen in ICU. Patient is on Eliecer christensen. Discussed with RN. 65-year-old male with history of atrial fibrillation on Eliquis, history of end- stage renal disease on dialysis Saturday here with several days of generalized weakness and exertional shortness of breath. Patient says that over the past several days he has been experiencing worsening exertional shortness of breath and he is now to the point where he can hardly walk more than a few feet without having to stop and catch his breath. Patient last had dialysis 2 days ago. He is due for dialysis today and did not undergoes dialysis because he came to the emergency department instead. Was recently admitted to this hospital approximately 1.5 months ago with pulmonary edema and left AGAINST MEDICAL ADVICE. He does say however that he has been compliant with his dialysis regimen and his Eliquis. At this time denies headache, vision changes, syncope, presyncope, fevers, chills, cough, chest pain, palpitations, back pain, abdominal pain, nausea, vomiting, diarrhea, dysuria. He does make a small amount of urine. Patient does continue to smoke. IMPRESSION: 1. Moderate pulmonary edema with right infrahilar airspace opacities which could represent alveolar edema but superimposed infection should be excluded clinically. 2. Moderate cardiomegaly. 3. Small right pleural effusion. 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 HEENT: AT/NC. EOMI. PERRLA. NECK: Supple. No JVD. CHEST: Bilaterally few scattered crackles. CARDIOVASCULAR: Irregularly irregular rhythm. Tachycardia. ABDOMEN: Soft. Positive bowel sounds, nontender. : Deferred. EXTREMITIES: No edema. LABORATORY DATA: White counts are 8.8, hemoglobin 10, hematocrit 32, and platelets are 208. Chemistry panel, sodium 137, potassium 4.7, BUN 57, creatinine 8.6, and glucose 116. Troponins are 0.080. His COVID is negative. Chest and abdominal ultrasound showing cholelithiasis, inflammation of gallbladder wall which may be secondary to underlying liver dysfunction, ascites, hepatomegaly, small volume ascites, right pleural effusion, ectopic kidney, dilated pancreatic duct. . Assessment/Plan (1) ESRD (end stage renal disease) on dialysis (2) CHF exacerbation (3) Anemia in chronic kidney disease (CKD) (4) Hypertensive kidney disease (5) h/o Elevated lipase (6) History of atrial fibrillation (7) Elevated Lipase Discussed with RN Will order dialysis and ultrafiltration Monitor renal parameters and further dialysis as needed Continue per cardiology Per orders Darwin Jung MD Oct 07, 2020 16:20
--- NOTE | 2020-10-07 16:55 | NUR ---
NURSE NOTES: Notified Dr Guerra regarding STAT troponin result and 2Decho result. No new orders for now. Dr Jung here to see the patient. Updated him with patient's current condition. Doctor will enter HD order for today in the system. Will obtain consent from the patient.
--- NOTE | 2020-10-07 17:30 | NUR ---
NURSE NOTES: Dr Russ here to see the patient. Updated him with patient's current condition. Order received, noted, and carried out. Patient is eating dinner at the edge of the bed.
[2020-10-07] MEDS ORDERED: Eliquis 5mg tablet ORAL SCH (18:00)
[2020-10-07] MEDS: Metoprolol Tartrate 50mg tab ORAL SCH (18:26)
--- NOTE | 2020-10-07 18:30 | NUR ---
NURSE NOTES: Patient refused to eat renal diet. Patient is eating sandwich instead in bed. Dialysis will arrive in the unit around 8PM. Addendum: 10/07/20 at 1948 by RICKEY OMALLEY RN RN NURSE NOTES: Patient refused to eat renal diet. Patient is eating sandwich instead in bed. Dialysis will arrive in the unit around 8PM. Patient is on Cardizem drip at 10mg/hr. Afib with HR 80-100 fluctuating.
[2020-10-07] MEDS: Eliquis 2.5mg tablet ORAL SCH (18:35)
[2020-10-07] MEDS: Docusate 100mg cap ORAL SCH (18:36)
--- NOTE | 2020-10-07 19:30 | NUR ---
NURSE NOTES: Received report from Pretty Allen RN. patient in bed awake, alert oriented x4. able to verbalize needs,fears and feelings to staff. No SOB. Denies any pain or discomfort. skin warm and dry to touch. urinal at bedside. Left upper arm shunt intact with + bruit and thrill.Right Upper arm and Right AC IV line intact no s/s of infiltration infusing Cardizem drip at 10mls/hr. Instructed patient to use call light for assistance. bed alarm on. bed locked and in low position. patient will have dialysis tonight, confirmed with Dre MUKHERJEE RN. call light within easy reach.
--- NOTE | 2020-10-07 19:35 | NUR ---
NURSE HAND-OFF REPORT: Latest Vital Signs: Temperature 98.1 , Pulse 94 , B/P 149 /99 , Respiratory Rate 21 , O2 SAT 96 , Room Air, O2 Flow Rate . Vital Sign Comment: EKG Rhythm: Atrial Fibrillation Rhythm change?: N MD Notified?: - MD Response: Latest Montgomery Fall Score: 45 Fall Risk: High Risk Safety Measures: Call light Within Reach, Bed Alarm Zone 1, Side Rails Side Rails x2, Bed position Low and Locked. Fall Precautions: Yellow Socks Yellow Gown Patient Fall Education Report given to CATRINA Connelly.
--- NOTE | 2020-10-07 20:06 | NUR ---
NURSE NOTES: Dialysis nurse came.
[2020-10-07] MEDS: NovoLOG Insulin Flexpen SUBQ SCH (21:00)
--- NOTE | 2020-10-07 22:30 | History and Physical Report ---
DATE OF ADMISSION: 10/07/2020 HISTORY OF PRESENT ILLNESS: This is a 65-year-old male, who came to the emergency room for fever, cough, shortness of breath, acute respiratory failure, who was found in AFib with rapid ventricular rate. Heart rate was 160s. The patient was restarted on Cardizem drip in the ER. The patient was sent in ICU. The patient is currently in bed, still short of breath and hypoxic. PAST MEDICAL HISTORY: Significant for CHF, cardiomyopathy, hypertension, status post ICD placement about a month ago, and end-stage renal disease. SOCIAL HISTORY: No smoking. No drinking. ALLERGIES: NKA. MEDICATIONS: He is taking apixaban, Colace, Protonix, and kidney vitamins. PHYSICAL EXAMINATION: VITAL SIGNS: Blood pressure 120/76, pulse 103, respiration is 15, and saturation 99%. SKIN: Good with skin turgor. HEENT: AT/NC. EOMI. PERRLA. NECK: Supple. No JVD. CHEST: Bilaterally few scattered crackles. CARDIOVASCULAR: Irregularly irregular rhythm. Tachycardia. ABDOMEN: Soft. Positive bowel sounds, nontender. : Deferred. EXTREMITIES: No edema. LABORATORY DATA: White counts are 8.8, hemoglobin 10, hematocrit 32, and platelets are 208. Chemistry panel, sodium 137, potassium 4.7, BUN 57, creatinine 8.6, and glucose 116. Troponins are 0.080. BNP was . His COVID is negative. Chest and abdominal ultrasound showing cholelithiasis, inflammation of gallbladder wall which may be secondary to underlying liver dysfunction, ascites, hepatomegaly, small volume ascites, right pleural effusion, ectopic kidney, dilated pancreatic duct. ASSESSMENT: 1. AFib with rapid current ventricular rate. 2. Abdominal pain. 3. Fluid overload. 4. CHF. 5. Moderate pulmonary edema. 6. Cardiomyopathy. 7. Cardiac arrhythmia, status post ICD placement. 8. End-stage renal disease. PLAN: We will admit on ICU. Continue Protonix, apixaban, Colace, kidney vitamins, and calcium. Continue Cardizem drip. Cardiology and Nephrology on consult. The patient needs hemodialysis and fluid restriction. Yassine Russ M.D. DR: Dorothy JOB#: [id number] CC:
--- NOTE | 2020-10-07 23:10 | NUR ---
NURSE NOTES: HD done with 2L output. Left arm shunt dressing intact. patient in bed sleeping comfortably. HR afib 123-143. no moaning no facial grimaces. will continue plan of care.
[2020-10-08] VITALS (27 sets, daily range): BP systolic 76–170; BP diastolic 29–121
--- NOTE | 2020-10-08 00:44 | NUR ---
NURSE NOTES: Patient awake,alert sitting snacks given per patient request according to diet, turkey sandwich given ate 100% tolerated well. call light within easy reach.
--- NOTE | 2020-10-08 02:44 | NUR ---
NURSE NOTES: patient in bed sleeping comfortably. no s/s of acute distress noted. no fever. no n/v. left arm AV shunt dressing clean and dry. call light within easy reach. will continue plan of care.
--- NOTE | 2020-10-08 04:44 | NUR ---
NURSE NOTES: Patient awake,alert sitting at the edge of bed, watching TV. no SOB. No complained of pain or discomfort. talk therapy provided. encouraged patient to verbalized needs,fears and feelings to staff. patient stated " I feel safe here" per patient he leaves in assisted living but no one check on him. patient needs assistance in ADL's especially when patient feels weak, will follow up with business services manager.
[2020-10-08] MEDS: NovoLOG Insulin Flexpen SUBQ SCH ×4 (06:30→20:33)
--- NOTE | 2020-10-08 06:30 | NUR ---
NURSE NOTES: patient in bed awake,alert no s/s of acute distress. Continue on Cardizem drip at 10mls/hr HR BP 115/84, HR 102 afib. urinal at bedside. no complain of pain or discomfort. skin warm and dry to touch. no s/s of hypo/hyperglycemia. will continue plan of care.
[2020-10-08 06:59] LABS: APPEARANCE,URINE CLEAR; BILIRUBIN, URINE 1+ (NEGATIVE); GLUCOSE, URINE (UA) NEGATIVE (NEGATIVE); KETONES,URINE 1+ (NEGATIVE); LEUKOCYTE ESTERASE ,URINE 3+ (NEGATIVE); NITRITE,URINE NEGATIVE (NEGATIVE); PH,URINE 5 (4.5-8.0); PROTEIN,URINE 3+ (NEGATIVE); UROBILINOGEN,URINE 1 MG/DL (0.0-1.0)
[2020-10-08 07:09] LABS: BASOPHILS % (AUTO) 1.2 % (0.0-2.0); EOSINOPHILS % (AUTO) 0.4 % (0.0-3.0); HEMATOCRIT 29.6 % (42.0-52.0); HEMOGLOBIN 9.7 G/DL (14.2-18.0); LYMPHOCYTES % (AUTO) 22.9 % (20.0-45.0); MEAN CORPUSCULAR VOLUME 97 FL (80-99); MONOCYTES % (AUTO) 18.6 % (1.0-10.0); NEUTROPHILS % (AUTO) 56.8 % (45.0-75.0); PLATELET COUNT 161 K/UL (150-450); RED BLOOD COUNT 3.07 M/UL (4.70-6.10); RED CELL DISTRIBUTION WIDTH 17.5 % (11.6-14.8); WHITE BLOOD COUNT 6.7 K/UL (4.8-10.8)
[2020-10-08 07:10] LABS: COLOR,URINE BROWN
--- NOTE | 2020-10-08 07:20 | NUR ---
HAND-OFF: Report given to CATRINA Pike.
--- NOTE | 2020-10-08 07:21 | NUR ---
NURSE NOTES: Received patient in bed. Awake, verbal, able to make needs known. On room air. No respiratory distress. Atrial fib in the monitor 102. Denies chest pain. On cardizem drip at 10ml/hour. Bed in lowest position. Bed alarm on, call light within reach. Will continue plan of care.
--- NOTE | 2020-10-08 07:48 | NUR ---
CASE MANAGEMENT:REVIEW FROM HOME TO ER CC; WEAKNESS PMH: ESRD ON HD SI:AFIB. ELEVATED TROPONIN 97.0 125 22 131/61 96% ON RA H/H-10.4/32.1 BUN+57 CR+8.6 TBILI+1.2 DBILI+0.6 AST/ALT+316/310 TROPONIN(+) 0.080 BNP+32482 URINE(+) THC IS: IV CARDIZEM X3 CARDIZEM GTT 500CC NS BOLUS IV ROCEPHIN IV FLAGYL IV MORPHINE URINE CX ABD US CHEST XRAY : TO ICU DCP: FROM HOME W/OUTPT DIALYSIS
[2020-10-08 08:21] LABS: ALANINE AMINOTRANSFERASE 468 U/L (12-78); ALBUMIN 3.3 G/DL (3.4-5.0); ALBUMIN/GLOBULIN RATIO 0.9 (1.0-2.7); ALKALINE PHOSPHATASE 119 U/L (46-116); ANION GAP 11 mmol/L (5-15); ASPARTATE AMINO TRANSFERASE 436 U/L (15-37); BILIRUBIN,TOTAL 0.8 MG/DL (0.2-1.0); BLOOD UREA NITROGEN 39 mg/dL (7-18); CALCIUM 8.8 MG/DL (8.5-10.1); CARBON DIOXIDE 29 MMOL/L (21-32); CHLORIDE 102 MMOL/L (98-107); CREATININE 6.6 MG/DL (0.55-1.30); POTASSIUM 4.1 MMOL/L (3.5-5.1); SODIUM 142 MMOL/L (136-145)
[2020-10-08] MEDS: Docusate 100mg cap ORAL SCH ×3 (09:06→20:29)
[2020-10-08] MEDS: Eliquis 2.5mg tablet ORAL SCH ×2 (09:07→17:39)
[2020-10-08] MEDS: Metoprolol Tartrate 50mg tab ORAL SCH ×2 (09:07→20:38)
--- NOTE | 2020-10-08 10:48 | NUR ---
NURSE NOTES: Dr. Russ at bedside.
--- NOTE | 2020-10-08 10:51 | General Progress Note ---
Subjective Allergies: Coded Allergies: BENZOIN (Unverified Allergy, Severe, 12/28/14) AMOXICILLIN (Verified Allergy, Intermediate, 11/18/12) ABD PAIN N/V POVIDONE-IODINE (Verified Allergy, Unknown, 03/28/20) Skin peeling Subjective in icu on cardizam drip sob on exertion Objective Last 24 Hour Vital Signs Date Time Temp Pulse Resp B/P (MAP) Pulse Ox O2 Delivery O2 Flow Rate FiO2 10/08/20 10:00 106 24 169/111 (130) 95 10/08/20 09:07 100 170/113 10/08/20 09:02 100 170/113 10/08/20 09:00 106 21 170/113 (132) 97 10/08/20 08:00 99.0 105 19 111/71 (84) 94 10/08/20 08:00 Room Air Room Air 10/08/20 07:24 99 10/08/20 07:00 100 21 115/84 (94) 99 10/08/20 06:30 97 19 110/69 (83) 97 10/08/20 06:00 101 24 117/70 (86) 96 10/08/20 05:31 97 22 119/82 (94) 98 10/08/20 05:00 109 22 127/87 (100) 95 10/08/20 04:58 109 22 127/87 (100) 95 10/08/20 04:16 94 19 94/69 (77) 98 10/08/20 04:00 108 10/08/20 04:00 Room Air Room Air 10/08/20 04:00 98.9 108 18 76/29 (45) 98 10/08/20 03:45 121 19 128/86 (100) 97 10/08/20 03:00 113 19 108/71 (83) 99 10/08/20 02:00 113 19 108/71 (83) 10/08/20 01:30 109 18 112/65 (81) 99 10/08/20 01:00 107 24 150/121 (131) 99 10/08/20 00:30 129 19 120/64 (82) 98 10/08/20 00:00 98.0 142 20 109/77 (88) 100 10/08/20 00:00 Room Air Room Air 10/08/20 00:00 139 10/07/20 23:30 142 16 108/74 (85) 97 10/07/20 23:00 139 15 119/96 (104) 99 10/07/20 22:45 142 16 117/91 (100) 99 10/07/20 22:30 148 15 133/82 (99) 100 10/07/20 22:15 142 15 131/66 (87) 100 10/07/20 22:00 144 16 150/105 (120) 100 10/07/20 21:30 135 16 133/105 (114) 100 10/07/20 21:00 134 18 148/116 (127) 100 10/07/20 20:36 129 116/76 10/07/20 20:30 97 20 116/76 (89) 98 10/07/20 20:00 80 10/07/20 20:00 98.2 96 20 109/61 (77) 99 10/07/20 20:00 Room Air Room Air 10/07/20 19:30 91 25 118/75 (89) 10/07/20 19:00 94 21 149/99 (116) 96 10/07/20 18:30 94 19 155/114 (128) 98 10/07/20 18:00 93 21 143/106 (118) 99 10/07/20 17:30 88 18 101/67 (78) 99 10/07/20 17:00 94 21 128/78 (95) 98 10/07/20 16:30 98.1 92 18 125/72 (89) 99 10/07/20 16:00 Room Air Room Air 10/07/20 16:00 103 17 120/76 (91) 99 10/07/20 15:40 105 125/106 10/07/20 15:38 95 10/07/20 15:30 111 15 125/106 (112) 99 10/07/20 15:15 102 16 141/112 (122) 99 10/07/20 15:00 116 16 123/96 (105) 98 10/07/20 14:45 98 18 97/60 (72) 98 10/07/20 14:35 Room Air 10/07/20 14:30 92 18 134/82 (99) 99 10/07/20 14:24 110 10/07/20 14:23 97.2 119 20 105/59 (74) 97 10/07/20 14:03 97.0 102 18 114/97 96 Room Air 10/07/20 13:33 97.0 110 18 126/97 99 Room Air 10/07/20 12:00 97.0 116 19 119/85 100 Room Air 10/07/20 11:04 97.0 118 24 107/89 Room Air Intake and Output 10/07/20 10/08/20 19:00 07:00 Intake Total 220.958 ml 2384 ml Output Total 0 ml 2100 ml Balance 220.958 ml 284 ml Intake Oral 100 ml 270 ml IV Total 120.958 ml 114 ml Hemodialysis 2000 ml Output Urine Total 0 ml 100 ml Hemodialysis UF 2000 ml Laboratory Tests 10/07/20 16:05: Troponin I 0.098H 10/07/20 21:22: POC Whole Blood Glucose [Pending] 10/08/20 05:30: White Blood Count 6.7, Red Blood Count 3.07L, Hemoglobin 9.7L, Hematocrit 29.6L, Mean Corpuscular Volume 97, Mean Corpuscular Hemoglobin 31.5H, Mean Corpuscular Hemoglobin Concent 32.6, Red Cell Distribution Width 17.5H, Platelet Count 161, Mean Platelet Volume 8.0, Neutrophils (%) (Auto) 56.8, Lymphocytes (%) (Auto) 22.9, Monocytes (%) (Auto) 18.6H, Eosinophils (%) (Auto) 0.4, Basophils (%) (Auto) 1.2, Sodium Level 142, Potassium Level 4.1, Chloride Level 102, Carbon Dioxide Level 29, Anion Gap 11, Blood Urea Nitrogen 39H, Creatinine 6.6H, Estimat Glomerular Filtration Rate 10.3, Glucose Level 91, Uric Acid 5.0, Calcium Level 8.8, Phosphorus Level 5.0H, Magnesium Level 2.3, Total Bilirubin 0.8, Aspartate Amino Transf (AST/SGOT) 436H, Alanine Aminotransferase (ALT/SGPT) 468H, Alkaline Phosphatase 119H, C-Reactive Protein, Quantitative 1.7H, Pro-B-Type Natriuretic Peptide > 67232S, Total Protein 6.9, Albumin 3.3L, Globulin 3.6, Albumin/Globulin Ratio 0.9L Height (Feet): 5 Height (Inches): 4.00 Weight (Pounds): 190 General Appearance: alert EENT: PERRL/EOMI Neck: supple Cardiovascular: tachycardia, irregularly irregular Respiratory/Chest: rhonchi - bilaterally Abdomen: non tender, soft Extremities: non-tender Edema: trace edema Assessment/Plan Assessment/Plan: 1 afib with rvr on cardizam drip cardio dr malone on case 2 chf fluid restriction hd cardio and nephro on case 3 htn stable medical tx 4 cm 5 s/p icd 6 esrd on hd 7 dm 2 8 poor compleience con current tx Boogie Russ MD Oct 08, 2020 10:51
--- NOTE | 2020-10-08 11:15 | NUR ---
NURSE NOTES: Dr. Jung at bedside.
--- NOTE | 2020-10-08 12:44 | Nephrology Progress Note ---
Assessment/Plan Problem List: (1) ESRD on dialysis (2) Elevated troponin (3) Atrial fibrillation with RVR (4) Anemia in chronic kidney disease (CKD) (5) CHF exacerbation (6) Hypertensive kidney disease Assessment (1) ESRD (end stage renal disease) on dialysis (2) CHF exacerbation (3) Anemia in chronic kidney disease (CKD) (4) Hypertensive kidney disease (5) h/o Elevated lipase (6) History of atrial fibrillation (7) Elevated Lipase Plan October 08: Discussed with RN. Remains on Cardizem drip for atrial fibrillation with fast ventricular rate. Will start p.o. Cardizem. Awaiting cardiology evaluation. Keep the blood pressure in check. Next hemodialysis October 10 unless he needs it earlier. Per orders. October 07: Discussed with RN Will order dialysis and ultrafiltration Monitor renal parameters and further dialysis as needed Continue per cardiology Per orders Subjective ROS Limited/Unobtainable: No Constitutional: Reports: malaise Objective Objective Last 24 Hour Vital Signs Date Time Temp Pulse Resp B/P (MAP) Pulse Ox O2 Delivery O2 Flow Rate FiO2 10/08/20 11:00 94 19 133/104 (114) 100 10/08/20 10:00 106 24 169/111 (130) 95 10/08/20 09:07 100 170/113 10/08/20 09:02 100 170/113 10/08/20 09:00 106 21 170/113 (132) 97 10/08/20 08:00 99.0 105 19 111/71 (84) 94 10/08/20 08:00 Room Air Room Air 10/08/20 07:24 99 10/08/20 07:00 100 21 115/84 (94) 99 10/08/20 06:30 97 19 110/69 (83) 97 10/08/20 06:00 101 24 117/70 (86) 96 10/08/20 05:31 97 22 119/82 (94) 98 10/08/20 05:00 109 22 127/87 (100) 95 10/08/20 04:58 109 22 127/87 (100) 95 10/08/20 04:16 94 19 94/69 (77) 98 10/08/20 04:00 108 10/08/20 04:00 Room Air Room Air 10/08/20 04:00 98.9 108 18 76/29 (45) 98 10/08/20 03:45 121 19 128/86 (100) 97 10/08/20 03:00 113 19 108/71 (83) 99 10/08/20 02:00 113 19 108/71 (83) 10/08/20 01:30 109 18 112/65 (81) 99 10/08/20 01:00 107 24 150/121 (131) 99 10/08/20 00:30 129 19 120/64 (82) 98 10/08/20 00:00 98.0 142 20 109/77 (88) 100 10/08/20 00:00 Room Air Room Air 10/08/20 00:00 139 10/07/20 23:30 142 16 108/74 (85) 97 10/07/20 23:00 139 15 119/96 (104) 99 10/07/20 22:45 142 16 117/91 (100) 99 10/07/20 22:30 148 15 133/82 (99) 100 10/07/20 22:15 142 15 131/66 (87) 100 10/07/20 22:00 144 16 150/105 (120) 100 10/07/20 21:30 135 16 133/105 (114) 100 10/07/20 21:00 134 18 148/116 (127) 100 10/07/20 20:36 129 116/76 10/07/20 20:30 97 20 116/76 (89) 98 10/07/20 20:00 80 10/07/20 20:00 98.2 96 20 109/61 (77) 99 10/07/20 20:00 Room Air Room Air 10/07/20 19:30 91 25 118/75 (89) 10/07/20 19:00 94 21 149/99 (116) 96 10/07/20 18:30 94 19 155/114 (128) 98 10/07/20 18:00 93 21 143/106 (118) 99 10/07/20 17:30 88 18 101/67 (78) 99 10/07/20 17:00 94 21 128/78 (95) 98 10/07/20 16:30 98.1 92 18 125/72 (89) 99 10/07/20 16:00 Room Air Room Air 10/07/20 16:00 103 17 120/76 (91) 99 10/07/20 15:40 105 125/106 10/07/20 15:38 95 10/07/20 15:30 111 15 125/106 (112) 99 10/07/20 15:15 102 16 141/112 (122) 99 10/07/20 15:00 116 16 123/96 (105) 98 10/07/20 14:45 98 18 97/60 (72) 98 10/07/20 14:35 Room Air 10/07/20 14:30 92 18 134/82 (99) 99 10/07/20 14:24 110 10/07/20 14:23 97.2 119 20 105/59 (74) 97 10/07/20 14:03 97.0 102 18 114/97 96 Room Air 10/07/20 13:33 97.0 110 18 126/97 99 Room Air Intake and Output 10/07/20 10/08/20 19:00 07:00 Intake Total 220.958 ml 2384 ml Output Total 0 ml 2100 ml Balance 220.958 ml 284 ml Intake Oral 100 ml 270 ml IV Total 120.958 ml 114 ml Hemodialysis 2000 ml Output Urine Total 0 ml 100 ml Hemodialysis UF 2000 ml Current Medications Medications (Trade) Dose Ordered Sig/Daniel Route PRN Reason Start Time Stop Time Status Last Admin Dose Admin Apixaban (Eliquis) 2.5 mg BID ORAL 10/07/20 18:00 01/05/21 17:59 10/08/20 09:07 Calcium Acetate (Phoslo) 667 mg TID ORAL 10/07/20 18:00 01/05/21 17:59 10/08/20 09:07 Dextrose (Dextrose 50%) 25 ml Q30M PRN IV Hypoglycemia 10/07/20 17:30 01/05/21 17:29 Dextrose (Dextrose 50%) 50 ml Q30M PRN IV Hypoglycemia 10/07/20 17:30 01/05/21 17:29 Diltiazem HCl 125 mg/Dextrose 125 ml @ 10 mls/hr Q12HR IVPB 10/07/20 21:00 10/08/20 20:59 10/08/20 09:02 Docusate Sodium (Colace) 100 mg THREE TIMES A DAY ORAL 10/07/20 18:00 11/06/20 17:59 12/12/20 09:06 Insulin Aspart (NovoLOG) BEFORE MEALS AND HS SUBQ 10/07/20 21:00 01/05/21 20:59 Metoprolol Tartrate (Lopressor) 50 mg Q12HR ORAL 10/07/20 21:00 01/05/21 20:59 10/08/20 09:07 Pantoprazole (Protonix) 40 mg DAILY ORAL 10/08/20 09:00 11/07/20 08:59 10/08/20 09:06 Sevelamer Carbonate (Renvela) 1,600 mg THREE TIMES A DAY ORAL 10/07/20 18:00 01/05/21 17:59 10/08/20 09:07 Laboratory Tests 10/07/20 16:05: Troponin I 0.098H 10/07/20 21:22: POC Whole Blood Glucose [Pending] 10/08/20 05:30: White Blood Count 6.7, Red Blood Count 3.07L, Hemoglobin 9.7L, Hematocrit 29.6L, Mean Corpuscular Volume 97, Mean Corpuscular Hemoglobin 31.5H, Mean Corpuscular Hemoglobin Concent 32.6, Red Cell Distribution Width 17.5H, Platelet Count 161, Mean Platelet Volume 8.0, Neutrophils (%) (Auto) 56.8, Lymphocytes (%) (Auto) 22.9, Monocytes (%) (Auto) 18.6H, Eosinophils (%) (Auto) 0.4, Basophils (%) (Auto) 1.2, Sodium Level 142, Potassium Level 4.1, Chloride Level 102, Carbon Dioxide Level 29, Anion Gap 11, Blood Urea Nitrogen 39H, Creatinine 6.6H, Estimat Glomerular Filtration Rate 10.3, Glucose Level 91, Uric Acid 5.0, Calcium Level 8.8, Phosphorus Level 5.0H, Magnesium Level 2.3, Total Bilirubin 0.8, Aspartate Amino Transf (AST/SGOT) 436H, Alanine Aminotransferase (ALT/SGPT) 468H, Alkaline Phosphatase 119H, C-Reactive Protein, Quantitative 1.7H, Pro-B-Type Natriuretic Peptide > 44503Y, Total Protein 6.9, Albumin 3.3L, Glob ulin 3.6, Albumin/Globulin Ratio 0.9L 10/08/20 11:46: POC Whole Blood Glucose 138H Height (Feet): 5 Height (Inches): 4.00 Weight (Pounds): 190 General Appearance: no apparent distress Cardiovascular: tachycardia, arrhythmia Respiratory/Chest: decreased breath sounds Abdomen: distended Darwin Jung MD Oct 08, 2020 12:44
[2020-10-08 13:00] LABS: CHOLESTEROL 97 MG/DL (< 200); HDL CHOLESTEROL 39 MG/DL (40-60); TRIGLYCERIDES 73 MG/DL (30-150)
[2020-10-08] MEDS: dilTIAZem HCl 60mg tab ORAL SCH ×3 (13:16→23:09)
--- NOTE | 2020-10-08 16:19 | Cardiac Electrophysiology PN ---
Assessment/Plan Assessment/Plan 1. Chest pain and chronic low level troponin elevation. Due to volume overload and atrial fib with RVR. The troponin elevation is due to renal failure. Currently, he does not have any chest pain. EF 50% 2. Recurrent Paroxysmal atrial fibrillation with RVR despite Amiodarone 400 bid last month Resume Amiodarone 400 bid and change iv Cardizem to Cardizem 60 tid and Metoprolol 50 bid On Eliquis 2.5 bid. 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 In the previous admission, also had atrial fibrillation with rapid ventricular response with heart rate up to 200 Need insurance Auth for PPM implant 3. Hypertension, On hemodialysis 4. Congestive heart failure due to diastolic dysfunction. EF 50% 5. Right bundle-branch block and left anterior fascicular block. 6. ESRD on HD per Dr Erich SHEA RN Subjective Subjective Readmitted with Atrial fib with RVR and transferred to ICU on Cardizem drip at 10 mg/hr. Objective Last 24 Hour Vital Signs Date Time Temp Pulse Resp B/P (MAP) Pulse Ox O2 Delivery O2 Flow Rate FiO2 10/08/20 15:00 104 28 118/75 (89) 100 10/08/20 14:00 109 25 117/74 (88) 99 10/08/20 13:16 104 117/68 10/08/20 13:00 104 25 117/68 (84) 10/08/20 12:00 98.9 89 23 142/103 (116) 98 10/08/20 12:00 Room Air Room Air 10/08/20 11:31 104 10/08/20 11:00 94 19 133/104 (114) 100 10/08/20 10:00 106 24 169/111 (130) 95 10/08/20 09:07 100 170/113 10/08/20 09:02 100 170/113 10/08/20 09:00 106 21 170/113 (132) 97 10/08/20 08:00 99.0 105 19 111/71 (84) 94 10/08/20 08:00 Room Air Room Air 10/08/20 07:24 99 10/08/20 07:00 100 21 115/84 (94) 99 10/08/20 06:30 97 19 110/69 (83) 97 10/08/20 06:00 101 24 117/70 (86) 96 10/08/20 05:31 97 22 119/82 (94) 98 10/08/20 05:00 109 22 127/87 (100) 95 10/08/20 04:58 109 22 127/87 (100) 95 10/08/20 04:16 94 19 94/69 (77) 98 10/08/20 04:00 108 10/08/20 04:00 Room Air Room Air 10/08/20 04:00 98.9 108 18 76/29 (45) 98 10/08/20 03:45 121 19 128/86 (100) 97 10/08/20 03:00 113 19 108/71 (83) 99 10/08/20 02:00 113 19 108/71 (83) 10/08/20 01:30 109 18 112/65 (81) 99 10/08/20 01:00 107 24 150/121 (131) 99 10/08/20 00:30 129 19 120/64 (82) 98 10/08/20 00:00 98.0 142 20 109/77 (88) 100 10/08/20 00:00 Room Air Room Air 10/08/20 00:00 139 10/07/20 23:30 142 16 108/74 (85) 97 10/07/20 23:00 139 15 119/96 (104) 99 10/07/20 22:45 142 16 117/91 (100) 99 10/07/20 22:30 148 15 133/82 (99) 100 10/07/20 22:15 142 15 131/66 (87) 100 10/07/20 22:00 144 16 150/105 (120) 100 10/07/20 21:30 135 16 133/105 (114) 100 10/07/20 21:00 134 18 148/116 (127) 100 10/07/20 20:36 129 116/76 10/07/20 20:30 97 20 116/76 (89) 98 10/07/20 20:00 80 10/07/20 20:00 98.2 96 20 109/61 (77) 99 10/07/20 20:00 Room Air Room Air 10/07/20 19:30 91 25 118/75 (89) 10/07/20 19:00 94 21 149/99 (116) 96 10/07/20 18:30 94 19 155/114 (128) 98 10/07/20 18:00 93 21 143/106 (118) 99 10/07/20 17:30 88 18 101/67 (78) 99 10/07/20 17:00 94 21 128/78 (95) 98 10/07/20 16:30 98.1 92 18 125/72 (89) 99 Intake and Output 10/07/20 10/08/20 19:00 07:00 Intake Total 220.958 ml 2384 ml Output Total 0 ml 2100 ml Balance 220.958 ml 284 ml Intake Oral 100 ml 270 ml IV Total 120.958 ml 114 ml Hemodialysis 2000 ml Output Urine Total 0 ml 100 ml Hemodialysis UF 2000 ml Laboratory Tests Test 10/07/20 21:22 10/08/20 05:30 10/08/20 11:46 POC Whole Blood Glucose Pending 138 MG/DL (74-106) H White Blood Count 6.7 K/UL (4.8-10.8) Red Blood Count 3.07 M/UL (4.70-6.10) L Hemoglobin 9.7 G/DL (14.2-18.0) L Hematocrit 29.6 % (42.0-52.0) L Mean Corpuscular Volume 97 FL (80-99) Mean Corpuscular Hemoglobin 31.5 PG (27.0-31.0) H Mean Corpuscular Hemoglobin Concent 32.6 G/DL (32.0-36.0) Red Cell Distribution Width 17.5 % (11.6-14.8) H Platelet Count 161 K/UL (150-450) Mean Platelet Volume 8.0 FL (6.5-10.1) Neutrophils (%) (Auto) 56.8 % (45.0-75.0) Lymphocytes (%) (Auto) 22.9 % (20.0-45.0) Monocytes (%) (Auto) 18.6 % (1.0-10.0) H Eosinophils (%) (Auto) 0.4 % (0.0-3.0) Basophils (%) (Auto) 1.2 % (0.0-2.0) Sodium Level 142 MMOL/L (136-145) Potassium Level 4.1 MMOL/L (3.5-5.1) Chloride Level 102 MMOL/L (98-107) Carbon Dioxide Level 29 MMOL/L (21-32) Anion Gap 11 mmol/L (5-15) Blood Urea Nitrogen 39 mg/dL (7-18) H Creatinine 6.6 MG/DL (0.55-1.30) H Estimat Glomerular Filtration Rate 10.3 mL/min (>60) Glucose Level 91 MG/DL (74-106) Uric Acid 5.0 MG/DL (2.6-7.2) Calcium Level 8.8 MG/DL (8.5-10.1) Phosphorus Level 5.0 MG/DL (2.5-4.9) H Magnesium Level 2.3 MG/DL (1.8-2.4) Total Bilirubin 0.8 MG/DL (0.2-1.0) Aspartate Amino Transf (AST/SGOT) 436 U/L (15-37) H Alanine Aminotransferase (ALT/SGPT) 468 U/L (12-78) H Alkaline Phosphatase 119 U/L (46-116) H C-Reactive Protein, Quantitative 1.7 mg/dL (0.00-0.90) H Pro-B-Type Natriuretic Peptide > 84551 pg/mL (0-125) H Total Protein 6.9 G/DL (6.4-8.2) Albumin 3.3 G/DL (3.4-5.0) L Globulin 3.6 g/dL Albumin/Globulin Ratio 0.9 (1.0-2.7) L Triglycerides Level 73 MG/DL (30-150) Cholesterol Level 97 MG/DL (< 200) LDL Cholesterol 39 mg/dL (<100) HDL Cholesterol 39 MG/DL (40-60) L Cholesterol/HDL Ratio 2.5 (3.3-4.4) L Lipase 220 U/L (73-393) Microbiology Date/Time Source Procedure Growth Status 10/07/20 09:18 Nasopharynx SARS-CoV-2 RdRp Gene Assay - Final Complete Objective NECK: No JVD. LUNGS: Coarse rhonchi. CARDIOVASCULAR: Irregular tachy S1 and S2 with no gallop or murmur. ABDOMEN: Soft. EXTREMITIES: No pitting edema. Yuval Guerra MD Oct 08, 2020 16:19
--- NOTE | 2020-10-08 19:10 | NUR ---
NURSE NOTES: Received report from Lisa Pike, pt. in bed awake, A/O x's4- able to make needs known- no signs or symptoms of acute cardiac or respiratory distress noted, bed alarm on, side rails up x's 3 and safety brakes engaged, pt. appears to be sating well on room air- no distress noted, pt. aware to ask for assist if ambulating, call light within easy reach, urinal at bed side and within easy reach, pt. has LUCINDA shunt for HD- intact and dry, WENDY 20G IV intact and patent, safety measures continued, will continue with plan of care.
--- NOTE | 2020-10-08 19:30 | NUR ---
TRANSFER TO FLOOR: Patient transferred to Telemetry room 211-2, per Dr. Russ. Report given to Pradeep jean RN. Belongings and medications given to Pradeep Jean RN. Patient remains room air. 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 Room air. No respiratory distress. No chest pain.
[2020-10-08] MEDS: Amiodarone 200mg tab ORAL SCH (20:38)
--- NOTE | 2020-10-08 22:11 | NUR ---
NURSE NOTES: pt. complaining of itching near left upper arm shunt area- asking for Benadryl- called DR. Russ and left message- awaiting for call back from doctor.
--- NOTE | 2020-10-08 22:33 | NUR ---
NURSE NOTES: 2nd message left for DR. Russ as pt. complaining of itching and stating he will go AMA if doctor does not return call.
--- NOTE | 2020-10-08 22:49 | NUR ---
NURSE NOTES: 3rnd message left for DR. Russ as pt. complaining of itching and stating he will go AMA if doctor does not return call. Also left message with Alfreda at exchange regarding pt. asking to have doctor paged.
--- NOTE | 2020-10-08 22:58 | NUR ---
NURSE NOTES: 4th message left for DR. Russ- awaiting for call back from doctor.
[2020-10-09] VITALS (7 sets, daily range): BP systolic 93–147; BP diastolic 63–81
--- NOTE | 2020-10-09 00:09 | NUR ---
NURSE NOTES: 5th message left for DR. Russ pt. requesting Benadryl and Zofran for nausea symptoms- awaiting for call back from doctor.
--- NOTE | 2020-10-09 00:15 | NUR ---
NURSE NOTES: left message for Dr. Lombardo for orders for Benadryl and anti- nausea medication that pt. is asking for- awaiting for call back from doctor.
--- NOTE | 2020-10-09 00:58 | NUR ---
NURSE NOTES: orders given by DR. Lombardo- for Benadryl and Zofran- orders verified and carried out.
[2020-10-09] MEDS: dilTIAZem HCl 60mg tab ORAL SCH ×3 (05:23→21:44)
[2020-10-09] MEDS: NovoLOG Insulin Flexpen SUBQ SCH ×4 (05:30→21:00)
--- NOTE | 2020-10-09 07:18 | NUR ---
NURSE HAND-OFF REPORT: Important Events on Shift:itching and nausea- now resolved Patient Status: stable Diet: Renal diet Pending Orders: Pending Results/Labs: Pending MD notification: Latest Vital Signs: Temperature 97.9 , Pulse 70 , B/P 119 /80 , Respiratory Rate 18 , O2 SAT 98 , Room Air, O2 Flow Rate . Vital Sign Comment: EKG Rhythm: Atrial Fibrillation Rhythm change?: N MD Notified?: N - MD Response: Latest Montgomery Fall Score: 45 Fall Risk: High Risk Safety Measures: Call light Within Reach, Bed Alarm Zone 1, Side Rails Side Rails x2, Bed position Low and Locked. Fall Precautions: Yellow Socks Door Sign Patient Fall Education Report given to Jose Cruz RN, pt. remains stable and no signs of distress noted. aware to f/u on any abnormal am labs.
--- NOTE | 2020-10-09 07:40 | NUR ---
NURSE NOTES: Received report from CATRINA Fernández, pt. in bed A/A/Ox4. able to verbalize needs. having breakfast on the side of the bed. no signs or symptoms of acute cardiac-respiratory distress noted. appears to be satting well on RA. bed alarm on, side rails upx2 and safety brakes engaged. pt. is instructed to call for assistance when ambulating, call light within easy reach, urinal at bed side and within easy reach, pt. has LUCINDA shunt for HD-bruit and thrill present. skin is intact and dry, WENDY 20G IV access intact and patent, safety measures continued, will continue with plan of care.
[2020-10-09] MEDS: Metoprolol Tartrate 50mg tab ORAL SCH ×2 (08:20→21:44)
[2020-10-09] MEDS: Eliquis 2.5mg tablet ORAL SCH ×2 (08:21→17:20)
[2020-10-09] MEDS: Docusate 100mg cap ORAL SCH ×2 (08:21→21:00)
[2020-10-09] MEDS: Amiodarone 200mg tab ORAL SCH ×2 (08:21→15:15)
[2020-10-09 09:42] LABS: HEMATOCRIT 29.6 % (42.0-52.0); HEMOGLOBIN 9.7 G/DL (14.2-18.0); MEAN CORPUSCULAR VOLUME 98 FL (80-99); PLATELET COUNT 152 K/UL (150-450); RED BLOOD COUNT 3.03 M/UL (4.70-6.10); RED CELL DISTRIBUTION WIDTH 19.2 % (11.6-14.8); WHITE BLOOD COUNT 9.6 K/UL (4.8-10.8)
--- NOTE | 2020-10-09 10:00 | NUR ---
NURSE NOTES: Called [facility] and spoke with Hiral for HD tomorrow, 10/10. YAZ Erickson nurse confirmed. will cont to monitor.
[2020-10-09 10:14] LABS: ALBUMIN 3.3 G/DL (3.4-5.0); ALBUMIN/GLOBULIN RATIO 0.9 (1.0-2.7); CALCIUM 8.2 MG/DL (8.5-10.1); CREATININE 8.3 MG/DL (0.55-1.30); PHOSPHORUS 5.9 MG/DL (2.5-4.9); POTASSIUM 4.7 MMOL/L (3.5-5.1)
--- NOTE | 2020-10-09 12:06 | NUR ---
NURSE NOTES: Made Dr Guerra aware of the HR 53-55 on monitor and palpation and change in patient's condition. await for a call back. will cont to monitor.
--- NOTE | 2020-10-09 14:47 | Nephrology Progress Note ---
Assessment/Plan Problem List: (1) ESRD on dialysis (2) Elevated troponin (3) Atrial fibrillation with RVR (4) Anemia in chronic kidney disease (CKD) (5) CHF exacerbation (6) Hypertensive kidney disease Assessment (1) ESRD (end stage renal disease) on dialysis (2) CHF exacerbation (3) Anemia in chronic kidney disease (CKD) (4) Hypertensive kidney disease (5) h/o Elevated lipase (6) History of atrial fibrillation (7) Elevated Lipase Plan October 09: Discussed with patient. Patient anxious to go home. Of Cardizem drip. Due for dialysis tomorrow. Dialysis ordered. Continue per cardiology. Labs and medication list reviewed. October 08: Discussed with RN. Remains on Cardizem drip for atrial fibrill ation with fast ventricular rate. Will start p.o. Cardizem. Awaiting cardiology evaluation. Keep the blood pressure in check. Next hemodialysis October 10 unless he needs it earlier. Per orders. October 07: Discussed with RN Will order dialysis and ultrafiltration Monitor renal parameters and further dialysis as needed Continue per cardiology Per orders Subjective ROS Limited/Unobtainable: No Objective Objective Last 24 Hour Vital Signs Date Time Temp Pulse Resp B/P (MAP) Pulse Ox O2 Delivery O2 Flow Rate FiO2 10/09/20 12:00 54 10/09/20 11:23 55 106/69 10/09/20 11:23 97.9 55 16 106/69 (81) 100 10/09/20 09:00 Room Air Room Air 10/09/20 08:20 61 118/70 10/09/20 08:00 61 10/09/20 08:00 97.5 61 18 118/70 (86) 94 10/09/20 05:23 70 119/80 10/09/20 05:19 70 18 119/80 (93) 98 10/09/20 04:00 97.9 69 18 103/72 (82) 98 10/09/20 03:57 69 10/09/20 00:00 97.2 76 18 109/63 (78) 99 10/08/20 23:53 75 10/08/20 23:09 71 106/78 10/08/20 21:00 Room Air Room Air 10/08/20 20:54 Room Air Room Air 10/08/20 20:38 71 127/67 10/08/20 20:08 104 10/08/20 20:00 96.3 71 18 127/67 (87) 99 10/08/20 18:00 106 19 133/83 (100) 97 10/08/20 17:39 94 131/93 10/08/20 17:00 94 28 131/93 (106) 100 10/08/20 16:20 98 10/08/20 16:00 Room Air Room Air 10/08/20 16:00 98.5 110 18 123/102 (109) 99 10/08/20 15:00 104 28 118/75 (89) 100 Intake and Output 10/08/20 10/09/20 19:00 07:00 Intake Total 359.67 ml Output Total 0 ml 75 ml Balance 359.67 ml -75 ml Intake Oral 260 ml IV Total 99.67 ml Output Urine Total 0 ml 75 ml # Bowel Movements 2 Current Medications Medications (Trade) Dose Ordered Sig/Daniel Route PRN Reason Start Time Stop Time Status Last Admin Dose Admin Amiodarone HCl (Cordarone) 400 mg EVERY 12 HOURS ORAL 10/08/20 21:00 01/06/21 20:59 10/09/20 08:21 Apixaban (Eliquis) 2.5 mg BID ORAL 10/07/20 18:00 01/05/21 17:59 10/09/20 08:21 Calcium Acetate (Phoslo) 667 mg TID ORAL 10/07/20 18:00 01/05/21 17:59 10/09/20 08:21 Dextrose (Dextrose 50%) 25 ml Q30M PRN IV Hypoglycemia 10/07/20 17:30 01/05/21 17:29 Dextrose (Dextrose 50%) 50 ml Q30M PRN IV Hypoglycemia 10/07/20 17:30 01/05/21 17:29 Diltiazem HCl (Cardizem Tab) 60 mg Q6HR ORAL 10/08/20 12:45 11/07/20 12:44 10/09/20 05:23 Diphenhydramine HCl (Benadryl) 25 mg Q4H PRN ORAL Itching 10/09/20 01:00 11/08/20 00:59 10/09/20 01:08 Docusate Sodium (Colace) 100 mg EVERY 12 HOURS ORAL 10/08/20 21:00 11/06/20 17:59 Insulin Aspart (NovoLOG) BEFORE MEALS AND HS SUBQ 10/07/20 21:00 01/05/21 20:59 Metoprolol Tartrate (Lopressor) 50 mg Q12HR ORAL 10/07/20 21:00 01/05/21 20:59 10/09/20 08:20 Ondansetron HCl (Zofran) 4 mg Q6H PRN IVP Nausea & Vomiting 10/09/20 01:00 11/08/20 00:59 10/09/20 01:08 Pantoprazole (Protonix) 40 mg DAILY ORAL 10/08/20 09:00 11/07/20 08:59 10/09/20 08:21 Sevelamer Carbonate (Renvela) 1,600 mg THREE TIMES A DAY ORAL 10/07/20 18:00 01/05/21 17:59 10/08/20 09:07 Laboratory Tests 10/09/20 07:12: White Blood Count 9.6, Red Blood Count 3.03L, Hemoglobin 9.7L, Hematocrit 29.6L, Mean Corpuscular Volume 98, Mean Corpuscular Hemoglobin 32.0H, Mean Corpuscular Hemoglobin Concent 32.8, Red Cell Distribution Width 19.2H, Platelet Count 152, Mean Platelet Volume 8.7, Neutrophils (%) (Auto) , Lymphocytes (%) (Auto) , Monocytes (%) (Auto) , Eosinophils (%) (Auto) , Basophils (%) (Auto) , Differential Total Cells Counted 100, Neutrophils % (Manual) 56, Lymphocytes % (Manual) 26, Monocytes % (Manual) 18H, Eosinophils % (Manual) 0, Basophils % (Manual) 0, Band Neutrophils 0, Nucleated Red Blood Cells 2, Platelet Estimate Adequate, Platelet Morphology Normal, Polychromasia 1+, Hypochromasia 1+, Anisocytosis 2+, Macrocytosis 1+, Sodium Level 138, Potassium Level 4.7, Chloride Level 98, Carbon Dioxide Level 26, Anion Gap 14, Blood Urea Nitrogen 5 4H, Creatinine 8.3H, Estimat Glomerular Filtration Rate 7.9, Glucose Level 73L, Calcium Level 8.2L, Phosphorus Level 5.9H, Total Bilirubin 1.0, Aspartate Amino Transf (AST/SGOT) 349H, Alanine Aminotransferase (ALT/SGPT) 453H, Alkaline Ph osphatase 125H, Total Protein 7.1, Albumin 3.3L, Globulin 3.8, Albumin/Globulin Ratio 0.9L, Thyroid Stimulating Hormone (TSH) 1.651 Height (Feet): 5 Height (Inches): 4.00 Weight (Pounds): 190 Cardiovascular: bradycardia, arrhythmia Respiratory/Chest: decreased breath sounds Abdomen: soft Darwin Jung MD Oct 09, 2020 14:47
--- NOTE | 2020-10-09 15:09 | Cardiac Electrophysiology PN ---
Assessment/Plan Assessment/Plan 1. Chest pain and chronic low level troponin elevation. Due to volume overload and atrial fib with RVR. The troponin elevation is due to renal failure. Currently, he does not have any chest pain. EF 50% 2. Recurrent Paroxysmal atrial fibrillation with RVR despite Amiodarone 400 bid last month Decrease Amiodarone to 200 daily and continue Cardizem 60 tid and Metoprolol 50 bid On Eliquis 2.5 bid. 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 Hypertension, On hemodialysis 4. Congestive heart failure due to diastolic dysfunction. EF 50% 5. Right bundle-branch block and left anterior fascicular block. 6. ESRD on HD per Dr Erich SHEA RN Subjective Subjective Readmitted with Atrial fib with RVR and transferred to ICU on Cardizem drip at 10 mg/hr. Now off Cardizem drip on tele in sinus mimi in 40s Objective Last 24 Hour Vital Signs Date Time Temp Pulse Resp B/P (MAP) Pulse Ox O2 Delivery O2 Flow Rate FiO2 10/09/20 12:00 54 10/09/20 11:23 55 106/69 10/09/20 11:23 97.9 55 16 106/69 (81) 100 10/09/20 09:00 Room Air Room Air 10/09/20 08:20 61 118/70 10/09/20 08:00 61 10/09/20 08:00 97.5 61 18 118/70 (86) 94 10/09/20 05:23 70 119/80 10/09/20 05:19 70 18 119/80 (93) 98 10/09/20 04:00 97.9 69 18 103/72 (82) 98 10/09/20 03:57 69 10/09/20 00:00 97.2 76 18 109/63 (78) 99 10/08/20 23:53 75 10/08/20 23:09 71 106/78 10/08/20 21:00 Room Air Room Air 10/08/20 20:54 Room Air Room Air 10/08/20 20:38 71 127/67 10/08/20 20:08 104 10/08/20 20:00 96.3 71 18 127/67 (87) 99 10/08/20 18:00 106 19 133/83 (100) 97 10/08/20 17:39 94 131/93 10/08/20 17:00 94 28 131/93 (106) 100 10/08/20 16:20 98 10/08/20 16:00 Room Air Room Air 10/08/20 16:00 98.5 110 18 123/102 (109) 99 Intake and Output 10/08/20 10/09/20 19:00 07:00 Intake Total 359.67 ml Output Total 0 ml 75 ml Balance 359.67 ml -75 ml Intake Oral 260 ml IV Total 99.67 ml Output Urine Total 0 ml 75 ml # Bowel Movements 2 Laboratory Tests Test 10/09/20 07:12 White Blood Count 9.6 K/UL (4.8-10.8) Red Blood Count 3.03 M/UL (4.70-6.10) L Hemoglobin 9.7 G/DL (14.2-18.0) L Hematocrit 29.6 % (42.0-52.0) L Mean Corpuscular Volume 98 FL (80-99) Mean Corpuscular Hemoglobin 32.0 PG (27.0-31.0) H Mean Corpuscular Hemoglobin Concent 32.8 G/DL (32.0-36.0) Red Cell Distribution Width 19.2 % (11.6-14.8) H Platelet Count 152 K/UL (150-450) Mean Platelet Volume 8.7 FL (6.5-10.1) Neutrophils (%) (Auto) % (45.0-75.0) Lymphocytes (%) (Auto) % (20.0-45.0) Monocytes (%) (Auto) % (1.0-10.0) Eosinophils (%) (Auto) % (0.0-3.0) Basophils (%) (Auto) % (0.0-2.0) Differential Total Cells Counted 100 Neutrophils % (Manual) 56 % (45-75) Lymphocytes % (Manual) 26 % (20-45) Monocytes % (Manual) 18 % (1-10) H Eosinophils % (Manual) 0 % (0-3) Basophils % (Manual) 0 % (0-2) Band Neutrophils 0 % (0-8) Nucleated Red Blood Cells 2 /100 WBC Platelet Estimate Adequate Platelet Morphology Normal Polychromasia 1+ Hypochromasia 1+ Anisocytosis 2+ Macrocytosis 1+ Sodium Level 138 MMOL/L (136-145) Potassium Level 4.7 MMOL/L (3.5-5.1) Chloride Level 98 MMOL/L (98-107) Carbon Dioxide Level 26 MMOL/L (21-32) Anion Gap 14 mmol/L (5-15) Blood Urea Nitrogen 54 mg/dL (7-18) H Creatinine 8.3 MG/DL (0.55-1.30) H Estimat Glomerular Filtration Rate 7.9 mL/min (>60) Glucose Level 73 MG/DL (74-106) L Calcium Level 8.2 MG/DL (8.5-10.1) L Phosphorus Level 5.9 MG/DL (2.5-4.9) H Total Bilirubin 1.0 MG/DL (0.2-1.0) Aspartate Amino Transf (AST/SGOT) 349 U/L (15-37) H Alanine Aminotransferase (ALT/SGPT) 453 U/L (12-78) H Alkaline Phosphatase 125 U/L (46-116) H Total Protein 7.1 G/DL (6.4-8.2) Albumin 3.3 G/DL (3.4-5.0) L Globulin 3.8 g/dL Albumin/Globulin Ratio 0.9 (1.0-2.7) L Thyroid Stimulating Hormone (TSH) 1.651 uiU/mL (0.358-3.740) Microbiology Date/Time Source Procedure Growth Status 10/07/20 13:45 Rectum VRE Culture - Final NO VANCOMYCIN RESISTANT ENTEROCOCCUS ... Complete 10/07/20 13:36 Nasal Nares MRSA Culture - Final NO METHICILLIN RESISTANT STAPH AUREUS... Complete 10/07/20 09:18 Nasopharynx SARS-CoV-2 RdRp Gene Assay - Final Complete 10/07/20 05:00 Urine,Clean Catch Urine Culture - Preliminary NO GROWTH Resulted Objective NECK: No JVD. LUNGS: Coarse rhonchi. CARDIOVASCULAR: Mimi S1 and S2 with no gallop or murmur. ABDOMEN: Soft. EXTREMITIES: No pitting edema. Yuval Guerra MD Oct 09, 2020 15:09
--- NOTE | 2020-10-09 15:24 | NUR ---
CASE MANAGEMENT:REVIEW 10/09/20 SI: AFIB W/RVR. RBBB. LT ANTERIOR FASCICULAR BLOCK ELEVATED TROPONIN. CHF EF 50%. ESRD 97.9 55 16 106/69 100% ON RA IS: CARDIZEM PO Q8 AMIODARONE PO QD PROTONIX PO QD LOPRESSOR PO Q12 ELIQUIS PO BID RENVELA PO TID PHOSLO PO TID : TELEMETRY STATUS DCP: FROM HOME PLAN: CARDIZEM GTT DC'D AND TRANSFERRED TO TELEMETRY
--- NOTE | 2020-10-09 17:27 | NUR ---
NURSE NOTES: PATIENT IS NONCOMPLIANT WITH THE PHOSLO AND RENVELA REGIMEN. HE HAS BEEN REFUSING. EXPLAINED THE INDICATION AND REMAINED REFUSED. WILL CONT TO MONITOR.
--- NOTE | 2020-10-09 19:07 | NUR ---
NURSE HAND-OFF REPORT: Important Events on Shift:[HD FOR TORRES; KEPT CLEAN AND COMFORTABLE] Patient Status: [STABLE ] Diet: [RENAL] Pending Orders: [HD] Pending Results/Labs:[] Pending MD notification:[] Latest Vital Signs: Temperature 97.7 , Pulse 52 , B/P 93 /71 , Respiratory Rate 18 , O2 SAT 100 , Room Air, O2 Flow Rate . Vital Sign Comment: [] EKG Rhythm: Atrial Fibrillation Rhythm change?: N MD Notified?: N - MD Response: Latest Montgomery Fall Score: 45 Fall Risk: High Risk Safety Measures: Call light Within Reach, Bed Alarm Zone 1, Side Rails Side Rails x2, Bed position Low and Locked. Fall Precautions: Yellow Socks Door Sign Patient Fall Education Report given to [CHUCHO].
--- NOTE | 2020-10-09 19:10 | NUR ---
NURSE NOTES: Got report from Karoline FRITZ. Pt in bed A+Ox4. able to verbalize needs. No signs or symptoms of acute cardiac or respiratory distress noted. Pt satting 97% on RA. Bed alarm on, side rails upx2 and safety brakes engaged. Pt instructed to call for assistance when ambulating. Call light within easy reach, urinal at bed side and within easy reach. Pt has LUCINDA shunt for HD-bruit and thrill present. Skin is intact and dry. WENDY 20G IV and RAC 22g access intact and patent. Safety measures continued. Continue to monitor.
--- NOTE | 2020-10-09 23:15 | General Progress Note ---
Subjective Constitutional: Denies: no symptoms, chills, diaphoresis, fever, malaise, weakness, other HEENT: Denies: no symptoms, eye pain, blurred vision, tearing, double vision, ear pain, ear discharge, nose pain, nose congestion, throat pain, throat swelling, mouth pain, mouth swelling, other Respiratory: Denies: no symptoms, cough, orthopnea, shortness of breath, SOB with excertion, SOB at rest, sputum, stridor, wheezing, other Gastrointestinal/Abdominal: Denies: no symptoms, abdomen distended, abdominal pain, black stools, tarry stools, blood in stool, constipated, diarrhea, difficulty swallowing, nausea, poor appetite, poor fluid intake, rectal bleeding, vomiting, other Genitourinary: Denies: no symptoms, burning, discharge, frequency, flank pain, hematuria, incontinence, pain, urgency, other Endocrine: Denies: no symptoms, excessive sweating, flushing, intolerance to cold, intolerance to heat, increased hunger, increased thirst, increased urine, unexplained weight gain, unexplained weight loss, other Hematologic/Lymphatic: Denies: no symptoms, anemia, easy bleeding, easy bruising, other Allergies: Coded Allergies: BENZOIN (Unverified Allergy, Severe, 12/28/14) AMOXICILLIN (Verified Allergy, Intermediate, 11/18/12) ABD PAIN N/V POVIDONE-IODINE (Verified Allergy, Unknown, 03/28/20) Skin peeling Subjective 10/09 covering, refusing meds, seen by cards, renal, recs noted, now mimi, meds reviewed Objective Last 24 Hour Vital Signs Date Time Temp Pulse Resp B/P (MAP) Pulse Ox O2 Delivery O2 Flow Rate FiO2 10/09/20 21:44 49 147/81 10/09/20 21:44 49 147/81 10/09/20 16:00 52 10/09/20 15:51 97.7 86 18 93/71 (78) 100 10/09/20 12:00 54 10/09/20 11:23 55 106/69 10/09/20 11:23 97.9 55 16 106/69 (81) 100 10/09/20 09:00 Room Air Room Air 10/09/20 08:20 61 118/70 10/09/20 08:00 61 10/09/20 08:00 97.5 61 18 118/70 (86) 94 10/09/20 05:23 70 119/80 10/09/20 05:19 70 18 119/80 (93) 98 10/09/20 04:00 97.9 69 18 103/72 (82) 98 10/09/20 03:57 69 10/09/20 00:00 97.2 76 18 109/63 (78) 99 10/08/20 23:53 75 Intake and Output 10/08/20 10/09/20 19:00 07:00 Intake Total 359.67 ml Output Total 0 ml 75 ml Balance 359.67 ml -75 ml Intake Oral 260 ml IV Total 99.67 ml Output Urine Total 0 ml 75 ml # Bowel Movements 2 Laboratory Tests 10/09/20 07:12: White Blood Count 9.6, Red Blood Count 3.03L, Hemoglobin 9.7L, Hematocrit 29.6L, Mean Corpuscular Volume 98, Mean Corpuscular Hemoglobin 32.0H, Mean Corpuscular Hemoglobin Concent 32.8, Red Cell Distribution Width 19.2H, Platelet Count 152, Mean Platelet Volume 8.7, Neutrophils (%) (Auto) , Lymphocytes (%) (Auto) , Monocytes (%) (Auto) , Eosinophils (%) (Auto) , Basophils (%) (Auto) , Differential Total Cells Counted 100, Neutrophils % (Manual) 56, Lymphocytes % (Manual) 26, Monocytes % (Manual) 18H, Eosinophils % (Manual) 0, Basophils % (Manual) 0, Band Neutrophils 0, Nucleated Red Blood Cells 2, Platelet Estimate Adequate, Platelet Morphology Normal, Polychromasia 1+, Hypochromasia 1+, Ani socytosis 2+, Macrocytosis 1+, Sodium Level 138, Potassium Level 4.7, Chloride Level 98, Carbon Dioxide Level 26, Anion Gap 14, Blood Urea Nitrogen 54H, Creatinine 8.3H, Estimat Glomerular Filtration Rate 7.9, Glucose Level 73L, Calcium Level 8.2L, Phosphorus Level 5.9H, Total Bilirubin 1.0, Aspartate Amino Transf (AST/SGOT) 349H, Alanine Aminotransferase (ALT/SGPT) 453H, Alkaline Phosphatase 125H, Total Protein 7.1, Albumin 3.3L, Globulin 3.8, Albumin/Globulin Ratio 0.9L, Thyroid Stimulating Hormone (TSH) 1.651 Height (Feet): 5 Height (Inches): 4.00 Weight (Pounds): 190 Objective General Appearance: alert EENT: PERRL/EOMI Neck: supple Cardiovascular: tachycardia, irregularly irregular Respiratory/Chest: rhonchi - bilaterally Abdomen: non tender, soft Extremities: non-tender Edema: trace edema Assessment/Plan Assessment/Plan: Assessment/Plan Assessment/Plan: 1 afib with rvr on cardizam drip --> now off cardio dr mejia on case 2 chf fluid restriction hd cardio and nephro on case 3 htn stable medical tx 4 cm 5 s/p icd 6 esrd on hd 7 dm 2 8 poor compleience con current tx Jackelin Brasher NP Oct 09, 2020 23:15
[2020-10-10] VITALS: BP 141/85
[2020-10-10 04:00] VITALS: BP 143/79
[2020-10-10] MEDS: dilTIAZem HCl 60mg tab ORAL SCH ×3 (05:49→22:28)
[2020-10-10] MEDS: NovoLOG Insulin Flexpen SUBQ SCH ×4 (06:07→21:00)
--- NOTE | 2020-10-10 07:10 | NUR ---
NURSE HAND-OFF REPORT: Important Events on Shift:[] Patient Status: [STABLE] Diet: [RENAL] Pending Orders: [] Pending Results/Labs:[] Pending MD notification:[] Latest Vital Signs: Temperature 97.6 , Pulse 54 , B/P 143 /79 , Respiratory Rate 17 , O2 SAT 96 , Room Air, O2 Flow Rate . Vital Sign Comment: [] EKG Rhythm: SB w/BBB Rhythm change?: N MD Notified?: N - MD Response: Latest Montgomery Fall Score: 45 Fall Risk: High Risk Safety Measures: Call light Within Reach, Bed Alarm Zone 1, Side Rails Side Rails x2, Bed position Low and Locked. Fall Precautions: Yellow Socks Door Sign Patient Fall Education Report given to [JORGE RN].
--- NOTE | 2020-10-10 07:57 | NUR ---
NURSE NOTES: Pt awake/alert sitting at edge of bed, breathing easily on room air, denies SOB and denies pain at this time. Vital signs stable with SB @ 46 on monitor. IV access WENDY and RAC flushed with 5 ml NS and locked. AV Shunt LUCINDA with good bruit and thrill. Urinal available at bedside. Bed left in low position, side rails up x 2 and call light left near pt's hand.
[2020-10-10 08:00] VITALS: BP 139/72
[2020-10-10] MEDS: Docusate 100mg cap ORAL SCH ×2 (09:00→21:00)
[2020-10-10] MEDS: Metoprolol Tartrate 50mg tab ORAL SCH (09:00)
[2020-10-10] MEDS: Eliquis 2.5mg tablet ORAL SCH ×2 (09:08→18:07)
[2020-10-10] MEDS: Amiodarone 200mg tab ORAL SCH (09:08)
[2020-10-10 12:00] VITALS: BP 119/62
--- NOTE | 2020-10-10 12:10 | Cardiac Electrophysiology PN ---
Assessment/Plan Assessment/Plan 1. Chest pain and chronic low level troponin elevation. Due to volume overload and atrial fib with RVR. The troponin elevation is due to renal failure. Currently, he does not have any chest pain. EF 50% 2. Recurrent Paroxysmal atrial fibrillation with RVR despite Amiodarone 400 bid last month On Amiodarone to 200 daily, Cardizem 60 tid and decrease Metoprolol to 25 bid On Eliquis 2.5 bid. 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 Hypertension, On hemodialysis 4. Congestive heart failure due to diastolic dysfunction. EF 50% 5. Right bundle-branch block and left anterior fascicular block. 6. ESRD on HD per Dr Erich SHEA RN Subjective Subjective Readmitted with Atrial fib with RVR and transferred to ICU on Cardizem drip at 10 mg/hr. Now off Cardizem drip on tele in sinus mimi in 40s. Says OK with PPM implant but would need insurance Authorization Objective Last 24 Hour Vital Signs Date Time Temp Pulse Resp B/P (MAP) Pulse Ox O2 Delivery O2 Flow Rate FiO2 10/10/20 09:00 46 139/72 10/10/20 09:00 Room Air Room Air 10/10/20 08:00 42 10/10/20 08:00 97.8 46 16 139/72 (94) 97 10/10/20 05:49 54 143/79 10/10/20 04:00 48 10/10/20 04:00 97.6 54 17 143/79 (100) 96 10/10/20 00:00 98.2 51 20 141/85 (103) 97 10/10/20 00:00 47 10/09/20 21:44 49 147/81 10/09/20 21:44 49 147/81 10/09/20 21:00 Room Air Room Air 10/09/20 20:00 97.7 50 17 147/81 (103) 97 10/09/20 16:00 52 10/09/20 15:51 97.7 86 18 93/71 (78) 100 Intake and Output0 10/09/20 10/10/20 19:00 07:00 Intake Total 480 ml Output Total 15 ml 400 ml Balance -15 ml 80 ml Intake Oral 480 ml Output Urine Total 15 ml 400 ml # Voids 1 Laboratory Tests Test 10/10/20 11:16 POC Whole Blood Glucose 89 MG/DL (74-106) Microbiology Date/Time Source Procedure Growth Status 10/07/20 13:45 Rectum - Final NO CARBAPENEM-RESISTANT ENTEROBACTERI... Complete 10/07/20 13:45 Rectum VRE Culture - Final NO VANCOMYCIN RESISTANT ENTEROCOCCUS ... Complete 10/07/20 13:36 Nasal Nares MRSA Culture - Final NO METHICILLIN RESISTANT STAPH AUREUS... Complete Objective NECK: No JVD. LUNGS: Coarse rhonchi. CARDIOVASCULAR: Mimi S1 and S2 with no gallop or murmur. ABDOMEN: Soft. EXTREMITIES: No pitting edema. Yuval Guerra MD Oct 10, 2020 12:10
--- NOTE | 2020-10-10 13:53 | NUR ---
CASE MANAGEMENT:REVIEW 10/10/20 SI: AFIB W/RVR. RBBB. LT ANTERIOR FASCICULAR BLOCK ELEVATED TROPONIN. CHF EF 50%. ESRD HR NOT YET CONTROLLED 97.6 38 18 119/62 96% ON RA IS: CARDIZEM PO Q8 AMIODARONE PO QD PROTONIX PO QD LOPRESSOR PO Q12 ELIQUIS PO BID RENVELA PO TID PHOSLO PO TID : TELEMETRY STATUS DCP: FROM HOME PLAN: OFF CARDIZEM GTT
--- NOTE | 2020-10-10 14:45 | General Progress Note ---
Subjective Allergies: Coded Allergies: BENZOIN (Unverified Allergy, Severe, 12/28/14) AMOXICILLIN (Verified Allergy, Intermediate, 11/18/12) ABD PAIN N/V POVIDONE-IODINE (Verified Allergy, Unknown, 03/28/20) Skin peeling Subjective severe bradycardic cardio aware of off cardizam drip sob on exertion Objective Last 24 Hour Vital Signs Date Time Temp Pulse Resp B/P (MAP) Pulse Ox O2 Delivery O2 Flow Rate FiO2 10/10/20 13:24 38 147/78 10/10/20 12:13 38 147/78 10/10/20 12:00 97.6 38 18 119/62 (81) 96 10/10/20 12:00 38 10/10/20 09:00 46 139/72 10/10/20 09:00 Room Air Room Air 10/10/20 08:00 42 10/10/20 08:00 97.8 46 16 139/72 (94) 97 10/10/20 05:49 54 143/79 10/10/20 04:00 48 10/10/20 04:00 97.6 54 17 143/79 (100) 96 10/10/20 00:00 98.2 51 20 141/85 (103) 97 10/10/20 00:00 47 10/09/20 21:44 49 147/81 10/09/20 21:44 49 147/81 10/09/20 21:00 Room Air Room Air 10/09/20 20:00 97.7 50 17 147/81 (103) 97 10/09/20 16:00 52 10/09/20 15:51 97.7 86 18 93/71 (78) 100 Intake and Output 10/09/20 10/10/20 19:00 07:00 Intake Total 480 ml Output Total 15 ml 400 ml Balance -15 ml 80 ml Intake Oral 480 ml Output Urine Total 15 ml 400 ml # Voids 1 Laboratory Tests 10/10/20 11:16: POC Whole Blood Glucose 89 Height (Feet): 5 Height (Inches): 4.00 Weight (Pounds): 190 General Appearance: no apparent distress EENT: PERRL/EOMI Neck: non-tender, supple Cardiovascular: bradycardia Respiratory/Chest: crackles/rales Abdomen: non tender, soft Extremities: non-tender Assessment/Plan Assessment/Plan: 1 afib with rvr on cardizam drip cardio dr malone on case 2 chf fluid restriction hd cardio and nephro on case 3 htn stable medical tx 4 cm 5 s/p icd 6 esrd on hd 7 dm 2 8 poor compleience 9 bradycardic off betablocker and calcium channel tashi dw cardio and nephro Boogie Russ MD Oct 10, 2020 14:45
[2020-10-10 16:00] VITALS: BP 127/82
--- NOTE | 2020-10-10 17:25 | Nephrology Progress Note ---
Assessment/Plan Problem List: (1) ESRD on dialysis (2) Elevated troponin (3) Atrial fibrillation with RVR (4) Anemia in chronic kidney disease (CKD) (5) CHF exacerbation (6) Hypertensive kidney disease Assessment (1) ESRD (end stage renal disease) on dialysis (2) CHF exacerbation (3) Anemia in chronic kidney disease (CKD) (4) Hypertensive kidney disease (5) h/o Elevated lipase (6) History of atrial fibrillation (7) Elevated Lipase Plan October 10: Patient on dialysis. Main issue is low heart rate. Will defer management to finished cloth examiner. Discussed with RN Don. Continue dialysis as needed. October 09: Discussed with patient. Patient anxious to go home. Of Cardizem drip. Due for dialysis tomorrow. Dialysis ordered. Continue per cardiology. Labs and medication list reviewed. October 08: Discussed with RN. Remains on Cardizem drip for atrial fibrillation with fast ventricular rate. Will start p.o. Cardizem. Awaiting cardiology evaluation. Keep the blood pressure in check. Next hemodialysis October 10 unless he needs it earlier. Per orders. October 07: Discussed with RN Will order dialysis and ultrafiltration Monitor renal parameters and further dialysis as needed Continue per cardiology Per orders Subjective ROS Limited/Unobtainable: No Objective Objective Last 24 Hour Vital Signs Date Time Temp Pulse Resp B/P (MAP) Pulse Ox O2 Delivery O2 Flow Rate FiO2 10/10/20 16:00 97.2 61 18 127/82 (97) 97 10/10/20 16:00 61 10/10/20 13:24 38 147/78 10/10/20 12:13 38 147/78 10/10/20 12:00 97.6 38 18 119/62 (81) 96 10/10/20 12:00 38 10/10/20 09:00 46 139/72 10/10/20 09:00 Room Air Room Air 10/10/20 08:00 42 10/10/20 08:00 97.8 46 16 139/72 (94) 97 10/10/20 05:49 54 143/79 10/10/20 04:00 48 10/10/20 04:00 97.6 54 17 143/79 (100) 96 10/10/20 00:00 98.2 51 20 141/85 (103) 97 10/10/20 00:00 47 10/09/20 21:44 49 147/81 10/09/20 21:44 49 147/81 10/09/20 21:00 Room Air Room Air 10/09/20 20:00 97.7 50 17 147/81 (103) 97 Intake and Output 10/09/20 10/10/20 19:00 07:00 Intake Total 480 ml Output Total 15 ml 400 ml Balance -15 ml 80 ml Intake Oral 480 ml Output Urine Total 15 ml 400 ml # Voids 1 Current Medications Medications (Trade) Dose Ordered Sig/Daniel Route PRN Reason Start Time Stop Time Status Last Admin Dose Admin Amiodarone HCl (Cordarone) 200 mg DAILY ORAL 10/09/20 15:15 01/06/21 20:59 10/10/20 09:08 Apixaban (Eliquis) 2.5 mg BID ORAL 10/07/20 18:00 01/05/21 17:59 10/10/20 09:08 Calcium Acetate (Phoslo) 667 mg TID ORAL 10/07/20 18:00 01/05/21 17:59 10/10/20 13:23 Dextrose (Dextrose 50%) 25 ml Q30M PRN IV Hypoglycemia 10/07/20 17:30 01/05/21 17:29 Dextrose (Dextrose 50%) 50 ml Q30M PRN IV Hypoglycemia 10/07/20 17:30 01/05/21 17:29 Diltiazem HCl (Cardizem Tab) 60 mg Q8HR ORAL 10/09/20 22:00 11/07/20 12:44 10/10/20 13:24 Diphenhydramine HCl (Benadryl) 25 mg Q4H PRN ORAL Itching 10/09/20 01:00 11/08/20 00:59 10/09/20 21:44 Docusate Sodium (Colace) 100 mg EVERY 12 HOURS ORAL 10/08/20 21:00 11/06/20 17:59 Insulin Aspart (NovoLOG) BEFORE MEALS AND HS SUBQ 10/07/20 21:00 01/05/21 20:59 Metoprolol Tartrate (Lopressor) 25 mg Q12HR ORAL 10/10/20 12:13 01/08/21 12:12 Ondansetron HCl (Zofran) 4 mg Q6H PRN IVP Nausea & Vomiting 10/09/20 01:00 11/08/20 00:59 10/09/20 21:44 Pantoprazole (Protonix) 40 mg DAILY ORAL 10/08/20 09:00 11/07/20 08:59 10/10/20 09:08 Sevelamer Carbonate (Renvela) 1,600 mg THREE TIMES A DAY ORAL 10/07/20 18:00 01/05/21 17:59 10/10/20 09:08 Laboratory Tests 10/10/20 11:16: POC Whole Blood Glucose 89 Height (Feet): 5 Height (Inches): 4.00 Weight (Pounds): 190 General Appearance: no apparent distress Respiratory/Chest: decreased breath sounds Abdomen: distended Darwin Jung MD Oct 10, 2020 17:25
[2020-10-10 20:00] VITALS: BP 132/74
--- NOTE | 2020-10-10 20:45 | Progress Note ---
DATE: 10/10/2020 DICTATION CANCELLED SUBJECTIVE: This is a 65 years old male, currently sleeping, having hemodialysis, was noted to have bradycardic heart rate 50s and 30s. The patient is asymptomatic. PHYSICAL EXAMINATION: VITAL SIGNS: Blood pressure 147/38, pulse 38, no fever. CHEST: Bilateral decreased breath sounds. CARDIOVASCULAR: Regular rhythm. ABDOMEN: Soft. Yassine Russ M.D. DR: FRANTZ JOB#: [id number] CC:
--- NOTE | 2020-10-10 22:58 | NUR ---
NURSE NOTES: Pt received from CATRINA Saavedra. Pt is sitting at bedside and denies any pain. Pt is A/Ox4 and ambulatory with walker; pt becomes SOB with exertion. Pt is on cardiac cath technologist SB 46 asymptomatic; aware. Pt has 2LPN NC with pt occasionally taking off; pt sats well on RA. Pt has RAC 22G SL and WENDY 20G SL both patent with skin dry and intact. Pt has WENDY AV shunt with audible thrill. Bed is locked in lowest position with call light within reach. Will continue to monitor.
[2020-10-11] VITALS: BP 119/72
[2020-10-11 04:00] VITALS: BP 139/69
[2020-10-11] MEDS: NovoLOG Insulin Flexpen SUBQ SCH ×2 (06:30→11:30)
[2020-10-11] MEDS: dilTIAZem HCl 60mg tab ORAL SCH (06:33)
--- NOTE | 2020-10-11 06:53 | NUR ---
NURSE HAND-OFF REPORT: Important Events on Shift:Pt continued scheduled medications Patient Status: Stable Diet: Renal Pending Orders: Pending Results/Labs: AM Labs Pending MD notification: Latest Vital Signs: Temperature 98.5 , Pulse 87 , B/P 139 /69 , Respiratory Rate 18 , O2 SAT 99 , Room Air, O2 Flow Rate . Vital Sign Comment: VSS EKG Rhythm: SR w BBB Rhythm change?: N MD Notified?: N - MD Response: Latest Montgomery Fall Score: 45 Fall Risk: High Risk Safety Measures: Call light Within Reach, Bed Alarm Zone 1, Side Rails Side Rails x2, Bed position Low and Locked. Fall Precautions: Yellow Socks Door Sign Patient Fall Education Report to be given.
--- NOTE | 2020-10-11 07:30 | NUR ---
NURSE NOTES: Received pt from CATRINA Reilly, pt is awake and alert, pt has NC 2LMP, pt in on continues heart monitoring, pt has intact iv access WENDY 20G SL and RAC 22G SL. no complain of pain at this moment, pt is eating breakfast by observation. all needs attended, bed is locked and is in the lowest position, call light within easy reach, will continue to monitor.
[2020-10-11 08:00] VITALS: BP 129/78
[2020-10-11] MEDS: Docusate 100mg cap ORAL SCH (09:00)
[2020-10-11] MEDS: Eliquis 2.5mg tablet ORAL SCH (09:43)
[2020-10-11] MEDS: Amiodarone 200mg tab ORAL SCH (09:43)
[2020-10-11 10:42] LABS: BASOPHILS % (AUTO) 1.5 % (0.0-2.0); EOSINOPHILS % (AUTO) 0.7 % (0.0-3.0); HEMATOCRIT 33.4 % (42.0-52.0); HEMOGLOBIN 10.4 G/DL (14.2-18.0); LYMPHOCYTES % (AUTO) 17.7 % (20.0-45.0); MEAN CORPUSCULAR VOLUME 101 FL (80-99); MONOCYTES % (AUTO) 17.1 % (1.0-10.0); NEUTROPHILS % (AUTO) 63.1 % (45.0-75.0); PLATELET COUNT 136 K/UL (150-450); RED BLOOD COUNT 3.31 M/UL (4.70-6.10); RED CELL DISTRIBUTION WIDTH 19.3 % (11.6-14.8); WHITE BLOOD COUNT 8.4 K/UL (4.8-10.8)
--- NOTE | 2020-10-11 10:58 | General Progress Note ---
Subjective Allergies: Coded Allergies: BENZOIN (Unverified Allergy, Severe, 12/28/14) AMOXICILLIN (Verified Allergy, Intermediate, 11/18/12) ABD PAIN N/V POVIDONE-IODINE (Verified Allergy, Unknown, 03/28/20) Skin peeling Subjective doing better\ wants go home Objective Last 24 Hour Vital Signs Date Time Temp Pulse Resp B/P (MAP) Pulse Ox O2 Delivery O2 Flow Rate FiO2 10/11/20 09:44 69 129/78 10/11/20 08:00 97.5 69 20 129/78 (95) 96 10/11/20 06:33 87 139/69 10/11/20 04:00 98.5 74 18 139/69 (92) 99 10/11/20 04:00 87 10/11/20 00:00 97.6 70 20 119/72 (88) 98 10/10/20 22:28 63 134/82 10/10/20 21:00 43 134/72 10/10/20 21:00 Room Air Room Air 10/10/20 20:00 97.4 63 18 132/74 (93) 98 10/10/20 20:00 63 10/10/20 16:00 97.2 61 18 127/82 (97) 97 10/10/20 16:00 61 10/10/20 13:24 38 147/78 10/10/20 12:13 38 147/78 10/10/20 12:00 97.6 38 18 119/62 (81) 96 10/10/20 12:00 38 Intake and Output 10/10/20 10/11/20 19:00 07:00 Intake Total 320 ml 480 ml Output Total 3250 ml 100 ml Balance -2930 ml 380 ml Intake Oral 320 ml 480 ml Output Urine Total 250 ml 100 ml Hemodialysis UF 3000 ml Laboratory Tests 10/10/20 11:16: POC Whole Blood Glucose 89 10/11/20 10:35: White Blood Count 8.4, Red Blood Count 3.31L, Hemoglobin 10.4L, Hematocrit 33.4L , Mean Corpuscular Volume 101H, Mean Corpuscular Hemoglobin 31.5H, Mean Corpuscular Hemoglobin Concent 31.2L, Red Cell Distribution Width 19.3H, Platele t Count 136L, Mean Platelet Volume 7.4, Neutrophils (%) (Auto) 63.1, Lymphocytes (%) (Auto) 17.7L, Monocytes (%) (Auto) 17.1H, Eosinophils (%) (Auto) 0.7, Basophils (%) (Auto) 1.5, Sodium Level [Pending], Potassium Level [Pending], Chloride Level [Pending], Carbon Dioxide Level [Pending], Blood Urea Nitrogen [Pending], Creatinine [Pending], Estimat Glomerular Filtration Rate [Pending], Glucose Level [Pending], Calcium Level [Pending], Phosphorus Level [Pending], Total Bilirubin [Pending], Aspartate Amino Transf (AST/SGOT) [Pending], Alanine Aminotransferase (ALT/SGPT) [Pending], Alkaline Phosphatase [Pending], Total Protein [Pending], Albumin [Pending], Globulin [Pending] Height (Feet): 5 Height (Inches): 4.00 Weight (Pounds): 190 General Appearance: alert EENT: PERRL/EOMI Neck: supple Cardiovascular: regular rhythm Respiratory/Chest: normal breath sounds Abdomen: non tender, soft Genitourinary/Rectal: normal rectal exam Extremities: non-tender Assessment/Plan Status: stable Assessment/Plan: [address] malone on case 2 chf fluid restriction hd cardio and nephro on case 3 htn stable medical tx 4 cm 5 s/p icd 6 esrd on hd 7 dm 2 8 poor compleience 9 bradycardia resolved dc home with cardiac clearence fu pcp 1 week renal diet Boogie Russ MD Oct 11, 2020 10:58
[2020-10-11 11:42] LABS: CALCIUM 8.1 MG/DL (8.5-10.1); POTASSIUM 4.3 MMOL/L (3.5-5.1)
--- NOTE | 2020-10-11 11:44 | Nephrology Progress Note ---
Assessment/Plan Problem List: (1) ESRD on dialysis (2) Elevated troponin (3) Atrial fibrillation with RVR (4) Anemia in chronic kidney disease (CKD) (5) CHF exacerbation (6) Hypertensive kidney disease Assessment (1) ESRD (end stage renal disease) on dialysis (2) CHF exacerbation (3) Anemia in chronic kidney disease (CKD) (4) Hypertensive kidney disease (5) h/o Elevated lipase (6) History of atrial fibrillation (7) Elevated Lipase Plan October 11: Dialyzed yesterday. Heart rate variable. Patient requires pacemaker. Discussed with java lead engineer. Next hemodialysis tomorrow. October 10: Patient on dialysis. Main issue is low heart rate. Will defer management to java lead engineer. Discussed with RN Don. Continue dialysis as needed. October 09: Discussed with patient. Patient anxious to go home. Of Cardizem drip. Due for dialysis tomorrow. Dialysis ordered. Continue per cardiology. Labs and medication list reviewed. October 08: Discussed with RN. Remains on Cardizem drip for atrial fibrillation with fast ventricular rate. Will start p.o. Cardizem. Awaiting cardiology evaluation. Keep the blood pressure in check. Next hemodialysis October 10 unless he needs it earlier. Per orders. October 07: Discussed with RN Will order dialysis and ultrafiltration Monitor renal parameters and further dialysis as needed Continue per cardiology Per orders Subjective ROS Limited/Unobtainable: No Constitutional: Reports: malaise Objective Objective Last 24 Hour Vital Signs Date Time Temp Pulse Resp B/P (MAP) Pulse Ox O2 Delivery O2 Flow Rate FiO2 10/11/20 09:44 69 129/78 10/11/20 09:00 Room Air Room Air 10/11/20 08:47 67 10/11/20 08:00 97.5 69 20 129/78 (95) 96 10/11/20 06:33 87 139/69 10/11/20 04:00 98.5 74 18 139/69 (92) 99 10/11/20 04:00 87 10/11/20 00:00 97.6 70 20 119/72 (88) 98 10/10/20 22:28 63 134/82 10/10/20 21:00 43 134/72 10/10/20 21:00 Room Air Room Air 10/10/20 20:00 97.4 63 18 132/74 (93) 98 10/10/20 20:00 63 12/14/20 16:00 97.2 61 18 127/82 (97) 97 10/10/20 16:00 61 10/10/20 13:24 38 147/78 10/10/20 12:13 38 147/78 10/10/20 12:00 97.6 38 18 119/62 (81) 96 10/10/20 12:00 38 Intake and Output 10/10/20 10/11/20 19:00 07:00 Intake Total 320 ml 480 ml Output Total 3250 ml 100 ml Balance -2930 ml 380 ml Intake Oral 320 ml 480 ml Output Urine Total 250 ml 100 ml Hemodialysis UF 3000 ml Laboratory Tests 10/11/20 10:35: White Blood Count 8.4, Red Blood Count 3.31L, Hemoglobin 10.4L, Hematocrit 33.4L , Mean Corpuscular Volume 101H, Mean Corpuscular Hemoglobin 31.5H, Mean Corpuscular Hemoglobin Concent 31.2L, Red Cell Distribution Width 19.3H, Platelet Count 136L, Mean Platelet Volume 7.4, Neutrophils (%) (Auto) 63.1, Lymphocytes (%) (Auto) 17.7L, Monocytes (%) (Auto) 17.1H, Eosinophils (%) (Auto) 0.7, Basophils (%) (Auto) 1.5, Sodium Level [Pending], Potassium Level [Pe nding], Chloride Level [Pending], Carbon Dioxide Level [Pending], Blood Urea Nitrogen [Pending], Creatinine [Pending], Estimat Glomerular Filtration Rate [Pending], Glucose Level [Pending], Calcium Level [Pending], Phosphorus Level [Pending], Total Bilirubin [Pending], Aspartate Amino Transf (AST/SGOT) [Pending], Alanine Aminotransferase (ALT/SGPT) [Pending], Alkaline Phosphatase [ Pending], Total Protein [Pending], Albumin [Pending], Globulin [Pending] Height (Feet): 5 Height (Inches): 4.00 Weight (Pounds): 190 General Appearance: no apparent distress Cardiovascular: arrhythmia Respiratory/Chest: decreased breath sounds Abdomen: distended Darwin Jung MD Oct 11, 2020 11:44
[2020-10-11 11:48] LABS: ALBUMIN/GLOBULIN RATIO 0.8 (1.0-2.7); BILIRUBIN,TOTAL 0.9 MG/DL (0.2-1.0); PHOSPHORUS 4.9 MG/DL (2.5-4.9)
[2020-10-11 13:00] VITALS: BP 128/61
--- NOTE | 2020-10-11 13:03 | NUR ---
NURSE NOTES: pt has discharge order, ALL D/C assessments and instructions done and pt verbally confirmed to understand all. pt is stable, V/S stable, all belongings are with pt and he signed belongings list. iv access D/C, Pt left hospital.
--- NOTE | 2020-10-11 13:44 | Diagnostic Imaging Report ---
Indication: Reason For Exam: DVT Technique: Grayscale and duplex images of bilateral upper extremity veins Comparison: none Findings: Exam is somewhat limited, as patient has IVs and dressings in the right antecubital fossa obscuring the mid brachial vein. Dressing over the dialysis site in the left arm obscures the brachial and basilic veins. In the visualized segments, grayscale and duplex images demonstrate no evidence of intraluminal thrombus. Normal compressibility and normal phasic waveforms. Impression: No evidence of venous thrombosis in the upper extremities bilaterally. Note, however, nonvisualization of portions of the right brachial vein, left basilic and brachial veins; thrombosis in these segments cannot be excluded
--- NOTE | 2020-10-11 14:45 | Diagnostic Imaging Report ---
Indication: Cough Technique: One view of the chest Comparison: 10/07/2020 Findings: The heart is enlarged. Right pleural effusion and bilateral interstitial and airspace edema are again demonstrated, probably unchanged allowing for differences in exposure technique. Impression: Unchanged, over 4 days, findings as above.
--- NOTE | 2020-10-11 19:11 | Cardiac Electrophysiology PN ---
Assessment/Plan Assessment/Plan 1. Chest pain and chronic low level troponin elevation. Due to volume overload and atrial fib with RVR. The troponin elevation is due to renal failure. Currently, he does not have any chest pain. EF 50% 2. Recurrent Paroxysmal atrial fibrillation with RVR despite Amiodarone 400 bid last month On Amiodarone to 200 daily, Cardizem 60 tid and decrease Metoprolol to 25 bid On Eliquis 2.5 bid. 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 Hypertension, On hemodialysis 4. Congestive heart failure due to diastolic dysfunction. EF 50% 5. Right bundle-branch block and left anterior fascicular block. 6. ESRD on HD per Dr Erich SHEA RN Subjective Subjective Readmitted with Atrial fib with RVR and transferred to ICU on Cardiroselinem drip. Now on Tele tele in sinus fransico in 40s. Insurance OKed with PPM implant but patient says doesn't want to wait for it and wants to go home today Objective Last 24 Hour Vital Signs Date Time Temp Pulse Resp B/P (MAP) Pulse Ox O2 Delivery O2 Flow Rate FiO2 10/11/20 13:00 97.9 94 20 128/61 (83) 95 10/11/20 11:45 69 10/11/20 09:44 69 129/78 10/11/20 09:00 Room Air Room Air 10/11/20 08:47 67 10/11/20 08:00 97.5 69 20 129/78 (95) 96 10/11/20 06:33 87 139/69 10/11/20 04:00 98.5 74 18 139/69 (92) 99 10/11/20 04:00 87 10/11/20 00:00 97.6 70 20 119/72 (88) 98 10/10/20 22:28 63 134/82 10/10/20 21:00 43 134/72 10/10/20 21:00 Room Air Room Air 10/10/20 20:00 97.4 63 18 132/74 (93) 98 10/10/20 20:00 63 Intake and Output 10/10/20 10/11/20 19:00 07:00 Intake Total 320 ml 480 ml Output Total 3250 ml 100 ml Balance -2930 ml 380 ml Intake Oral 320 ml 480 ml Output Urine Total 250 ml 100 ml Hemodialysis UF 3000 ml Laboratory Tests Test 10/11/20 10:35 White Blood Count 8.4 K/UL (4.8-10.8) Red Blood Count 3.31 M/UL (4.70-6.10) L Hemoglobin 10.4 G/DL (14.2-18.0) L Hematocrit 33.4 % (42.0-52.0) L Mean Corpuscular Volume 101 FL (80-99) H Mean Corpuscular Hemoglobin 31.5 PG (27.0-31.0) H Mean Corpuscular Hemoglobin Concent 31.2 G/DL (32.0-36.0) L Red Cell Distribution Width 19.3 % (11.6-14.8) H Platelet Count 136 K/UL (150-450) L Mean Platelet Volume 7.4 FL (6.5-10.1) Neutrophils (%) (Auto) 63.1 % (45.0-75.0) Lymphocytes (%) (Auto) 17.7 % (20.0-45.0) L Monocytes (%) (Auto) 17.1 % (1.0-10.0) H Eosinophils (%) (Auto) 0.7 % (0.0-3.0) Basophils (%) (Auto) 1.5 % (0.0-2.0) Sodium Level 139 MMOL/L (136-145) Potassium Level 4.3 MMOL/L (3.5-5.1) Chloride Level 100 MMOL/L (98-107) Carbon Dioxide Level 29 MMOL/L (21-32) Anion Gap 10 mmol/L (5-15) Blood Urea Nitrogen 58 mg/dL (7-18) H Creatinine 8.0 MG/DL (0.55-1.30) H Estimat Glomerular Filtration Rate 8.2 mL/min (>60) Glucose Level 91 MG/DL (74-106) Calcium Level 8.1 MG/DL (8.5-10.1) L Phosphorus Level 4.9 MG/DL (2.5-4.9) Total Bilirubin 0.9 MG/DL (0.2-1.0) Aspartate Amino Transf (AST/SGOT) 354 U/L (15-37) H Alanine Aminotransferase (ALT/SGPT) 538 U/L (12-78) H Alkaline Phosphatase 154 U/L (46-116) H Total Protein 6.6 G/DL (6.4-8.2) Albumin 3.0 G/DL (3.4-5.0) L Globulin 3.6 g/dL Albumin/Globulin Ratio 0.8 (1.0-2.7) L Objective NECK: No JVD. LUNGS: Coarse rhonchi. CARDIOVASCULAR: Fransico S1 and S2 with no gallop or murmur. ABDOMEN: Soft. EXTREMITIES: No pitting edema. Yuval Guerra MD Oct 11, 2020 19:11
--- NOTE | 2020-10-13 08:53 | Discharge Summary ---
Discharge Summary Discharge Summary _ DATE OF ADMISSION: 10/07/2020 10/11/2020 DATE OF DISCHARGE: 10/11/2020 DISCHARGED BY: Dr Russ REASON FOR ADMISSION: 65 years old male with past medical history of congestive heart failure, hypertension, COPD/asthma, end-stage renal disease, on hemodialysis, history of CVA, presented due to generalized weakness. On arrival to emergency department patient was found to be in atrial fibrillation with rapid ventricular response Initial heart rate was in 160s. Patient received Cardizem bolus and subsequently started on Cardizem drip. He also had repeated bolus after initial one, since the heart rate was still in 140s. After the second bolus heart rate improved. Chest x-ray showed evidence of pulmonary edema. Patient reported some chest discomfort . Review of prior medical records showed that patient had chronically elevated troponin, likely secondary to end-stage renal disease. Patient subsequently admitted for further management. CONSULTANTS: [employer] architect Dr. Vickers midwife Dr. Jung HOSPITAL COURSE: Patient admitted to ICU for Cardizem drip. Patient also started on anticoagulation . GI prophylaxis provided. Hemodialysis was arranged as per midwife recommendation with close monitori ng of volumes, renal parameters and electrolytes. Echocardiogram demonstrated ejection fraction of 50%. Mild to moderate aortic regurgitation and severe mitral regurgitation , severe tricuspid regurgitation. Right ventricular systolic pressure of 52 consistent with moderate pulmonary hypertension. CHF was due to diastolic dysfunction. Patient continuously demonstrated low chronically elevated troponin, likely due to renal failure . Chest pain was likely secondary to volume overload and atrial fibrillation with rapid ventricular response. Pain management was addressed as needed. Patient received dialysis and clinically improved. No complaints of chest pain. Patient had recurrent paroxysmal atrial fibrillation with rapid ventricular response , despite amiodarone . Currently heart rate was managed with amiodarone , Cardizem and beta-tashi. Anticoagulation with Eliquis provided. Dosing regimen of amiodarone , Cardizem, and metoprolol optimized as per cardio [employer] architect. [employer] Sales Representative advised to have a permanent pacemaker implant for tachy-bradycardia syndrome since patient had similar issues during the last few admissions. Insurance apparently authorized permanent pacemaker implantation , but patient decided to go home. Pacemaker implantation will be anticipated to be challenging , giving the left arm AV fistula and right chest Perma-cath history. Bilateral upper extremity venous Duplex revealed no evidence of of DVT or blockage. Hemoglobin and hematocrit were closely monitored with goal to keep hemoglobin above 7 ; prior to discharge hemoglobin 10.4 , hematocrit 33.4. Blood sugar was managed with sliding scale of insulin. Patient clinically stabilized and was ready for discharge home. FINAL DIAGNOSES: Atrial fibrillation with rapid ventricular response Chest pain with ( likely due to volume overload and atrial fibrillation with RVR) Chronic low-level troponin elevation ( probably due to renal failure) Hypertension Congestive heart failure exacerbation with diastolic dysfunction Right bundle branch block and left anterior fascicular block End-stage renal disease , on hemodialysis Fluid overload Pulmonary hypertension Anemia of chronic kidney disease Hypertensive kidney disease DISCHARGE MEDICATIONS: See Medication Reconciliation list. DISCHARGE INSTRUCTIONS: Patient was discharged home. Follow-up with outpatient hemodialysis as scheduled. I have been assigned to dictate discharge summary for this account. I was not involved in the patient's management. Mary Rodriguez NP Oct 13, 2020 08:53
--- NOTE | 2020-10-13 10:52 | NUR ---
INSURANCE DC SUMMARY/INSTRUCTIONS (10/10-10/11) FAXED TO [facility] DIRECT KAILEY TREVIZO F: [phone]
== END 2020-10-11 13:02 | disposition home or self-care (01) | DRG 201 ==
LOC: EDBEDREQSVC 09:10 → EDBEDREQ 09:10 → EMR 09:19 → ICU 09:54 → EDBEDREQ 13:24 → 2E 10-08 19:27
DX: I48.0 Paroxysmal atrial fibrillation (principal); N18.6 End stage renal disease; I50.33 Acute on chronic diastolic (congestive) heart failure; I13.2 Hypertensive heart and chronic kidney disease with heart failure and with stage 5 chronic kidney disease, or end stage renal disease; J91.8 Pleural effusion in other conditions classified elsewhere; K81.9 Cholecystitis, unspecified; I42.9 Cardiomyopathy, unspecified; Z95.810 Presence of automatic (implantable) cardiac defibrillator; I48.20 Chronic atrial fibrillation, unspecified; I45.2 Bifascicular block; D63.1 Anemia in chronic kidney disease; I45.10 Unspecified right bundle-branch block; I44.4 Left anterior fascicular block; Z88.1 Allergy status to other antibiotic agents; Z88.8 Allergy status to other drugs, medicaments and biological substances
CPT/HCPCS: 36415; 71045; 76700; 80053; 80061; 80307; 81003; 82248; 82962; 83690; 83735; 83880; 84100; 84443; 84484; 84550; 85007; 85025; 86140; 87081; 87086; 87181; 93005; 93306; 93970; 96361; 96365; 96367; 96375; 96376; 99285; J1815; J2405; U0002